=== PATIENT | female | born 1940 | race Caucasian/White ===

== ENCOUNTER 2024-06-13 15:09 | Outpatient (AMB) | payer MEDICARE, SELFPAY ==
--- NOTE | 2024-06-13 15:11 | HO.NEPHOV_ITS ---
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 She was initially on MMF and e[place] which was later discontinued. She was mild CKD and we have been following over the last 5 years. History of breast she refer benign lump in December 2018 She was diagnosed with breast CA for advised total mastectomy. History of leg edema left more than the right. History of atrial fibrillation on Coumadin [facility] Medical History (Updated 06/13/24 @ 15:15 by Vega Castellon MD) Raynaud's disease Proteinuria Malignant tumor of breast Lupus erythematosus Hypothyroidism Cardiac murmur Surgical History History of hysterectomy Family History Mother Dementia Father Diabetes Heart disease Social History Alcohol intake: never Patient Tobacco Use Status: Never used Tobacco Physical Exam Vital Signs: Last Vital Signs Pulse 84 06/13/24 15:12 BP 110/60 06/13/24 15:12 Pulse Ox 96 06/13/24 15:12 Oxygen Delivery Method Room Air 06/13/24 15:12 BMI result Body Mass Index 17.2 Const General: comfortable; No acute distress Orientation/consciousness: patient oriented x3 Eyes General: appearance normal, both eyes and all related structures Visual Thrasher: normal visual thrasher by confrontation Neck Neck: Yes supple and Yes no JVD Resp Effort & Inspection: normal respiratory effort and respiratory effort not decreased Auscultation: rhonchi Cardio Palpation: no palpable S3 and no palpable S4 Heart sounds: no rubs GI Inspection: Yes normal to inspection Palpation (GI): Soft to palpation Percussion: Yes normal to percussion Auscultation: normal bowel sounds General: Yes no CVA tenderness Back/Spine/Pelvis Back: no CVA tenderness Skin General skin exam: no petechiae and no purpura Neuro General: patient oriented x3 and no focal motor deficits Extrem General: No clubbing and No edema Results Reviewed Results Reviewed: All results reviewed Nephrology Results: No Data to Display Assessment & Plan Assessment & Plan (1) CKD (chronic kidney disease): Code(s): N18.9 - Chronic kidney disease, unspecified Category: Medical (2) Proteinuria: Code(s): R80.9 - Proteinuria, unspecified Category: Medical Plan Mild CKD. Renal function has been stable. Monitor proteinuria and serum creatinine. Continue overt nephrotoxic agents Maintain blood pressure less than 130/80. Encouraged her to stay on low-sodium diet. No changes were made today. Orders: Orders Basic Metabolic Panel 6 Months R80.9 - Proteinuria, unspecified, N18.9 - Chronic kidney disease, unspecified UA and rflx microscopic 6 Months R80.9 - Proteinuria, unspecified, N18.9 - Chronic kidney disease, unspecified Total Protein Urine Random 6 Months R80.9 - Proteinuria, unspecified, N18.9 - Chronic kidney disease, unspecified Creatinine Urine 6 Months R80.9 - Proteinuria, unspecified, N18.9 - Chronic kidney disease, unspecified Coding Level of Care Code Est Pt Level 3 (86140) Diagnoses CKD (chronic kidney disease) N18.9 Proteinuria R80.9
[2024-06-13 15:12] VITALS: BP 110/60; PULSE 84; O2SAT 96; BMI 17.2
== END 2024-06-13 15:24 | disposition home or self-care (01) ==
PROVIDERS: Visit Provider Internal Medicine Hypertension Specialist
DX: N18.2 Chronic kidney disease, stage 2 (mild) (principal); R80.9 Proteinuria, unspecified
CPT/HCPCS: 99213

== ENCOUNTER → 2024-06-13 15:09 | Outpatient (BNVA) | payer MEDICARE, SELFPAY | PROVIDERS: Visit Provider Internal Medicine Hypertension Specialist | DX: N18.9 Chronic kidney disease, unspecified (principal); R80.9 Proteinuria, unspecified | CPT/HCPCS: 99212 ==

== ENCOUNTER 2024-12-12 13:14 | Outpatient (AMB) | payer OTHER, SELFPAY ==
--- NOTE | 2024-12-12 13:01 | HO.NEPHOV_ITS ---
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: No Accompanied by: Caregiver Allergies colchicine Allergy (Unknown, Verified 12/12/24 13:05) Unknown Medication List - Last Reconciled 12/12/24 by Vega Castellon MD cholecalciferol (vitamin D3) 25 mcg PO DAILY colchicine mg PO DAILY furosemide 20 mg PO DAILY levothyroxine 25 mcg PO DAILY metoprolol tartrate 25 mg PO DAILY multivitamin 1 tab PO DAILY pantoprazole 40 mg PO DAILY rivaroxaban (Xarelto) 15 mg PO DAILY vitamin E mixed units PO DAILY FOR[facility], [facility] Medical History (Updated 06/13/24 @ 15:15 by Vega Castellon MD) Raynaud's disease Proteinuria Malignant tumor of breast Lupus erythematosus Hypothyroidism Cardiac murmur Surgical History History of hysterectomy Family History Mother Dementia Father Diabetes Heart disease Social History Alcohol intake: never Patient Tobacco Use Status: Never used Tobacco Physical Exam Vital Signs: Last Vital Signs Pulse 70 12/12/24 13:04 BP 122/72 12/12/24 13:04 Pulse Ox 96 12/12/24 13:04 Oxygen Delivery Method Room Air 12/12/24 13:04 BMI result Body Mass Index 17.7 Results Reviewed Nephrology Results: No Data to Display Assessment & Plan Assessment & Plan Orders: Orders Basic Metabolic Panel 6 Months N18.9 - Chronic kidney disease, unspecified Total Protein Urine Random 6 Months N18.9 - Chronic kidney disease, unspecified UA and rflx microscopic 6 Months N18.9 - Chronic kidney disease, unspecified Creatinine Urine 6 Months N18.9 - Chronic kidney disease, unspecified Coding
[2024-12-12 13:04] VITALS: BP 122/72; PULSE 70; O2SAT 96; BMI 17.7
--- NOTE | 2024-12-12 13:10 | HO.NEPHOV_ITS ---
Vital Signs 12/12/24 13:04 Height 5 ft 3 in Weight 100 lb BMI 17.7 BP 122/72 Blood Pressure Location Lt brachial Position Sitting Pulse 70 Pulse Source Pulse Oximeter Pulse Oximetry (%) 96 Oxygen Delivery Method Room Air Intake Visit Reasons: 6 mon follow up/ Conf Allergies colchicine Allergy (Unknown, Verified 12/12/24 13:05) Unknown Medication List - Last Reconciled 12/12/24 by Vega Castellon MD cholecalciferol (vitamin D3) 25 mcg PO DAILY colchicine mg PO DAILY furosemide 20 mg PO DAILY levothyroxine 25 mcg PO DAILY metoprolol tartrate 25 mg PO DAILY multivitamin 1 tab PO DAILY pantoprazole 40 mg PO DAILY rivaroxaban (Xarelto) 15 mg PO DAILY vitamin E mixed units PO DAILY HPI Comments Details: Pleasant 83-year-old man with a history of suspected SLE. She was initially on MMF and [place] which was later discontinued. She was mild CKD and we have been following over the last 6+ years. History of breast she refer benign lump in December 2018 She was diagnosed with breast CA for advised total mastectomy. History of leg edema left more than the right. History of atrial fibrillation on Coumadin [facility] Medical History (Updated 06/13/24 @ 15:15 by Vega Castellon MD) Raynaud's disease Proteinuria Malignant tumor of breast Lupus erythematosus Hypothyroidism Cardiac murmur Surgical History History of hysterectomy Family History Mother Dementia Father Diabetes Heart disease Social History Alcohol intake: never Patient Tobacco Use Status: Never used Tobacco Physical Exam Vital Signs: Last Vital Signs Pulse 70 12/12/24 13:04 BP 122/72 12/12/24 13:04 Pulse Ox 96 12/12/24 13:04 Oxygen Delivery Method Room Air 12/12/24 13:04 BMI result Body Mass Index 17.7 Const General: comfortable; No acute distress Orientation/consciousness: patient oriented x3 Eyes General: appearance normal, both eyes and all related structures Visual Thrasher: normal visual thrasher by confrontation Neck Neck: Yes supple and Yes no JVD Resp Effort & Inspection: normal respiratory effort and respiratory effort not decreased Cardio Palpation: no palpable S3 and no palpable S4 Heart sounds: no rubs GI Inspection: Yes normal to inspection Palpation (GI): Soft to palpation Percussion: Yes normal to percussion Auscultation: normal bowel sounds General: Yes no CVA tenderness Back/Spine/Pelvis Back: no CVA tenderness Skin General skin exam: no petechiae and no purpura Neuro General: patient oriented x3 and no focal motor deficits Extrem General: No clubbing and No edema Results Reviewed Results Reviewed: Labs pending Nephrology Results: No Data to Display Assessment & Plan Assessment & Plan (1) CKD (chronic kidney disease): Code(s): N18.9 - Chronic kidney disease, unspecified Category: Medical (2) Proteinuria: Code(s): R80.9 - Proteinuria, unspecified Category: Medical Plan Mild CKD. Renal function has been stable. Continue to monitor proteinuria and serum creatinine. Continue to avoid nephrotoxic agents including NSAIDS Maintain blood pressure less than 130/80. Encouraged her to stay on low-sodium diet. No changes were made today. Orders: Orders Basic Metabolic Panel 6 Months N18.9 - Chronic kidney disease, unspecified Total Protein Urine Random 6 Months N18.9 - Chronic kidney disease, unspecified UA and rflx microscopic 6 Months N18.9 - Chronic kidney disease, unspecified Creatinine Urine 6 Months N18.9 - Chronic kidney disease, unspecified Coding Level of Care Code Est Pt Level 4 (42836) Diagnoses CKD (chronic kidney disease) N18.9 Proteinuria R80.9
--- OUTSIDE RECORDS SUMMARY | 2024-12-12 15:56 | XMS_ITS | Clinical Summary ---
Author Organization [facility] Address [address] [place] [address] Phone Care Team Providers Care Fitness Club Manager Name Role Phone Unavailable Primary Care Provider Unavailabl e Allergies No known active allergies Medications Medication Sig Dispensed Refills Start Date End Date Status cholecalciferol (VITAMIN D-3) 25 MCG (1000 UT) tablet Take 50 mcg by mouth Active furosemide (LASIX) 20 MG tablet Take 20 mg by mouth Active levothyroxine (SYNTHROID) 25 MCG tablet Take 25 mcg by mouth Active metoprolol tartrate (LOPRESSOR) 25 MG tablet TAKE 0.5 TABLETS (12.5 MG TOTAL) BY MOUTH 2 TIMES A DAY. 07/23/2020 Active Multiple Vitamin (Multi-Vitamin) tablet Take 1 tablet by mouth 1 (one) time each day Active pantoprazole (PROTONIX) 40 MG EC tablet Take 40 mg by mouth Active rivaroxaban (XARELTO) 15 MG tablet Take 15 mg by mouth 08/01/2024 Active Vitamin E 200 units tablet Take 400 mg by mouth Active Active Problems Problem Noted Date Diagnosed Date Anemia of renal disease 01/26/2024 Secondary hyperparathyroidism 01/26/2024 Essential hypertension 10/20/2018 Social History Tobacco Use Types Packs/Day Years Used Date Smoking Tobacco: Never Assessed Sex and Gender Information Value Date Recorded Sex Assigned at Not on file Gender Identity Not on file Sexual Orientation Not on file Plan of Treatment Upcoming Encounters Date Type Department Care Team (Late st Contact Info) Description 01/02/2025 9:00 AM EDT Office Visit [facility] Nephrology [address] [place] [address] Adrian Gonzalez, DO [address] [place] [address] Health Maintenance Due Date Last Done Comments Pneumococcal PPSV23/PCV13 65 + Years / Low and Medium Risk (1 of 4 - PCV) 2005 Influenza Vaccine (#1) 2024
--- OUTSIDE RECORDS SUMMARY | 2024-12-12 15:56 | XMS_ITS | Clinical Summary ---
Author Organization [facility] Address [address] [place] [address] Care Team Providers Care Warehouse And Receiving Supervisor Name Role Phone Arnulfo Stephan Primary Care Provider [phone] Allergies No known active allergies Medications Medication Sig Dispensed Refills Start Date End Date Status levothyroxine (SYNTHROID, LEVOTHROID) 25 MCG tablet Take 25 mcg by mouth daily on an empty stomach. Active hydroxychloroquine (PLAQUENIL) 200 MG tablet Take 400 mg by mouth every evening after dinner. With food or milk. Active mycophenolate (CELLCEPT) 500 MG tablet Take 500 mg by mouth every evening. Active Calcium-Magnesium- Vitamin D (CALCIUM 1200+D3 PO) Take 1 tablet by mouth daily. Active acetaminophen (TYLENOL) 325 MG tablet Take 650 mg by mouth 4 times daily (every 6 hours) as needed for mild pain. Active PANTOprazole (PROTONIX) 40 MG EC tablet Take 40 mg by mouth daily. 01/04/2020 Active predniSONE (DELTASONE) 10 MG tablet 6 TABS DAILY X 3 DAYS 4 TABS DAILY X 3 DAYS 2 TABS DAILY X 3 DAYS 1 TAB DAILY X 3 DAYS 01/10/2020 Active warfarin (COUMADIN) 7.5 MG tablet Take 7.5 mg by mouth 6 (six) times a week. Mon, Tues, Wed, Thurs, Fri, Sat Take in morning 12/10/2019 Active metoPROLOL TARTRATE (LOPRESSOR) 25 MG tabletIndications: Supratherapeutic INR Take 0.5 tablets (12.5 mg total) by mouth 2 (two) times a day. 30 tablet 01/25/2020 Active warfarin (COUMADIN) 7.5 MG tablet Take 3.75 mg by mouth once a week. on Tuesday Active amoxicillin (AMOXIL) 875 MG tablet Take 875 mg by mouth 2 (two) times a day. 02/04/2020 Active metroNIDAZOLE (METROGEL) 1 % gel APPLY TO FACE EVERY DAY AT BEDTIME 07/07/2020 Active furosemide (LASIX) 20 MG tablet Take 20 mg by mouth daily. 05/19/2020 Active cephalexin (KEFLEX) 500 MG capsuleIndications :Fever, unspecified fever cause,Cellulitis of right hand Take 1 capsule (500 mg total) by mouth 3 (three) times a day. 21 capsule 08/13/2020 Active multivitamin (multivitamin) Tab tablet Take 1 tablet by mouth daily. 01/26/2020 Discontinued (Therapy completed) Active Problems Problem Noted Date Diagnosed Date Supratherapeutic INR 01/17/2020 Suspected COVID-19 virus infection 01/17/2020 Atrial fibrillation with RVR 01/17/2020 Anticoagulated on Coumadin 01/17/2020 Acute on chronic anemia 01/17/2020 Lung consolidation 01/17/2020 PUD (peptic ulcer disease) 01/17/2020 Encounters Date Type Department Care Team Description 10/15/2024 Scanned Document [facility] Department of Cardiology [address] [place] [address] Staci Barajas MD from Last 3 Months Family History Medical History Relation Name Comments No Known Problems Father No Known Problems Mother Relation Name Status Comments Father Mother Social History Tobacco Use Types Packs/Day Years Used Date Smoking Tobacco: Never Smokeless Tobacco: Never Alcohol Use Standard Drinks/Week Comments Not Currently 0 (1 standard drink = 0.6 oz pur e alcohol) Sex and Gender Information Value Date Recorded Sex Assigned at Not on file Gender Identity Not on file Sexual Orientation Not on file Last Filed Vital Signs Vital Sign Reading Time Taken Comments Blood Pressure 145/84 08/13/2020 4:52 PM EDT Pulse 82 08/13/2020 4:52 PM EDT Temperature 38.1 ??C (100.6 ??F) 08/13/2020 4:52 PM E DT Respiratory Rate 16 02/07/2020 10:07 AM EDT Oxygen Saturation 98% 08/13/2020 4:52 PM EDT Inhaled Oxygen Concentration - - Weight 47.6 kg (105 lb) 08/13/2020 4:52 PM EDT Height 162.6 cm (5' 4 ) 08/13/2020 4:52 PM EDT Body Mass Index 18.02 08/13/2020 4:52 PM EDT Plan of Treatment Health Maintenance Due Date Last Done Comments DTaP/Tdap/Td Vaccines (1 - Tdap) 1959 Pneumococcal Vaccines 50+ (1 of 2 - PCV) 1959 Zoster (Shingles) Vaccine (1 of 2) 1959 DXA Bone Density (Females,Ages 65 and older) 2005 RSV Vaccine 60 years and older and Patients (1 - 1-dose 75+ series) 2015 COVID-19 Vaccine (3 - Pfizer risk series) 01/13/2021 12/16/2020, 11/25/2020 Influenza Vaccine 05/17/2024 Hepatitis B Vaccines Aged Out No long er eligible based on patient's age to complete this topic Advance Directives * Full Code (Latest Code Status on File) Date Activated Date Inactivated Comments 01/17/2020 2:07 PM Question Answer Comments Decision Thoroughly Discussed with: Patient Care Teams Warehouse And Receiving Supervisor Relationship Specialty Start Date End Date Stephan Arredondo DO [address] [place] [id number] PCP - General Family Medicine 08/05/17
--- OUTSIDE RECORDS SUMMARY | 2024-12-12 15:56 | XMS_ITS | Data Portability ---
Author Organization [place] - [facility] Address [address] [place] [address] Care Team Providers Care Black Top Spreader Machine Operator Name Role Phone KIM BUCK Primary Care Provider Assessment No assessment recorded. Plan of Treatment Reminders Order Date Submit Date Provider Last Modified By Organization Details Last Modified Time Details Appointments None recorded. Lab fecal occult blood, stool 2017 rberke In-Office Order, Internal Use Only DO Not Attach Compendium DO Not Attach Compendium, Do Not Delete/merge, [id number] 8 20:50:52 pap, IG + reflex HPV 2017 018 [facility], [address] [place], [address] 8 11:59:27 Referral None recorded. Procedures None recorded. Surgeries None recorded. Imaging MAMMO, screening, digital, bilateral - bilateral screening u/s for dense breasts if needed. 2017 018 [facility], [address], [place], [address], 8 12:15:51 DEXA, axial skeleton 2017 018 [facility], [address], [place], [address], 8 12:15:52 Medication Orders None recorded. Patient TargetsNo targets recorded. Patient Instructions Encounter Date Encounter Id Patient Instructions Last Modified By Organization Details Last Modified Time 07/31/2018 [id number] self breast exam education rberke Not available 08/01/2018 20:50:52 tips to help you stay healthy rberke Not available 08/01/2018 20:50:52 Reason for Referral None Reported. Results Created Date Observation Date Name Description Value Unit Range Abnormal Flag Note LastModifiedBy Organization Detail LastModifiedTime 07/31/20 18 07/31/2018 fecal occul t blood , stool Occult Blood negati ve Not Available In-Office Order Internal Use Only DO Not Attach Compendium DO Not Attach Compendium, Do Not Delete/merge, [id number] 07/31/2018 12:55:58 07/31/20 18 08/01/2018 pap, IG + refle x HPV report GYNEC OLOGI RAFAELA CYTOL OGY REPOR T A. THINP REP PAP TEST WITH HPV REFLE X: SPECI MEN ADEQU ACY: SATIS FACTO RY FOR EVALU ATION . INTER PRETA TION: NEGAT ISABELL FOR INTRA EPITH ELIAL LESIO N OR MALMARISA VALLE . ATROP HY. Elect sylvester pedro Dina d Out By: NEERU KO( CP) CLINI RAFAELA INFOR MATIO N: LMP: NI Z12.7 2 Biops y Date: NI Numbe r of vials /slid es submi tted: 1 Speci men sourc e: CERVI X/END OCERV IX Abnor mal Pap Date: NI Autom ated presc reeni ng of all liqui d based speci mens is perfo rmed by the ThinP rep Imagi ng Syste m, unles s other cummins state d. The Pap test is a scree joanne test with an inher ent false negat isabell rate. Testi ng perfo rmed at [facility] , [address] [place] [address] CLIA [id number]. Not Available [facility] [address] [place], [address] 08/01/2018 11:59:27 08/17/20 18 08/16/2018 MAMMO , scree joanne, digit al, bilat eral No observ ation record ed. [email or web address] [facility] [address], [place], [address], 08/21/2018 11:29:36 08/17/20 18 08/16/2018 DEXA, axial skele ton No observ ation record ed. [address] [facility] [address], [place], [address], 08/21/2018 11:29:36 Result Notes None recorded. Problems Name Problem SNOMED Code Status Onset Date Resolution Date Notes Provider Name and Address Organization Details Recorded Time Lupus erythematosus 738705910 Active 2017 DO NOT USE DO NOT USE null, [place] [facility] 8 12:49:22 Problem Notes None recorded. Procedures Surgical History Date Name Laterality Status Provider Name and Address Organization Details Recorded Time 8 Medicare Exam completed DO NOT USE DO NOT USE [facility] 07/31/2018 12:58:12 8 Screening PAP Medicare completed DO NOT USE DO NOT USE [facility] 07/31/2018 12:58:14 8 Date of Last Pap Smear completed DO NOT USE DO NOT USE [facility] 07/31/2018 12:52:52 8 Date of Last Colonoscopy completed DO NOT USE DO NOT USE [facility] 07/31/2018 12:53:11 7 Date of Last Mammogram completed DO NOT USE DO NOT USE [facility] 07/31/2018 12:53:03 Imaging Results Imaging Date Name Status LastModified by Organiz ation Details LastModified Time 08/16/2018 MAMMO, screening, digital, bilateral completed [address] [facility] [address], [place], [address], 08/21/2018 11:29:36 08/16/2018 DEXA, axial skeleton completed [address] [facility] [address], [place], [address], 08/21/2018 11:29:36 Procedure Notes None recorded. Medical Equipment None Reported. Allergies No known drug allergies Medications Name Sig Start Date Stop Date Status Note LastModified by Organization Details LastModified Time mirtazapine 15 mg tabs active Not Available Not Available Not Available oxycodone hcl 5 mg tabs 07/31 completed Not Available Not Available Not Available ibandronate sodium 150 mg tabs active Not Available Not Available Not Available hydroxychloroqui ne sulfate 200 mg tabs active Not Available Not Available Not Available polyethylene glycol 3350 powd 07/31 completed Not Available Not Available Not Available doxycycline hyclate 100 mg tabs 07/31 completed Not Available Not Available Not Available prednisone 20 mg tabs active Not Available Not Available Not Available mycophenolate mofetil 500 mg tabs active Not Available Not Available Not Available nifedipine er 30 mg tb24 active Not Available Not Available Not Available premarin 0.625 mg/gm crea active Not Available Not Available N ot Available ibuprofen 400 mg tabs 07/31 completed Not Available Not Available Not Available levothyroxine sodium 25 mcg tabs active Not Available Not Available Not Available Vitals Date Recorded Body height Body mass index (BMI) Body weight Systolic blood pressure Diastolic blood pressure Provider Name and Address Organization Details Last Updated DateTime 07/31/2018 160.02 cm 17.2 kg/m2 02560.46 g 104 mm[Hg] 66 mm[Hg] DO NOT USE DO NOT USE [facility] 8 12:55:01 Social History Question Answer Notes LastModified by Organizat ion Details LastModified Time Tobacco Smoking Status Never Smoker DO NOT USE DO NOT USE null, [facility] 07/31/2018 12:52:23 What Is Your Level Of Alcohol Consumption? None Information not available 07/31/2018 Does Your Partner Physically Hurt You Or Threaten To Hurt You? No Information not available 07/31/2018 Has Your Partner Forced You To Have Sex Or Perform Sex Acts When You Did Not Want To? No Information not available 07/31/2018 Does Your Partner Insult, Scream At Or Talk Down To You? No Information not available 07/31/2018 Does Your Partner Control You Or Any Part Of Your Life? No Information not available 07/31/2018 Are You Afraid Of Your Partner? No Information not available 07/31/2018 Do You Feel Safe At Home? Yes Information not available 07/31/2018 What Was The Date Of Your Most Recent Tobacco Screening? 07/31/2018 Information not available 05/09/2019 How Much Tobacco Do You Smoke? No Information not available 07/31/2018 Sex: Unknown Functional Status Question Answer Note LastModified by Organizat ion Details LastModified Time What is your exercise level? Occasional treadmill Information not available 07/31/2018 Mental Status None recorded. Family History Relationship Description Onset Age of this Age Resolved Age Notes LastModified by Organization Details LastModified Time Father Diabetes mellitus [email or web address] Not available 2017 12:51:10 Father Procedure on heart [email or web address] Not available 2017 12:51:17 Medical History No medical history recorded. Gynecological History Statement/Question Response Current Control Method Hysterectom y Date of Last Pap Smear 07/31/2018 Date of Last Mammogram 07/17/2017 Date of Last Colonoscopy 04/16/2018 Obstetrics History GPAL:G 3 P 3 0 0 3 Type Value Full Term 3 Living 3 Total 3 Past Encounters Encounter ID Performer Location Encounter Start Date Encounter Closed Date Diagnosis/Indication Diagnosis SNOMED-CT Code Diagnosis ICD10 Code Diagnosis Note [id number] KEYANA MUELLER MD [facility] [address] [place] [address] 07/31/2018 12:23:05 07/31/2018 13:32:26 Gynecologic examination 22461283 Z01.419 patient is here today for a full mdcr annual Menopause present 544923 006 N95.1 Review when to perform bone density evaluation . Screening mammography 24 325083 Z12.31 Advised to obtain a yearly screening mammogram and to perform monthly self breast exam. Screening for malignant neoplasm of rectum 815614133 Z12.12 FIT test performed and was negative. Screening for malignant neoplasm of vagina 598201824 Z12.72 Health Concerns Section Related Observation LastModified by Organization Detai ls LastModified Time None Recorded Concern Status LastModified by Organization Details LastModified Time None Recorded Advance Directives Directive None Recorded Payers Encounter Date Sequence Insurance Name Policy Number Policy Hall Covered Member ID Hall Member ID Guarantor Name 07/31/2018 1 MEDICARE B-CT: NGS Jackelyn De Guzman [id number] Jackelyn De Guzman 07/31/2018 2 [facility] (O) [id number] Jackelyn De Guzman [id number] Jackelyn De Guzman Notes Date Note Type Note Provider Name and Address Organization Details Recorded Time 07/31/2018 text/html [facility] Annual GYNReported bypatient.History: no gynecologic complaints Menstrual cycle:postmenopaus al Urinary symptoms:No hematuria; No incontinence Vulva:No genital lesion Vagina:Normal vaginal discharge Breast:No breast pain; No breast lump; No nipple discharge Sexual activity:sexually active no; No sexual complaints; No pain during intercourse; Normal libido Menopausal symptoms:No menopausal symptoms; Normal vaginal lubrication Psychological symptoms:No depression; No anxiety; No PMDD Preventive measures:Encourage self breast examination; Encourage regular exercise; Encourage no tobacco use; Encourage regular mammograms starting age 40; Followed with Q3 year pap smear and high risk HPV typing KEYANA MUELLER MD [address] [place] [address], [address], [place], [address], [place] [facility] 07/31/2018 13:53:44 OBGyn Episode No OBEpisode recorded.
--- OUTSIDE RECORDS SUMMARY | 2024-12-12 15:56 | XMS_ITS | Continuity of Care Document ---
Author Organization [place] [facility] Address [address] [place] [address] Care Team Providers Care Medical Clinic Manager Name Role Phone STEPHAN BUCK Primary Care Provider MELYSSA BELLA Cover Maker KIRBY SIDDIQI Patrol Officer YASMANI CISSE Cheese Specialist [phone] [place] Medical Oncologist CAMRON BREWER [place] Assessment No assessment recorded. Plan of Treatment Reminders Order Date Submit Date Provider Last Modified By Organization Details Last Modified Time Details Appointments MEDICARE FOLLOW UP LONG 2024 10:30A M Stephan Buck, DO Not available Not available Not available MEDICARE ANNUAL WELLNESS 2024 08:30A M Stephan Buck, DO Not available Not available Not available Lab None recorded. Referral None recorded. Procedures None recorded. Surgeries None recorded. Imaging None recorded. Medication Orders colchicin e 0.6 mg tablet 2024 025 [facility]/Pharmacy #[id number], [address] [place], [address], 11/21/2024 13:42:31 cephalexi n 500 mg capsule 2024 025 [facility]/Pharmacy #[id number], [address] [place], [address], 11/21/2024 13:42:31 Patient TargetsNo targets recorded. Patient Instructions Encounter Date Encounter Id Patient Instructions Last Modified By Organization Details Last Modified Time 11/21/2024 [id number] Extensive review of both hospital visits, problem list, and medication list with both the patient and her caregiver, all questions were answered to the best of my ability With the patient's specialist and the reasons why she sees the specialist was printed and provided to the patient today Medication list was reviewed as to why she is taking each medication, the list was printed and provided to the patient today [email or web address] Not available 11/22/2024 10:38:34 Reason for Referral None Reported. Results Created Date Observation Date Name Description Value Unit Range Abnormal Flag Note LastModifiedBy Organization Detail LastModifiedTime 11/14/1911/14/2024 ED provi giovanni notes No observ ation record [email or web address] [address], [address], 11/15/2024 11:05:01 11/17/19 25 11/17/2024 ED provi giovanni notes No observ ation record [facility] [email or web address] [address], [address], 11/19/2024 12:38:14 11/21/1911/14/2024 consu lts No observ ation record ed. [facility] [email or web address] [address], [address], 11/22/2024 10:55:25 Result Notes None recorded. 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 Completed 10/18/2023 Problem Code: H69.90; Problem Code Type: ICD-10; Stephan Buck DO [address] [place], [address], [facility] 12:26:19 Active immuniza tion Completed 10/18/2023 Problem Code: Z23; Problem Code Type: ICD-10; DO Arlene Marcano , [place], [address], [facility] 01/02/202 4 12:26:19 Adult health examinat ion Active Problem Code: Z00.00; Problem Code Type: ICD-10; DO Arlene Marcano [facility], [place], [address], [facility] 4 12:26:37 Cough 04883103 Completed 08/22/2023 DO Arlene DEL VALLE [facility], [place], [address], [facility] 3 07:44:37 Body mass index less than 20 534228289 Active Problem Code: Z68.1; Problem Code Type: ICD-10; DO Arlene Marcano [facility], [place], [address], [facility] 4 12:26:37 Long-ter m current use of drug therapy 807620752 Active Problem Code: Z79.899; Problem Code Type: ICD-10; DO Arlene Marcano [facility], [place], [address], Utility [facility] 4 12:26:37 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 Active LEFT, ER-/PA-, Dr Coleman, s/p mastecto my Problem Code: D05.12; Problem Code Type: ICD-10; DO Arlene DEL VALLE [facility], [place], [address], [facility] 3 07:43:50 Atherosc lerosis of coronary artery without angina pectoris 57819913218 4103 Active stenosis of celiac artery per CT 10/11/18 Problem Code: I25.10; Problem Code Type: ICD-10; DO Arlene DEL VALLE [facility], [place], [address], [facility] 3 07:43:50 Diastoli c heart failure 737353118 Active Grade 3 per echo 06/02 Problem Code: I50.30; Problem Code Type: ICD-10; DO Arlene DEL VALLE [facility], [place], [address], [employer] [facility] 3 07:43:50 Aortic valve regurgit ation 34363807 Active Moderate per ECHO 11/2016 Problem Code: I35.1; Problem Code Type: ICD-10; DANIA LYNN DO [address] [facility], [place], [address], [employer] [facility] 3 07:43:50 Rheumati c mitral stenosis 56918221 Active Moderate per ECHO 11/2016 Problem Code: I05.0; Problem Code Type: ICD-10; DANIA LYNN DO [address] [facility], [place], [address], [employer] [facility] 3 07:43:51 Rheumati c tricuspi d valve regurgit ation 30513797 Active Problem Code: I07.1; Problem Code Type: ICD-10; DO Arlene DEL VALLE [facility], [place], [address], [employer] [facility] 3 07:43:50 Paroxysm al atrial fibrilla tion 571222608 Active on xarelto and metorpol ol per Dr Colunga Problem Code: I48.0; Problem Code Type: ICD-10; DO Arlene DEL VALLE [facility], [place], [address], [employer] [facility] 3 07:43:50 Systemic lupus erythema tosus 91838542 Active + FHx in sister; Dr Rincon Problem Code: M32.9; Problem Code Type: ICD-10; DO Arlene DEL VALLE [facility], [place], [address], [employer] [facility] 3 07:43:50 Raynaud' s disease 204406675 Active w/+ARTURO 1:160; sister has SLE; Dr Rincon Problem Code: I73.00; Problem Code Type: ICD-10; DO Arlene DEL VALLE [facility], [place], [address], [facility] 3 07:43:50 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, 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 Problem Code: M11.80; Problem Code Type: ICD-10; DANIA LYNN DO [address] [facility], [place], [address], [facility] 3 07:43:50 Hypothyr oidism 73805493 Active Problem Code: E03.9; Problem Code Type: ICD-10; DANIA LYNN DO [address] [facility], [place], [address], [facility] 3 07:43:50 Gastroes ophageal reflux disease without esophagi tis 289757956 Active on pantopra zole qD Problem Code: K21.9; Problem Code Type: ICD-10; DANIA LYNN DO [address] [place], [address], [facility] 3 07:43:50 History of peptic ulcer 876691452 Active 10 mm gastric ulcer per EGD 11/04; s/p blood transfus ion Problem Code: Z87.11; Problem Code Type: ICD-10; DO Arlene DEL VALLE [facility], [place], [address], [facility] 3 07:43:50 High enzyme level in serum 662504545 Completed 10/18/2023 Problem Code: R74.8; Problem Code Type: ICD-10; DO Arlene Marcano [facility], [place], [address], [employer] [facility] 4 12:27:27 Osteopor osis 29168041 Active 04/2013- Off HRT; Boniva started 08/25, d/c 04/28- Dr Kearns Problem Code: M81.8; Problem Code Type: ICD-10; DO Arlene DEL VALLE [facility], [place], [address], [employer] [facility] 3 07:43:50 Osteoart hritis 664151073 Active Problem Code: M19.90; Problem Code Type: ICD-10; DO Arlene DEL VALLE [facility], [place], [address], [employer] [facility] 3 07:43:50 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 24326636348 871819 Active undergoi ng treatmen t 10/2016 Problem Code: I83.93; Problem Code Type: ICD-10; DO Arlene DEL VALLE [facility], [place], [address], [employer] [facility] 3 07:43:50 Cataract 999738312 Active OU s/p repair 05/2017 Problem Code: H26.9; Problem Code Type: ICD-10; DO Arlene Marcano [facility], [place], [address], [employer] [facility] 4 12:26:37 Primary malignan t neoplasm 818796684 Active (L) Dr Mayra morrison Problem Code: C80.1; Problem Code Type: ICD-10; DO Arlene DEL VALLE [facility], [place], [address], [employer] [facility] 3 07:43:50 Posterio r rhinorrh ea 69177116 Active Problem Code: R09.82; Problem Code Type: ICD-10; DO Arlene Marcano [facility], [place], [address], [employer] [facility] 4 12:26:37 Bilatera l acquired eyelid ptosis 03616167283 928986 Active Problem Code: H02.403; Problem Code Type: ICD-10; DO Arlene DEL VALLE [facility], [place], [address], [place] [employer] [facility] 3 07:43:50 Chronic kidney disease 702998092 Active 3B Problem Code: N18.9; Problem Code Type: ICD-10; DO Arlene DEL VALLE [facility], [place], [address], [employer] [facility] 3 07:43:50 Gastroin testinal hemorrha ge 92828965 Completed 10/18/2023 Problem Code: K92.2; Problem Code Type: ICD-10; DO Arlene Marcano [facility], [place], [address], [employer] [facility] 4 12:27:27 Neck pain 17741484 Completed 10/18/2023 Problem Code: M54.2; Problem Code Type: ICD-10; DO Arlene Marcano [facility], [place], [address], [employer] [facility] 4 11:16:02 Bilatera l disorder of Eustachi an tubes 98898667754 18699 Completed 10/18/2023 Problem Code: H69.93; Problem Code Type: ICD-10; DO Arlene Marcano [facility], [place], [address], [employer] [facility] 4 12:26:19 Dysphagi a 77823311 Completed 08/22/2023 Problem Code: R13.10; Problem Code Type: ICD-10; DO Arlene DEL VALLE [facility], [place], [address], [employer] [facility] 3 07:44:37 Early satiety 327407683 Completed 10/18/2023 Problem Code: R68.81; Problem Code Type: ICD-10; Stephan Buck DO [address], [place], [address], [place] [facility] 4 12:26:19 Dyspnea 636399171 Completed 08/22/2023 Problem Code: R06.09; Problem Code Type: ICD-10; DO Arlene DEL VALLE [address], [place], [address], [place] [facility] 3 07:44:37 Recurren t falls 816962250 Completed 10/18/2023 Problem Code: R29.6; Problem Code Type: ICD-10; DO Arlene Marcano [facility], [place], [address], [place] - [employer] [facility] 4 12:26:19 Fatigue 68922182 Completed 08/22/2023 Problem Code: R53.83; Problem Code Type: ICD-10; DO Arlene DEL VALLE [facility], [place], [address], [place] [employer] [facility] 3 07:44:37 Fever 344260394 Completed 08/22/2023 Problem Code: R50.9; Problem Code Type: ICD-10; DO Arlene DEL VALLE [facility], [place], [address], [place] [employer] [facility] 3 07:44:37 Coag./bl eeding tests abnormal 419683864 Completed 10/18/2023 Problem Code: R79.1; Problem Code Type: ICD-10; DO Arlene Marcano [facility], [place], [address], [place] - [employer] [facility] 4 12:26:19 Dizzines s and giddines s 280449888 Completed 08/22/2023 Problem Code: R42; Problem Code Type: ICD-10; DO Arlene DEL VALLE [facility], [place], [address], [email or web address] [facility] 3 07:44:37 Breast lump 07451447 Completed 10/18/2023 R, lesion removed Dr Coleman 07/2016 Problem Code: N63; Problem Code Type: ICD-10; Stephan Buck DO [address] [facility], [place], [address], [email or web address] [facility] 4 12:27:27 Arthralg ia of the ankle and/or foot 644276353 Completed 10/18/2023 Problem Code: M25.572; Problem Code Type: ICD-10; Stephan Buck DO [address] [facility], [place], [address], [email or web address] 4 12:26:19 Sleep disorder 53800201 Completed 10/18/2023 Problem Code: G47.9; Problem Code Type: ICD-10; DO Arlene Marcano [facility], [place], [address], [email or web address] [employer] 4 12:26:19 Disorder of soft tissue 01727130 Completed 08/22/2023 Problem Code: M79.89; Problem Code Type: ICD-10; DO Arlene DEL VALLE [facility], [place], [address], [email or web address] 3 07:44:37 Acute upper respirat ory infectio n 36826478 Completed 08/22/2023 DO Arleen DEL VALLE [facility], [place], [address], [email or web address] 3 07:44:37 Abnormal weight loss 821203179 Completed 08/22/2023 Problem Code: R63.4; Problem Code Type: ICD-10; DO Arlene DEL VALLE [facility], [place], [address], [place] [employer] [facility] [employer] 3 07:44:37 Bacteria l pneumoni a 12407792 Completed 08/22/2023 DO Arlene DEL VALLE [facility], [place], [address], [place] - [employer] [facility] [employer] 3 07:44:37 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 562360092 Active Problem Code: E79.0; Problem Code Type: ICD-10; Stephan Buck DO [address] [facility], [place], [address], [place] [facility] [employer] [facility] [employer] 4 12:26:37 Dysuria 66072456 Active 2023 Stephan Buck, DO [address] [facility], [place], [address], [place] [facility] [employer] [facility] [employer] 4 12:26:45 Neck pain 51883498 Active 2023 Problem Code: M54.2; Problem Code Type: ICD-10; Stephan Buck DO [address] [facility], [place], [address], [place] - [employer] [facility] [employer] 4 11:16:02 Multiple joint pain 24828924 Active 2023 Stephan Buck DO [address] [facility], [place], [address], [place] - [employer] [facility] [employer] 4 11:19:21 Leukocyt osis 464239510 Active 2023 Stephan Buck DO [address] [facility], [place], [address], [place] - [employer] [facility] [employer] 4 11:24:30 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 Active 2023 Stephan Buck DO [address] [facility] [place], [address], [place] - [employer] [facility] [employer] 4 12:01:28 Impacted cerumen in right ear 22123953012 35396 Active 2023 Stephan Buck DO [address] [facility] [place], [address], [place] [facility] [employer] 12:00:56 Memory impairme nt 581885008 Active 2023 [place], [address], [employer] 4 12:12:22 Cellulit is of right lower limb 30929994414 770792 Active 2024 [place], [address], [employer] 13:22:59 Problem Notes None recorded. Procedures Surgical History Date Name Laterality Status Provider Name and Address Organization Details Recorded Time 024 EGFPCerumen Removal [place], [address], [employer] 04/24/2024 12:00:48 024 EGFPMammogramReport Z1231 [place], [address], [employer] 04/11/2024 07:56:55 024 EGFPDEXAReport [id number] [place], [address], [employer] 04/11/2024 07:57:20 024 EGFPAdvDirectDocumentZ 7189 [place], [address], [employer] 04/11/2024 07:55:49 023 EGFPTCMMedsFromD/CSumm elizabeth [place], [address], [employer] 08/23/2023 23:05:50 023 Most Recent Mammogram completed Raya richards [employer] 10/18/2023 11:28:29 01/01/2 008 Date of Last Pap Smear completed Raya Caraballo er [facility] 10/18/2023 11:28:12 Imaging Results None recorded. Procedure Notes None recorded. Medical Equipment None Reported. Allergies Allergen ID Allergen Name Allergen Category Reaction Reaction Severity Criticality Documentation Date Start Date Code Code System Note Provider Name and Address Organization Details Recorded Time 66705 nifedipin e medicatio n Not available Not available Not available 06/24/20232006 7417 RxNorm Not Available [facility] 3 01:51:52 23744 Eliquis medicatio n Not available Not available Not available 10/18/2023 07725 36 RxNorm night josue Stephan Buck DO [address] [place], [address], [facility] 4 11:42:04 32187 Cellcept medicatio n Not available Not available Not available 10/18/2023 17583 3 RxNorm Stephan Buck DO [address] [place], [address], [facility] 4 11:42:18 Medications Name Sig Start Date Stop Date Status Note LastModified by Organization Details LastModified Time Coumadin 7.5 mg tablet take 1 tablet (7.5 mg) by oral route once daily 02/04 completed Not Available Not Available Not Available Coumadin 2.5 mg tablet Dosing per Dr Sosa as 02/05/20 -- 3.75 mg on Tuesday and 7.5 mg Mon - Sat 09/08 completed Not Available Not Available Not Available anastrozole 1 mg tablet Take 1 Tablet ORAL daily. 02/04 completed Not Available Not Available Not Available ketoconazol e 2 % shampoo APPLY TO SCALP LATHER LET SIT THEN RINSE 3 X WEEKLY 09/25 completed Not Available Not Available Not Available Carafate 1 gram tablet Take 1 Tablet ORAL four times each day. 10/27 completed Not Available Not Available Not Available prednisone 5 mg tablet TAKE 1 TABLET BY MOUTH EVERY DAY active Not Available Not Available No t Available loteprednol etabonate 0.2 % eye drops,suspe nsion INSTILL 1 DROP INTO BOTH EYES TWICE A DAY 04/11 completed Not Available Not Available Not Available triamcinolo ne acetonide 0.1 % topical cream APPLY A THIN LAYERS EVERYDAY NEEDED 01/22 completed Not Available Not Available Not Available levothyroxi ne 25 mcg tablet 1 {tbl} by oral route. active Not Available Not Available No t Available mycophenola te mofetil 500 mg tablet take 1 tablets daily 03/09 completed Not Available Not Available Not Available oxycodone-a cetaminophe n 5 mg-325 mg tablet TAKE 1 TABLET BY MOUTH EVERY 8 (EIGHT) HOURS NEEDED FOR PAIN FOR UP TO 5 DOSES. 10/18 completed Not Available Not Available Not Available amoxicillin 875 mg tablet take 1 tablet (875 mg) by oral route every 12 hours x 7 days 02/18 completed Not Available Not Available Not Available Valium 5 mg tablet take 1 tablet (5 mg) by oral route 2 times per day BID PRN 04/06 completed Not Available Not Available Not Available metronidazo le 0.75 % lotion APPLY TO FACE TWICE A DAY 09/25 completed Not Available Not Available Not Available cephalexin 500 mg capsule TAKE 1 CAPSULE BY MOUTH THREE TIMES A DAY FOR 3 DAYS active Not Available Not Available No t Available pantoprazol e 40 mg tablet,zenaida yed release TAKE 1 TABLET BY MOUTH EVERY DAY active Not Available Not Available No t Available erythromyci n 5 mg/gram (0.5 %) eye ointment PLEASE SEE ATTACHED FOR DETAILED DIRECTION S 10/18 completed Not Available Not Available Not Available metronidazo le 0.75 % topical cream APPLY TO FACE TWICE A DAY 09/25 completed Not Available Not Available Not Available cephalexin 500 mg tablet take 1 tablet (500 mg) by oral route 2 times per day x 7 days 09/08 completed Not Available Not Available Not Available lisinopril 5 mg tablet Take 1 Tablet ORAL once a day for 30 days. 10/19 completed Not Available Not Available Not Available furosemide 20 mg tablet 20 mg by oral route. active Not Available Not Available No t Available mirtazapine 15 mg tablet Take 1 Tablet ORAL at bedtime. 11/21 completed Not Available Not Available Not Available loteprednol etabonate 0.5 % eye drops,suspe nsion INSTILL 1 DROP INTO BOTH EYES TWICE A DAY active Not Available Not Available No t Available azelastine 137 mcg (0.1 %) nasal spray USE 2 SPRAYS BY INTRANASA L ROUTE TWICE A DAY active Not Available Not Available No t Available methylpredn isolone 4 mg tablets in a dose pack TAKE 6 TABLETS ON DAY 1 DIRECTED ON PACKAGE AND DECREASE BY 1 TAB EACH DAY FOR A TOTAL OF 6 DAYS active Not Available Not Available No t Available ferrous sulfate 325 mg (65 mg iron) tablet,zenaida yed release TAKE 1 TABLET BY MOUTH EVERY DAY 10/18 completed Not Available Not Available Not Available ipratropium bromide 42 mcg (0.06 %) nasal spray 09/25 completed Not Available Not Available Not Available colchicine 0.6 mg tablet TAKE 1 TABLET BY MOUTH EVERY DAY active Not Available Not Available No t Available ipratropium bromide 21 mcg (0.03 %) nasal spray SPRAY 2 SPRAYS INTO EACH NOSTRIL TWICE A DAY active Not Available Not Available No t Available neomycin 3.5 mg/g-polymy jose B 10,000 unit/g-dexa meth 0.1 % eye oint APPLY 1 RIBBON ON THE EYELIDS OF BOTH EYES TWICE A DAY OR NEEDED 11/21 completed Not Available Not Available Not Available Premarin 0.625 mg/gram vaginal cream Take Cream Vaginal . 01/22 completed Not Available Not Available Not Available metoprolol tartrate 25 mg tablet TAKE 0.5 TABLETS (12.5 MG TOTAL) BY MOUTH 2 TIMES A DAY. 2024 active Not Available Not Available Not Avai lable nitrofurant oin monohydrate /macrocryst als 100 mg capsule TAKE 1 CAPSULE ORAL TWICE EACH DAY FOR 5 DAYS. 01/08 completed Not Available Not Available Not Available ibandronate 150 mg tablet 1 tab once weekly per Dr Ricnon 02/04 completed Not Available Not Available Not Available triamcinolo ne acetonide Take apply ORAL thinly qd as needed. 08/11 completed Not Available Not Available Not Available Zithromax TAKE TWO CAPSULES NOW THEN TAKE ONE CAPSULE DAILY FOR FOUR MORE DAYS. TAKE with A MEAL. 02/02 completed Not Available Not Available Not Available vitamin E 1 capsule by mouth once daily active Not Available Not Available No t Available oxycodone-a cetaminophe n Take 1/2-1 Tablet ORAL for severe pain q 6hr for 10 days as needed. 07/29 completed Not Available Not Available Not Available Aspirin EC Take 1 Tablet ORAL daily. 10/27 completed Not Available Not Available Not Available lorazepam Take 1 /2-1 Tablet ORAL TID. 08/14 completed Not Available Not Available Not Available Elocon Take apply External thinly qD as needed. 11/01 completed Not Available Not Available Not Available prednisone Take 2 Tablet ORAL daily for 5 days. 05/01 completed Not Available Not Available Not Available lisinopril Take 1 Tablet ORAL qd. 08/26 completed Not Available Not Available Not Available Plaquenil Take 1 Tablet ORAL QD. 06/02 completed Not Available Not Available Not Available flaxseed Take 1 ORAL daily. 01/29 completed Not Available Not Available Not Available nifedipine Take 1 Tablet ORAL QD. 12/08 completed Not Available Not Available Not Available Vitamin D3 2000 IU by mouth once daily active Not Available Not Available No t Available [facility] Levothyroxi ne Sodium Take 1 Tablet ORAL qd. 08/12 completed Not Available Not Available Not Available Lidoderm Take 1 Patch External daily for 30 days. 11/03 completed Not Available Not Available Not Available multivitami n 1 tablet by mouth once daily active Not Available Not Available No t Available Premarin Take 1 Tablet ORAL QD. 09/10 completed Not Available Not Available Not Available Boniva Take 1 Tablet ORAL once a month as directed. 09/10 completed Not Available Not Available Not Available azelastine 205.5 mcg (0.15 %) nasal spray spray 1 spray (205.5 mcg) in each nostril by intranasa l route 2 timesper day 11/13 completed Not Available Not Available Not Available Prolia 60 mg/mL subcutaneou s syringe inject 1 millilite r (60 mg) by subcutane ous route every 6 months in the upper arm, upper thigh or abdomen -- per Dr Snow active Not Available Not Available No t Available Calcium-Vit pettit D Take 1 ORAL daily. 08/26 completed Not Available Not Available Not Available Tobradex ST 0.3 %-0.05 % eye drops,suspe nsion APPLY 1 DROP INTO BOTH EYES 4 TIMES A DAY 10/18 completed Not Available Not Available Not Available Xarelto 15 mg tablet TAKE 1 TABLET (15 MG TOTAL) BY MOUTH EVERY EVENING. TAKE WITH DINNER. active Not Available Not Available No t Available Xarelto 20 mg tablet TAKE 1 TABLET BY MOUTH EVERY DAY IN THE EVENING 09/25 completed Not Available Not Available Not Available Dymista 137 mcg-50 mcg/spray nasal spray spray 1 spray in each nostril by intranasa l route 2 times per day 04/06 completed Not Available Not Available Not Available Eliquis 2.5 mg tablet take 1 tablet (2.5 mg) by oral route 2 times per day 11/09 completed Not Available Not Available Not Available Xiidra 5 % eye drops in a dropperette INSTILL 1 DROP INTO BOTH EYES TWICE A DAY 11/21 completed Not Available Not Available Not Available Vitals Date Recorded Body height Body mass index (BMI) Body weight Oxygen saturation Oxygen saturation in Arterial blood by Pulse oximetry Heart rate Body temperature Systolic blood pressure Diastolic blood pressure Provider Name and Address Organization Details Last Updated DateTime 5 160.02 cm 18.2 kg/m2 50437.0 1 g 100 % 100 % 80 /min 96.8 [degF] 122 mm[Hg] 80 mm[Hg] Denise Christy [facility] 5 13:12:09 Social History Question Answer Notes LastModified by Organization Details LastModified Time Tobacco Smoking Status Never Smoker Not Available [facility] 07/04/2023 12:27:28 Do You Have An Advance Directive? Yes Information not available 10/18/2023 What Is Your Advocate's Name? Luis Carrion Information not available 10/18/2023 What Is Your Relation To The Advocate? Information not available 10/18/2023 What Is Your Level Of Alcohol Consumption? None [email or web address] Information not available 07/04/2023 Do You Wear A Helmet When Biking? Yes Information not available 10/18/2023 Are You Blind Or Do You Have Difficulty Seeing? Yes Glasses Information not available 10/18/2023 Is Blood Transfusion Acceptable In An Emergency? Yes Information not available 10/18/2023 Are You Currently Employed? No Information not available 10/18/2023 Are You Deaf Or Do You Have Serious Difficulty Hearing? No Information not available 10/18/2023 What Type Of Diet Are You Following? REGULAR Information not available 04/11/2024 Have There Been Any Changes To Your Family Or Social Situation? No Information not available 04/11/2024 What Is The Fluoride Status Of Your Home? Non-fluoridated Information not available 04/11/2024 Are There Any Guns Present In Your Home? No Information not available 04/11/2024 Which Of Your Hands Is Dominant? Right Information not available 10/18/2023 Where Do You Live? 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 Yes Information not available 04/11/2024 What Was The Date Of Your Most Recent Tobacco Screening? 04/11/2024 Information not available 04/11/2024 How Many Children Do You Have? 4 Information not available 04/11/2024 Do You Have A Patient Advocate? Yes Information not available 10/18/2023 Do You Have Any Pets? No Information not available 04/11/2024 What Is Your Relationship Status? Information not available 04/11/2024 Do You Use Your Seat Belt Or Car Seat Routinely? Yes Information not available 10/18/2023 Do You Have Any Siblings? 1 Information not available 04/11/2024 Do You Have Smoke And Carbon Monoxide Detectors In Your Home? No Information not available 04/11/2024 Are There Any Smokers In Your House? No Information not available 04/11/2024 Do You Participate In Social Media? No Information not available 10/18/2023 What Types Of Sporting Activities Do You Participate In? None Information not available 04/11/2024 Do You Feel Stressed (tense, Restless, Nervous, Or Anxious, Or Unable To Sleep At Night)? [id number] Waking Up In Middle Of Night And Staying Awake For Hours Information not available 04/11/2024 Do You Use Any Illicit Or Recreational Drugs? No [email or web address] Information not available 07/04/2023 Do You Use Sunscreen Routinely? No Information not available 04/11/2024 What Type Of Noise Exposure Are You Exposed To? NoExposureToExcessiveNoi se Information not available 04/11/2024 Are You Currently In School? No Information not available 10/18/2023 Do You Or Have You Ever Used Any Other Forms Of Tobacco Or Nicotine? No Information not available 10/18/2023 Sex: Unknown Functional Status Question Answer Note LastModified by Organizat ion Details LastModified Time Do you have difficulty walking or climbing stairs? No Information not available 10/18/2023 Do you have transportation difficulties? No Information not available 10/18/2023 Are you able to walk? YESWOREST Information not available 10/18/2023 Do you have difficulty doing errands alone? No Information not available 10/18/2023 Are you able to care for yourself? Yes Information not available 10/18/2023 Do you have difficulty dressing or bathing? No Information not available 10/18/2023 What is your exercise level? None Information not available 04/11/2024 Mental Status Question Answer Note LastModified by Organization D etails LastModified Time Do you have difficulty concentrating, remembering or making decisions? Yes [email or web address] Information no t available 10/18/2023 Family History Relationship Description Onset Age of this Age Resolved Age Notes LastModified by Organization Details LastModified Time Father Coronary arterioscler osis alber Not available 07/04/2023 11:59:12 Mother Dementia alber Not available 07/04/2023 11:59:12 Notes:*Relative: Unspecified Relation *Problem: . : 10:19pm .T:Family History: Updated: 08/14/09 09:23 AM Updated: 08/20/10 08:58 AM Updated: 08/26/11 08:56 AM Updated: 08/31/12 09:15 AM Updated: 09/10/13 09:15 AM Updated: 09/23/14 09:32 AM Updated: 09/25/15 09:26 PM Updated: 11/08/17 10:21 AM Family History: Father : of coronary heart disease at 69, diabetes mellitus , cancer of ?lung Mother : of dementia in her 80's Brother (10 years older): alive w/ lung cancer (heavy smoker Brother (8 years older): age 50s of lung cancer (heavy smoker) Brother (6 years older): age 50s of complications from COPD (heavy smoker Sister (3 years older): alive, history of Parkinson and SLE Paternal Grandfather: coronary heart disease , cancer of ? Paternal Grandmother: no information given Maternal Grandfather: no information given Maternal Grandmother: cancer of ?? Hypertension: yes Hyperlipidemia: no Coronary heart disease: yes Stroke or other vascular disease: no Diabetes mellitus: yes Osteoporosis: no Breast cancer: no Ovarian cancer: no Colorectal cancer: no Lung cancer: yes Pancreatic cancer: no Skin cancer: no Alzheimer's: no Alcoholism: no Mental illness: no Medical History Condition Response Past Vision Exam Gynecological History Statement/Question Response Menses Monthly N Abnormal Pap N If Post Menopausal, Age at Menopause 50 Date of Last Pap Smear 10/17/2007 Most Recent Mammogram 03/21/2023 Obstetrics History GPAL:G 0 P 0 0 0 0 Immunizations Vaccine Type Date Status Note Provider Nam e and Address Organization Details Recorded Time SARS-COV-2 (COVID-19) vaccine, UNSPECIFIED 2 completed Stephan Buck DO [address] [facility] [address], [place], [address], [facility] [place] [facility] 10/18/2023 11:42:45 SARS-COV-2 (COVID-19) vaccine, UNSPECIFIED 1 completed DO Arlene Marcano [facility] [address], [place], [address], [employer] [facility] [place] [facility] 10/18/2023 11:42:45 Influenza, high-dose, quadrivalent, PF 1 completed Not Available [facility] 07/25/2023 06:45:12 Influenza, split virus, trivalent, preservative 9 completed DO Arlene Marcano [facility], [place], [address], [employer] [facility] 10/18/2023 11:42:45 SARS-COV-2 (COVID-19) vaccine, UNSPECIFIED 1 completed DO Arlene Marcano [facility], [place], [address], [employer] [facility] [place] [facility] 10/18/2023 11:42:45 Influenza, high-dose, quadrivalent, PF 2 completed Not Available [facility] 07/25/2023 06:45:12 zoster recombinant 4 completed DO Arlene Marcano [facility], [place], [address], [employer] [facility] 10/18/2023 11:42:45 pneumococcal polysaccharide PPV23 9 completed DO Arlene Marcano [facility], [place], [address], [employer] [facility] [place] [facility] 10/18/2023 11:42:45 Influenza, split virus, trivalent, preservative 0 completed DO Arlene Marcano [facility], [place], [address], [facility] 10/18/2023 11:42:45 SARS-COV-2 (COVID-19) vaccine, UNSPECIFIED 1 completed Stephan Buck DO [address], [place], [address], [employer] [facility] 10/18/2023 11:42:45 Tdap 5 completed Stephan Buck DO [address], [place], [address], [employer] [facility] [place] [facility] 10/18/2023 11:42:45 Td (adult), 5 Lf tetanus toxoid, preservative free, adsorbed 0 completed Stephan Buck DO [address], [place], [address], [employer] [facility] 10/18/2023 11:42:45 zoster recombinant 1 completed Not Available [facility] 07/25/2023 06:45:13 zoster recombinant 1 completed Stephan Buck DO [address] [place], [address], [employer] [facility] 10/18/2023 11:42:45 Influenza, high-dose, quadrivalent, PF 0 completed Raya Batres null, [facility] 10/18/2023 11:27:42 Influenza, high-dose, quadrivalent, PF 3 completed Raya Batres null, [facility] 10/18/2023 11:27:42 COVID-19, mRNA, LNP-S, PF, 30 mcg/0.3 mL dose 1 completed Raya Batres null, [facility] 10/18/2023 11:27:42 COVID-19, mRNA, LNP-S, PF, 30 mcg/0.3 mL dose 1 completed Raya Batres null, [facility] 10/18/2023 11:27:42 COVID-19, mRNA, LNP-S, PF, 30 mcg/0.3 mL dose 1 completed Raya Batres null, [facility] 10/18/2023 11:27:42 COVID-19, mRNA, LNP-S, bivalent, PF, 30 mcg/0.3 mL dose 2 completed Raya Batres null, [facility] 10/18/2023 11:27:42 COVID-19, mRNA, LNP-S, PF, brandee-sucrose, 30 mcg/0.3 mL 3 completed Raya Batres null, [facility] 10/18/2023 11:27:42 Pneumococcal conjugate PCV 13 0 completed Raya Batres null, [facility] 10/18/2023 11:27:42 COVID-19, mRNA, LNP-S, PF, brandee-sucrose, 30 mcg/0.3 mL 4 completed Stephan Buck DO [address] [place], [address], [facility] 09/25/2024 11:29:59 Influenza, high-dose, trivalent, PF 4 completed Azul Augustine null, [facility] 08/06/2024 06:14:37 zoster recombinant 0 completed Brooklynn Sheldon null, [facility] 09/25/2024 11:10:13 Past Encounters Encounter ID Performer Location Encounter Start Date Encounter Closed Date Diagnosis/Indication Diagnosis SNOMED-CT Code Diagnosis ICD10 Code Diagnosis Note [id number] Stephan Buck DO [facility]3] [address] [place] [address] 11/21/2024 12:47:31 11/21/2024 13:46:09 Cellulitis of right lower limb 3260627640 [id number] L03.115 Patient seems to be doing much better on the antibiotic s, we will extend for 3 more days for 10 total days of treatment 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 The rheumatolo gist has told her that she can discontinu e the colchicine however she never had any flares of gout or pseudogout when she was on the medication .Recent labs from the ER sed rate and CRP were elevated which could be due from the cellulitis or from her gout/pseud ogout issuesSeem s patient is not been taking the medication , encouraged her to restart Paroxysmal atrial fibrillation [id number] I48.0 Patient will continue with cardiology , she is rate controlled and anticoagul ated. She also has multiple valvular issues that seem to be stable at this timeNo evidence of DVT and she is compliant with her medication Memory impairment [id number] 006 R41.3 Over the past 6 months we have noticed worsening of her memory, we initiated referral to neurology in September. She has not followed up as her has been ill. She feels that things are fine. She does not want to go to neurology at this time despite my recommenda tion Polymyalgi a rheumatica [id number] M35.3 Patient with history of PMR, she was previously asymptomat ic, it seems that her current symptoms possibly with flare/coul d be contributi ng to her her leg pains, she states that she was having some pain in her shoulders and her neck when the leg pain started. She did have elevated CRP and sed rate at the ER, the second trip to the ER they put her on methylpred nisolone, those symptoms have improvedWi ll continue to monitor Health Concerns Section Related Observation LastModified by Organization Detai ls LastModified Time None Recorded Concern Status LastModified by Organization Details LastModified Time None Recorded Payers Encounter Date Sequence Insurance Name Policy Number Policy Hall Covered Member ID Hall Member ID Guarantor Name 11/21/2024 1 MEDICARE B-CT: NGS Jackelyn De Guzman [id number] Jackelyn De Guzman 11/21/2024 2 [facility] [id number] Jackelyn De Guzman [id number] Jackelyn De Guzman Notes Date Note Type Note Provider Name and Address Organization Details Recorded Time 11/21/2024 text/html 84-year-old fema le with past medical history of aortic valve regurgitation, coronary artery disease, chronic kidney disease, pseudogout, DCIS of left breast status postmastectomy, reflux, gastric ulcer on PPI, hypothyroidism, osteoarthritis, osteoporosis, Sjogren, and paroxysmal A-fib who presents with caregiver (Hope) for ER follow-up. Patient has been in the ER twice in the past week. She initially presented to the ER November 14 for inability to bear weight on the right leg. The right leg was found to be erythematous, edematous, believed to be due to a cellulitis. She did have some elevated inflammatory markers though. She was put on Keflex. It seems that the patient did not fully understand the directions and was not taking the Keflex, she went back to the ER 3 days later for the same issue. Patient is now on the Keflex. Seems that she has not been taking colchicine? Patient did not see the neurologist (see note from September 2024) as her has been in and out of the hospital with various other health issues The caregiver wants to go over the patient's medication list Patient feels that her right leg is significantly improved, she has no fevers or chills, and overall feels like she is back to her baseline Stephan Buck DO [address] [facility], [place], [address], [facility] 11/22/2024 10:38:38 OBGyn Episode No OBEpisode recorded.
--- OUTSIDE RECORDS SUMMARY | 2024-12-12 15:56 | XMS_ITS | Data Portability ---
Author Organization [facility], [facility] Address [address] [place] [address] Care Team Providers Care Merchandise Manager Name Role Phone NAHUM DÍAZ Vessel Specialist Unavailable Assessment No assessment recorded. Plan of Treatment Reminders Order Date Submit Date Provider Last Modified By Organization Details Last Modified Time Details Appointments None recorded. Lab None recorded. Referral None recorded. Procedures None recorded. Surgeries None recorded. Imaging None recorded. Medication Orders Prolia 60 mg/mL subcutaneou s syringe 2024 025 [id number], [address] [place], [address], 15:17:57 Patient TargetsNo targets recorded. Patient Instructions Encounter Date Encounter Id Patient Instructions Last Modified By Organization Details Last Modified Time 11/20/2024 [id number] As a reminder make sure that you take calcium and vitamin D on a regular basis. Calcium should be at least 600 mg to 1000 mg daily. You can do that with 3 servings of dairy-including yogurt ice cream and milk cheese. Or you can take a calcium tablet either calcium carbonate or calcium citrate. Those are found [id number] in any pharmacy. Not available 11/20/2024 15:05:19 I injected the denosumab at the right lower quadrant of the abdomen. Will continue to do the injections once every 6 months. 2. Remember to maintain your calcium and vitamin D intake on a regular basis. Not available 11/20/2024 15:04:40 Reason for Referral None Reported. Problems Name Problem SNOMED Code Status Onset Date Resolution Date Notes Provider Name and Address Organization Details Recorded Time Anticoagu lant effect 86892704 Active 2019 Anticoagu lated on Coumadin Not Available [facility] 4 19:24:22 Dementia 67284394 Active 2022 Dementia Not Available [facility] 4 19:24:22 Raynaud's disease 825876001 Active 2018 Raynaud disease Not Available [facility] 4 19:24:22 Chronic kidney disease stage 3A 158487045 Active 2020 Stage 3a chronic kidney disease Not Available [facility] 4 19:24:23 Essential hypertens ion 20213693 Active 2023 Essential hypertens ion Not Available [facility] 4 19:24:23 Localized edema 915921543 Active 2020 Localized edema Not Available [facility] 4 19:24:23 Malignant neoplasm of female breast 456426626 Active 2018 Malignant neoplasm of female breast Not Available [facility] 4 19:24:24 Gastroeso phageal reflux disease 670564717 Active 2018 GERD (gastroes ophageal reflux disease) Not Available [facility] 4 19:24:24 Patient encounter status 144120660 Active 2020 Pap smear for cervical cancer screening Not Available [facility] 4 19:24:24 Ductal carcinoma in situ of left breast 62987796335 97760 Active 2018 Ductal carcinoma in situ (DCIS) of left breast Not Available [facility] 4 19:24:25 Hypertens isabell disorder 04632263 Active 2018 Hypertens ion Not Available [facility] 4 19:24:25 Secondary hyperpara thyroidis m 62435430 Active 2023 Secondary hyperpara thyroidis m Not Available [facility] 4 19:24:25 Drug-kashif faizan systemic lupus erythemat osus 132048594 Active 2023 Drug-kashif faizan systemic lupus erythemat osus Not Available [facility] 4 19:24:25 Senile osteoporo sis 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 5 22:22:58 Mass of skin of right lower limb 59915289201 147662 Active 2020 Skin lesion of right lower extremity - Overview: Formattin g of this note might be different from the original. Asher, biopsied by outside dermatolo gist, waiting for report Not Available [facility] 4 19:24:26 Mammograp hy abnormal 643021506 Active 2017 Abnormal mammogram of left breast Not Available [facility] 4 19:24:26 Postartif icial menopausa l syndrome 81378079 Active 2020 Artificia l menopause Not Available [facility] 4 19:24:27 Lung consolida tion 37395933 Active 2019 Lung consolida tion Not Available [facility] 4 19:24:27 Disorder of thyroid gland 81416119 Active 2019 Thyroid disorder Not Available [facility] 4 19:24:27 History of left mastectom y 716942476 Active 2018 Status post mastectom y, left Not Available [facility] 4 19:24:28 Atrial fibrillat ion 06167896 Active 2022 A-fib Not Available [facility] 4 19:24:28 Celluliti s 733226973 Active 2019 Celluliti s Not Available [facility] 4 19:24:28 Suspected COVID-19 492953273 Active 2019 Suspected COVID-19 virus infection Not Available [facility] 4 19:24:29 Anemia of renal disease 349772549 Active 2023 Anemia of renal disease Not Available [facility] 4 19:24:29 Anemia 100530367 Active 2018 Symptomat ic anemia Not Available [facility] 4 19:24:29 Cachexia 434754414 Active 2018 Cachexia Not Available [facility] 4 19:24:30 Ductal carcinoma in situ of breast 253567801 Active 2018 Neoplasm of left breast, primary tumor staging category Tis: ductal carcinoma in situ (DCIS) Not Available [facility] 4 19:24:30 Paroxysma l atrial fibrillat ion 590905673 Active 2019 Paroxysma l atrial fibrillat ion Not Available [facility] 4 19:24:31 Mammograp hic calcifica tion of breast 706806228 Active 2014 Breast calcifica tions on mammogram Not Available [facility] 4 19:24:31 Peptic ulcer 88308740 Active 2019 PUD (peptic ulcer disease) Not Available [facility] 4 19:24:31 Lupus erythemat osus 932597977 Active 2017 Lupus erythemat osus Not Available [facility] 4 19:24:32 Internati onal normalize d ratio above reference range 299766166 Active 2019 Suprather apeutic INR Not Available [facility] 4 19:24:32 Malignant tumor of breast 400542351 Active 2018 Malignant neoplasm of female breast Not Available [facility] 4 19:24:37 Problem Notes None recorded. Medical Equipment None Reported. Medications Name Sig Start Date Stop Date Status Note LastModified by Organization Details LastModified Time acetaminoph en 325 mg tablet Take 1-2 tablets (325-650 mg total) by mouth every 6 (six) hours as needed for pain. 07/11 completed Not Available Not Available Not Available prednisone 5 mg tablet TAKE 1 TABLET BY MOUTH EVERY DAY active Not Available Not Available No t Available loteprednol etabonate 0.2 % eye drops,suspe nsion INSTILL 1 DROP INTO BOTH EYES TWICE A DAY active Not Available Not Available No t Available levothyroxi ne 25 mcg tablet Take 1 tablet (25 mcg total) by mouth daily. active Not Available Not Available No t Available oxycodone-a cetaminophe n 5 mg-325 mg tablet Take 1 tablet by mouth every 8 (eight) hours as needed for pain for up to 5 doses. 06/10 completed Not Available Not Available Not Available metronidazo le 0.75 % lotion APPLY TO FACE TWICE A DAY active Not Available Not Available No t Available cephalexin 500 mg capsule TAKE 1 CAPSULE BY MOUTH THREE TIMES A DAY FOR 7 DAYS active Not Available Not Available No t Available pantoprazol e 40 mg tablet,zenaida yed release Take 1 tablet (40 mg total) by mouth daily. 11/20 completed Not Available Not Available Not Available metronidazo le 0.75 % topical cream APPLY TO FACE TWICE A DAY active Not Available Not Available No t Available furosemide 20 mg tablet Take 1 tablet (20 mg total) by mouth 2 (two) times a day. active Not Available Not Available No t Available loteprednol etabonate 0.5 % eye drops,suspe [...] mg (65 mg iron) tablet,zenaida yed release Take 1 tablet (325 mg total) by mouth. 07/11 completed Not Available Not Available Not Available colchicine 0.6 mg tablet TAKE 1 TABLET BY MOUTH EVERY DAY active Not Available Not Available No t Available neomycin 3.5 mg/g-polymy jose B 10,000 unit/g-dexa meth 0.1 % eye oint APPLY 1 RIBBON ON THE EYELIDS OF BOTH EYES TWICE A DAY OR NEEDED active Not Available Not Available No t Available vitamin E 200 unit tablet Take 400 mg by mouth daily. active Not Available Not Available No t Available metoprolol tartrate 25 mg tablet TAKE 1/2 TABLET TWICE A DAY BY MOUTH active Not Available Not Available No t Available cholecalcif gaetano (vitamin D3) 25 mcg (1,000 unit) tablet Take 2 tablets (50 mcg total) by mouth daily. active Not Available Not Available No t Available Prolia 60 mg/mL subcutaneou s syringe Inject 1mL subcutano uesly every 6 months. 2024 active Not Available Not Available Not Avai lable Xarelto 15 mg tablet TAKE 1 TABLET (15 MG TOTAL) BY MOUTH EVERY EVENING. TAKE WITH DINNER. active Not Available Not Available No t Available Xarelto 20 mg tablet TAKE 1 TABLET BY MOUTH EVERY DAY IN THE EVENING 11/20 completed Not Available Not Available Not Available apixaban 2.5 mg tablet TAKE 1 TABLET (2.5 MG TOTAL) BY MOUTH EVERY 12 (TWELVE) HOURS. 08/23 completed Not Available Not Available Not Available Vitals Date Recorded Body height Body mass index (BMI) Body weight Systolic blood pressure Diastolic blood pressure Provider Name and Address Organization Details Last Updated DateTime 11/20/2024 157.5 cm 19 kg/m2 39570.61 g 120 mm[Hg] 76 mm[Hg] DIONY CHENG [facility] 14:55:42 Social History None recorded. Functional Status None recorded. Mental Status None recorded. Family History Nothing Reported. Medical History No medical history recorded. Gynecological HistoryNo gynecological history recorded. 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 She has been taking calcium and vitamin D. I reminded her the importance of taking more during the time shortly after the injections . I injected the Prolia on the right lower quadrant of the abdomen. She tolerated the procedure well.Lot #[id number] expiration February 13, 2027. Will set up for an appointmen t in 6 months. Health Concerns Section Related Observation LastModified by Organization Detai ls LastModified Time None Recorded Concern Status LastModified by Organization Details LastModified Time None Recorded Advance Directives Directive None Recorded Payers Encounter Date Sequence Insurance Name Policy Number Policy Hall Covered Member ID Hall Member ID Guarantor Name 11/20/2024 1 MEDICARE B-CT: NGS Jackelyn De Guzman [id number] Jackelyn De Guzman 11/20/2024 2 [facility] (MEDICARE SUPPLEMENT) [id number] Jackelyn De Guzman [id number] Jackelyn De Guzman Notes Date Note Type Note Provider Name and Address Organization Details Recorded Time 11/20/2024 text/html Patient is a 83 y.o. female who presents with porosis defined by a T score of -2.5 on the left total hip. She has never experienced a fracture. There is no history of osteoporosis or fractures in the family. Has a history of lupus, hysterectomy at age 45, breast cancer on antiestrogen therapy. She is also a low BMI typically less than 20? ? ?She does have a history of lupus and takes hydroxychloroquine. She also has a history of a bleeding ulcer and is on daily pantoprazole. She has hypothyroidism on low-dose levothyroxine 25 mcg. She does take warfarin secondary to atrial fibrillation.? ? ?She maintains an active health style. Goes to the gym and spent 25 minutes on a treadmill 3 times a week. She had 3 pregnancies that went to completion without complications. She really had a total hysterectomy at age 45 and was on hormone replacement therapy for 1 or 2 years.? ? ?She has been on zoledronic acid 5 mg for bone conservation therapy. She took her last dose in October 2021. She started Prolia in October 2023. Calvin Panda MD [address] [place], [address], [facility] 11/20/2024 15:18:35 OBGyn Episode No OBEpisode recorded.
--- OUTSIDE RECORDS SUMMARY | 2024-12-12 15:56 | XMS_ITS | Encounter Summary ---
Author Organization [facility] Address [address] [place] [address] Care Team Providers Care Receiving Specialist Name Role Phone Stephan Arredondo DO Primary Care Provider [phone] Encounter Details Date Type Department Care Team ([facility] st Contact Info) Description 10/15/2024 Scanned Document [facility] Department of Cardiology [address] [place] [id number] Staci Barajas MD [address] [place] [address] Social History Tobacco Use Types Packs/Day Years Used Date Smoking Tobacco: Never Smokeless Tobacco: Never Alcohol Use Standard Drinks/Week Comments Not Currently 0 (1 standard drink = 0.6 oz pur e alcohol) Sex and Gender Information Value Date Recorded Sex Assigned at Not on file Gender Identity Not on file Sexual Orientation Not on file documented as of this encounter Plan of Treatment Not on file documented as of this encounter Visit Diagnoses Not on filedocumented in this encounter Care Teams Receiving Specialist Relationship Specialty Start Date End Date Stephan Arredondo DO [address] [place] [address] PCP - General Family Medicine 08/05/17 documented as of this encounter
--- OUTSIDE RECORDS SUMMARY | 2024-12-12 15:57 | XMS_ITS | Clinical Summary ---
Author Organization [facility] Address [address] [place] [address] Care Team Providers Care [employer] Fitness Instructor Name Role Phone Teresa Seay Primary Care Provider Un available Medications Hydroxychloroqu ine Sulfate (PLAQUENIL) 200 MG tablet 0 05/18/2018 Active NIFEdipine (ADALAT CC) 30 MG 24 hr tablet 0 05/18/2018 Act isabell Mycophenolate Mofetil (CELLCEPT) 500 MG tablet 0 05/18/2018 Active Levothyroxine Sodium (SYNTHROID, LEVOTHROID) 25 MCG tablet 0 05/18/2018 Active Multiple Vitamin (Multi-Vitamin Daily) Tab 0 12/21/2021 Active Pantoprazole Sodium (PROTONIX) 40 MG EC tablet 90 0 08/25/2021 Active denosumab (Prolia) 60 MG/ML Solution Prefilled Syringe 1 0 09/08/2021 Active Furosemide (LASIX) 20 MG tablet 90 0 10/14/2021 Active Azelastine HCl 0.15 % Solution 30 0 11/03/2021 Active Metoprolol Tartrate (LOPRESSOR) 25 MG tablet 90 0 11/12/2021 Active Ipratropium [place] (ATROVENT) 0.03 % nasal spray 30 0 11/13/2021 Active Colchicine 0.6 MG tablet 30 0 12/04/2021 Active Apixaban (Eliquis) 2.5 MG Tab 60 0 12/07/2021 Active Ipratropium [place] (ATROVENT) 0.06 % nasal spray USE 2 SPRAYS IN EACH NOSTRIL 2 TO 3 TIMES DAILY. 1 3 12/21/2021 Active Rivaroxaban (Xarelto) 20 MG tablet 90 0 08/23/2022 Active METRONIDAZOLE, TOPICAL, (METROCREAM) 0.75 % cream 45 0 09/27/2022 Active Azelastine-Flut icasone 137-50 MCG/ACT Suspension 23 0 12/10/2022 Active Erythromycin (ROMYCIN) ophthalmic ointment 3 0 01/21/2023 Active Loteprednol Etabonate (Lotemax) 0.5 % ophthalmic suspension 5 0 03/09/2023 Active Loteprednol Etabonate (Lotemax) 0.5 % ophthalmic suspension 5 0 03/09/2023 Active Loteprednol Etabonate (Lotemax) 0.5 % ophthalmic suspension 5 0 03/09/2023 Active Loteprednol Etabonate (Lotemax) 0.5 % ophthalmic suspension 5 0 03/09/2023 Active Tobramycin-dexA METHasone (TobraDex ST) 0.3-0.05 % Suspension 5 0 03/30/2023 Active Tobramycin-dexA METHasone (TobraDex ST) 0.3-0.05 % Suspension 5 0 03/30/2023 Active oxyCODONE-Aceta minophen (PERCOCET) 5-325 MG per tablet 5 0 04/22/2023 Active oxyCODONE-Aceta minophen (PERCOCET) 5-325 MG per tablet 5 0 04/22/2023 Active oxyCODONE-Aceta minophen (PERCOCET) 5-325 MG per tablet 5 0 04/22/2023 Active oxyCODONE-Aceta minophen (PERCOCET) 5-325 MG per tablet 5 0 04/22/2023 Active Nitrofurantoin Monohyd Macro (MACROBID) 100 MG capsule 10 0 04/25/2023 Active Nitrofurantoin Monohyd Macro (MACROBID) 100 MG capsule 10 0 04/25/2023 Active Nitrofurantoin Monohyd Macro (MACROBID) 100 MG capsule 10 0 04/25/2023 Active Nitrofurantoin Monohyd Macro (MACROBID) 100 MG capsule 10 0 04/25/2023 Active methylPREDNISol one (MEDROL DOSPAK) 4 MG tablet 21 0 05/02/2023 Active methylPREDNISol one (MEDROL DOSPAK) 4 MG tablet 21 0 05/02/2023 Active methylPREDNISol one (MEDROL DOSPAK) 4 MG tablet 21 0 05/02/2023 Active methylPREDNISol one (MEDROL DOSPAK) 4 MG tablet 21 0 05/02/2023 Active Ferrous Sulfate 325 (65 Fe) MG EC tablet TAKE 1 TABLET BY MOUTH EVERY DAY 90 0 05/06/2023 Active Ferrous Sulfate 325 (65 Fe) MG EC tablet TAKE 1 TABLET BY MOUTH EVERY DAY 90 0 05/06/2023 Active Ferrous Sulfate 325 (65 Fe) MG EC tablet TAKE 1 TABLET BY MOUTH EVERY DAY 90 0 05/06/2023 Active Lifitegrast (Xiidra) 5 % Solution 180 0 06/22/2023 Active Lifitegrast (Xiidra) 5 % Solution 180 0 06/22/2023 Active Active Problems Problem Noted Date Diagnosed Date Pharyngoesophageal dysphagia 07/13/2023 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 Hoarseness 05/18/2018 Thyroid disorder 05/18/2018 Lupus (systemic lupus erythematosus) 05/18/2018 Overview (07/21/2024): Dysphagia 05/18/2018 Social History Tobacco Use Types Packs/Day Years Used Date Smoking Tobacco: Never Assessed Comments:Smoking Status:Bong sweet a smoker Comments Unknown Sex and Gender Information Value Date Recorded Sex Assigned at Not on file Legal Sex Female 5:50 PM EDT Gender Identity Not on file Sexual Orientation Not on file Last Filed Vital Signs Vital Sign Reading Time Taken Comments Blood Pressure 89/52 05/18/2018 10:21 AM EDT Pulse 76 05/18/2018 10:21 AM EDT Temperature - - Respiratory Rate - - Oxygen Saturation - - Inhaled Oxygen Concentration - - Weight - - Height - - Body Mass Index - - Plan of Treatment Health Maintenance Due Date Last Done Comments COVID-19 Vaccine (#1) 1945 DTaP/Tdap/Td (1 - Tdap) 1958 Pneumococcal 50+ years (1 of 2 - PCV) 1959 Zoster (Shingrix) (1 of 2) 1959 Bone Density 2005 RSV (1 - 1-dose 75+ series) 2015 Influenza (#1) 2024 HPV Vaccine Aged Out No longer eligi ble based on patient's age to complete this topic Hep A Aged Out No longer eligi ble based on patient's age to complete this topic Hep B Aged Out No longer eligi ble based on patient's age to complete this topic Hib Aged Out No longer eligi ble based on patient's age to complete this topic Mammogram/Breast Imaging Discontinued Meningococcal ACWY Aged Out No longer eligible based on patient's age to complete this topic Pap Smear Discontinued Zoster (Zostavax) Discontinued Care Teams [employer] Fitness Instructor Relationship Specialty Start Date End Date Teresa eSay PCP - General 05/23/23
--- OUTSIDE RECORDS SUMMARY | 2024-12-12 15:57 | XMS_ITS | Data Portability ---
Author Organization [place] - [facility], [facility] Address [address] [place] [address] Care Team Providers Care Warehouse Insulation Worker Name Role Phone STEPHAN BUCK Primary Care Provider [phone] MELYSSA BELLA Peripatologist KIRBY SIDDIQI Mechanical Engineering Manager YASMANI CISSE Locomotive Firer/Fireman [phone] OL[place] SNOW Medical Oncologist CAMRON BREWER Clinical Data Manager Assessment No assessment recorded. Plan of Treatment Reminders Order Date Submit Date Provider Last Modified By Organization Details Last Modified Time Details Appointments MEDICARE FOLLOW UP LONG 2024 10:30A M Stephan Buck, DO Not available Not available Not available MEDICARE ANNUAL WELLNESS 2024 08:30A M Stephan Buck, DO Not available Not available Not available Lab CBC w/ auto diff 2023 024 [facility] [facility], [address], [place], [address], 10/03/2024 08:18:13 CMP, serum or plasma 2023 024 [employer] [facility], [address], [place], [address], 10/03/2024 08:18:12 TSH, serum or plasma 2023 024 [employer] [facility], [address], [address], [place], [address], 10/03/2024 08:18:15 vitamin B12 + folate, serum or blood 2023 024 [facility], [address] [place] [address], [phone], 10/03/2024 08:18:14 lipid panel, serum 2023 024 [email or web address] [facility], [address], [facility] [address], [address], 11/29/2024 12:29:36 erythrocy te sedimenta tion rate by rosalie n method 2023 024 [email or web address] [facility], [address] [place] [address], [phone], 03/20/2024 10:47:56 C-reactiv e protein, quantitat rukhsana, serum or plasma 2023 024 [email or web address] [facility], [address] [place] [address], [phone], 03/20/2024 10:48:[address] referral 2023 024 [email or web address] [facility] - Neurology, [address], [facility] [address], [place], [address], 12/12/2024 11:52:01 Procedures None recorded. Surgeries None recorded. Imaging DEXA 2023 024 [email or web address] [facility] [address], [place], [address], 05/10/2024 08:25:18 Medication Orders colchicin e 0.6 mg tablet 2024 [address] [facility][id number], [address] [place], [address], 11/21/2024 13:42:31 cephalexi n 500 mg capsule [address] [facility] #[id number], [address] [place], [address], 11/21/2024 13:42:31 pantopraz ole 40 mg tablet,de layed release 2023 024 [id number] [address] [place], [address], 09/25/2024 12:04:02 Patient TargetsNo targets recorded. Patient Instructions Encounter Date Encounter Id Patient Instructions Last Modified By Organization Details Last Modified Time 11/21/2024 [id number] Extensive review of both hospital visits, problem [...] Not available 11/22/2024 10:38:34 Reason for Referral Neurologist Referral for Mem ory impairment Referring Physician: Stephan Buck, Family Medicine, Encounter Date: 09/25/2024 Results Created Date Observation Date Name Description Value Unit Range Abnormal Flag Note LastModifiedBy Organization Detail LastModifiedTime 03/20/2003/21/2024 SED RATE BY MODIF AMELIED GABRIELA HEMPHILL sed rate by modified ramiro 11 mm/h < or = 30 normal Not Available [facility] [address] [place], [address], 03/21/2024 17:58:16 03/20/20 24 03/21/2024 C-LUCIA CTIVE PROTE IN C-reactive protein 3.1 mg/L <8.0 normal Not Available [facility] [address], [address], 03/21/2024 17:58:17 09/20/20 24 09/20/2024 SED RATE BY MODIF IED WESTE RGREN sed rate by modified westergren 22 mm/h < or = 30 normal Not Available [facility] [place] [facility] [address] [place], [place], [address], 09/20/2024 20:38:54 09/20/20 24 09/20/2024 C-LUCIA CTIVE PROTE IN C-reactive protein 4.3 mg/L <8.0 normal Not Available [facility] [place] [facility] [address] [place], [place], [address], 09/20/2024 20:38:55 10/02/20 24 10/03/2024 COMPR EHENS RUKHSANA METAB OLIC PANEL glucose 71 mg/dL 65-139 normal Non-f astin g refer ence inter jackie Not Available [facility] [place] [facility] [address] [place], [place], [address], 10/03/2024 08:18:12 10/02/20 24 10/03/2024 COMPR EHENS RUKHSANA METAB OLIC PANEL urea nitrogen (BUN) 39 mg/dL 7-25 high Not Available [facility] [address] [place], [place], [address], 10/03/2024 08:18:12 10/02/20 24 10/03/2024 COMPR EHENS RUKHSANA METAB OLIC PANEL creatinine 1.79 mg/dL 0.60-0 .95 high Not Available [facility] [address] [place], [place], [address], 10/03/2024 08:18:12 10/02/20 24 10/03/2024 COMPR EHENS RUKHSANA METAB OLIC PANEL eGFR 28 mL/mi n/1.7 3m2 > or = 60 low Not Available [facility] [address] [place], [place], [address], 10/03/2024 08:18:12 10/02/20 24 10/03/2024 COMPR EHENS RUKHSANA METAB OLIC PANEL BUN/creatini ne ratio 22 (calc ) 6-22 normal Not Available [facility] [address], [place], [address], 10/03/2024 08:18:12 10/02/20 24 10/03/2024 COMPR EHENS RUKHSANA METAB OLIC PANEL sodium 141 mmol/ L 135-14 6 normal Not Available [facility] [address], [place], [address], 10/03/2024 08:18:12 10/02/20 24 10/03/2024 COMPR EHENS RUKHSANA METAB OLIC PANEL potassium 4.0 mmol/ L 3.5-5. 3 normal Not Available [facility] [address], [place], [address], 10/03/2024 08:18:12 10/02/20 24 10/03/2024 COMPR EHENS RUKHSANA METAB OLIC PANEL chloride 99 mmol/ L 98-110 normal Not Available [facility] [address], [place], [address], 10/03/2024 08:18:12 10/02/20 24 10/03/2024 COMPR EHENS RUKHSANA METAB OLIC PANEL carbon dioxide 31 mmol/ L 20-32 normal Not Available [facility] [address], [place], [address], 10/03/2024 08:18:12 10/02/20 24 10/03/2024 COMPR EHENS RUKHSANA METAB OLIC PANEL calcium 9.8 mg/dL 8.6-10 .4 normal Not Available [facility] [address], [place], [address], 10/03/2024 08:18:12 12/17/20 24 10/03/2024 COMPR EHENS RUKHSANA METAB OLIC PANEL protein, total 7.4 g/dL 6.1-8. 1 normal Not Available [facility] [address], [place], [address], 10/03/2024 08:18:12 10/02/20 24 10/03/2024 COMPR EHENS RUKHSANA METAB OLIC PANEL albumin 4.4 g/dL 3.6-5. 1 normal Not Available [facility] [address], [place], [address], 10/03/2024 08:18:12 10/02/20 24 10/03/2024 COMPR EHENS RUKHSANA METAB OLIC PANEL globulin 3.0 g/dL_ (calc ) 1.9-3. 7 normal Not Available [facility] [address], [place], [address], 10/03/2024 08:18:12 10/02/20 24 10/03/2024 COMPR EHENS RUKHSANA METAB OLIC PANEL albumin/glob ulin ratio 1.5 (calc ) 1.0-2. 5 normal Not Available [facility] [address], [place], [address], 10/03/2024 08:18:12 10/02/20 24 10/03/2024 COMPR EHENS RUKHSANA METAB OLIC PANEL bilirubin, total 0.4 mg/dL 0.2-1. 2 normal Not Available [facility] [address], [place], [address], 10/03/2024 08:18:12 10/02/20 24 10/03/2024 COMPR EHENS RUKHSANA METAB OLIC PANEL alkaline phosphatase 100 U/L 37-153 normal Not Available [facility] [address], [place], [address], 10/03/2024 08:18:12 10/02/20 24 10/03/2024 COMPR EHENS RUKHSANA METAB OLIC PANEL AST 27 U/L 10-35 normal Not Available [facility] [place] [facility] [address], [place], [address], 10/03/2024 08:18:12 10/02/20 24 10/03/2024 COMPR EHENS RUKHSANA METAB OLIC PANEL ALT 17 U/L 6-29 normal Not Available [facility] [place] [facility] [address], [place], [address], 10/03/2024 08:18:12 10/02/20 24 10/03/2024 CBC (INCL UDES DIFF/ PLT) white blood cell count 4.9 thous and/u L 3.8-10 .8 normal Not Available [facility] [place] [facility] [address], [place], [address], 10/03/2024 08:18:13 10/02/20 24 10/03/2024 CBC (INCL UDES DIFF/ PLT) red blood cell count 4.05 mateo on/uL 3.80-5 .10 normal Not Available [facility] [place] [facility] [address], [place], [address], 10/03/2024 08:18:13 10/02/20 24 10/03/2024 CBC (INCL UDES DIFF/ PLT) hemoglobin 12.8 g/dL 11.7-1 5.5 normal Not Available [facility] [place] [facility] [address], [place], [address], 10/03/2024 08:18:13 10/02/20 24 10/03/2024 CBC (INCL UDES DIFF/ PLT) hematocrit 39.5 % 35.0-4 5.0 normal Not Available [facility] [address], [place], [address], 10/03/2024 08:18:13 10/02/20 24 10/03/2024 CBC (INCL UDES DIFF/ PLT) MCV 97.5 fL 80.0-1 00.0 normal Not Available [facility] [address] [place], [place], [address], 10/03/2024 08:18:13 10/02/20 24 10/03/2024 CBC (INCL UDES DIFF/ PLT) MCH 31.6 pg 27.0-3 3.0 normal Not Available [facility] [address] [place] [place], [place], [address], 10/03/2024 08:18:13 10/02/20 24 10/03/2024 CBC (INCL UDES DIFF/ PLT) MCHC 32.4 g/dL 32.0-3 6.0 normal For adult s, a sligh t decre ase in the calcu lated MCHC value (in the range of 30 to 32 g/dL) is most likel y not clini christy signi ham t; babs er, it shoul d be inter prete d with cauti on in [facility] n with other red cell marialuisa eters and the patie nt's clini sarath condi tion. Not Available [facility] [address] [place], [place], [address], 10/03/2024 08:18:13 10/02/20 24 10/03/2024 CBC (INCL UDES DIFF/ PLT) RDW 13.1 % 11.0-1 5.0 normal Not Available [facility] [address] [place], [place], [address], 10/03/2024 08:18:13 10/02/20 24 10/03/2024 CBC (INCL UDES DIFF/ PLT) platelet count 212 thous and/u L 140-40 0 normal Not Available [facility] [address], [place], [address], 10/03/2024 08:18:13 10/02/20 24 10/03/2024 CBC (INCL UDES DIFF/ PLT) MPV 11.3 fL 7.5-12 .5 normal Not Available [facility] [place] [facility] [address], [place], [address], 10/03/2024 08:18:13 10/02/20 24 10/03/2024 CBC (INCL UDES DIFF/ PLT) absolute neutrophils 2636 cells /uL 1500-7 800 normal Not Available [facility] [place] [facility] [address], [place], [address], 10/03/2024 08:18:13 10/02/20 24 10/03/2024 CBC (INCL UDES DIFF/ PLT) absolute lymphocytes 1220 cells /uL 850-39 00 normal Not Available [facility] [place] [facility] [address], [place], [address], 10/03/2024 08:18:13 10/02/20 24 10/03/2024 CBC (INCL UDES DIFF/ PLT) absolute monocytes 676 cells /uL 200-95 0 normal Not Available [facility] [place] [facility] [address], [place], [address], 10/03/2024 08:18:13 10/02/20 24 10/03/2024 CBC (INCL UDES DIFF/ PLT) absolute eosinophils 328 cells /uL 15-500 normal Not Available [facility] [place] [facility] [address], [place], [address], 10/03/2024 08:18:13 10/02/20 24 10/03/2024 CBC (INCL UDES DIFF/ PLT) absolute basophils 39 cells /uL 0-200 normal Not Available [facility] [place] [facility] [address], [place], [address], 10/03/2024 08:18:13 10/02/20 24 10/03/2024 CBC (INCL UDES DIFF/ PLT) neutrophils 53.8 % normal Not Available [facility] [place] [facility] [address], [place], [address], 10/03/2024 08:18:13 10/02/20 24 10/03/2024 CBC (INCL UDES DIFF/ PLT) lymphocytes 24.9 % normal Not Available [facility] [place] [facility] [address], [place], [address], 10/03/2024 08:18:13 10/02/20 24 10/03/2024 CBC (INCL UDES DIFF/ PLT) monocytes 13.8 % normal Not Available [facility] [place] [facility] [address], [place], [address], 10/03/2024 08:18:13 10/02/20 24 10/03/2024 CBC (INCL UDES DIFF/ PLT) eosinophils 6.7 % normal Not Available [facility] [place] [facility] [address], [place], [address], 10/03/2024 08:18:13 10/02/20 24 10/03/2024 CBC (INCL UDES DIFF/ PLT) basophils 0.8 % normal Not Available [facility] [place] [facility] [address], [place], [address], 10/03/2024 08:18:13 10/02/20 24 10/03/2024 VITAM IN B12/F OLATE , SERUM PANEL vitamin B12 785 pg/mL 200-11 00 normal Not Available [facility] [place] [facility] [address], [place], [address], 10/03/2024 08:18:14 10/02/20 24 10/03/2024 VITAM IN B12/F OLATE , SERUM PANEL folate, serum >24.0 NG/mL normal Refer ence Range Low: <3.4 Borde rline : 3.4-5 .4 Berna l: >5.4 Not Available [facility] [place] [facility] [address], [address], 10/03/2024 08:18:14 10/02/20 24 10/03/2024 TSH W/REF CLARENCE TO FT4 TSH w/reflex to FT4 5.28 mIU/L 0.40-4 .50 high Not Available [facility] [place] [facility] [address], [place], [address], 10/03/2024 08:18:15 10/02/20 24 10/03/2024 T4, FREE T4, free 1.1 NG/dL 0.8-1. 8 normal Not Available [facility] [place] [facility] [address], [place], [address], 10/03/2024 08:18:16 11/14/19 25 11/14/2024 CULTU RE URINE culture, urine No growth Not Available [address], [address], 11/15/2024 09:03:52 11/14/1911/14/2024 CULTU RE URINE note [facility], [address] [place] [address] t, [facility], [place] [address] Not Available [address], [address], 11/15/2024 09:03:52 11/14/1911/14/2024 CULTU RE BLOOD culture, blood No growth at 5 days Not Available [address], [address], 11/19/2024 13:04:34 11/14/19 25 11/14/2024 CULTU RE BLOOD note [facility], [address], [place], [place] [address] Not Available [address], [address], 11/19/2024 13:04:34 11/14/19 25 11/14/2024 CULTU RE BLOOD culture, blood No growth at 5 days Not Available [address], [address], 11/19/2024 13:04:45 11/14/19 25 11/14/2024 CULTU RE BLOOD note [facility], [address] [facility] [address], [place], [place] [address] Not Available [address], [address], 11/19/2024 13:04:45 04/12/20 24 04/11/2024 MAMMO , scree joanne, digit al, bilat eral No observ ation record ed. [email or web address] [facility] [address], [address], 04/12/2024 10:23:33 05/07/20 24 05/07/2024 bone densi ty See Note [facility] rd Patinate t Name: BAO RAPHAEL TTO Date of : 1940 Reason for Exam: Screen ing for osteop orosis ,Post- menopa usal,A ge-rel ated osteop orosis withou ady singh t pathol ogical fractu re Exam Date: 2023 0959 EST Report Status : Mary Ann Farrell ng Provid er: STEPHAN BUCK PCP: Bone densit y study Indica tion and risk factor s: Postme nopaus al female . Histor y of osteop orosis , assess for interv al change . Compar isons: 2021. Study acquir ed on a Lunar Prodig y GE Advanc e densit ometer . Imagin g of the lumbar spine and hip was comple damon. FINDNEVAEH GS: LUMBAR SPINE Averag ed L1 throug h L4: Bone densit y: 1.12 g/cm2 Z score: 2.2 T score: -0.4 Lumbar spine bone densit y has increa sed, previo us T score measur ing -1.6. LEFT HIP Left total hip: Bone densit y: 0.68 g/cm2 Z score: 0.1 T score: -2.6 Left hip bone densit y has not change d signif icantl y. CONCLU JAVIER: 1. Lumbar spine: Increa sed bone densit y, now measur ing within normal limits . 2. Left hip: Stable osteop orosis . SESSIO N: Not applic able [employer]i zation Defini tions of Osteop orosis : T score at or below -1.0: Normal BMD T score betwee n -1.0 and -2.5: Osteop enia T score at or below -2.5: Osteop orosis DEXA guidel monica: Diagno sis : Treatm ent : Follow -up DEXA Normal BMD : Preven tion : 2-3 years Osteop enia : Preven tion/t herapy :1-2 years Osteop orosis : Therap y : Yearly Report review ed and signed by : Dr. Lupis Sanchez on 024 9:56 AM. Workst ation Name - BIJAL - [facility], [address] [place] [address], ARRAY( [id number]) ARRAY( [id number]) ARRAY( [id number]) [email or web address] [facility] [address], [place], [address], 05/07/2024 15:43:25 05/24/20 24 05/24/2024 XR, ribs, unila teral See Note [facility] Name: BAO RAPHAEL TTO Date of : 1940 Reason for Exam: deform ity of left lower ribs Exam Date: 2023 1129 EST Report Status : F Orderi ng Provid er: CHARLES SNOW PCP: Left RIBS 4 view HISTOR Y: Deform ity of the lower ribs. Compar enoc 2022 chest x-ray and chest CT of 2019 No fractu re. No osteol ytic or osteob lastic lesion . Status post a left mastec lachelle. There are surgic al clips along the left chest wall. Normal heart size. Clear lungs with the except ion of minima l lingul ar scarri ng. Mild S-shap ed thorac olumba r scolio sis. CONCLU JAVIER: 1. Intact rib cage. 2. Status post a left mastec lachelle. 3. Mild thorac olumba r scolio sis. Report review ed and signed by : Dr. Tayler Valentino MD on 05/24/20 11:27 AM. Workst ation Name - RALM READ01 [facility] zuleyka [place] [facility] 202 [facility], [address], [address], 05/25/2024 10:58:36 08/01/20 24 11/09/2022 elect aniyahar diogr am No observ ation record ed. Not Available 2023 23:52:24 08/01/20 24 07/05/2023 imagi ng/di agnos tic resul t No observ ation record ed. Not Available 2023 23:52:26 08/01/20 24 08/13/2020 XR, wrist No observ ation record ed. Not Available 2023 23:52:31 08/01/20 24 07/05/2023 imagi ng/di agnos tic resul t No observ ation record ed. Not Available 2023 23:52:31 08/01/20 24 09/29/2020 imagi ng/di agnos tic resul t No observ ation record ed. Not Available 2023 23:52:32 08/01/20 24 07/05/2023 imagi ng/di agnos tic resul t No observ ation record ed. Not Available 2023 23:52:33 08/01/20 24 07/05/2023 imagi ng/di agnos tic resul t No observ ation record ed. Not Available 2023 23:52:34 08/01/20 24 07/05/2023 imagi ng/di agnos tic resul t No observ ation record ed. Not Available 2023 23:52:34 08/01/20 24 07/05/2023 imagi ng/di agnos tic resul t No observ ation record ed. Not Available 2023 23:52:35 08/01/20 24 12/20/2018 elect annalise morrow am No observ ation record ed. Not Available 2023 23:52:37 11/14/19 25 11/14/2024 ED provi giovanni notes No observ ation record ed. [email or web address] [address], [address], 11/15/2024 11:05:01 11/17/19 25 11/17/2024 ED provi giovanni notes No observ ation record ed. [email or web address], [address], 11/19/2024 12:38:14 11/21/19 25 11/14/2024 consu lts No observ ation record ed. [email or web address], [address], 11/22/2024 10:55:25 Result Notes None recorded. 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 Completed 10/18/2023 Problem Code: H69.90; Problem Code Type: ICD-10; Stephan Buck, DO [address], [place], [address], [place] [facility] 4 12:26:19 Active immuniza tion Completed 10/18/2023 Problem Code: Z23; Problem Code Type: ICD-10; Stephan Buck DO [address], [place], [address], [place] [facility] 4 12:26:19 Adult health examinat ion Active Problem Code: Z00.00; Problem Code Type: ICD-10; Stephan Buck DO [address], [place], [address], [place] [facility] 4 12:26:37 Cough [id number] Completed 08/22/2023 DANIA LYNN DO [address], [place], [address], [place] [employer] [facility] 3 07:44:37 Body mass index less than 20 583061959 Active Problem Code: Z68.1; Problem Code Type: ICD-10; Stephan Buck DO [address], [place], [address], [employer] [facility] 4 12:26:37 Long-ter m current use of drug therapy 683868822 Active Problem Code: Z79.899; Problem Code Type: ICD-10; Stephan Buck DO [address], [place], [address], [employer] [facility] 4 12:26:37 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 [id number] [address] Active LEFT, ER-/CT-, Dr Coleman, s/p mastecto my Problem Code: D05.12; Problem Code Type: ICD-10; DO Arlene DEL VALLE [address], [place], [address], [place] [employer] [facility] 3 07:43:50 Atherosc lerosis of coronary artery without angina pectoris [id number] 4103 Active stenosis of celiac artery per CT 10/11/18 Problem Code: I25.10; Problem Code Type: ICD-10; DANIA LYNN DO [address], [place], [address], [employer] [facility] 3 07:43:50 Diastoli c heart failure 169799378 Active Grade 3 per echo 06/02 Problem Code: I50.30; Problem Code Type: ICD-10; DANIA LYNN DO [address], [place], [address], [facility] [employer] [facility] 3 07:43:50 Aortic valve regurgit ation 17966690 Active Moderate per ECHO 11/2016 Problem Code: I35.1; Problem Code Type: ICD-10; DANIA LYNN DO [address], [place], [address], [facility] [employer] [facility] 3 07:43:50 Rheumati c mitral stenosis 86068916 Active Moderate per ECHO 11/2016 Problem Code: I05.0; Problem Code Type: ICD-10; DANIA LYNN DO [address], [place], [address], [employer] [facility] 3 07:43:51 Rheumati c tricuspi d valve regurgit ation 10642752 Active Problem Code: I07.1; Problem Code Type: ICD-10; DANIA LYNN DO [address], [place], [address], [facility] [employer] [facility] 3 07:43:50 Paroxysm al atrial fibrilla tion 284381313 Active on xarelto and metorpol ol per Dr Colunga Problem Code: I48.0; Problem Code Type: ICD-10; DO Arlene DEL VALLE [facility], [place], [address], [facility] [employer] [facility] 3 07:43:50 Systemic lupus erythema tosus 77980453 Active + FHx in sister; Dr Rincon Problem Code: M32.9; Problem Code Type: ICD-10; DO Arlene DEL VALLE [facility], [place], [address], [employer] [facility] 3 07:43:50 Raynaud' s disease 650253617 Active w/+ARTURO 1:160; sister has SLE; Dr Rincon Problem Code: I73.00; Problem Code Type: ICD-10; DANIA LYNN DO [address], [place], [address], [facility] [employer] [facility] 3 07:43:50 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 03889559 Active Dr Rincon, Dr Bar Problem Code: M35.00; Problem Code Type: ICD-10; DO Arlene DEL VALLE [facility], [place], [address] , [facility] [employer] [facility] 3 07:43:50 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 53247363069 9106 Active 11/2013 EGFR=54; Dr Castellon Problem Code: M32.14; Problem Code Type: ICD-10; DO Arlene DEL VALLE [facility], [place], [address], [employer] [facility] 3 07:43:50 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, 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 Problem Code: M11.80; Problem Code Type: ICD-10; DO Arlene DEL VALLE [facility], [place], [address] , [facility] [employer] [facility] 3 07:43:50 Hypothyr oidism 31458635 Active Problem Code: E03.9; Problem Code Type: ICD-10; DO Arlene DEL VALLE [facility], [place], [address], [facility] [employer] [facility] 3 07:43:50 Gastroes ophageal reflux disease without esophagi tis 108124904 Active on pantopra zole qD Problem Code: K21.9; Problem Code Type: ICD-10; DO Arlene DEL VALLE [facility], [place], [address], [place] [employer] [facility] 3 07:43:50 History of peptic ulcer 354207766 Active 10 mm gastric ulcer per EGD 11/04; s/p blood transfus ion Problem Code: Z87.11; Problem Code Type: ICD-10; DO Arlene DEL VALLE [facility], [place], [address], [employer] [facility] [employer] [facility] 3 07:43:50 High enzyme level in serum 411355487 Completed 10/18/2023 Problem Code: R74.8; Problem Code Type: ICD-10; DO Arlene Marcano [facility], [place], [address], [employer] [facility] 4 12:27:27 Osteopor osis 43581689 Active 04/2013- Off HRT; Boniva started 08/25, d/c 04/28- Dr Kearns Problem Code: M81.8; Problem Code Type: ICD-10; DO Arlene DEL VALLE [facility], [place], [address], [employer] [facility] 3 07:43:50 Osteoart hritis 573060889 Active Problem Code: M19.90; Problem Code Type: ICD-10; DO Arlene DEL VALLE [facility], [place], [address], [employer] [facility] 3 07:43:50 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 [id number] 191142 Active undergoi ng treatmen t 10/2016 Problem Code: I83.93; Problem Code Type: ICD-10; DO Arlene DEL VALLE [facility], [place], [address], [employer] [facility] [employer] [facility] 3 07:43:50 Cataract 939856266 Active OU s/p repair 05/2017 Problem Code: H26.9; Problem Code Type: ICD-10; DO Arlene Marcano [facility], [place], [address], [employer] [facility] 4 12:26:37 Primary malignan t neoplasm 059645969 Active (L) Dr Mayra morrison Problem Code: C80.1; Problem Code Type: ICD-10; DO Arlene DEL VALLE [facility], [place], [address], [facility] 3 07:43:50 Posterio r rhinorrh ea 76665302 Active Problem Code: R09.82; Problem Code Type: ICD-10; DO Arlene Marcano [facility], [place], [address], [facility] 4 12:26:37 Bilatera l acquired eyelid ptosis 51777263138 100825 Active Problem Code: H02.403; Problem Code Type: ICD-10; DO Arlene DEL VALLE [facility], [place], [address], [facility] 3 07:43:50 Chronic kidney disease 468562104 Active 3B Problem Code: N18.9; Problem Code Type: ICD-10; DO Arlene DEL VALLE [facility], [place], [address], [facility] 3 07:43:50 Gastroin testinal hemorrha ge 18275930 Completed 10/18/2023 Problem Code: K92.2; Problem Code Type: ICD-10; DO Arlene Marcano [facility], [place], [address], [facility] 4 12:27:27 Neck pain 91475448 Completed 10/18/2023 Problem Code: M54.2; Problem Code Type: ICD-10; DO Arlene Marcano [facility], [place], [address], [facility] 4 11:16:02 Bilatera l disorder of Eustachi an tubes 17962213200 86984 Completed 10/18/2023 Problem Code: H69.93; Problem Code Type: ICD-10; DO Arlene Marcano [address], [place], [address], [place] [facility] 4 12:26:19 Dysphagi a 15499863 Completed 08/22/2023 Problem Code: R13.10; Problem Code Type: ICD-10; DANIA LEAH [address], [place], [address], [place] [facility] 3 07:44:37 Early satiety 612474983 Completed 10/18/2023 Problem Code: R68.81; Problem Code Type: ICD-10; Stephan Buck [address], [place], [address], [place] [facility] 4 12:26:19 Dyspnea 309661548 Completed 08/22/2023 Problem Code: R06.09; Problem Code Type: ICD-10; DO Arlene DEL VALLE [address], [place], [address], [place] [facility] 3 07:44:37 Recurren t falls 676568275 Completed 10/18/2023 Problem Code: R29.6; Problem Code Type: ICD-10; DO Arlene Marcano [address], [place], [address], [place] [facility] 4 12:26:19 Fatigue 28335874 Completed 08/22/2023 Problem Code: R53.83; Problem Code Type: ICD-10; DO Arlene DEL VALLE [address], [place], [address], [place] [facility] 3 07:44:37 Fever 798148805 Completed 08/22/2023 Problem Code: R50.9; Problem Code Type: ICD-10; DO Arlene DEL VALLE [address], [place], [address], [place] [facility] 3 07:44:37 Coag./bl eeding tests abnormal 179841842 Completed 10/18/2023 Problem Code: R79.1; Problem Code Type: ICD-10; Stephan Buck DO [address] [facility] [address], [place], [address], [employer] [facility] 4 12:26:19 Dizzines s and giddines s 786584154 Completed 08/22/2023 Problem Code: R42; Problem Code Type: ICD-10; DO Arlene DEL VALLE [facility], [place], [address], [employer] [facility] 3 07:44:37 Breast lump 98149423 Completed 10/18/2023 R, lesion removed Dr Coleman 07/2016 Problem Code: N63; Problem Code Type: ICD-10; DO Arlene Marcano [facility], [place], [address], [employer] [facility] 4 12:27:27 Arthralg ia of the ankle and/or foot 128159390 Completed 10/18/2023 Problem Code: M25.572; Problem Code Type: ICD-10; DO Arlene Marcano [facility], [place], [address], [employer] [facility] 4 12:26:19 Sleep disorder 52850639 Completed 10/18/2023 Problem Code: G47.9; Problem Code Type: ICD-10; DO Arlene Marcano [facility], [place], [address], [employer] [facility] 4 12:26:19 Disorder of soft tissue 40294456 Completed 08/22/2023 Problem Code: M79.89; Problem Code Type: ICD-10; DO Arlene DEL VALLE [facility], [place], [address], [employer] [facility] 3 07:44:37 Acute upper respirat ory infectio n 68778609 Completed 08/22/2023 DO Arlene DEL VALLE [facility], [place], [address], [employer] [facility] 3 07:44:37 Abnormal weight loss 359052329 Completed 08/22/2023 Problem Code: R63.4; Problem Code Type: ICD-10; DANIA LYNN DO [address], [place], [address], [place] [facility] 3 07:44:37 Bacteria l pneumoni a 24020802 Completed 08/22/2023 DANIA LYNN DO [address], [place], [address], [place] [facility] 3 07:44:37 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 163057642 Active Problem Code: E79.0; Problem Code Type: ICD-10; Stephan Buck DO [address] [facility] [address], [place], [address], [place] - [facility] 4 12:26:37 Dysuria 33274708 Active 2023 Stephan Buck, DO [address] [facility], [place], [address], [place] [facility] 4 12:26:45 Neck pain 95968232 Active 2023 Problem Code: M54.2; Problem Code Type: ICD-10; Stephan Buck DO [address] [facility] [address], [place], [address], [place] - [facility] 4 11:16:02 Multiple joint pain 00151961 Active 2023 Stephan Buck DO [address], [place], [address], [place] [facility] 4 11:19:21 Leukocyt osis 701496659 Active 2023 Stephan Buck DO [address] [facility], [place], [address], [place] [facility] 4 11:24:30 Polymyal val rheumati ca 74034690 Active 2023 Stephan Buck DO [address], [place], [address], [place] [facility] 4 12:01:28 Impacted cerumen in right ear 02346344020 18162 Active 2023 Stephan Buck DO [address], [place], [address], [place] [facility] 4 12:00:56 Memory impairme nt 950671108 Active 2023 Stephan Buck DO [address], [place], [address], [place] [facility] 4 12:12:22 Cellulit is of right lower limb 14064590791 194144 Active 2024 Stephan Buck DO [address] [facility], [place], [address], [place] [facility] 5 13:22:59 Problem Notes None recorded. Procedures Surgical History Date Name Laterality Status Provider Name and Address Organization Details Recorded Time 024 EGFPCerumen Removal completed Stephan Buck DO [address] [facility], [place], [address], [employer] [facility] 04/24/2024 12:00:48 024 EGFPMammogramReport Z1231 completed Stephan Buck DO [address], [place], [address], [facility] [facility] 04/11/2024 07:56:55 024 EGFPDEXAReport [id number] completed Stephan Buck DO [address], [place], [address], [place] [employer] [facility] 04/11/2024 07:57:20 024 EGFPAdvDirectDocumentZ 7189 completed DO Arlene Marcano [facility], [place], [address], [place] [employer] [facility] 04/11/2024 07:55:49 023 EGFPTCMMedsFromD/CSumm elizabeth completed DANIA LYNN DO [address], [place], [address], [place] [facility] 08/23/2023 23:05:50 023 Most Recent Mammogram completed Raya Francis-Coop [place] - [facility] 10/18/2023 11:28:29 008 Date of Last Pap Smear completed Raya Francis-[facility] 10/18/2023 11:28:12 Imaging Results Imaging Date Name Status LastModified by Organization Details LastModified Time 04/11/2024 MAMMO, screening, digital, bilateral completed [email or web address] [facility] [address], [place], [address], 04/12/2024 10:23:33 05/07/2024 bone density completed [email or web address] [facility] ([place]) [address], [place], [address], 05/07/2024 15:43:25 05/24/2024 XR, ribs, unilateral completed [email or web address] [facility] [address] [place], [address], 05/25/2024 10:58:36 11/09/2022 electrocardiogram completed Informa tion not available 08/01/2024 23:52:24 07/05/2023 imaging/diagnostic result completed Information not available 08/01/2024 23:52:26 08/13/2020 XR, wrist completed Information no t available 08/01/2024 23:52:31 07/05/2023 imaging/diagnostic result completed Information not available 08/01/2024 23:52:31 09/29/2020 imaging/diagnostic result completed Information not available 08/01/2024 23:52:32 07/05/2023 imaging/diagnostic result completed Information not available 08/01/2024 23:52:33 07/05/2023 imaging/diagnostic result completed Information not available 08/01/2024 23:52:34 07/05/2023 imaging/diagnostic result completed Information not available 08/01/2024 23:52:34 07/05/2023 imaging/diagnostic result completed Information not available 08/01/2024 23:52:35 12/20/2018 electrocardiogram completed Informa tion not available 08/01/2024 23:52:37 11/14/2024 ED provider notes completed [email or web address] [address], [address], 11/15/2024 11:05:01 11/17/2024 ED provider notes completed [email or web address] [address], [address], 11/19/2024 12:38:14 11/14/2024 consults completed [email or web address] [address], [address], 11/22/2024 10:55:25 Procedure Notes None recorded. Medical Equipment None Reported. Allergies Allergen ID Allergen Name Allergen Category Reaction Reaction Severity Criticality Documentation Date Start Date Code Code System Note Provider Name and Address Organization Details Recorded Time 99181 nifedipin e medicatio n Not available Not available Not available 06/24/20232006 7417 RxNorm Not Available [facility] 3 01:51:52 37928 Eliquis medicatio n Not available Not available Not available 10/18/2023 84235 36 RxNorm night josue Stephan Buck DO [address] [place], [address], [facility] 4 11:42:04 30685 [employer] medicatio n Not available Not available Not available 10/18/2023 83531 3 RxNorm Stephan Buck DO [address] [place], [address], [facility] 4 11:42:18 Medications Name Sig Start Date [...] tablet 1 tab once weekly per Dr Rincon 02/04 completed Not Available Not Available Not [...] Arterial blood by Pulse oximetry Heart rate Systolic blood pressure Diastolic blood pressure Provider Name and Address Organization Details Last Updated DateTime 4 160.02 cm 17.4 kg/m2 34460.0 5 g 99 % 99 % 64 /min 100 mm[Hg] 60 mm[Hg] Anali Baez [facility] 4 10:02:13 Date Recorded Body height Body mass index (BMI) Body weight Oxygen saturation Oxygen saturation in Arterial blood by Pulse oximetry Heart rate Systolic blood pressure Diastolic blood pressure Provider Name and Address Organization Details Last Updated DateTime 4 160.02 cm 17.4 kg/m2 25803.1 5 g 99 % 99 % 93 /min 116 mm[Hg] 72 mm[Hg] Daphne Levi [facility] 4 11:37:54 Date Recorded Body height Body mass index (BMI) Body weight Oxygen saturation Oxygen saturation in Arterial blood by Pulse oximetry Heart rate Systolic blood pressure Diastolic blood pressure Provider Name and Address Organization Details Last Updated DateTime 4 160.02 cm 17.8 kg/m2 93140.3 4 g 97 % 97 % 109 /min 130 mm[Hg] 80 mm[Hg] Brooklynn Sheldon [facility] 4 11:19:28 Date Recorded Body height Body mass index (BMI) Body weight Oxygen saturation Oxygen saturation in Arterial blood by Pulse oximetry Heart rate Body temperature Systolic blood pressure Diastolic blood pressure Provider Name and Address Organization Details Last Updated DateTime 5 160.02 cm 18.2 kg/m2 15735.0 1 g 100 % 100 % 80 /min 96.8 [degF] 122 mm[Hg] 80 mm[Hg] Denise Christy [facility] 13:12:09 Social History Question Answer Notes LastModified by Organization Details LastModified Time Tobacco Smoking Status Never Smoker Not Available [employer] 07/04/2023 12:27:28 Do You Have An Advance [...] Do You Have A Medical Power Of Certified Ophthalmic Technologist? Yes Information not available 04/11/2024 What Was [...] Anxious, Or Unable To Sleep At Night)? [id number] Waking Up In Middle Of Night And [...] difficulty concentrating, remembering or making decisions? Yes Information no t available 10/18/2023 Family History Relationship Description Onset Age of this Age Resolved Age Notes LastModified by Organization Details LastModified Time Father Coronary arterioscler osis [email or web address] Not available 07/04/2023 11:59:12 Mother Dementia [email or web address] Not available 07/04/2023 11:59:12 Notes:*Relative: Unspecified Relation [...] Time SARS-COV-2 (COVID-19) vaccine, UNSPECIFIED 2 [place], [address], [employer] 10/18/2023 11:42:45 SARS-COV-2 (COVID-19) vaccine, UNSPECIFIED 1 [place], [address], [employer] 10/18/2023 11:42:45 Influenza, high-dose, quadrivalent, PF 1 completed Not Available [facility] 07/25/2023 06:45:12 Influenza, split virus, trivalent, preservative 9 [place], [address], [employer] 10/18/2023 11:42:45 SARS-COV-2 (COVID-19) vaccine, UNSPECIFIED 1 [place], [address], [employer] 10/18/2023 11:42:45 Influenza, high-dose, quadrivalent, PF 2 completed Not Available [facility] 07/25/2023 06:45:12 zoster recombinant 4 [place], [address], [employer] [facility] 10/18/2023 11:42:45 pneumococcal polysaccharide PPV23 9 completed DO Arlene [place], [address], [employer] [facility] [employer] [facility] 10/18/2023 11:42:45 Influenza, split virus, trivalent, preservative 0 completed Stephan Buck DO [address], [place], [address], [employer] [facility] [employer] [facility] 10/18/2023 11:42:45 SARS-COV-2 (COVID-19) vaccine, UNSPECIFIED 1 completed Stephan Buck DO [address], [place], [address], [employer] [facility] [employer] [facility] 10/18/2023 11:42:45 Tdap 5 completed DO Arlene Marcano [facility] [address], [place], [address], [employer] [facility] [employer] [facility] 10/18/2023 11:42:45 Td (adult), 5 Lf tetanus toxoid, preservative free, adsorbed 0 completed Stephan Buck DO [address], [place], [address], [employer] [facility] 10/18/2023 11:42:45 zoster recombinant 1 completed Not Available [facility] 07/25/2023 06:45:13 zoster recombinant 1 completed Stephan Buck DO [address], [place], [address], [employer] [facility] [employer] [facility] 10/18/2023 11:42:45 Influenza, high-dose, quadrivalent, PF 0 completed Raya Batres null, [facility] [employer] [facility] 10/18/2023 11:27:42 Influenza, high-dose, quadrivalent, PF 3 completed Raya Batres null, [facility] 10/18/2023 11:27:42 COVID-19, mRNA, LNP-S, PF, 30 mcg/0.3 mL dose 1 completed Raya Batres null, [facility] 10/18/2023 11:27:42 COVID-19, mRNA, LNP-S, PF, 30 mcg/0.3 mL dose 1 completed Raya Batres null, [facility] 10/18/2023 11:27:42 COVID-19, mRNA, LNP-S, PF, 30 mcg/0.3 mL dose 1 completed Raya Batres null, [facility] 10/18/2023 11:27:42 COVID-19, mRNA, LNP-S, bivalent, PF, 30 mcg/0.3 mL dose 2 completed Raya Batres null, [facility] 10/18/2023 11:27:42 COVID-19, mRNA, LNP-S, PF, brandee-sucrose, 30 mcg/0.3 mL 3 completed Raya Batres null, [facility] 10/18/2023 11:27:42 Pneumococcal conjugate PCV 13 0 completed Raya Batres null, [facility] 10/18/2023 11:27:42 COVID-19, mRNA, LNP-S, PF, brandee-sucrose, 30 mcg/0.3 mL 4 completed Stephan Buck DO [address], [place], [address], [facility] 09/25/2024 11:29:59 Influenza, high-dose, trivalent, PF 4 completed Azul Augustine null, [facility] 08/06/2024 06:14:37 zoster recombinant 0 completed Brooklynn Sheldon null, [facility] 09/25/2024 11:10:13 Past Encounters Encounter ID Performer Location Encounter Start Date Encounter Closed Date Diagnosis/Indication Diagnosis SNOMED-CT Code Diagnosis ICD10 Code Diagnosis Note [id number] DANIA LYNN DO [facility] [address] [place] [address] 08/22/2023 10:23:47 08/22/2023 11:23:57 Nasal discharge 92998856 J00 Jackelyn De Guzman has hx of nasal discharge chronic, at this time I have recommende d azelastine as topical H2 gonsalo for possible relief. Memory impairment 522794 006 R41.3 At this visit, I have started an MMSE that she did not want to finish after first few questions. We went over safety at home with memory problems including no driving, limit cooking on stove or using products that could be dangerous if left unattended . Consider dementia panel (b12, folic acid, TSH) at [facility] in October. Post-disch arge follow-up [id number] Z09 Ms Jackelyn De Guzman comes in today for f/u from [facility] for CHF exacerbati on, also ED visit for hip pain. She is doing much better on both counts at this time. No change to medication s, home nursing coming in to do VS, etc. At this time she should conitnue current medication s, keep her appt with Dr Colunga, call with any change in sx. Inguinal pain 560845242 R10.2 This is resolved, she was seen in the ED as described in HPI. Should return as needed if this comes back. [id number] Stephan Buck, DO [address] [address] 10/18/2023 11:14:51 10/18/2023 13:39:41 Dysuria 64984341 R30.0 Patient reports intermitte nt dysuria and that her urine has been darker in color, there is 1+ blood, we will send for culture and prescribe antibiotic s. 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 The rheumatolo gist has told her that she can discontinu e the colchicine however she has not had any gout or pseudogout . She does not want to do any blood work today, advised for now to continue Posterior rhinorrhea 758 [address]50 R09.82 Patient will be seeing the ENT shortly, she did have CT of the sinuses in July. Patient has tried multiple different nasal sprays, none have been helpful. The ENT has told her that there is not much that they can do? Paroxysmal atrial fibrillation 907333437 I48.0 Patient will continue with cardiology , she is rate controlled and anticoagul ated. She also has multiple valvular issues that seem to be stable at this time [id number] Stephan Buck [address] [address] 01/09/2024 13:30:02 01/09/2024 14:06:19 Chronic kidney disease 133519267 N18.9 We have been monitoring the patient's kidney function, does wax and wane and we recently did a renal ultrasound in March 2023 which was normal. Last labs with creatine 1.33 in April 2023. She is overue for labs, so we will check CMP today. Unclear if this referral was sent by another one of her specialist ? Results to dictate further management . [id number] Stephan Buck [address] [address] 01/25/2024 10:42:00 01/25/2024 11:53:59 Neck pain 41092355 M54.2 Multiple joint pain 3567 8005 M25.50 Systemic l upus erythematosus 75259737 M32.9 Leukocytosis 443623905 D 72.829 WBC count in the ER was 11.6, wantto obtain another data point to trend [id number] Stephan Buck [address] [address] 03/20/2024 08:28:51 03/20/2024 09:27:42 Polymyalgia rheumatica 24388294 M35.3 [id number] Stephan Buck [address] [address] 04/11/2024 09:38:16 04/11/2024 10:47:16 Adult health examination 705868190 Z00.00 83-year-ol d female who presents for [facility] annual wellness visit today.Tanisha ent past medical history, family history, social history, allergy list, medication list, problems were all reviewed today.Lab work was drawn previously , none needed todayPatie nt is beyond screening age for colon cancerPati ent is beyond screening age for cervical cancerPati ent is up-to-date with mammogram last performed in March4Patien t is due for DEXA which will be ordered todayPatie nt sees multiple specialist s including cardiology , breast cancer surgeon, oncologist , nephrologi st, rheumatolo gist, dermatolog ist, and gastroente rologist. We will request more recent copies of the documentat ion from all of the specialist s.Patient is working very closely with her eye doctor right now due to complicati ons after recent surgery but has regular follow-up. She is also been seeing the dentist regularly She is been seeing the dermatolog ist given her history of squamous cell carcinoma of the morrison She has been following up with the ENT regarding her persistent postnasal dripShe has not been seeing the rheumatolo gist, and does not want to at this time. She did just have a flare of polymyalgi a rheumatica which was treated with a 30-day course of prednisone 5 mg p.o. daily with return to normal labs and no further recurrence Discussed with patient importance of healthy eating habits and regular exercise.D iscussed with patient importance of routine preventive care.She is up-to-date on all recommende d vaccinatio ns.Lastly, patient has advanced directive/ living will on file? see scanned document for further details. 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 [id number] Stephan Buck DO [facility] [address] [place] [address] 04/24/2024 11:28:16 04/24/2024 11:57:24 Impacted cerumen in right ear [id number] H61.21 Postproced ure expectatio ns, potential complicati ons and side effects reviewed with the patient she verbalized understand ing Recommende d use of Debrox once weekly to prevent reaccumula tion of cerumen [id number] Stephan Buck [facility] [address] [place] [address] 09/25/2024 10:56:36 09/25/2024 12:21:10 Gastroesophageal reflux disease without esophagitis [id number] K21.9 It seems patient has not been taking her heartburn medication , this could likely be the cause of her choking , she will restart the medication . Results and clinical course to dictate further management Hypothyroidism [id number] E03.9 Euthyroid by history, last TSH was at goal, we will continue current medication Polymyalgi a rheumatica [id number] M35.3 Patient is now asymptomat ic and her labs have normalized Will continue to monitor Memory impairment 090975 006 R41.3 [id number] [facility] [address] [place] [address] 11/21/2024 12:47:31 11/21/2024 13:46:09 Cellulitis of right lower limb [id number] L03.115 Patient seems to be doing much better on the antibiotic s, we will extend for 3 more days for 10 total days of treatment 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 She also has multiple valvular issues that seem to be stable at this timeNo evidence of DVT and she is compliant with her medication Memory impairment 827391 006 R41.3 Over the past 6 months we have noticed worsening of her memory, we initiated referral to neurology in September. She has not followed up as her has been ill. She feels that things are fine. She does not want to go to neurology at this time despite my recommenda tion Polymyalgi a rheumatica [id number] M35.3 Patient with history of PMR, she [...] LastModified Time None Recorded Advance Directives Directive Y: Payers Encounter Date Sequence Insurance Name Policy Number Policy Hall Covered Member ID Hall Member ID Guarantor Name 03/20/2024 1 MEDICARE B-CT: DAVID Brennan Gab [id number] Jackelyn Anu De Guzman 03/20/2024 2 [facility]MERLY [facility] [id number] Jackelyn Anu De Guzman [id number] 1 Jackelyn De Guzman 04/11/2024 1 MEDICARE B-CT: DAVID Brennan Alejandroo [id number] Jackelyn Alleno 04/11/2024 2 [facility]MERLY [facility] [id number] Jackelyn De Guzman [id number] 1 Jackelyn Anu Alejandroo 04/24/2024 1 MEDICARE B-CT: DAVID Brennan Alejandroo [id number] Jackelyn Teeotto 04/24/2024 2 [facility]LY [facility] [id number] Jackelyn De Guzman [id number] 1 Jackelyn De Guzman 09/25/2024 1 MEDICARE B-CT: DAVID Brennan Gab [id number] Jackelyn Alleno 09/25/2024 2 [facility]LY [facility] [id number] Jackelyn De Guzman [id number] 1 Jackelyn Brennan Colinjoanndakota 11/21/2024 1 MEDICARE B-CT: NGS Jackelyn De Guzman [id number] 6 Jackelyn De Guzman 11/21/2024 2 [facility]LY [facility] [id number] Jackelyn Allendakota [id number] 1 Jackelyn De Guzman Notes Date Note Type Note Provider Name and Address Organization Details Recorded Time 04/11/2024 text/html 83-year-old farnaz jordan who presents for wellness examPatient states that she is following with her senior mechanical project manager regularly, but in the process of getting a new senior mechanical project manager because her senior mechanical project manager is moving out of the area. She states that she has an appointment with them in April Patient saw her mooner in February, recent labs were donePatient states that she is following with the oncologist, Dr. 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 Mammogram was normal in Marchatient is following with the senior engineering tech for her Prolia shots due to osteoporosis.Patient has not been following up with the rheumatologistShe has been following up with a dentist, eye doctor, reticle printer? Most recently she has been having issues with her left upper eyelid, she did have eyelid surgery and she is been having complications and has another appoint with the eye doctor tomorrowPatient has not had recurrence of her polymyalgia rheumatica which was recently treated with a 1 month dose of prednisone 5 mg p.o. daily. Her repeat labs that were done 3 weeks ago overall back to normal.Patient states that she has considerable stress from caring for her who is having health issues Stephan Buck DO [address] [place], [address], [facility] 04/13/2024 12:39:07 04/24/2024 text/html 83-year-old farnaz jordan who presents for removal of impacted cerumen from the right ear Stephan Buck DO [address] [place], [address], [facility] 04/24/2024 12:01:27 09/25/2024 text/html 83-year-old farnaz jordan who presents for [facility] appointment Patient states that she is doing okay but she does have some concerns ? Patient states that she has been choking for the past 6 weeks when eating. She feels like she is chewing her food completely, she also states that she has been drinking plenty of water and drinks several glasses per day. She has not been coughing or coughing up any blood. No nausea or vomiting. She is not sure if she has been taking her reflux medication? ? Patient reports left knee pain and stiffness, no fall or injury, no redness/bruising/swell ing/locking/giving way/numbness or tingling ? Patient states that she had blood work done for the senior engineering tech? ? Patient had the repeat sed rate and CRP performed at [facility] which were due 5 months ago but she did not have her regular blood work done? Patient denies any headaches, dizziness, chest pain, palpitations, shortness of breath, dyspnea on exertion, changes in bowel or bladder habits, symptoms of hypo or hyperglycemia Stephan Buck, DO [address], [place], [address], [facility] 09/28/2024 12:16:08 11/21/2024 text/html 84-year-old farnaz jordan with past medical history of aortic valve [...] she is back to her baseline Stephan Buck, DO [address], [place], [address], [facility] 11/22/2024 10:38:38 OBGyn Episode No OBEpisode recorded.
--- OUTSIDE RECORDS SUMMARY | 2024-12-12 15:58 | XMS_ITS | Clinical Summary ---
Author Organization [facility] Address [address] [place] [address] Care Team Providers Care Transportation Solutions Manager Name Role Phone Stephan Arredondo DO Primary Care Provider [phone] Allergies No known active allergies Medications Medication Sig Dispensed Refills Start Date End Date Status levothyroxine (SYNTHROID, LEVOXYL) tablet 25 mcg Take 1 tablet (25 mcg total) by mouth daily. 0 Active pantoprazole (PROTONIX) 40 MG tablet Take 1 tablet (40 mg total) by mouth daily. 0 Active Multiple Vitamin (MULTI-VITAMIN) tablet Take 1 tablet by mouth daily. 0 Active metoprolol tartrate (LOPRESSOR) 25 MG tablet TAKE 0.5 TABLETS (12.5 MG TOTAL) BY MOUTH 2 TIMES A DAY. 0 07/23/2020 Active colchicine 0.6 MG tabletIndications:H/O calcium pyrophosphate deposition disease (CPPD) TAKE 1 TABLET BY MOUTH EVERY DAY 90 tablet 1 04/16/2023 Active furosemide (Lasix) 20 MG tablet Take 1 tablet (20 mg total) by mouth every other day. 0 Active vitamin D3 (cholecalciferol) 25 MCG (1000 UT) tablet Take 2 tablets (50 mcg total) by mouth daily. 0 Active Vitamin E 200 units TABS Take 400 mg by mouth daily. 0 Active rivaroxaban (XARELTO) 15 MG TABS tabletIndications:Paro xysmal A-fib (HCC) Take 1 tablet (15 mg total) by mouth every evening. Take with dinner. 90 tablet 3 08/13/2024 Active denosumab (PROLIA) injection 60 mg/mLIndications:Osteo porosis, post-menopausal Inject 1 mL (60 mg total) under the skin every 6 (six) months. 1 mL 0 09/17/2024 Active Active Problems Problem Noted Date Diagnosed Date Essential hypertension 01/26/2024 Anemia of renal disease 01/26/2024 Secondary hyperparathyroidism 01/26/2024 Drug-induced systemic lupus erythematosus 2023 Dementia 07/31/2023 A-fib 07/30/2023 Skin lesion of right lower extremity 07/29/2021 Overview: Asher, biopsied by outside clinical dermatologist, waiting for report Pap smear for cervical cancer screening 06/05/20 21 Artificial menopause 06/05/2021 Localized edema 12/29/2020 Paroxysmal atrial fibrillation 08/15/2020 Cellulitis 08/15/2020 Anticoagulated on Coumadin 01/17/2020 PUD (peptic ulcer disease) 01/17/2020 Lung consolidation 01/17/2020 Suspected COVID-19 virus infection 01/17/2020 Supratherapeutic INR 01/17/2020 Age-related osteoporosis wit hout current pathological fracture 10/23/2019 Thyroid disorder 10/23/2019 Status post mastectomy, 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 Neoplasm of left breast, [facility] tumor staging category Tis: ductal carcinoma in situ (DCIS) 12/27/2018 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/17/2018 Cancer Staging:Pathologic stage from 11/02/2018:Stage Unknown(pTis (DCIS), pNX, cM0, ER: Negative, MI: Negative, HER2: Not Assessed) - Signed by Asher Camara MD on 11/24/2018 Symptomatic anemia 10/20/2018 Raynaud disease 10/20/2018 GERD (gastroesophageal reflux disease) 9 Malignant neoplasm of female breast 10/20/2018 Hypertension 10/20/2018 Cachexia 10/20/2018 Abnormal mammogram of left breast 08/25/2018 Lupus erythematosus 07/31/2018 Breast calcifications on mammogram 08/12/2015 Resolved Problems Problem Noted Date Diagnosed Date Resolved Date RICO (acute kidney injury) 07/31/2023 Stage 3a chronic kidney disease 12/29/2020 07/11/2024 Atrial fibrillation with rap id ventricular response 10/18/2019 10/19/2019 Chest pain, rule out acute m yocardial infarction 10/18/2019 10/19/2019 Chest pain 10/18/2019 10/19/2019 GIB (gastrointestinal bleeding) 10/20/2018 10/18/2019 Family History Medical History Relation Name Comments Lung cancer Brother 1 Lung cancer Brother 2 Diabetes Father Heart disease Father Cancer Maternal Grandmother No Sig Med Hx Mother No Sig Med Hx Sister BRCA 1/2 Neg Hx Breast cancer Neg Hx Colon cancer Neg Hx Endometrial cancer Neg Hx Ovarian cancer Neg Hx Relation Name Status Comments Brother 1 Brother 2 Father Maternal Grandmother Mother Sister Social History Tobacco Use Types Packs/Day Years Used Date Smoking Tobacco: Never Smokeless Tobacco: Never Tobacco Cessation:Counseling Given: Not Answered Alcohol Use Standard Drinks/Week Comments No 0 (1 standard drink = 0.6 oz pur e alcohol) Social Connection and Isolation Panel [NHANES] A nswer Date Recorded In a typical week, how many times do you talk on the phone with family, friends, or neighbors? Twice a week 03/23/2024 How often do you get together with friends or re latives? Once a week 03/23/2024 How often do you attend rastafarian or alevism serv ices? Never 03/23/2024 Do you belong to any clubs o r organizations such as rastafarian groups, unions, fraternal or athletic groups, or school groups? No 03/23/2024 How often do you attend meet ings of the clubs or organizations you belong to? Never 03/23/2024 Are you , , di vorced, , never , or living with a partner? 03/23/2024 Overall Financial Resource Strain (CARDIA) Answe r Date Recorded How hard is it for you to pa y for the very basics like food, housing, medical care, and heating? Not hard at all 03/23/2024 Hunger Vital Sign Answer Date Recorded Within the past 12 months, y ou worried that your food would run out before you got the money to buy more. Never true 03/23/20 24 Within the past 12 months, t he food you bought just didn't last and you didn't have money to get more. Never true 03/23/2024 PRAPARE - Transportation Answer Date Re corded In the past 12 months, has l ack of transportation kept you from medical appointments or from getting medications? No 04/2024 In the past 12 months, has l ack of transportation kept you from meetings, work, or from getting things needed for daily living? No 03/23/2024 Housing Stability Vital Sign Answer Pato e Recorded In the last 12 months, was t here a time when you were not able to pay the mortgage or rent on time? No 03/23/2024 In the last 12 months, how many places have you lived? 1 03/23/2024 In the last 12 months, was t here a time when you did not have a steady place to sleep or slept in a usp (including now)? No 03/23/2024 Sex and Gender Information Value Date Recorded Sex Assigned at Female 10/20/2018 6:27 AM EST Gender Identity Female 11/01/2018 9:48 AM EST Sexual Orientation Not on file Job Start Date Occupation Industry Not on file Not on file Not on file Last Filed Vital Signs Vital Sign Reading Time Taken Comments Blood Pressure 108/70 08/01/2024 3:37 PM EDT Pulse 88 08/01/2024 3:37 PM EDT Temperature 36 ??C (96.8 ??F) 06/13/2024 10:03 AM EDT Respiratory Rate 18 05/22/2024 3:04 PM EDT Oxygen Saturation 99% 08/01/2024 3:37 PM EDT Inhaled Oxygen Concentration - - Weight 45.4 kg (100 lb) 08/01/2024 3:37 PM EDT Height 157.5 cm (5' 2 ) 08/01/2024 3:37 PM EDT Body Mass Index 18.29 08/01/2024 3:37 PM EDT Plan of Treatment Health Maintenance Due Date Last Done Comments Depression Screening 1952 Fall Risk Assessment 2005 RSV Adult > 60+ Yrs or (1 - 1-dose 75+ series) 2015 COVID-19 Vaccine ( season) 2024 07/12/2023, 08/04/2022, 09/24/2021, Additional history exists Influenza Vaccine (#1) 2024 , 07/27/2022, 08/08/2021, Additional history exists Preventative Health Evaluation 03/23/2025 03/23/2024 (Scheduled) DTap / Tdap / Td (2 - Td or Tdap) 09/26/2025 09/26/2015, 08/20/2010 Osteoporosis Screening (DEXA Scan) 05/07/2026 05/07/2024, 05/04/2022, 08/31/2019 Pneumococcal Vaccine Completed 06/17/2020, 01/23/20 19 Shingrix-Zoster Vaccine Completed 09/08/20 21, 04/07/2021, 06/17/2020, Additional history exists Hepatitis B Vaccines Aged Out No long er eligible based on patient's age to complete this topic RSV Ped < 20 months Aged Out No longe r eligible based on patient's age to complete this topic Procedures Procedure Name Priority Date/Time Associated Diagnosis Comments 25-HYDROXY VITAMIN D Routine 09/24/2024 12:59 PM EST Osteoporosis, post-menopausal from Last 3 Months Results * 25-Hydroxy Vitamin D (09/24/2024 12:59 PM EST) Vitamin D,25-OH, Total 94 30 - 100 ng/mL [facility] Comment: Vitamin D Status ? 25-OH Vitamin D: Deficiency: ?<20 ng/mL Insufficiency: ? 20 - 29 ng/mL Optimal: ? > or = 30 ng/mL For 25-OH Vitamin D testing on patients on D2-supplementation and patients for whom quantitation of D2 and D3 fractions is required, the [facility]ure[facility](TM) 25-OH VIT D, (D2,D3), LC/MS/MS is recommended: order code 34582 (patients >2yrs). See Note 1 Note 1 For additional information, please refer to http://education.Fundgrazing/faq/XBT227 (This link is being provided for informational/ educational purposes only.) 09/24/2024 12:5 9 PM EST 09/24/2024 12:59 PM EST Narrative [facility] - 09/25/2024 7:19 AM EST FASTING:NO FASTING: NO Resulting Agency Comment Performing Organization Information: ?Site ID: [id number] ?Name: [employer] ?Address: [address] [place] [id number] ?Director: Patrick Berman M.D. Calvin Panda MD LAB BLOOD ORDERABLES [facility] from Last 3 Months Jackelyn De Guzman Personal/Family Self [address] [place] [address] Jackelyn De Guzman Personal/Family Self [address] [place] [address] Jackelyn De Guzman Personal/Family Self [address] [place] [address] Jackelyn De Guzman Personal/Family Self [address] [place] [address] Jackelyn De Guzman Personal/Family Self [address] [place] [address] Advance Directives For more information, please contact: [phone] Documents on File Type Date Recorded Patient Side Laster Staple Expl anation Power of Public Relations Assistant 10/23/2019 1:03 PM Advance Directive and Living Will 10/23/2019 1:02 PM Latest Code Status on File Code Status Date Activated Date Inactivated Comments Full Code 07/30/2023 2:30 PM 07/31/2023 5:55 PM Thi s code status was ascertained in the following way: discussion with patient . Code Status History Code Status Date Activated Date Inactivated Comments Partial Code 08/15/2020 5:25 PM 08/16/2020 8:41 PM Thi s code status was ascertained in the following way: discussion with patient . Question Answer Comments Limitation: No ET Tube/Mechanica l Ventilation DNR 10/18/2019 12:48 PM 10/19/2019 8:33 PM This c ode status was ascertained in the following way: discussion with patient . Full Code 12/27/2018 3:52 PM 12/28/2018 4:51 PM This code status was ascertained in the following way: discussion with patient . Full Code 10/20/2018 9:06 AM 10/22/2018 6:07 PM This co de status was ascertained in the following way: discussion with patient . Care Teams Transportation Solutions Manager Relationship Specialty Start Date End Date Stephan Arredondo DO [address] [place] [address] PCP - General Family Medicine 08/11/17
--- OUTSIDE RECORDS SUMMARY | 2024-12-12 15:58 | XMS_ITS ---
Author Organization [facility] Address [address] [place] [address] Care Team Providers Care Clinical Biochemist Name Role Phone Stephan Arredondo DO Primary Care Provider [phone] Active Problems Problem Noted Date Diagnosed Date Essential hypertension 01/26/2024 Anemia of renal disease 01/26/2024 Secondary hyperparathyroidism 01/26/2024 Drug-induced systemic lupus erythematosus 2023 Dementia 07/31/2023 A-fib 07/30/2023 Skin lesion of right lower extremity 07/29/2021 Overview: Asher, biopsied by outside chaperone, waiting for report Pap smear for cervical cancer screening 06/05/20 21 Artificial menopause 06/05/2021 Localized edema 12/29/2020 Paroxysmal atrial fibrillation 08/15/2020 Cellulitis 08/15/2020 Anticoagulated on Coumadin 01/17/2020 PUD (peptic ulcer disease) 01/17/2020 Lung consolidation 01/17/2020 Suspected COVID-19 virus infection 01/17/2020 Supratherapeutic INR 01/17/2020 Age-related osteoporosis wit hout current pathological fracture 10/23/2019 Thyroid disorder 10/23/2019 Status post mastectomy, 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 Neoplasm of left breast, [facility] tumor staging category Tis: ductal carcinoma in situ (DCIS) 12/27/2018 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/17/2018 Cancer Staging:Pathologic stage from 11/02/2018:Stage Unknown(pTis (DCIS), pNX, cM0, ER: Negative, [place]: Negative, HER2: Not Assessed) - Signed by Asher Camara MD on 11/24/2018 Symptomatic anemia 10/20/2018 Raynaud disease 10/20/2018 GERD (gastroesophageal reflux disease) 9 Malignant neoplasm of female breast 10/20/2018 Hypertension 10/20/2018 Cachexia 10/20/2018 Abnormal mammogram of left breast 08/25/2018 Lupus erythematosus 07/31/2018 Breast calcifications on mammogram 08/12/2015 Current Oncology Plans No current plan information found. Past Plans Radiation Treatments * No radiation treatments are documented for this patient in [facility]. Treatments may have been administered in another system. Resolved Problems Problem Noted Date Diagnosed Date Resolved Date RICO (acute kidney injury) 07/31/2023 Stage 3a chronic kidney disease 12/29/2020 07/11/2024 Atrial fibrillation with rap id ventricular response 10/18/2019 10/19/2019 Chest pain, rule out acute m yocardial infarction 10/18/2019 10/19/2019 Chest pain 10/18/2019 10/19/2019 GIB (gastrointestinal bleeding) 10/20/2018 10/18/2019
--- OUTSIDE RECORDS SUMMARY | 2024-12-12 15:59 | XMS_ITS | Encounter Summary ---
Author Organization [facility] Address [address] [place] [address] Care Team Providers Care Ornamental Machine Operator Name Role Phone Stephan Arredondo DO Primary Care Provider [phone] Encounter Details Date Type Department Care Team (Late st Contact Info) Description 08/01/2024 3:24 PM EDT Hospital Encounter TH HISTORIC ENCOUNTERS [facility] ONLY Liam Blood MD [address] [place] [address] Social History Tobacco Use Types Packs/Day Years Used Date Smoking Tobacco: Never Smokeless Tobacco: Never Alcohol Use Standard Drinks/Week Comments No 0 (1 standard drink = 0.6 oz pur e alcohol) Comments Unknown Sex and Gender Information Value [...] 5:03 PM Encounter Date: 08/01/2024 Status: Signed Property Disposal Manager: Liam Blood MD (Physician) Cardiology Attending New Outpatient Note- Liam Blood M.D. [facility] Patient Name:Jackelyn De Guzman Patient :[id number] Referring [...] at least 2019 when she presented to [facility] with rapid atrial flutter. She [...] (gastrointestinal bleeding) 10/20/2018 ? H/O breast biopsy 2002 left, clip visible on mammo ? Heart murmur ? History of breast biopsy left breast ? History of postmenopausal HRT premrin 20 years total use ? History of transfusion ? Hyperlipidemia ? Hypertension ? Hypothyroidism ? Lupus 2010 ? Malignant neoplasm of female breast (HCC) [...] LOC; Surgeon: Alma Delia Coleman MD; Location: [facility] AMBULATORY SURGERY; Service: Breast; Laterality: Left; ? CATARACT EXTRACTION, BILATERAL ? COLONOSCOPY ? HYSTERECTOMY AGE 42 ? MASTECTOMY Left 12/27/2018 Procedure: LEFT MASTECTOMY SIMPLE; Surgeon: Alma Delia Coleman MD; Location: [facility] MAIN OPERATING ROOM; Service: Breast; Laterality: Left; ? TONSILLECTOMY ? TOTAL ABDOMINAL HYSTERECTOMY W/ BILATERAL SALPINGOOPHORECTOMY AGE 42 ? UPPER GASTROINTESTINAL ENDOSCOPY N/A 10/20/2018 Procedure: UPPER ENDOSCOPY-EGD; Surgeon: Fawn Juarez MD; Location: [facility] ENDOSCOPY; Service: Gastroenterology; Laterality: N/A; ? VARICOSE [...] and Family: Once a week ? Attends Faith Services: Never ? Active Member of Clubs [...] or fail to improve. Liam Blood MD, [facility], [facility], [facility] 08/01/2024 3:46 PM EDT documented in this encounter Plan of Treatment Upcoming Encounters Date Type Department Care Team (Late st Contact Info) Description 12/27/2024 2:00 PM EDT Office Visit [facility] [address] [place] [phone] Soraya Negrete PA [address] [place] [address] 02/13/2025 9:30 AM EDT Office Visit [facility] [address] [facility] [address] [place] [phone] Liam Blood MD [address] [facility] [address] [place] [address] 03/22/2025 10:00 AM EDT Procedure visit [facility] [address] [place] [phone] 03/27/2025 10:00 AM EDT Office Visit Breast Surgery - [address] [place] [phone] Ashleigh Eric MD [address] [place] [address] documented as of this encounter Procedures Procedure Name Priority Date/Time Associated Diagnosis Comments ECG 08/01/2024 documented in this encounter Results * ECG (08/01/2024) us Provider Onbase CV HISTORICAL CONV PROCEDURES Final Result documented in this encounter Visit Diagnoses Not on filedocumented in this encounter Care Teams Ornamental Machine Operator Relationship Specialty Start Date End Date Stephan Arredondo DO [address] [place] [phone] PCP - General Family Medicine 08/11/17 documented as of this encounter
--- OUTSIDE RECORDS SUMMARY | 2024-12-12 15:59 | XMS_ITS | Encounter Summary ---
Author Organization [facility] Address [address] [place] [address] Care Team Providers Care Precision Lens Generator Name Role Phone ArnulfoStephan marin Primary Care Provider [phone] Reason for Referral * Consultation (Routine) - Authorized Specialty Diagnoses / Procedures Referred By Lindy garsia Referred To Contact Podiatry Diagnoses Right leg pain Right foot pain Tanmay Zaidi MD [address] [place], [place] [id number] Phone: tel: fax: Podiatry Clinic [address] [address] Phone: tel: fax: Referral ID Status Reason Start Date Expiration Date Visits Requested Visits Authorized [id number] Authorized Specialty Services Required 11/17/2024 11/17/2025 1 1 Reason for Visit * Reason Comments Foot Pain Per EMS already seen and on abx, now c/o difficulty walking due to pain, VSS en route Encounter Details Date Type Department Care Team (Late st Contact Info) Description 11/17/2024 11:22 AM EST - 11/17/2024 3:00 PM EST Emergency [facility] [address] [place] [phone] Tanmay Zaidi MD [address] [place] [id number] Right leg pain (Primary Dx); Right foot pain Discharge Disposition: Home or Self Care Social History Tobacco Use Types Packs/Day Years [...] Sign Reading Time Taken Comments Blood Pressure 117/53 11/17/2024 11:40 AM EST Pulse 80 11/17/2024 11:40 AM EST Temperature 36.2 ??C (97.2 ??F) 11/17/2024 11:[address] Respiratory Rate 16 11/17/2024 11:40 AM EST Oxygen Saturation 98% 11/17/2024 11:40 AM EST Inhaled Oxygen Concentration - - Weight - - Height - - Body Mass Index - - documented in this encounter Discharge Instructions * Discharge Instructions* Tanmay Zaidi MD - 11/17/2024 2:13 PM EST You were seen in the emergency department today for swelling and pain in the right foot/ankle. An ultrasound was done to evaluate for blood clot which was negative. An x-ray was done which did not show any abnormality in the foot or ankle. There was evidence of some softening of the bones at the tips of the toes which is unlikely to be related to the pain that you are having today. As we discussed, I recommend that you take the Tylenol every 6 hours to help with inflammation and pain. I have also sent a prescription for Medrol which is a steroid. This will help with inflammation and pain over the coming days. Please take as instructed. Continue taking the antibiotic as prescribed. Please read the attached information. I have sent a referral for you to be seen at the podiatry clinic. I have included the information for the podiatry clinic so you can call them to arrange an appointment. Continue all of your other medications as prescribed-none of these have been changed. We are open 09/05 and would be happy to see you again if you have any concerns. If you develop worsening swelling, worsening pain, worsening redness, fevers, chest pain, shortness of breath, abdominalpain, nausea/vomiting, or any other concerning symptoms-please return to the emergency department for evaluation. * Attachments The following attachments cannot be sent through Care Everywhere. * Foot Pain ([place]) documented in this encounter Medications at Time of Discharge acetaminophen (TYLENOL) 325 mg tablet Take 1-2 tablets (325-650 mg total) by mouth every 6 (six) hours as needed for pain. cholecalciferol (VITAMIN D-3) 25 mcg (1,000 unit) tablet Take 2 tablets (50 mcg total) by mouth daily. colchicine (COLCRYS) 0.6 mg tablet TAKE 1 TABLET BY MOUTH EVERY DAY 04/16/2023 denosumab (PROLIA) 60 mg/mL syringe syringe Inject 1 mL (60 mg total) under the skin every 6 (six) months. 09/14/2023 erythromycin 5 mg/gram (0.5 %) ophthalmic ointment 02/01/2023 ferrous sulfate 325 mg (65 mg iron) EC tablet Take 1 tablet (325 mg total) by mouth. 05/18/2023 furosemide (LASIX) 20 mg tablet Take 1 tablet (20 mg total) by mouth 2 (two) times a day. levothyroxine (SYNTHROID, LEVOTHROID) 25 mcg tablet Take 1 tablet (25 mcg total) by mouth daily. Lotemax 0.5 % ophthalmic suspension 03/09/2023 metoprolol tartrate (LOPRESSOR) 25 mg tablet TAKE 0.5 TABLETS (12.5 MG TOTAL) BY MOUTH 2 TIMES A DAY. 07/23/2020 metroNIDAZOLE (METROCREAM) 0.75 % cream 07/19/2023 multivitamin (MULTIPLE VITAMINS ORAL) Take 1 tablet by mouth daily. nitrofurantoin, macrocrystal-mono hydrate, (MACROBID) 100 mg capsule 04/25/2023 oxyCODONE-acetami nophen (PERCOCET) 5-325 mg per tablet 04/22/2023 pantoprazole (PROTONIX) 40 mg EC tablet Take 1 tablet (40 mg total) by mouth daily. rivaroxaban (XARELTO) 20 mg tablet Take 1 tablet (20 mg total) by mouth every evening. 02/14/[address] drops,suspension OPHTHalmic SUSPension 03/31/2023 UNABLE TO FIND Mastectomy bras x 2 01/26/2022 UNABLE TO FIND Disp 1 Prosthetic mastectomy bra for Hx of left mastectomy Z90.12; Left breast DCIS D05.12 08/03/2022 vitamin E acid succinate (vitamin E succinate) 134 mg (200 unit) tablet Take 400 mg by mouth daily. Xiidra 5 % dropperette 06/22/2023 cephalexin (KEFLEX) 500 mg capsule Take 1 capsule (500 mg total) by mouth 3 (three) times a day for 7 days. 21 each 11/14/2024 5 methylPREDNISolon e (MEDROL DOSPAK) 4 mg tablet Follow schedule on package instructions 1 each 11/17/2024 5 documented as of this encounter Ordered Prescriptions Prescription Sig Dispense Quantity Refills Last Filled Start Date End Date methylPREDNISolon e (MEDROL DOSPAK) 4 mg tablet Follow schedule on package instructions 1 each 11/17/2024 5 documented in this encounter Discharge Disposition Disposition Code Departure Means Destination Comment s Home or Self Care documented in this encounter Progress Notes * Monique Oropeza RN - 11/17/2024 2:59 PM EST Written discharge instructions were reviewed with pt including follow up, medication, and when to come back to ED. Pt displayed understanding. no belongings left behind. Pt wheeled to daughter and grand daughters. Monique Oropeza RN 11/17/24 1500 * Monique Oropeza RN - 11/17/2024 1:07 PM EST Pt return from Ultrasound. Monique Oropeza RN 11/17/24 1308 * Monique Oropeza RN - 11/17/2024 12:07 PM EST Pt left for Ultrasound Monique Oropeza RN 11/17/24 1307 * Monique Oropeza RN - 11/17/2024 11:30 AM EST Pt was received via EMS d/t c/o bilateral foot pain. Per EMS; pt was picked up from home d/t bilateral foot pain x3 days. BP 127/70 HR 54, 98% RA. Pt report that she has been having bilateral foot pain and swelling. Denies any numbness/tingling, chest pain, SOB or dizziness. Pt able to move all extr emities. Pt is currently on abx. A/O. Monique Oropeza RN 11/17/24 [id number] * Tanmay Zaidi MD - 11/17/2024 11:21 AM EST HPI Chief Complaint Patient presents with Foot Pain Per EMS already seen and on abx, now c/o difficulty walking due to pain, VSS en route 84-year-old female with a history of Alzheimer's dementia, COPD, A-fib on Eliquis. She was here 2 days ago with right foot pain. She was noted to have increased inflammatory markers. She was started on Keflex for presumed cellulitis. She had negative blood cultures and negative x-rays at that time.She presents today with increased swelling and pain in the right foot and ankle. She has difficultywalking and getting out of bed. She denies chest pain, shortness of breath, abdominal pain. She is here with her [id number] and granddaughters. 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 DX:Ductal carcinoma in situ (DCIS) of left breast Gastric ulcer 10/20/2018 DX:Gastric ulcer;COMMENT:Endoscopy showed non bleeding gastric ulcer GIB (gastrointestinal bleeding) 10/20/2018 DX:GIB (gastrointestinal bleeding) H/O breast biopsy 2002 DX:H/O breast biopsy;COMMENT:left, clip visible on mammo Heart murmur DX:Heart murmur History of breast biopsy DX:History of breast biopsy;COMMENT:left breast History of postmenopausal HRT DX:History of postmenopausal HRT;COMMENT:premrin 20 years total use History of transfusion DX:History of transfusion Hyperlipidemia DX:Hyperlipidemia Hypertension DX:Hypertension Hypothyroidism DX:Hypothyroidism Lupus 2010 DX:Lupus Malignant neoplasm of female breast (CMS/HCC) 10/20/2018 DX:Malignant neoplasm of female breast (HCC);COMMENT:LEFT Osteoporosis DX:Osteoporosis PONV (postoperative nausea and vomiting) DX:PONV (postoperative nausea and vomiting);COMMENT:feels weak upon waking Raynaud's syndrome DX:Raynaud's syndrome Status post mastectomy, 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 DX:Status post mastectomy, left Varicose veins DX:Varicose veins Past Surgical History: Procedure Laterality Date APPENDECTOMY PROCEDURE:APPENDECTOMY BREAST BIOPSY Left 2005 PROCEDURE:BREAST BIOPSY;COMMENT:benign BREAST BIOPSY Right 08/19/2015 PROCEDURE:BREAST BIOPSY;COMMENT:BENIGN BREAST BIOPSY Right 10/30/2015 PROCEDURE:BREAST EXCISIONAL BIOPSY;COMMENT:BENIGN BREAST BIOPSY Left 09/27/2018 PROCEDURE:BREAST BIOPSY;COMMENT:DCIS BREAST BIOPSY Left 11/02/2018 PROCEDURE:BREAST BIOPSY;COMMENT:DCIS BREAST SURGERY Left 11/02/2018 PROCEDURE:BREAST SURGERY;COMMENT:Procedure: LEFT PREOP NEEDLE LOC; Surgeon: Alma Delia Coleman MD;Location: [facility]; Service: Breast; Laterality: Left; CATARACT EXTRACTION, BILATERAL PROCEDURE:CATARACT EXTRACTION, BILATERAL COLONOSCOPY PROCEDURE:COLONOSCOPY HYSTERECTOMY AGE 42 PROCEDURE:HYSTERECTOMY TONSILLECTOMY PROCEDURE:TONSILLECTOMY TOTAL ABDOMINAL HYSTERECTOMY W/ BILATERAL SALPINGOOPHORECTOMY AGE 42 PROCEDURE:TOTAL ABDOMINAL HYSTERECTOMY W/ BILATERAL SALPINGOOPHORECTOMY UPPER GASTROINTESTINAL ENDOSCOPY N/A 10/20/2018 PROCEDURE:UPPER GASTROINTESTINAL ENDOSCOPY;COMMENT:Procedure: UPPER ENDOSCOPY- EGD; Surgeon: Fawn Juarez MD; Location: [facility]; Service: Gastroenterology; Laterality: N/A; VARICOSE VEIN SURGERY PROCEDURE:VARICOSE VEIN SURGERY Family History Problem Relation Name Age of Onset Heart disease Father Diabetes Father Lung cancer Brother Cancer Maternal Grandmother 39 Lung cancer Brother No Known Problems Mother No Known Problems Sister BRCA 1/2 Neg Hx Breast cancer Neg Hx Colon cancer Neg Hx Endometrial cancer Neg Hx Ovarian cancer Neg Hx Social History Tobacco Use Smoking status: Never Smokeless tobacco: Never Substance Use Topics Alcohol use: No Drug use: No Review of Systems Review of Systems Pertinent positives and negatives included in the HPI. Physical Exam ED Triage Vitals [11/17/24 1140] Temp Heart Rate Resp BP 36.2 ??C (97.2 ??F) 80 16 117/53 SpO2 Temp Source Heart Rate Source Patient Position 98 % Temporal Monitor Lying BP Location FiO2 (%) Right arm -- Physical Exam Well-appearing elderly female laying semirecumbent in stretcher in assigned hallway spot [place] She is in no acute distress. She has no increased work of breathing. Abdomen soft and nontender. Full range of motion of right hip, knee, and ankle. Slight tenderness with the palpation of the right calf but patient is distractible. No redness of the skin of the right lower extremity noted. Mild swellingnoted on the right side compared to the left, and this is primarily at the distal ankle and over the dorsal aspect of the foot. There does not appear to be swelling of the calf or thigh. ED Course & MDM Patient's symptoms do not seem to correlate with septic arthritis that she has full range of motionwithout pain. She is afebrile. She has no systemic signs of infection. I do not appreciate any redness that suggest cellulitis. She was started on Keflex after she was found to have inflammatory markers elevated and a neutrophil predominance. She states that she has pain when she walks and she indicates to the bottom of the foot but she is also having pain in the dorsal aspect of the foot. She also states that she had some pain in the calf. Her history seems somewhat inconsistent. She also states the pain seems to come and go which suggests against a blood clot or infection. A duplex was done and was negative. An x-ray of the foot was done which raised question of possible distal osteomyelitis. The distal aspect of the toes are warm and well-perfused without skin breakdown or redness there is no tendernessor swelling to suggest an infection there. I explained to the patient and her family that I do not suspect that she has septic arthritis, DVT,osteomyelitis, occult fracture, or any other critical diagnosis at this time. Her symptoms could bedue to a sprain or strain though she does not recall any significant traumatic injury. Her symptomscould be due to osteoarthritis or possibly due to plantar fasciitis. She has been taking Tylenol but fairly inconsistently. I instructed her to take this scheduled every 6 hours to help with inflammation. I instructed her to keep the leg elevated and rest to allow the swelling to reduce. I also recommended ice to be applied. Family was interested in additional medication to help with discomfort that she is feeling. They added that she has been having some pain in her right shoulder and back. She demonstrated how she has been getting out of bed and I suspect that she has some discomfort in theshoulder and back to do change in her movement pattern but the fact that she has had pain in the right leg and has had difficulty getting out of bed because of this. We discussed the risk/benefits of multiple medications and ultimately employed the use of shared decision making to start a short course of steroids. A Medrol Dosepak was prescribed and sent to her pharmacy. I sent a referral for podiatry and gave them instructions to follow-up with podiatry if her symptoms are not improving over the next few days. I instructed her to follow-up with her primary doctor as well. Return precautions discussed and included in her discharge instructions. All of their questions were answered. Patient well-appearing at discharge. Results for orders placed or performed during the hospital encounter of 11/14/24 Blood Culture, Peripheral #2 Collection Time: 11/14/24 11:53 AM Specimen: Blood, Venous Result Value Ref Range Culture, Blood No growth at 2 days Comprehensive metabolic panel Collection Time: 11/14/24 11:53 AM Result Value Ref Range Sodium 137 135 - 145 mmol/L Potassium 3.9 3.5 - 5.1 mmol/L Chloride 99 98 - 107 mmol/L CO2 28 24 - 32 mmol/L Anion Gap 10 5 - 14 Glucose 116 70 - 199 mg/dL BUN 28 (H) 7 - 17 mg/dL Creatinine 1.20 (H) 0.50 - 1.00 mg/dL eGFR 45 (L) >=60 mL/min/1.73m2 BUN/Creatinine Ratio 23.3 (H) 12.0 - 20.0 Calcium 9.3 8.4 - 10.2 mg/dL AST (SGOT) 44 (H) 5 - 40 unit/L ALT (SGPT) 20 7 - 52 unit/L Alkaline Phosphatase 111 (H) 34 - 104 unit/L Total Protein 7.4 6.4 - 8.5 g/dL Albumin 4.0 3.5 - 5.0 g/dL Total Bilirubin 1.0 0.3 - 1.0 mg/dL Procalcitonin Collection Time: 11/14/24 11:53 AM Result Value Ref Range Procalcitonin 0.14 (H) <=0.05 ng/mL Lactate, with reflex Collection Time: 11/14/24 11:53 AM Result Value Ref Range LACTIC ACID 0.9 0.5 - 2.2 mmol/L Prothrombin time with INR Collection Time: 11/14/24 11:53 AM Result Value Ref Range Protime 13.9 (H) 10.5 - 13.3 sec INR 1.2 (H) 0.8 - 1.1 CBC auto differential Collection Time: 11/14/24 11:53 AM Result Value Ref Range WBC 10.2 4.0 - 10.5 K/mcL RBC 3.66 (L) 4.20 - 5.40 M/mcL Hemoglobin 12.0 (L) 12.5 - 16.0 g/dL Hematocrit 35.3 (L) 37.0 - 47.0 % MCV 96.4 78.0 - 100.0 FL MCH 32.7 25.0 - 33.0 pcg MCHC 33.9 32.0 - 36.0 g/dL RDW 14.8 12.1 - 16.2 % Platelets 203 150 - 450 K/mcL MPV 8.2 7.4 - 11.4 FL Neutrophils Relative 80.2 (H) 44.0 - 74.0 % Lymphocytes Relative 6.5 (L) 20.0 - 48.0 % Monocytes Relative 13.1 (H) 2.0 - 12.0 % Eosinophils Relative 0.0 0.0 - 6.0 % Basophils Relative 0.2 0.0 - 2.0 % Neutrophils Absolute 8.20 (H) 1.80 - 7.80 K/mcL Lymphocytes Absolute 0.70 (L) 1.00 - 3.20 K/mcL Monocytes Absolute 1.30 (H) 0.00 - 0.80 K/mcL Eosinophils Absolute 0.00 0.00 - 0.50 K/mcL Basophils Absolute 0.00 0.00 - 0.20 K/mcL Sedimentation rate, automated Collection Time: 11/14/24 11:53 AM Result Value Ref Range Sed Rate 73 (H) 0 - 20 mm/hr C-reactive protein Collection Time: 11/14/24 11:53 AM Result Value Ref Range C-Reactive Protein 15.0 (H) <=0.9 mg/dL Blood Culture, Peripheral #1 Collection Time: 11/14/24 11:56 AM Specimen: Blood, Venous Result Value Ref Range Culture, Blood No growth at 2 days Culture urine Collection Time: 11/14/24 12:08 PM Specimen: Urine, Clean Catch Result Value Ref Range Culture, Urine No growth Urinalysis with reflex microscopic and culture Collection Time: 11/14/24 12:08 PM Result Value Ref Range Color, Urine Yellow Yellow, Colorless Clarity, Urine Clear Clear Specific [place] Urine 1.006 1.005 - 1.030 pH, Urine 5.0 (A) 5.0 - 8.0 pH Leukocytes, Urine Negative Negative WBCs/mcL Nitrite, Urine Negative Negative Protein, Urine Negative Negative mg/dL Glucose, Urine Negative Negative mg/dL Ketones, Urine Negative Negative mg/dL Blood, Urine Small (A) Negative mg/dL RBC, Urine 6 (H) 0 - 3 /HPF WBC, Urine 1 0 - 5 /HPF Squamous Epithelial, Urine 0 0 - 5 /HPF Mucus, Urine Present (A) Not Present /HPF Hyaline Casts, Urine 2 (H) <=0 /LPF Bust[place] urine culture tube Collection Time: 11/14/24 12:08 PM Result Value Ref Range Extra Tube Hold for add-ons. Vascular US Duplex Lower Extremity Venous Right Result Date: 11/17/2024 EXAM: VAS US DUPLEX LOWER EXT VENOUS RIGHT INDICATIONS: Right lower extremity pain and swelling. TECHNIQUE: Duplex venous evaluation of the lower extremity was performed utilizing graded compression,color and spectral Doppler interrogation. COMPARISON: None. FINDINGS: There is normal compressibility, Doppler flow, and augmentation of the right common femoral, superficial femoral, and popliteal veins. Normal compressibility and color Doppler of the visualized posterior tibial and peroneal veins. No deep venous thrombosis in the right femoropopliteal system. Report reviewed and signed by : Dr. Graham Alegre on 11/17/2024 1:30 PM. Workstation Name - [id number] -------- FINAL REPORT -------- Dictated By: Graham Alegre Dictated Date: 11/17/2024 13:30 ET Assigned Physician: Graham Alegre Reviewed and Electronically Signed By: Graham Alegre Signed Date: 11/17/2024 13:30 ET Workstation ID: [id number] Transcribed By: Self Edit Transcribed Date: 11/17/2024 13:30 ET XR Foot 3+ Views Right Result Date: 11/17/2024 EXAM: XR FOOT 3+ VIEWS RIGHT CLINICAL INFORMATION: OTHER pain, swelling COMPARISON: None FINDINGS: 3 views of the right foot were obtained. Loss of bony substance and apparent periosteal reaction involving the 2nd through 4th distal distal phalanges. No fracture. Lesser toe claw deformities. Mild multifocal midfoot and forefoot osteoarthritis. Soft tissue swelling of the foot. Loss of bony substance and periosteal reaction involving the 2nd through 4th toe distal phalanges raises concern for osteomyelitis. Report reviewed and signed by : Dr. Graham Alegre on 11/17/2024 1:29 PM. Workstation Name - [id number] -------- FINAL REPORT -------- Dictated By: Graham Alegre Dictated Date: 11/17/2024 13:27 ET Assigned Physician: Graham Alegre Reviewed and Electronically Signed By: Graham Alegre Signed Date: 11/17/2024 13:29 ET Workstation ID: [id number] Transcribed By: Self Edit Transcribed Date: 11/17/2024 13:27 ET Medications - No data to display Clinical Impressions as of 11/17/24 1528 Right leg pain Right foot pain Medical Decision Making Procedures Tanmay Zaidi MD 11/17/24 1231 Tanmay Zaidi MD 11/17/24 1534 documented in this encounter Plan of Treatment Upcoming Encounters Date Type Department Care Team (Late st Contact Info) Description 12/27/2024 2:00 PM EDT Office Visit [facility] [place] [address] [place] [phone] Soraya Negrete PA [address] [place] [address] 02/13/2025 9:30 AM EDT Office Visit [facility] [place] [address] [facility] [address] [place] [phone] Liam Blood MD [address] [facility] [address] [place] [address] 03/22/2025 10:00 AM EDT Procedure visit [facility] [address] [place] [phone] 03/27/2025 10:00 AM EDT Office Visit Breast Surgery - [place] [address] [place] [phone] Ashleigh Eric MD [address] [place] [address] Scheduled Referrals Name Type Priority Associated Diagnoses Order Schedule Ambulatory referral to Podiatry Outpatient Referral Routine 1 Occurrence s starting 11/17/2024 until 11/17/2025 documented as of this encounter Procedures Procedure Name Priority Date/Time Associated Diagnosis Comments VAS US DUPLEX LOWER EXT VENOUS RIGHT STAT 11/17/2024 12:50 PM EST Right leg pain XR FOOT 3+ VIEWS RIGHT STAT 11/17/2024 12:22 PM EST documented in this encounter Results * Vascular US Duplex Lower Extremity Venous Right (11/17/2024 12:50 PM EST) Anatomical Region Laterality Modality Vascular, Abdomen Ultrasound 11/17/2024 1:30 PM EST Impressions 11/17/2024 1:30 PM EST No deep venous thrombosis in the right femoropopliteal system. Report reviewed and signed by : Dr. Graham Alegre on 11/17/2024 1:30 PM. Workstation Name - [id number] -------- FINAL REPORT -------- Dictated By: Graham Alegre Dictated Date: 11/17/2024 13:30 ET Assigned Physician: Graham Alegre Reviewed and Electronically Signed By: Graham Alegre Signed Date: 11/17/2024 13:30 ET Workstation ID: [id number] Transcribed By: Self Edit Transcribed Date: 11/17/2024 13:30 ET Narrative 11/17/2024 1:30 PM EST EXAM: VAS US DUPLEX LOWER EXT VENOUS RIGHT INDICATIONS: ??Right lower extremity pain and swelling. TECHNIQUE: ??Duplex venous evaluation of the lower extremity was performed utilizing graded compression, color and spectral Doppler interrogation. COMPARISON: ??None. FINDINGS: ?? There is normal compressibility, Doppler flow, and augmentation of the right common femoral, superficial femoral, and popliteal veins. ?? Normal compressibility and color Doppler of the visualized posterior tibial and peroneal veins. Procedure Note Graham Alegre MD - 11/17/2024 EXAM: VAS US DUPLEX LOWER EXT VENOUS RIGHT INDICATIONS: Right lower extremity pain and swelling. TECHNIQUE: Duplex venous evaluation of the lower extremity was performedutilizing graded compression, color and spectral Doppler interrogation. COMPARISON: None. FINDINGS: There is normal compressibility, Doppler flow, and augmentation of theright common femoral, superficial femoral, and popliteal veins. Normal compressibility and color Doppler of the visualized posteriortibial and peroneal veins. IMPRESSION: No deep venous thrombosis in the right femoropopliteal system. Report reviewed and signed by : Dr. Graham Alegre on 11/17/2024 1:30 PM.Workstation Name - [id number] -------- FINAL REPORT -------- Dictated By: Graham Alegre Dictated Date: 11/17/2024 13:30 ET Assigned Physician: Graham Alegre Reviewed and Electronically Signed By: Graham Alegre Signed Date: 11/17/2024 13:30 ET Workstation ID: [id number] Transcribed By: Self Edit Transcribed Date: 11/17/2024 13:30 ET us Tanmay Zaidi MD CV VASCULAR PROCEDURES Final R esult * XR Foot 3+ Views Right (11/17/2024 12:22 PM EST) Anatomical Region Laterality Modality Lower Extremities, Foot Right Radiogra phic Imaging 11/17/2024 1:27 PM EST Impressions 11/17/2024 1:29 PM EST Loss of bony substance and periosteal reaction involving the 2nd through 4th toe distal phalanges raises concern for osteomyelitis. ?? Report reviewed and signed by : Dr. Graham Alegre on 11/17/2024 1:29 PM. Workstation Name - [id number] -------- FINAL REPORT -------- Dictated By: Graham Alegre Dictated Date: 11/17/2024 13:27 ET Assigned Physician: Graham Alegre Reviewed and Electronically Signed By: Graham Alegre Signed Date: 11/17/2024 13:29 ET Workstation ID: [id number] Transcribed By: Self Edit Transcribed Date: 11/17/2024 13:27 ET Narrative 11/17/2024 1:29 PM EST EXAM: XR FOOT 3+ VIEWS RIGHT CLINICAL INFORMATION: OTHER pain, swelling COMPARISON: None FINDINGS: 3 views of the right foot were obtained. Loss of bony substance and apparent periosteal reaction involving the 2nd through 4th distal distal phalanges. ??No fracture. ??Lesser toe claw deformities. ??Mild multifocal midfoot and forefoot osteoarthritis. ??Soft tissue swelling of the foot. Procedure Note Graham Alegre MD - 11/17/2024 EXAM: XR FOOT 3+ VIEWS RIGHT CLINICAL INFORMATION: OTHER pain, swelling COMPARISON: None FINDINGS: 3 views of the right foot were obtained. Loss of bony substance and apparent periosteal reaction involving the 2ndthrough 4th distal distal phalanges. No fracture. Lesser toe clawdeformities. Mild multifocal midfoot and forefoot osteoarthritis. Softtissue swelling of the foot. IMPRESSION: Loss of bony substance and periosteal reaction involving the 2nd [id number] toe distal phalanges raises concern for osteomyelitis. Report reviewed and signed by : Dr. Graham Alegre on 11/17/2024 1:29 PM.Workstation Name - [id number] -------- FINAL REPORT -------- Dictated By: Graham Alegre Dictated Date: 11/17/2024 13:27 ET Assigned Physician: Graham Alegre Reviewed and Electronically Signed By: Graham Alegre Signed Date: 11/17/2024 13:29 ET Workstation ID: [id number] Transcribed By: Self Edit Transcribed Date: 11/17/2024 13:27 ET us Tanmay Zaidi MD IMG XR PROCEDURES Final Result documented in this encounter Visit Diagnoses Diagnosis Right leg pain- Primary Pain in soft tissues of limb Right foot pain Pain in soft tissues of limb documented in this encounter Discontinued Medications Medication Sig Discontinue Reason Start Date End Da te methylPREDNISolone (MEDROL DOSPAK) 4 mg tablet 05/02/2023 11/17/2024 documented as of this encounter Care Teams Precision Lens Generator Relationship Specialty Start Date End Date Stephan Arredondo DO [address] [place] [phone] PCP - General Family Medicine 08/11/17 documented as of this encounter
--- OUTSIDE RECORDS SUMMARY | 2024-12-12 15:59 | XMS_ITS | Encounter Summary ---
Author Organization [facility] Address [address] [place] [address] Care Team Providers Care Enterprise Account Executive Name Role Phone Teresa Seay Primary Care Provider Un available Encounter Details Date Type Department Care Team (Late st Contact Info) Description 08/09/2023 Orders Only [facility] [address] [place], [place] [id number] Raphael Dickey MD [address] [place], [place] [address] Social History Tobacco Use Types Packs/Day Years Used Date Smoking Tobacco: Never Assessed Comments:Smoking Status:Nevsantino r a smoker Comments Unknown Sex and Gender Information Value Date Recorded Sex Assigned at Not on file Legal Sex Female 5:50 PM EDT Gender Identity Not on file Sexual Orientation Not on file documented as of this encounter Procedure Notes * Raphael Dickey - 08/09/2023 4:57 PM EDT Verified Results CT Maxillofacial Area Without Contrast 03Aug2023 09:15AM Raphael Dickey TESTING PERFORMED AT: [address] [address], PHONE [phone], FAX [phone] Test Name Result Flag Reference CT Maxillofacial Area CT Scan Without Contrast (Report) EXAMINATION: CT MAXILLOFACIAL WITHOUT CONTRAST CLINICAL INFORMATION: Chronic nonallergic rhinitis. COMPARISON: None available. TECHNIQUE: Multidetector helical imaging was performed in the axial plane with generation of coronal and sagittal reformatted images. This CT examination was performed using dose optimization techniques as appropriate, variously including the following: *Automated exposure control *Adjustment of mA and/or kV according to patient size (this includes techniques or standardized protocols for targeted exams where dose is matched to indication/reason for exam; i.e. extremities or head) *Use of iterative reconstruction technique DLP: 369.7 mGy-cm FINDINGS: The frontal sinuses are clear. The bilateral frontoethmoidal recesses are patent bilaterally. The ethmoid air cells are clear. The anterior ethmoidal arteries are protected. There is no pneumatization of the sagrario dilshad. The olfactory fossae are symmetric in depth. The right sphenoid sinuses demonstrate mucosal thickening without osseous hypertrophy or dehiscence of the sinus baca. The intersphenoid septum is directed toward the right and encroaches on the carotid canal. The bilateral sphenoethmoidal recesses are patent bilaterally. The maxillary sinuses are clear. The ostiomeatal units are patent bilaterally. There is no Marco Antonio cell or abnormal elongation of the infundibulum bilaterally. The maxilla demonstrates no periapical lucencies extending into the floor of the maxillary sinuses. The nasal septum is deviated to the right anteriorly and to the left posteriorly with left bony spur. The choana are patent bilaterally. Left julia bullosa. The lamina papyracea are unremarkable. Sequelae of bilateral lens replacement. Degenerative changes of the bilateral temporal mandibular joints. Atherosclerotic calcifications of the bilateral carotid siphons. The visualized portions of the brain are unremarkable. IMPRESSION: -Mild mucosal thickening of the right sphenoid sinus. Otherwise, the major drainage pathways are patent. -Nasal septum deviation, to the right anteriorly and to the left posteriorly with left bony spur. Left julia bullosa. -Incidentally identified rightward intersphenoid septum encroaching on the right carotid canal. Thank you for referring your patient to us, Justine Ellison [id number] (Electronically Signed - 08/04/2023 09:04) Copy: KIM BUCK [address] [address] PATIENT , documented in this encounter Plan of Treatment Not on file documented as of this encounter Visit Diagnoses Not on filedocumented in this encounter Care Teams Enterprise Account Executive Relationship Specialty Start Date End Date Teresa Seay PCP - General 05/23/23 documented as of this encounter
--- OUTSIDE RECORDS SUMMARY | 2024-12-12 15:59 | XMS_ITS | Clinical Summary ---
Author Organization [facility] Address [address] [place] [address] Phone Care Team Providers Care Provider Network Manager Name Role Phone Stephan Arredondo Primary Care Provider Candi vailable Allergies Active Allergy Reactions Criticality Noted Date Comments Colchicine Medium 10/14/2020 Other reaction(s): Other (See Comments) Made the patient feel in another world completely, brought persons and living persons in her mind, nightmares during the night Medications levothyroxine (SYNTHROID, LEVOTHROID) 25 MCG tablet Take 1 tablet by mouth 1 (one) time each day Active Multiple Vitamin (Multi-Vitamin) tablet Take 1 tablet by mouth 1 (one) time each day Active furosemide (LASIX) 20 MG tablet Take 20 mg by mouth 1 (one) time each day Active colchicine 0.6 MG tablet Take 0.6 mg by mouth 1 (one) time each day Active Azelastine HCl 0.15 % solution SPRAY 1 SPRAY (205.5 MCG) IN EACH NOSTRIL BY INTRANASAL ROUTE 2 TIMESPER DAY 2 Active metoprolol tartrate 25 MG tablet Take 12.5 mg by mouth in the morning and 12.5 mg in the evening. 2 Active ipratropium (ATROVENT) 0.06 % nasal spray USE 2 SPRAYS IN EACH NOSTRIL 2 TO 3 TIMES DAILY. 2 Active Xarelto 20 MG tablet TAKE 1 TABLET (20 MG TOTAL) BY MOUTH EVERY EVENING. PATIENT TO FINISH OFF SUPPLY OF ELIQUIS. 2 Active ferrous sulfate 325 (65 Fe) MG EC tablet Take 1 tablet by mouth 1 (one) time each day 3 Active Lotemax 0.5 % ophthalmic suspension PUT 1 DROP TWICE A DAY INTO BOTH EYES OR NEEDED 3 Active metroNIDAZOLE (METROCREAM) 0.75 % cream APPLY TO FACE EVERY DAY 3 Active pantoprazole (PROTONIX) 40 MG EC tablet Take 40 mg by mouth 1 (one) time each day Active Active Problems Problem Noted Date Diagnosed Date Mass of skin of right lower limb 07/29/2021 Overview (01/05/2022): [facility], biopsied by outside whipped topping supervisor, waiting for report Chronic kidney disease stage 3 12/29/2020 Localized edema 12/29/2020 Resolved Problems Problem Noted Date Diagnosed Date Resolved Date Proteinuria 12/29/2020 12/30/2020 Family History Medical History Relation Comments Diabetes Father Heart disease Father Dementia Mother Cancer Sibling Relation Status Comments Father Mother Sibling Social History Tobacco Use Types Packs/Day Years Used Date Smoking Tobacco: Never Smokeless Tobacco: Never Tobacco Cessation:Counseling Given: Not Answered Alcohol Use Standard Drinks/Week Comments No 0 (1 standard drink = 0.6 oz pur e alcohol) Comments Unknown Sex and Gender Information Value Date Recorded Sex Assigned at Not on file Legal Sex Female 5:04 PM EST Gender Identity Not on file Sexual Orientation Not on file Last Filed Vital Signs Vital Sign Reading Time Taken Comments Blood Pressure 147/80 09/04/2024 3:37 PM EST Pulse 91 09/04/2024 3:37 PM EST Temperature - - Respiratory Rate - - Oxygen Saturation 98% 11/23/2022 1:13 PM EST Inhaled Oxygen Concentration - - Weight 44.6 kg (98 lb 6.4 oz) 09/04/2024 3:37 PM EST Height 165.1 cm (5' 5 ) 10/23/2019 12:00 PM EST Body Mass Index 16.37 10/23/2019 12:00 PM EST Plan of Treatment Upcoming Encounters Date Type Department Care Team (Late st Contact Info) Description 03/05/2025 2:00 PM EDT Office Visit [facility] [address] [place] [address] Jackson Kinney MD [address] [phone] Health Maintenance Due Date Last Done Comments Pneumococcal Vaccine: 65+ Years Completed 06/17/2020, 01/22/2019 Influenza Vaccine Completed 08/03/2024 Hepatitis B Vaccine Aged Out No longe r eligible based on patient's age to complete this topic Insurance MEDICARE MEDICARE Care Teams Provider Network Manager Relationship Specialty Start Date End Date Stephan Arredondo [address] [place] [address] PCP - General Family Medicine 07/07/21
--- OUTSIDE RECORDS SUMMARY | 2024-12-12 15:59 | XMS_ITS | Encounter Summary ---
Author Organization [facility] Address [address] [place] [address] Care Team Providers Care Mine Motor Operator Name Role Phone Stephan Arredondo DO Primary Care Provider [phone] Encounter Details Date Type Department Care Team (Late Contact Info) Description 11/19/2024 Telephone [facility] Emergency [address] [place] [address] Irene Estevez RN Social History Tobacco Use Types Packs/Day Years [...] PM EST documented as of this encounter Plan of Treatment Upcoming Encounters Date Type Department Care Team (Late Contact Info) Description 12/27/2024 2:00 PM EDT Office Visit [facility] [address] [place] [phone] Soraya Negrete PA [address] [place] [address] 02/13/2025 9:30 AM EDT Office Visit [facility] [place] [address] [facility] [address] [place] [address] Liam Blood MD [address] [facility] [address] [place] [address] 03/22/2025 10:00 AM EDT Procedure visit [facility] [address] [place] [address] 03/27/2025 10:00 AM EDT Office Visit [facility] [place] [address] [place] [address] Ashleigh Eric MD [address] [place] [address] documented as of this encounter Visit Diagnoses Not on filedocumented in this encounter Care Teams Mine Motor Operator Relationship Specialty Start Date End Date Stephan Arredondo DO [address] [place] [address] PCP - General Family Medicine 08/11/17 documented as of this encounter
--- OUTSIDE RECORDS SUMMARY | 2024-12-12 15:59 | XMS_ITS | Encounter Summary ---
Author Organization [facility] Address [address] [place] [address] Care Team Providers Care Certified Bench Jeweler Technician Name Role Phone Teresa Seay Primary Care Provider Un available Encounter Details Date Type Department Care Team (Late st Contact Info) Description 07/21/2023 Orders Only [facility] [address] [place], [place] [id number] Raphael Dickey MD [address] [place], [place] [id number] Social History Tobacco Use Types Packs/Day Years Used Date Smoking Tobacco: Never Assessed Comments:Smoking Status:Neve r a smoker Comments Unknown Sex and Gender Information Value Date Recorded Sex Assigned at Not on file Legal Sex Female 5:50 PM EDT Gender Identity Not on file Sexual Orientation Not on file documented as of this encounter Procedure Notes * Raphael Dickey - 07/21/2023 5:45 PM EDT Verified Results BETA 2 TRANSFERRIN, BODY FLUID 18Jul2023 10:06AM Raphael Dickey Testing performed at: [facility], [facility], [address], [place], [address], Medical Transcription: Bruce Al M.D.,PhD [facility] Collection Date/Time: [id number] [facility] Results Received Date/Time: [facility] Reported Date/Time: [id number] Test Name Result Flag Reference BETA 2 TRANSFERRIN Not Detected Not Detected Beta-2 Transferrin (spinal fluid) not detected. Detection of beta-2 transferrin by immunofixation is useful in differential diagnosis for CSF otorrhea or CSF rhinorrhea. Negative result does not rule out CSF leakage, the amount of CSF in the fluid specimen may be below the limit of detection. Patients with rare congenital defect atransferrinemia cannot be tested with this technique. documented in this encounter Plan of Treatment Not on file documented as of this encounter Visit Diagnoses Not on filedocumented in this encounter Care Teams Certified Bench Jeweler Technician Relationship Specialty Start Date End Date Teresa Seay PCP - General 05/23/23 documented as of this encounter
--- OUTSIDE RECORDS SUMMARY | 2024-12-12 15:59 | XMS_ITS | Encounter Summary ---
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 Patient offers no complaints. Family contacted EMS after delayed response from patient at home. Encounter Details Date Type Department Care Team (Late st Contact Info) Description 11/14/2024 10:56 AM EST - 11/14/2024 8:11 PM EST Emergency [facility] Emergency [address] [place] [phone] Gil Dos Santos MD [address] [place] [phone] Cellulitis of right ankle (Primary Dx) Discharge Disposition: Home or Self Care Social [...] Sign Reading Time Taken Comments Blood Pressure 144/70 11/14/2024 6:25 PM EST Pulse 140 11/14/2024 6:25 PM EST Temperature 37 ??C (98.6 ??F) 11/14/2024 6:25 PM EST Respiratory Rate 18 11/14/2024 6:25 PM EST Oxygen Saturation 97% 11/14/2024 6:25 PM EST Inhaled Oxygen Concentration - - Weight - - Height - - Body Mass Index - - documented in this encounter Discharge Instructions * Discharge Instructions* Gil Dos Santos MD - 11/14/2024 7:11 PM EST You have been evaluated in the Emergency Department today for a skin infection. Please take your prescribed antibiotics as directed for the full course of the medication. We recommend you take tylenol 650mg every 6 hours as needed for pain. Please schedule an appointment for follow up with your primary care physician as soon as possible. Return to the Emergency Department if you experience recurrent vomiting, fevers greater than 100.4F, increase in area of redness, warmth around the area, foul smelling discharge from the area, increased tenderness around the area, or any other concerning symptoms. * Attachments The following attachments cannot be sent through Care Everywhere. * Cellulitis (Romansh) documented in this encounter Medications at Time [...] methylPREDNISolon e (MEDROL DOSPAK) 4 mg tablet 05/02/2023 5 documented as of this encounter Ordered Prescriptions Prescription Sig Dispense Quantity Refills Last Filled Start Date End Date cephalexin (KEFLEX) 500 mg capsule Take 1 capsule (500 mg total) by mouth 3 (three) times a day for 7 days. 21 each 11/14/2024 5 documented in this encounter Discharge Disposition Disposition Code Departure Means Destination Comment s Home or Self Care documented in this encounter Progress Notes * Jolie Vasquez RN - 11/14/2024 11:06 AM EST Patient BIBA from home with AMS. Per EMS patient hx of dementia, but per family patient is confusion is getting worse. Patient was due for outpatient bloodwork, however family requested patient be brought to ED instead. Jolie Vasquez RN 11/14/24 1107 * Gil Dos Santos MD - 11/14/2024 10:46 AM EST HPI Chief Complaint Patient presents with Altered Mental Status Increased confusion. Patient offers no complaints. Family contacted EMS after delayed response frompatient at home. HPI Patient is an 89-year-old female with a history of Alzheimer's dementia, CAD, COPD, diabetes, hypothyroidism, A-fib on Eliquis, presents to the ED with daughter with chief complaint of confusion. Patient states that she is having pain in her right leg, especially her right ankle which is causing her difficulty to walk. According to daughter at bedside patient was able to walk around and visit herhusband who was in the hospital for 2 weeks. She heard from the patient's other daughter that the patient could not answer the doorbell to let somebody in, and when they saw her she was slouched overand was confused, thus she came to the ED to be evaluated. Was post have some blood work and maybe an abdominal x-ray done as an outpatient however came to the ED. No data recorded Patient History Past Medical History: Diagnosis Date A-fib ([facility]/HCC) DX:A-fib ([facility]) Abnormal mammogram of both breasts DX:Abnormal mammogram [...] NEEDLE LOC; Surgeon: Alma Delia Coleman MD;Location: [facility]; Service: Breast; Laterality: Left; CATARACT EXTRACTION, BILATERAL PROCEDURE:CATARACT EXTRACTION, BILATERAL COLONOSCOPY PROCEDURE:COLONOSCOPY HYSTERECTOMY AGE 42 PROCEDURE:HYSTERECTOMY TONSILLECTOMY PROCEDURE:TONSILLECTOMY TOTAL ABDOMINAL HYSTERECTOMY W/ BILATERAL SALPINGOOPHORECTOMY AGE 42 PROCEDURE:TOTAL ABDOMINAL HYSTERECTOMY W/ BILATERAL SALPINGOOPHORECTOMY UPPER GASTROINTESTINAL ENDOSCOPY N/A 10/20/2018 PROCEDURE:UPPER GASTROINTESTINAL ENDOSCOPY;COMMENT:Procedure: UPPER ENDOSCOPY- EGD; Surgeon: Fawn Juarez MD; Location: [facility]; Service: Gastroenterology; Laterality: N/A; VARICOSE VEIN [...] No Review of Systems Review of Systems As per HPI Physical Exam ED Triage Vitals [11/14/24 1125] Temp Heart Rate Resp BP 36.8 ??C (98.2 ??F) (!) 128 22 (!) 150/80 SpO2 Temp Source Heart Rate Source Patient Position 98 % Oral -- -- BP Location FiO2 (%) -- -- Physical Exam Constitutional: Appearance: Normal appearance. She is normal weight. HENT: Head: Normocephalic. Nose: Nose normal. Mouth/Throat: Mouth: Mucous membranes are moist. Eyes: Extraocular Movements: Extraocular movements intact. Pulmonary: Effort: Pulmonary effort is normal. Abdominal: General: Abdomen is flat. Musculoskeletal: General: Swelling and tenderness present. Normal range of motion. Comments: Swelling and erythema to her right anterior and lateral ankle area, tenderness to palpation, 2-second cap refill, normal plantar and dorsi flexion Skin: General: Skin is warm. Capillary Refill: Capillary refill takes less than 2 seconds. Neurological: General: No focal deficit present. Mental Status: She is oriented to person, place, and time. . ED Course & MDM Clinical Impressions as of 11/14/242148 Cellulitis of right ankle Medical Decision Making Patient is an 89-year-old female with a history of Alzheimer's dementia, CAD, COPD, diabetes, hypothyroidism, A-fib on Eliquis, presents to the ED with daughter with chief complaint of confusion. Patient states that she is having pain in her right leg, especially her right ankle which is causing her difficulty to walk. Differential diagnosis includes cellulitis of her right ankle. She has normal plantar and dorsi flexion of her ankle actively with full range of motion, have considered but have a low suspicion of a septic arthritis, may possibly have an acute other inflammatory joint such as gout or pseudogout however she has no history of gout, do have a high suspicion of a cellulitis however will order inflammatory markers, ESR and CRP, will check a white blood cell count, will obtain an x-ray of her ankle to rule out any osseous disease, will give her p.o. Tylenol, will check a urinalysis as the patient states that her urine is an unusual yellow color and was noted to be confused, will check a chest x-ray. Have considered but doubt CVA/TIA, ACS, meningitis, bacteremia, is well-appearing. Workup here is overall reassuring, no medical etiology to explain her transient confusion/unresponsiveness however she is alert and oriented x 4, looks well. No evidence of a UTI, no evidence of pneumonia. X-ray of her right ankle with no fractures or dislocations. Does have mild elevation in inflammatory markers ESR and CRP. Although I did have a very low suspicion of a inflammatory joint, I did consult orthopedic surgery to see her. Please see separate consult note for details. They are in agreement that she has a cellulitis to her ankle, I will prescribe her Keflex to her pharmacy, did advise that she follow-up with her primary care physician for reevaluation of the cellulitis of her ankle, was given return precautions. 2 family members at bedside states that she will have 2 people with the state with her as her is currently hospitalized. Was given return precautions and she was dis charged in fair condition. Procedures Gil Dos Santos MD 11/14/24 1209 Gil Dos Santos MD 11/14/24 1214 Gil Dos Santos MD 11/14/24 2151 documented in this encounter Consult Notes * Saadia Alcazar MD - 11/14/2024 4:37 PM EST Orthopedic Surgery Consult Note Patient: Jackelyn De Guzman Age: 84 y.o. Sex: female Date of Consult: 11/14/2024 Patient Evaluated at: 4:38 PM EST Provider Requesting Consult: Dr. Gil Dos Santos MD Orthopedic Surgery Attending: Dr. Galvan Assessment & Plan Patient is a 84 y.o. female who presents with 2 months of R ankle pain that acutely worsened today,causing her to present to the ED with the inability to ambulate. Imaging ruled out fracture or other traumatic injury. WBC 10.2, ESR 73, CRP 15. Patient denies fever or chills. Given painless exam and presence of cellulitis, low concern for septic joint at this time. Would recommend NSAIDs, oral antibiotics and strict return precautions if pain worsens or does not improve with oral antibiotics. Plan: -- XR R ankle to assess for any bony injury -- Weightbearing status: WBAT RLE -- Elevate and ice extremity if possible to help with pain and swelling -- Pain control per ED/Primary -- Oral antibiotic treatment for cellulitis The patient was discussed with the attending Dr. Galvan, who agrees with the assessment and plan. Subjective Chief Complaint: R ankle pain History of Present Illness: Jackelyn De Guzman is a 84 y.o. female with PMH of Cardiac murmur ,Hypothyroidism ,Lupus, Varicose veins with chief complaint of right ankle pain and swelling for about two months. Denies any trauma or injury. She reports this has been going on for about two months but acutely worsened this AM when she couldn't bear weight. Denies any history of R ankle injury or prior swelling/joint pain. Does report chronic back pain managed by her primary care. Patient denies any other musculoskeletal pain, numbness/tingling, or weakness. Patient denies fevers, chills, chest pain, or shortness of breath. Blood thinners: none Living situation: home with Ambulatory status: independent Occupation: N/a Past Medical History: Past Medical History: Diagnosis Date A-fib ([facility]) DX:A-fib ([facility]) Abnormal mammogram of both breasts DX:Abnormal mammogram [...] 2010 DX:Lupus Malignant neoplasm of female breast ([facility]) 10/20/2018 DX:Malignant neoplasm of female breast (HCC);COMMENT:LEFT Osteoporosis DX:Osteoporosis PONV (postoperative nausea and vomiting) DX:PONV (postoperative nausea and vomiting);COMMENT:feels weak upon waking Raynaud's syndrome DX:Raynaud's syndrome Status post mastectomy, 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 DX:Status post mastectomy, left Varicose veins DX:Varicose veins Past Surgical History: Past Surgical History: Procedure Laterality Date APPENDECTOMY PROCEDURE:APPENDECTOMY BREAST BIOPSY Left 2005 PROCEDURE:BREAST BIOPSY;COMMENT:benign BREAST BIOPSY Right 08/19/2015 PROCEDURE:BREAST BIOPSY;COMMENT:BENIGN BREAST BIOPSY Right 10/30/2015 PROCEDURE:BREAST EXCISIONAL BIOPSY;COMMENT:BENIGN BREAST BIOPSY Left 09/27/2018 PROCEDURE:BREAST BIOPSY;COMMENT:DCIS BREAST BIOPSY Left 11/02/2018 PROCEDURE:BREAST BIOPSY;COMMENT:DCIS BREAST SURGERY Left 11/02/2018 PROCEDURE:BREAST SURGERY;COMMENT:Procedure: LEFT PREOP NEEDLE LOC; Surgeon: Alma Delia Coleman MD;Location: [facility]; Service: Breast; Laterality: Left; CATARACT EXTRACTION, BILATERAL PROCEDURE:CATARACT EXTRACTION, BILATERAL COLONOSCOPY PROCEDURE:COLONOSCOPY HYSTERECTOMY AGE 42 PROCEDURE:HYSTERECTOMY TONSILLECTOMY PROCEDURE:TONSILLECTOMY TOTAL ABDOMINAL HYSTERECTOMY W/ BILATERAL SALPINGOOPHORECTOMY AGE 42 PROCEDURE:TOTAL ABDOMINAL HYSTERECTOMY W/ BILATERAL SALPINGOOPHORECTOMY UPPER GASTROINTESTINAL ENDOSCOPY N/A 10/20/2018 PROCEDURE:UPPER GASTROINTESTINAL ENDOSCOPY;COMMENT:Procedure: UPPER ENDOSCOPY- EGD; Surgeon: Fawn Juarez MD; Location: [facility]; Service: Gastroenterology; Laterality: N/A; VARICOSE VEIN SURGERY PROCEDURE:VARICOSE VEIN SURGERY Allergies: No Known Allergies Medications: No current facility-administered medications on file prior to encounter. Current Outpatient Medications on File Prior to Encounter Medication Sig Dispense Refill acetaminophen (TYLENOL) 325 mg tablet Take 1-2 tablets (325-650 mg total) by mouth every 6 (six) hours as needed for pain. cholecalciferol (VITAMIN D-3) 25 mcg (1,000 unit) tablet Take 2 tablets (50 mcg total) by mouth daily. colchicine (COLCRYS) 0.6 mg tablet TAKE 1 TABLET BY MOUTH EVERY DAY denosumab (PROLIA) 60 mg/mL syringe syringe Inject 1 mL (60 mg total) under the skin every 6 (six) months. erythromycin 5 mg/gram (0.5 %) ophthalmic ointment ferrous sulfate 325 mg (65 mg iron) EC tablet Take 1 tablet (325 mg total) by mouth. furosemide (LASIX) 20 mg tablet Take 1 tablet (20 mg total) by mouth 2 (two) times a day. levothyroxine (SYNTHROID, LEVOTHROID) 25 mcg tablet Take 1 tablet (25 mcg total) by mouth daily. Lotemax 0.5 % ophthalmic suspension methylPREDNISolone (MEDROL DOSPAK) 4 mg tablet metoprolol tartrate (LOPRESSOR) 25 mg tablet TAKE 0.5 TABLETS (12.5 MG TOTAL) BY MOUTH 2 TIMES A DAY. metroNIDAZOLE (METROCREAM) 0.75 % cream multivitamin (MULTIPLE VITAMINS ORAL) Take 1 tablet by mouth daily. nitrofurantoin, macrocrystal-monohydrate, (MACROBID) 100 mg capsule oxyCODONE-acetaminophen (PERCOCET) 5-325 mg per tablet pantoprazole (PROTONIX) 40 mg EC tablet Take 1 tablet (40 mg total) by mouth daily. rivaroxaban (XARELTO) 20 mg tablet Take 1 tablet (20 mg total) by mouth every evening. 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 Xiidra 5 % dropperette Family History: Family History Problem Relation Name Age of Onset Heart disease Father Diabetes Father Lung cancer Brother Cancer Maternal Grandmother 39 Lung cancer Brother No Known Problems Mother No Known Problems Sister BRCA 1/2 Neg Hx Breast cancer Neg Hx Colon cancer Neg Hx Endometrial cancer Neg Hx Ovarian cancer Neg Hx Social History: Social History Tobacco Use Smoking status: Never Smokeless tobacco: Never Substance Use Topics Alcohol use: No Review of Systems: 10-point ROS completed with pertinent positives and negatives listed in the HPI. Objective Vitals: Vitals: 11/14/24 1125 11/14/24 1434 BP: (!) 150/80 114/62 Pulse: (!) 128 94 Resp: 22 20 Temp: 36.8 ??C (98.2 ??F) 36.7 ??C (98.1 ??F) TempSrc: Oral Oral SpO2: 98% 97% I/O: Intake/Output Summary (Last 24 hours) at 11/14/2024 1638 Last data filed at 11/14/2024 1252 Gross per 24 hour Intake 1000 ml Output -- Net 1000 ml Diet: No diet orders on file Physical Exam: General: NAD, resting comfortably in bed, awake Lungs: unlabored breathing Extremities: RLE: Tender, erythematous, edematous joint. No obvious bony deformity. ROM painless 20 degrees dorsiflexion, 40 degrees plantar flexion, 5/5 TA/GS. No pain with hip log roll. The rest of the LE (hip, knee, ankle, foot) non-painful and full ROM. Fires EHL, FHL, TA, GS. Sensation intact to the deep peroneal, superficial peroneal and tibial nerve distributions. Palpable DP pulse and brisk capillary refill to toes. Medications: @MEDICATIONS@ Labs: Lab Results Component Value Date WBC 10.2 11/14/2024 HGB 12.0 (L) 11/14/2024 HCT 35.3 (L) 11/14/2024 MCV 96.4 11/14/2024 PLT 203 11/14/2024 Lab Results Component Value Date CALCIUM 9.3 11/14/2024 NA 137 11/14/2024 K 3.9 11/14/2024 CO2 28 11/14/2024 CL 99 11/14/2024 BUN 28 (H) 11/14/2024 Lab Results Component Value Date INR 1.2 (H) 11/14/2024 Lab Results Component Value Date SEDRATE 73 (H) 11/14/2024 CRP 15.0 (H) 11/14/2024 Imaging: XR R ankle pending Signed: Saadia Alcazar MD 11/14/24 4:38 PM EST Cosigned by Anjali Galvan MD at 11/21/2024 10:34 AM EST documented in this encounter Plan of Treatment Upcoming Encounters Date Type Department Care Team (Late st Contact Info) Description 12/27/2024 2:00 PM EDT Office Visit [facility] [place] [address] [place] [phone] Soraya Negrete PA [address] [place] [address] 02/13/2025 9:30 AM EDT Office Visit [facility] [place] [address] [facility] [address] [place] [phone] Liam Blood MD [address] [facility] [address] [place] [address] 03/22/2025 10:00 AM EDT Procedure visit [facility] [address] [place] [phone] 03/27/2025 10:00 AM EDT Office Visit Breast Surgery - [place] [address] [place] [phone] Ashleigh Eric MD [address] [place] [address] documented as of this encounter Procedures Procedure Name Priority Date/Time Associated Diagnosis Comments XR ANKLE 3+ VIEWS RIGHT STAT 11/14/2024 5:48 PM EST XR CHEST 1 VIEW STAT 11/14/2024 1:16 PM EST URINALYSIS WITH REFLEX MICROSCOPIC AND CULTURE STAT 11/14/2024 12:08 PM EST BUSTOS URINE CULTURE TUBE STAT 11/14/2024 12:08 PM EST URINALYSIS WITH REFLEX MICROSCOPIC AND CULTURE STAT 11/14/2024 12:08 PM EST CULTURE URINE STAT 11/14/2024 12:08 PM EST CULTURE BLOOD STAT 11/14/2024 11:56 AM EST LACTATE, WITH REFLEX STAT 11/14/2024 11:53 AM EST PROCALCITONIN STAT 11/14/2024 11:53 AM EST CBC WITH AUTO DIFFERENTIAL STAT 11/14/2024 11:53 AM EST CULTURE BLOOD STAT 11/14/2024 11:53 AM EST SEDIMENTATION RATE STAT Add-on 11/14/2024 11 :53 AM EST PROTHROMBIN TIME WITH INR STAT 11/14/2024 11:53 AM EST CBC AND DIFFERENTIAL STAT 11/14/2024 11:53 AM EST C-REACTIVE PROTEIN STAT Add-on 11/14/2024 11 :53 AM EST COMPREHENSIVE METABOLIC PANEL STAT 11/14/2024 11:53 AM EST documented in this encounter Results * XR Ankle 3+ Views Right (11/14/2024 5:48 PM EST) Anatomical Region Laterality Modality Lower Extremities, Ankle Right Radiogr aphic Imaging 11/14/2024 6:34 PM EST Impressions 11/14/2024 6:36 PM EST 1. Negative for acute fracture or dislocation. Report reviewed and signed by : Dr. Ever Rios on 11/14/2024 6:36 PM. Workstation Name - [id number] -------- FINAL REPORT -------- Dictated By: Ever Rios Dictated Date: 11/14/2024 18:34 ET Assigned Physician: Ever Rios Reviewed and Electronically Signed By: Ever Rios Signed Date: 11/14/2024 18:36 ET Workstation ID: [id number] Transcribed By: Self Edit Transcribed Date: 11/14/2024 18:34 ET Narrative 11/14/2024 6:36 PM EST RADIOGRAPH OF THE RIGHT ANKLE CLINICAL HISTORY: Ankle pain, no prior imaging TECHNIQUE: 3 views obtained. COMPARISON: None. FINDINGS: No acute fracture or dislocation. Procedure Note Ever Rios MD - 11/14/2024 RADIOGRAPH OF THE RIGHT ANKLE CLINICAL HISTORY: Ankle pain, no prior imaging TECHNIQUE: 3 views obtained. COMPARISON: None. FINDINGS: No acute fracture or dislocation. IMPRESSION: 1. Negative for acute fracture or dislocation. Report reviewed and signed by : Dr. Ever Rios on 11/14/2024 6:36 PM.Workstation Name - [id number] -------- FINAL REPORT -------- Dictated By: Ever Rios Dictated Date: 11/14/2024 18:34 ET Assigned Physician: Ever Rios Reviewed and Electronically Signed By: Ever Rios Signed Date: 11/14/2024 18:36 ET Workstation ID: [id number] Transcribed By: Self Edit Transcribed Date: 11/14/2024 18:34 ET us Gil Dos Santos MD IMG XR PROCEDURES Final Re sult * XR Chest 1 View (11/14/2024 1:16 PM EST) Anatomical Region Laterality Modality Body Radiographic Reina ging 11/14/2024 2:38 PM EST Impressions 11/14/2024 2:39 PM EST Cardiomegaly with mild pulmonary vascular congestion. No focal consolidation, pleural effusion, or pneumothorax. Report reviewed and signed by : Dr. Chaparro Sheriff on 11/14/2024 2:39 PM. Workstation Name - [id number] -------- FINAL REPORT -------- Dictated By: Chaparro Sheriff Dictated Date: 11/14/2024 14:38 ET Assigned Physician: Chaparro Sheriff Reviewed and Electronically Signed By: Chaparro Sheriff Signed Date: 11/14/2024 14:39 ET Workstation ID: [id number] Transcribed By: Self Edit Transcribed Date: 11/14/2024 14:38 ET Narrative 11/14/2024 2:39 PM EST CLINICAL HISTORY: Sepsis. ?? TECHNIQUE: ??Portable chest x-ray. COMPARISON: Chest x-ray 05/24/2024. ?? FINDINGS: LINES AND TUBES: Multiple surgical clips along the left breast soft tissues. CARDIAC SILHOUETTE: Enlarged cardiac silhouette. Calcified atherosclerosis over the aortic arch. LUNGS/PLEURA: No pulmonary consolidations. Mild pulmonary vascular congestion with interstitial edema. No pleural effusions. No evidence of a pneumothorax. BONES: No aggressive or acute bony pathology. Multilevel degenerative changes of the thoracic spine with extra scoliosis. Procedure Note Chaparro Sheriff MD - 11/14/2024 CLINICAL HISTORY: Sepsis. TECHNIQUE: Portable chest x-ray. COMPARISON: Chest x-ray 05/24/2024. FINDINGS: LINES AND TUBES: Multiple surgical clips along the left breast softtissues. CARDIAC SILHOUETTE: Enlarged cardiac silhouette. Calcified atherosclerosisover the aortic arch. LUNGS/PLEURA: No pulmonary consolidations. Mild pulmonary vascular congestion with interstitial edema. No pleural effusions. No evidence of a pneumothorax. BONES: No aggressive or acute bony pathology. Multilevel degenerativechanges of the thoracic spine with extra scoliosis. IMPRESSION: Cardiomegaly with mild pulmonary vascular congestion. No focal consolidation, pleural effusion, or pneumothorax. Report reviewed and signed by : Dr. Chaparro Sheriff on 11/14/2024 2:39 PM.Workstation Name - [id number] -------- FINAL REPORT -------- Dictated By: Chaparro Sheriff Dictated Date: 11/14/2024 14:38 ET Assigned Physician: Chaparro Sheriff Reviewed and Electronically Signed By: Chaparro Sheriff Signed Date: 11/14/2024 14:39 ET Workstation ID: [id number] Transcribed By: Self Edit Transcribed Date: 11/14/2024 14:38 ET us Gil Dos Santos MD IMG XR PROCEDURES Final Re sult * Culture urine (11/14/2024 12:08 PM EST) Culture, Urine No growth 11/15/2024 9:01 AM EST [facility] Urine Urine specimen obtained by clean catch procedure / Unknown Non-blood Collection / Unknown 11/14/2024 12:08 PM EST 11/14/2024 1:02 PM EST us Gil Dos Santos MD LAB MICROBIOLOGY - GENERAL ORDERABLES Final Result Performing Organization Address City/[facility]/ZIP Co de Phone Number [facility] [address] [place] [address], [place] [phone] * Bustos urine culture tube (11/14/2024 12:08 PM EST) Pathologist [facility] Extra Tube Hold for add-ons. 11/14/2024 2:01 PM EST [facility] Comment:Auto resulted. Urine Urine specimen obtained by clean catch procedure / Unknown Non-blood Collection / Unknown 11/14/2024 12:08 PM EST 11/14/2024 12:20 PM EST us Gil Dos Santos MD LAB URINE ORDERABLES Final Result Performing Organization Address City/[facility]/ZIP Co de Phone Number [facility] [address] [place] [address], [place] [phone] * (ABNORMAL) Urinalysis with reflex microscopic and culture (11/14/2024 12:08 PM EST) Color, Urine Yellow Yellow, Colorless LAB URINALYSIS - AUTOMATED METHOD 11/14/2024 1:02 PM [facility] Clarity, Urine Clear Clear LAB URINALYSIS - AUTOMATED METHOD 11/14/2024 1:02 PM [facility] Specific [facility] Urine 1.006 1.005 - 1.030 LAB URINALYSIS - AUTOMATED METHOD 11/14/2024 1:02 PM [facility] pH, Urine 5.0(A) 5.0 - 8.0 pH LAB URINALYSIS - AUTOMATED METHOD 11/14/2024 1:02 PM [facility] Leukocytes, Urine Negative Negative WBCs/mcL LAB URINALYSIS - AUTOMATED METHOD 11/14/2024 1:02 PM [facility] Nitrite, Urine Negative Negative LAB URINALYSIS - AUTOMATED METHOD 11/14/2024 1:02 PM [facility] Protein, Urine Negative Negative mg/dL LAB URINALYSIS - AUTOMATED METHOD 11/14/2024 1:02 PM [facility] Glucose, Urine Negative Negative mg/dL LAB URINALYSIS - AUTOMATED METHOD 11/14/2024 1:02 PM [facility] Ketones, Urine Negative Negative mg/dL LAB URINALYSIS - AUTOMATED METHOD 11/14/2024 1:02 PM [facility] Blood, Urine Small(A) Negative mg/dL LAB URINALYSIS - AUTOMATED METHOD 11/14/2024 1:02 PM [facility] RBC, Urine 6(H) 0 - 3 /HPF LAB URINALYSIS - AUTOMATED METHOD 11/14/2024 1:02 PM [facility] WBC, Urine 1 0 - 5 /HPF LAB URINALYSIS - AUTOMATED METHOD 11/14/2024 1:02 PM [facility] Squamous Epithelial, Urine 0 0 - 5 /HPF LAB URINALYSIS - AUTOMATED METHOD 11/14/2024 1:02 PM [facility] Mucus, Urine Present(A) Not Present /HPF LAB URINALYSIS - AUTOMATED METHOD 11/14/2024 1:02 PM [facility] Hyaline Casts, Urine 2(H) <=0 /LPF LAB URINALYSIS - AUTOMATED METHOD 11/14/2024 1:02 PM [facility] Urine Urine specimen obtained by clean catch procedure / Unknown Non-blood Collection / Unknown 11/14/2024 12:08 PM EST 11/14/2024 12:20 PM EST us Gil Dos Santos MD LAB URINE ORDERABLES Final Result [facility] [address] [place] [address], [place] [phone] * Blood Culture, Peripheral #1 (11/14/2024 11:56 AM EST) Pathologist [facility] Culture, Blood No growth at 5 days 11/19/2024 1:01 PM EST [facility] Blood Venous blood specimen / Unknown Venipuncture / Unknown 11/14/2024 11:56 AM EST 11/14/2024 12:12 PM EST us Gil Dos Santos MD LAB MICROBIOLOGY - GENERAL ORDERABLES Final Result Performing Organization Address [facility] [place]/[facility] Co de Phone Number [facility] [address] [place] [address], * (ABNORMAL) C-reactive protein (11/14/2024 11:53 AM EST) [facility] C-Reactive Protein 15.0(H) <=0.9 mg/dL LAB CHEMISTRY METHOD 11/14/2024 2:44 PM EST [facility] Blood Venous blood specimen / Unknown Venipuncture / Unknown 11/14/2024 11:53 AM EST 11/14/2024 12:07 PM EST us Gil Dos Santos MD LAB BLOOD ORDERABLES Final Result Performing Organization Address City/[facility]/ZIP Co de Phone Number [facility] [address] [place] [address], [place] [phone] * (ABNORMAL) Sedimentation rate, automated (11/14/2024 11:53 AM EST) [facility] Sed Rate 73(H) 0 - 20 mm/hr LAB HEMETOLOGY METHOD 11/14/2024 3:11 PM EST [facility] Blood Venous blood specimen / Unknown Venipuncture / Unknown 11/14/2024 11:53 AM EST 11/14/2024 12:07 PM EST us Gil Dos Santos MD LAB BLOOD ORDERABLES Final Result [facility] [address] [place] [address], [place] [phone] * (ABNORMAL) CBC auto differential (11/14/2024 11:53 AM EST) WBC 10.2 4.0 - 10.5 K/mcL LAB HEMETOLOGY METHOD 11/14/2024 12:22 PM [facility] RBC 3.66(L) 4.20 - 5.40 M/mcL LAB HEMETOLOGY METHOD 11/14/2024 12:22 PM [facility] Hemoglobin 12.0(L) 12.5 - 16.0 g/dL LAB HEMETOLOGY METHOD 11/14/2024 12:22 PM [facility] Hematocrit 35.3(L) 37.0 - 47.0 % LAB HEMETOLOGY METHOD 11/14/2024 12:22 PM [facility] MCV 96.4 78.0 - 100.0 FL LAB HEMETOLOGY METHOD 11/14/2024 12:22 PM [facility] MCH 32.7 25.0 - 33.0 pcg LAB HEMETOLOGY METHOD 11/14/2024 12:22 PM [facility] MCHC 33.9 32.0 - 36.0 g/dL LAB HEMETOLOGY METHOD 11/14/2024 12:22 PM [facility] RDW 14.8 12.1 - 16.2 % LAB HEMETOLOGY METHOD 11/14/2024 12:22 PM [facility] Platelets 203 150 - 450 K/mcL LAB HEMETOLOGY METHOD 11/14/2024 12:22 PM [facility] MPV 8.2 7.4 - 11.4 FL LAB HEMETOLOGY METHOD 11/14/2024 12:22 PM [facility] Neutrophils Relative 80.2(H) 44.0 - 74.0 % LAB HEMETOLOGY METHOD 11/14/2024 12:22 PM [facility] Lymphocytes Relative 6.5(L) 20.0 - 48.0 % LAB HEMETOLOGY METHOD 11/14/2024 12:22 PM [facility] Monocytes Relative 13.1(H) 2.0 - 12.0 % LAB HEMETOLOGY METHOD 11/14/2024 12:22 PM [facility] Eosinophils Relative 0.0 0.0 - 6.0 % LAB HEMETOLOGY METHOD 11/14/2024 12:22 PM [facility] Basophils Relative 0.2 0.0 - 2.0 % LAB HEMETOLOGY METHOD 11/14/2024 12:22 PM [facility] Neutrophils Absolute 8.20(H) 1.80 - 7.80 K/mcL LAB HEMETOLOGY METHOD 11/14/2024 12:22 PM [facility] Lymphocytes Absolute 0.70(L) 1.00 - 3.20 K/mcL LAB HEMETOLOGY METHOD 11/14/2024 12:22 PM [facility] Monocytes Absolute 1.30(H) 0.00 - 0.80 K/mcL LAB HEMETOLOGY METHOD 11/14/2024 12:22 PM [facility] Eosinophils Absolute 0.00 0.00 - 0.50 K/mcL LAB HEMETOLOGY METHOD 11/14/2024 12:22 PM [facility] Basophils Absolute 0.00 0.00 - 0.20 K/mcL LAB HEMETOLOGY METHOD 11/14/2024 12:22 PM [facility] Blood Venous blood specimen / Unknown Venipuncture / Unknown 11/14/2024 11:53 AM EST 11/14/2024 12:07 PM EST us Gil Dos Santos MD LAB BLOOD ORDERABLES Final Result [facility] [address] [place] [address], [place] [phone] * Blood Culture, Peripheral #2 (11/14/2024 11:53 AM EST) Culture, Blood No growth at 5 days 11/19/2024 1:01 PM EST [facility] Blood Venous blood specimen / Unknown Venipuncture / Unknown 11/14/2024 11:53 AM EST 11/14/2024 12:12 PM EST us Gil Dos Santos MD LAB MICROBIOLOGY - GENERAL ORDERABLES Final Result Performing Organization Address City/[facility]/ZIP Co de Phone Number [facility] [address] [place] [address], [place] [phone] * (ABNORMAL) Prothrombin time with INR (11/14/2024 11:53 AM EST) Protime 13.9(H) 10.5 - 13.3 sec LAB COAGULATION METHOD 11/14/2024 12:58 PM EST [facility] INR 1.2(H) 0.8 - 1.1 LAB COAGULATION METHOD 11/14/2024 12:58 PM EST [facility] Blood Venous blood specimen / Unknown Venipuncture / Unknown 11/14/2024 11:53 AM EST 11/14/2024 12:07 PM EST Narrative [facility] - 11/14/2024 12:58 PM EST Std. Therapy ?2.0-3.0 INR High Dose Therapy 3.0-4.5 INR Ranges may vary depending on clinical indications and protocol. us Gil Dos Santos MD LAB BLOOD ORDERABLES Final Result Performing Organization Address City/[facility]/ZIP Co de Phone Number [facility] [address] [place] [address], * Lactate, with reflex (11/14/2024 11:53 AM EST) LACTIC ACID 0.9 0.5 - 2.2 mmol/L LAB BLOOD GAS METHOD 11/14/2024 12:22 PM EST [facility] Blood Venous blood specimen / Unknown Venipuncture / Unknown 11/14/2024 11:53 AM EST 11/14/2024 12:08 PM EST us Gil Dos Santos MD LAB BLOOD ORDERABLES Final Result Performing Organization Address [facility] [place]/[facility] Co de Phone Number [facility] [address] [place] [address], * (ABNORMAL) Procalcitonin (11/14/2024 11:53 AM EST) Procalcitonin 0.14(H) <=0.05 ng/mL LAB CHEMISTRY METHOD 11/14/2024 1:08 PM EST [facility] Blood Venous blood specimen / Unknown Venipuncture / Unknown 11/14/2024 11:53 AM EST 11/14/2024 12:07 PM EST Narrative [facility] - 11/14/2024 1:08 PM EST Procalcitonin levels above 2.0 ng/mL represent a high risk of progression to severe sepsis and/or septic shock. Note that levels below 0.50 ng/mL do not exclude an infection, and increased levels can occur without infection. Procalcitonin levels should be interpreted in the context of other clinical and laboratory findings. us Gil Dos Santos MD LAB BLOOD ORDERABLES Final Result Performing Organization Address City/[facility]/ZIP Co de Phone Number [facility] [address] [place] [address], * (ABNORMAL) Comprehensive metabolic panel (11/14/2024 11:53 AM EST) [facility] Sodium 137 135 - 145 mmol/L LAB CHEMISTRY METHOD 11/14/2024 12:45 PM [facility] Potassium 3.9 3.5 - 5.1 mmol/L LAB CHEMISTRY METHOD 11/14/2024 12:45 PM [facility] Comment:Slightly Hemolyzed Chloride 99 98 - 107 mmol/L LAB CHEMISTRY METHOD 11/14/2024 12:45 PM [facility] CO2 28 24 - 32 mmol/L LAB CHEMISTRY METHOD 11/14/2024 12:45 PM [facility] Anion Gap 10 5 - 14 LAB CHEMISTRY METHOD 11/14/2024 12:45 PM [facility] Glucose 116 70 - 199 mg/dL LAB CHEMISTRY METHOD 11/14/2024 12:45 PM [facility] BUN 28(H) 7 - 17 mg/dL LAB CHEMISTRY METHOD 11/14/2024 12:45 PM [facility] Creatinine 1.20(H) 0.50 - 1.00 mg/dL LAB CHEMISTRY METHOD 11/14/2024 12:45 PM [facility] eGFR 45(L) >=60 mL/min/1. 73m2 LAB CHEMISTRY METHOD 11/14/2024 12:45 PM [facility] Comment:Calculation based on the??Chronic Kidney Disease Epidemiology Collaboration (CKD-EPI) equation refit??without adjustment for race. BUN/Creatinine Ratio 23.3(H) 12.0 - 20.0 LAB CHEMISTRY METHOD 11/14/2024 12:45 PM [facility] Calcium 9.3 8.4 - 10.2 mg/dL LAB CHEMISTRY METHOD 11/14/2024 12:45 PM [facility] AST (SGOT) 44(H) 5 - 40 unit/L LAB CHEMISTRY METHOD 11/14/2024 12:45 PM EST [facility] Comment:Slightly Hemolyzed ALT (SGPT) 20 7 - 52 unit/L LAB CHEMISTRY METHOD 11/14/2024 12:45 PM [facility] Alkaline Phosphatase 111(H) 34 - 104 unit/L LAB CHEMISTRY METHOD 11/14/2024 12:45 PM EST [facility] Total Protein 7.4 6.4 - 8.5 g/dL LAB CHEMISTRY METHOD 11/14/2024 12:45 PM EST [facility] Albumin 4.0 3.5 - 5.0 g/dL LAB CHEMISTRY METHOD 11/14/2024 12:45 PM [facility] Total Bilirubin 1.0 0.3 - 1.0 mg/dL LAB CHEMISTRY METHOD 11/14/2024 12:45 PM [facility] Blood Venous blood specimen / Unknown Venipuncture / Unknown 11/14/2024 11:53 AM EST 11/14/2024 12:07 PM EST us Gil Dos Santos MD LAB BLOOD ORDERABLES Final Result [facility] [address] [place] [address], documented in this encounter Visit Diagnoses Diagnosis Cellulitis of right ankle- Primary documented in this encounter Administered Medications Inactive Administered Medications - up to 3 most recent administrations Medication Order MAR Action Action Date Dose Rate Site sodium chloride 0.9 % bolus 1,000 mL 1,000 mL, intravenous, at 2,000 mL/hr, Administer over 30 Minutes, Once, On Tue11/14/24 at 1147, For 1 dose New Bag 11/14/2024 11:57 AM EST 1,000 mL 2000 mL/hr sodium chloride 0.9 % flush 10 mL 10 mL, intravenous, As needed, line care, Starting on Tue11/14/24 at 1145 documented in this encounter Active and Recently Administered Medications Times are shown in EST. Scheduled Medication Order 11/12/2024 11/13/2024 11/14/2024 sodium chloride 0.9 % bolus 1,000 mL (COMPLETED) 1,000 mL, intravenous, at 2,000 mL/hr, Administer over 30 Minutes, Once, On Tue11/14/24 at 1147, For 1 dose 1157 (New Bag - Prov ider: Jolie Vasquez RN)[id number] (Stopped - Provider: Jolie Vasquez RN) PRN Medication Order 11/12/2024 11/13/2024 11/14/2024 sodium chloride 0.9 % flush 10 mL(Linked Group 1) 10 mL, intravenous, As needed, line care, Starting on Tue11/14/24 at 1145 Linked Groups Order Group 1: Insert large bore peripheral IV (COMPLETED) STAT, Once, On Tue11/14/24 at 1146, For 1 occurrence And Saline lock IV (CANCELED) Routine, Once, On Tue11/14/24 at 1146, For 1 occurrence And sodium chloride 0.9 % flush 10 mLJump to med 10 mL, intravenous, As needed, line care, Starting on Tue11/14/24 at 1145 documented in this encounter Orders Medications Ordered That Ramsey ht Not Have Been Administered Count Last Ordered Date First Ordered Date sodium chloride 0.9 % flush 10 mL 025 Nursing Count Last Ordered Date First Orde red Date NURSING GENERAL ASSESSMENTS AND INTERVENTIONS 1 11/14/2024 IV Count Last Ordered Date First Orde red Date INSERT PERIPHERAL IV 1 11/14/2024 documented in this encounter Care Teams Cable Tower Operator Relationship Specialty Start Date End Date Stephan Arredondo DO [address] [place] [phone] PCP - General Family Medicine 08/11/17 documented as of this encounter
--- OUTSIDE RECORDS SUMMARY | 2024-12-12 15:59 | XMS_ITS ---
Author Name [facility] Organization Unknown Results Test Name/Text Value Interpretation Date Range Source ESR Bld Qn Westrgrn 73mm/hr Above high normal 0 - 20 [facility] CRP SerPl-mCnc 15mg/dL Above high normal [id number] - [facility] Procalcitonin SerPl-mCnc 0.14ng/mL Above high normal - [facility] Clarity Ur Clear Normal [id number] - [facility] Prot Ur Strip-mCnc Negative Normal [id number] - [facility] Glucose Ur Ql Negative Normal [id number] - [facility] Color Ur Yellow Normal [id number] - [facility] Hgb Ur Ql Small Abnormal [id number] - [facility] Mucous Threads #/area UrnS HPF Present Abnormal [id number] - [facility] pH Ur 5pH Abnormal [id number] 5 - 8 [facility] Leukocyte esterase Ur Ql Strip Negative Normal [id number] - [facility] Nitrite Ur Ql Negative Normal [id number] - [facility] Ketones Ur-mCnc Negative Normal [id number] - [facility] WBC #/area UrnS HPF 1/HPF Normal [id number] 0 - 5 [facility] RBC #/area UrnS HPF 6/HPF Above high normal [id number] 0 - 3 [facility] Squamous Epithelial, Urine 0/HPF Normal [id number] 0 - 5 [facility] Hyaline Casts #/area UrnS LPF 2/LPF Above high normal [id number] - [facility] Sp Gr Ur 1.006 Normal [id number] 1.005 - 1.03 [facility] INR PPP 1.2 Above high normal [id number] 0.8 - 1.1 [facility] PT Bld 13.9sec Above high normal [id number] 10.5 - 13.3 [facility] Glucose SerPl-mCnc 116mg/dL Normal [id number] 70 - 199 [facility] Calcium SerPl-mCnc 9.3mg/dL Normal [id number] 8.4 - 10 .2 [facility] Sodium SerPl-sCnc 137mmol/L Normal [id number] 135 - 145 [facility] BUN SerPl-mCnc 28mg/dL Above high normal [id number] 7 - 17 [facility] ALP SerPl-cCnc 111unit/L Above high normal [id number] 34 - 104 [facility] Anion Gap SerPl-sCnc 10 Normal [id number] 5 - 14 [facility] Albumin SerPl-mCnc 4g/dL Normal [id number] 3.5 - 5 [facility] ALT SerPl-cCnc 20unit/L Normal [id number] 7 - 52 [facility] eGFRcr SerPlBld CKD-EPI 2020 45mL/min/1.73m 2 Below low normal [id number] - [facility] Creat SerPl-mCnc 1.2mg/dL Above high normal [id number] 0. 5 - 1 [facility] AST SerPl-cCnc 44unit/L Above high normal [id number] 5 - 40 [facility] CO2 SerPl-sCnc 28mmol/L Normal [id number] 24 - 32 [facility] BUN/Creat SerPl 23.3 Above high normal [id number] 12 - 20 [facility] Bilirub SerPl-mCnc 1mg/dL Normal [id number] 0.3 - 1 [facility] Chloride SerPl-sCnc 99mmol/L Normal [id number] 98 - 10 7 [facility] Potassium SerPl-sCnc 3.9mmol/L Normal [id number] 3.5 - 5.1 [facility] Prot SerPl-mCnc 7.4g/dL Normal [id number] 6.4 - 8.5 [facility] Monocytes # Bld Auto 1.3K/mcL Above high normal [id number] 0 - 0.8 [facility] Neutrophils # Bld Auto 8.2K/mcL Above high normal [id number] 1.8 - 7.8 [facility] Eosinophil # Bld Auto 0K/mcL Normal [id number] 0 - 0.5 [facility] MCHC RBC Auto-mCnc 33.9g/dL Normal [id number] 32 - 36 [facility] Monocytes/leuk NFr Bld Auto 13.1% Above high normal [id number] 2 - 12 [facility] Basophils # Bld Auto 0K/mcL Normal [id number] 0 - 0.2 [facility] WBC # Bld Auto 10.2K/mcL Normal [id number] 4 - 10.5 [facility] Hct VFr Bld Auto 35.3% Below low normal [id number] 37 - 47 [facility] RDW RBC Auto-Rto 14.8% Normal [id number] 12.1 - 16.2 [facility] PMV Bld Auto 8.2FL Normal [id number] 7.4 - 11.4 [facility] Eosinophil/leuk NFr Bld Auto 0% Normal [id number] 0 - 6 [facility] MCH RBC Qn Auto 32.7pcg Normal [id number] 25 - 33 [facility] Basophils/leuk NFr Bld Auto 0.2% Normal [id number] 0 - 2 [facility] Lymphocytes # Bld Auto 0.7K/mcL Below low normal [id number] 1 - 3.2 [facility] RBC # Bld Auto 3.66M/mcL Below low normal [id number] 4.2 - 5.4 [facility] Neutrophils/leuk NFr Bld Auto 80.2% Above high normal [id number] 44 - 74 [facility] Platelet # Bld Auto 203K/mcL Normal [id number] 150 - 4 50 [facility] MCV RBC Auto 96.4FL Normal [id number] 78 - 100 [facility] Lymphocytes/leuk NFr Bld Auto 6.5% Below low normal [id number] 20 - 48 [facility] Hgb Bld-mCnc 12g/dL Below low normal [id number] 12.5 - 16 [facility] LACTIC ACID 0.9mmol/L Normal [id number] 0.5 - 2.2 [facility] Folate SerPl-mCnc >24.0 Normal [id number] [facility] Vit B12 SerPl-mCnc 785pg/mL Normal [id number] 200 - 11 00 [facility] TSH SerPl-aCnc 5.28mIU/L Above high normal [id number] 0.4 - 4.5 [facility] Sodium SerPl-sCnc 141mmol/L Normal [id number] 135 - 146 [facility] BUN SerPl-mCnc 39mg/dL Above high normal [id number] 7 - 25 [facility] Albumin SerPl-mCnc 4.4g/dL Normal [id number] 3.6 - 5. 1 [facility] BUN/Creat SerPl 22(calc) Normal [id number] 6 - 22 Q [facility] Chloride SerPl-sCnc 99mmol/L Normal [id number] 98 - 11 0 [facility] Potassium SerPl-sCnc 4mmol/L Normal [id number] 3.5 - 5.3 [facility] Glucose SerPl-mCnc 71mg/dL Normal [id number] 65 - 139 [facility] Calcium SerPl-mCnc 9.8mg/dL Normal [id number] 8.6 - 10 .4 [facility] ALP SerPl-cCnc 100U/L Normal [id number] 37 - 153 [facility] EST ALT SerPl-cCnc 17U/L Normal [id number] 6 - 29 QU EST eGFRcr SerPlBld CKD-EPI 2020 28mL/min/1.73m 2 Below low normal [id number] - [facility] Creat SerPl-mCnc 1.79mg/dL Above high normal [id number] 0. 6 - 0.95 [facility] Globulin Ser Calc-mCnc 3g/dL(calc) Normal 1.9 - 3.7 [facility] AST SerPl-cCnc 27U/L Normal [id number] 10 - 35 [facility] CO2 SerPl-sCnc 31mmol/L Normal [id number] 20 - 32 QU EST Bilirub SerPl-mCnc 0.4mg/dL Normal [id number] 0.2 - 1. 2 [facility] Albumin/Glob SerPl 1.5(calc) Normal [id number] 1 - 2.5 [facility] Prot SerPl-mCnc 7.4g/dL Normal [id number] 6.1 - 8.1 Q [facility] RDW RBC Auto-Rto 13.1% Normal [id number] 11 - 15 [facility] Monocytes/leuk NFr Bld Auto 13.8% Normal [id number] [facility] WBC # Bld Auto 4.9Thousand/uL Normal [id number] 3.8 - 1 0.8 [facility] Lymphocytes # Bld Auto 1220cells/uL Normal [id number] 850 - 3900 [facility] Lymphocytes/leuk NFr Bld Auto 24.9% Normal [id number] [facility] Hgb Bld-mCnc 12.8g/dL Normal [id number] 11.7 - 15.5 [facility] Monocytes # Bld Auto 676cells/uL Normal [id number] 200 - 950 [facility] Neutrophils/leuk NFr Bld Auto 53.8% Normal [id number] [facility] Hct VFr Bld Auto 39.5% Normal [id number] 35 - 45 [facility] PMV Bld Jah-Anup 11.3fL Normal [id number] 7.5 - 12 .5 [facility] Eosinophil # Bld Auto 328cells/uL Normal [id number] 15 - 500 [facility] Eosinophil/leuk NFr Bld Auto 6.7% Normal [id number] [facility] MCHC RBC Auto-mCnc 32.4g/dL Normal [id number] 32 - 36 [facility] Basophils/leuk NFr Bld Auto 0.8% Normal [id number] [facility] MCV RBC Auto 97.5fL Normal [id number] 80 - 100 [facility] MCH RBC Qn Auto 31.6pg Normal [id number] 27 - 33 Q [facility] Neutrophils # Bld Auto 2636cells/uL Normal [id number] 1500 - 7800 [facility] Platelet # Bld Auto 212Thousand/uL Normal [id number] 14 0 - 400 [facility] RBC # Bld Auto 4.05Million/uL Normal 3.8 - 5 .1 [facility] Basophils # Bld Auto 39cells/uL Normal [id number] 0 - 200 [facility] T4 Free SerPl-mCnc 1.1ng/dL Normal 0.8 - 1. 8 [facility] CRP SerPl-mCnc 4.3mg/L Normal [id number] - 8 [facility] EST ESR Bld Qn Westrgrn 22mm/h Normal [id number] - [facility] CREAT SERPL MCNC 1.3mg/dL Above high normal 0. 5 - 1 [facility] SODIUM SERPL SCNC 137mmol/L Normal [id number] 135 - 145 [facility] GLUCOSE SERPL MCNC 91mg/dL Normal 70 - 199 [facility] Glomerular filtration rate/1.73 sq M. predicted 41 Below low normal 60 - [facility] CHLORIDE SERPL SCNC 102mmol/L Normal [id number] 98 - 10 7 [facility] HCO3 SER SCNC 25mmol/L Normal 24 - 32 [facility] POTASSIUM SERPL SCNC 3.7mmol/L Normal [id number] 3.5 - 5.1 [facility] ANION GAP SERPL SCNC 10mmol/L Normal [id number] 5 - 14 [facility] BUN SERPL MCNC 22mg/dL Above high normal 7 - 17 [facility] CALCIUM SERPL MCNC 8.6mg/dL Normal [id number] 8.4 - 10 .2 [facility] DIFFERENTIAL TYPE AUTOMATED Normal [id number] [facility] NEUTROPHILS NFR BLD AUTO 79.8% Above high normal [id number] 44 - 74 [facility] BASOPHILS NFR BLD AUTO 0.2% Normal 0 - 2 [facility] MONOCYTES NFR BLD AUTO 9.3% Normal [id number] 2 - 12 [facility] HCT VFR BLD AUTO 39.1% Normal 37 - 47 [facility] MONOCYTES NO. BLD AUTO 1K/uL Above high normal [id number] 0 - 0.8 [facility] RDW RBC AUTO RTO 14.2% Normal 12.1 - 16.2 [facility] PLATELET NO. BLD AUTO 213K/uL Normal [id number] 150 - 450 [facility] EOSINOPHIL NO. BLD AUTO 0K/uL Normal 0 - 0.5 [facility] RBC NO. BLD AUTO 4.08M/uL Below low normal [id number] 4.2 - 5.4 [facility] MCH RBC QN AUTO 32.2pg Normal 25 - 33 [facility] MCHC RBC AUTO MCNC 33.7g/dL Normal 32 - 36 [facility] HGB BLD MCNC 13.2g/dL Normal 12.5 - 16 [facility] BASOPHILS IN BLOOD BY AUTOMATED COUNT 0K/uL Normal 0 - 0.2 [facility] WBC NO. BLD AUTO 11.3K/uL Above high normal [id number] 4 - 10.5 [facility] EOSINOPHIL NFR BLD AUTO 0.1% Normal 0 - 6 [facility] LYMPHOCYTES NFR BLD AUTO 10.6% Below low normal 20 - 48 [facility] MCV RBC AUTO 95.8fL Normal 78 - 100 [facility] NEUTROPHILS NO. BLD AUTO 9K/uL Above high normal 1.8 - 7.8 [facility] LYMPHOCYTES NO. BLD AUTO 1.2K/uL Normal 1 - 3.2 [facility] PMV BLD AUTO 8.1fL Normal 7.4 - 11.4 [facility] AMYLASE SERPL CCNC 74U/L Normal 29 - 103 [facility] LIPASE SERPL CCNC 68U/L Normal 11 - 82 [facility] ALP SERPL-CCNC 88U/L Normal 34 - 104 [facility] AST SERPL CCNC 32U/L Normal 5 - 40 [facility] LDH SERPL L TO P CCNC 227U/L Above high normal 125 - 220 [facility] ALT SERPL CCNC 17U/L Normal 7 - 52 [facility] BILIRUB SERPL MCNC 0.4mg/dL Normal 0.3 - 1 [facility] BILIRUB DIRECT SERPL MCNC 0mg/dL Normal 0 - 0.2 [facility] CREAT SERPL MCNC 1.3mg/dL Above high normal 0. 5 - 1 [facility] SODIUM SERPL SCNC 144mmol/L Normal 135 - 145 [facility] GLUCOSE SERPL MCNC 100mg/dL Normal 70 - 199 [facility] Glomerular filtration rate/1.73 sq M. predicted 41 Below low normal 60 - [facility] CHLORIDE SERPL SCNC 103mmol/L Normal 98 - 10 7 [facility] HCO3 SER SCNC 29mmol/L Normal 24 - 32 [facility] POTASSIUM SERPL SCNC 3.7mmol/L Normal 3.5 - 5.1 [facility] ANION GAP SERPL SCNC 12mmol/L Normal 5 - 14 [facility] BUN SERPL MCNC 25mg/dL Above high normal 7 - 17 [facility] CALCIUM SERPL MCNC 9.5mg/dL Normal 8.4 - 10 .2 [facility] DIFFERENTIAL TYPE AUTOMATED Normal [facility] NEUTROPHILS NFR BLD AUTO 72.8% Normal [id number] 44 - 74 [facility] BASOPHILS NFR BLD AUTO 0.8% Normal [id number] 0 - 2 [facility] MONOCYTES NFR BLD AUTO 7.2% Normal 2 - 12 [facility] HCT VFR BLD AUTO 38.9% Normal [id number] 37 - 47 [facility] MONOCYTES NO. BLD AUTO 0.4K/uL Normal [id number] 0 - 0.8 [facility] RDW RBC AUTO RTO 15.2% Normal [id number] 12.1 - 16.2 [facility] PLATELET NO. BLD AUTO 190K/uL Normal [id number] 150 - 450 [facility] EOSINOPHIL NO. BLD AUTO 0.2K/uL Normal [id number] 0 - 0.5 [facility] RBC NO. BLD AUTO 4.11M/uL Below low normal [id number] 4.2 - 5.4 [facility] MCH RBC QN AUTO 31.1pg Normal [id number] 25 - 33 [facility] MCHC RBC AUTO MCNC 33g/dL Normal [id number] 32 - 36 [facility] HGB BLD MCNC 12.8g/dL Normal [id number] 12.5 - 16 [facility] BASOPHILS IN BLOOD BY AUTOMATED COUNT 0K/uL Normal [id number] 0 - 0.2 [facility] WBC NO. BLD AUTO 5.7K/uL Normal [id number] 4 - 10.5 [facility] EOSINOPHIL NFR BLD AUTO 3.2% Normal [id number] 0 - 6 [facility] LYMPHOCYTES NFR BLD AUTO 16% Below low normal [id number] 20 - 48 [facility] MCV RBC AUTO 94.5fL Normal [id number] 78 - 100 [facility] NEUTROPHILS NO. BLD AUTO 4.2K/uL Normal [id number] 1.8 - 7.8 [facility] LYMPHOCYTES NO. BLD AUTO 0.9K/uL Below low normal [id number] 1 - 3.2 [facility] PMV BLD AUTO 8.6fL Normal [id number] 7.4 - 11.4 [facility] B2 Transferrin Fld Ql Not Detected Normal [id number] - [facility] Urate SerPl-mCnc 7.4mg/dL Above high normal [id number] 2. 5 - 7 [facility] Glucose SerPl-mCnc 86mg/dL Normal [id number] 65 - 99 [facility] Calcium SerPl-mCnc 9mg/dL Normal [id number] 8.6 - 10 .4 [facility] Sodium SerPl-sCnc 138mmol/L Normal [id number] 135 - 146 [facility] BUN SerPl-mCnc 30mg/dL Above high normal [id number] 7 - 25 [facility] Albumin SerPl-mCnc 3.8g/dL Normal [id number] 3.6 - 5. 1 [facility] eGFRcr SerPlBld CKD-EPI 2020 32mL/min/1.73m 2 Below low normal [id number] - [facility] Creat SerPl-mCnc 1.62mg/dL Above high normal [id number] 0. 6 - 0.95 [facility] CO2 SerPl-sCnc 26mmol/L Normal [id number] 20 - 32 [facility] BUN/Creat SerPl 19(calc) Normal [id number] 6 - 22 Q [facility] Chloride SerPl-sCnc 101mmol/L Normal [id number] 98 - 11 0 [facility] Potassium SerPl-sCnc 4.6mmol/L Normal [id number] 3.5 - 5.3 [facility] Phosphate SerPl-mCnc 3.4mg/dL Normal [id number] 2.1 - 4.3 [facility] History of Medication Use Medication Directions Dispensed Refills Start Date End Date Status colchicine 0.6 mg tablet active cephalexin 500 mg capsule active vitamin E 1 capsule by mouth once daily active cephalexin 500 mg capsule Take 1 capsule 3 times a day by oral route for 3 days. 5 active apixaban 2.5 mg tablet TAKE 1 TABLET (2. 5 MG TOTAL) BY MOUTH EVERY 12 (TWELVE) HOURS. 2 08/23/20 22 completed Prolia 60 mg/mL subcutaneous syringe Inject 1mL subcutanouesly every 6 months. 5 active acetaminophen 325 mg tablet Take 1-2 tablets (325-650 mg total) by mouth every 6 (six) hours as needed for pain. 07/11/20 24 completed prednisone 5 mg tablet TAKE 1 TABLET BY MOUTH EVERY DAY active vitamin E 200 unit tablet Take 400 mg by mouth daily. active neomycin 3.5 mg/g-polymyxin B 10,000 unit/g-dexameth 0.1 % eye oint APPLY 1 RIBBON ON THE EYELIDS OF BOTH EYES TWICE A DAY OR NEEDED active metoprolol tartrate 25 mg tablet TAKE 1/2 TABLET TWICE A DAY BY MOUTH active pantoprazole 40 mg tablet,delayed release Take 1 tablet (40 mg total) by mouth daily. 11/20/19 25 completed levothyroxine 25 mcg tablet Take 1 tablet (25 mcg total) by mouth daily. active loteprednol etabonate 0.5 % eye drops,suspension INSTILL 1 DROP INTO BOTH EYES TWICE A DAY active Prolia 60 mg/mL subcutaneous syringe active methylprednisolone 4 mg tablets in a dose pack TAKE 6 TABLETS ON DAY 1 DIRECTED ON PACKAGE AND DECREASE BY 1 TAB EACH DAY FOR A TOTAL OF 6 DAYS active metronidazole 0.75 % topical cream APPLY TO FACE TWICE A DAY active azelastine 137 mcg (0.1 %) nasal spray USE 2 SPRAYS BY INTRANASAL ROUTE TWICE A DAY active furosemide 20 mg tablet Take 1 tablet (20 mg total) by mouth 2 (two) times a day. active metronidazole 0.75 % lotion APPLY TO FACE TWICE A DAY active colchicine 0.6 mg tablet TAKE 1 TABLET BY MOUTH EVERY DAY active cephalexin 500 mg capsule TAKE 1 CAPSULE BY MOUTH THREE TIMES A DAY FOR 7 DAYS active Xarelto 20 mg tablet TAKE 1 TABLET BY MOUTH EVERY DAY IN THE EVENING 11/20/19 25 completed cholecalciferol (vitamin D3) 25 mcg (1,000 unit) tablet Take 2 tablets (50 mcg total) by mouth daily. active oxycodone-acetaminophe n 5 mg-325 mg tablet Take 1 tablet by mouth every 8 (eight) hours as needed for pain for up to 5 doses. 3 06/10/20 23 completed ferrous sulfate 325 mg (65 mg iron) tablet,delayed release Take 1 tablet (325 mg total) by mouth. 3 07/11/20 24 completed loteprednol etabonate 0.2 % eye drops,suspension INSTILL 1 DROP INTO BOTH EYES TWICE A DAY active Xarelto 15 mg tablet TAKE 1 TABLET (15 MG TOTAL) BY MOUTH EVERY EVENING. TAKE WITH DINNER. active methylPREDNISolone (MEDROL DOSPAK) 4 mg tablet 3 active sodium chloride 0.9 % flush 10 mL [Order 1 Start] Name: Insert large bore peripheral IV Signed Summary: STAT, Once, On Tue11/14/24 at 1146, For 1 occurrence [Order 1 End] [Order 2 Start] Name: Saline lock IV Signed Summary: Routine, Once, On Tue11/14/24 at 1146, For 1 occurrence [Order 2 End] [Order 3 Start] Name: sodium chloride 0. 5 active rivaroxaban (XARELTO) 20 mg tablet Take 1 tablet (20 mg total) by mouth every evening. 3 active oxyCODONE-acetaminophe n (PERCOCET) 5-325 mg per tablet 3 active nitrofurantoin, macrocrystal-monohydra te, (MACROBID) 100 mg capsule 3 active Lotemax 0.5 % ophthalmic suspension 3 active levothyroxine (SYNTHROID, LEVOTHROID) 25 mcg tablet Take 1 tablet (25 mcg total) by mouth daily. active acetaminophen (TYLENOL) 325 mg tablet Take 1-2 tablets (325-650 mg total) by mouth every 6 (six) hours as needed for pain. active Xiidra 5 % dropperette 3 active metoprolol tartrate (LOPRESSOR) 25 mg tablet TAKE 0.5 TABLETS (12.5 MG TOTAL) BY MOUTH 2 TIMES A DAY. 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 active denosumab (PROLIA) 60 mg/mL syringe syringe Inject 1 mL (60 mg total) under the skin every 6 (six) months. 3 active metroNIDAZOLE (METROCREAM) 0.75 % cream 3 active colchicine (COLCRYS) 0.6 mg tablet TAKE 1 TABLET BY MOUTH EVERY DAY 3 active cephalexin (KEFLEX) 500 mg capsule Take 1 capsule (500 mg total) by mouth 3 (three) times a day for 7 days. 5 active cholecalciferol (VITAMIN D-3) 25 mcg (1,000 unit) tablet Take 2 tablets (50 mcg total) by mouth daily. active ferrous sulfate 325 mg (65 mg iron) EC tablet Take 1 tablet (325 mg total) by mouth. [address] drops,suspension OPHTHalmic SUSPension 3 active erythromycin 5 mg/gram (0.5 %) ophthalmic ointment 3 active vitamin E acid succinate (vitamin E succinate) 134 mg (200 unit) tablet Take 400 mg by mouth daily. active pantoprazole (PROTONIX) 40 mg EC tablet Take 1 tablet (40 mg total) by mouth daily. active azelastine 205.5 mcg (0.15 %) nasal spray spray 1 spray (205.5 mcg) in each nostril by intranasal route 2 timesper day 2 11/13/19 22 completed Pantoprazole Sodium 40 MG Oral Tablet Delayed Release Pantoprazole Sodium 40 MG Oral Tablet Delayed Release Quantity: 90 Refills: 0 Start : [id number] 1 completed metoprolol tartrate 25 mg tablet TAKE 1/2 TABLET TWICE A DAY BY MOUTH 4 active furosemide (LASIX) 20 MG tablet Take 20 mg by mouth daily. 0 active ferrous sulfate 325 (65 FE) MG EC tablet Take 1 tablet (325 mg total) by mouth. 3 active ketoconazole 2 % shampoo APPLY TO SCALP LATHER LET SIT THEN RINSE 3 X WEEKLY 09/25/20 24 active acetaminophen (TYLENOL) tablet 650 mg 650 mg, Oral, Once, On Tue01/20/24 at 0800, For 1 dose 4 01/20/20 24 completed loteprednol etabonate 0.5 % eye drops,suspension INSTILL 1 DROP INTO BOTH EYES TWICE A DAY 04/11/20 24 active Medrol Dosepak 4mg Tablet 3 05/02/20 23 active furosemide (LASIX) tablet 20 mg 20 mg, Oral, 2 times daily, First dose on Tue01/20/24 at 1800 4 active ipratropium bromide 21 mcg (0.03 %) nasal spray SPRAY 2 SPRAYS INTO EACH NOSTRIL TWICE A DAY active cephalexin (KEFLEX) 500 MG capsule Take 1 capsule (500 mg total) by mouth 3 (three) times a day. 0 active Premarin Take 1 Tablet ORAL QD. 1 09/10/20 13 completed Valium 5 mg tablet take 1 tablet (5 mg) by oral route 2 times per day BID PRN 2 04/06/20 23 completed mirtazapine 15 mg tablet Take 1 Tablet ORAL at bedtime. 8 11/21/19 19 completed Prolia 60mg/mL Solution for Injection 2 active pantoprazole (PROTONIX) 40 MG EC tablet 40 mg 40 mg, Oral, Daily, First dose on 01/21/24 at 0900Please select an indication: GERDIs this a home medication or a new start? Home Medication 4 active denosumab (PROLIA) injection 60 mg/mL Inject 1 mL (60 mg total) under the skin every 6 (six) months. 4 active Premarin 0.625 mg/gram vaginal cream Take Cream Vaginal . 7 01/23/20 19 completed Vitamin E 200 units TABS Take 400 mg by mouth daily. active mycophenolate mofetil 500 mg tablet take 1 tablets daily 0 03/09/20 21 completed ferrous sulfate 325 (65 FE) MG EC tablet Take 1 tablet (325 mg total) by mouth. 3 active warfarin (COUMADIN) 7.5 MG tablet Take 3.75 mg by mouth once a week. on Tuesday active colchicine 0.6 mg tablet TAKE 1 TABLET BY MOUTH EVERY DAY 4 active Ipratropium [place]akes[place] 0.03 % Nasal Solution Ipratropium [place]akeslee 0.03 % Nasal Solution Quantity: 30 Refills: 0 Start : [id number] 2 completed erythromycin 5 mg/gram (0.5 %) eye ointment PLEASE SEE ATTACHED FOR DETAILED DIRECTIONS 10/18/19 24 completed ferrous sulfate 325 (65 FE) MG EC tablet Take 1 tablet (325 mg total) by mouth. 3 active metoprolol tartrate (LOPRESSOR) 25 MG tablet TAKE 0.5 TABLETS (12.5 MG TOTAL) BY MOUTH 2 TIMES A DAY. 0 active levothyroxine (SYNTHROID, LEVOXYL) tablet 25 mcg Take 1 tablet (25 mcg total) by mouth daily. active metronidazole 0.75 % lotion APPLY TO FACE TWICE A DAY 09/25/20 24 completed colchicine 0.6 MG tablet TAKE 1 TABLET BY MOUTH EVERY DAY 3 active ketorolac (TORADOL) injection 15 mg 15 mg, Intramuscular, Once, On Tue01/20/24 at 0800, For 1 dose 4 01/20/20 24 completed Boniva Take 1 Tablet ORAL once a month as directed. 9 09/10/20 13 completed Levothyroxine Sodium 25 MCG Oral Tablet Levothyroxine Sodium 25 MCG Oral Tablet Refills: 0Active completed lisinopril 5 mg tablet Take 1 Tablet ORA L once a day for 30 days. 9 10/19/19 20 completed triamcinolone acetonide 0.1 % topical cream APPLY A THIN LAYERS EVERYDAY NEEDED 5 01/23/[address] 0.3 %-0.05 % eye drops,suspension APPLY 1 DROP INTO BOTH EYES 4 TIMES A DAY 10/18/19 24 completed Multiple Vitamin (MULTI-VITAMIN) tablet Take 1 tablet by mouth daily. active metroNIDAZOLE (METROGEL) 1 % gel APPLY TO FACE EVERY DAY AT BEDTIME 0 active Lidoderm Take 1 Patch External daily for 30 days. 6 10/18/19 24 completed furosemide (Lasix) 20 MG tablet Take 1 tablet (20 mg total) by mouth 2 (two) times a day. active vitamin D3 (cholecalciferol) 25 MCG (1000 UT) tablet Take 2 tablets (50 mcg total) by mouth daily. active acetaminophen (TYLENOL) 325 MG tablet Take 650 mg by mouth 4 times daily (every 6 hours) as needed for mild pain. active ibandronate 150 mg tablet 1 tab once weekly per Dr Rincon 9 02/05/20 20 completed rivaroxaban (Xarelto) 20 MG TABS tablet Take 1 tablet (20 mg total) by mouth every evening. 3 active neomycin 3.5 mg/g-polymyxin B 10,000 unit/g-dexameth 0.1 % eye oint APPLY RIBBON INSIDE LOWER LIDS OF BOTH EYES TWICE A DAY 09/25/20 24 active Xarelto 15 mg tablet take 1 tablet (15 mg) by oral route once daily with the evening meal 3 04/06/20 23 completed Misc. 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 Allergies Allergen Reaction Severity Comment Documented Date Source Statu s CELLCEPT ENS_GRANBYCT ELIQUIS ENS_GRANBYCT NIFEDIPINE ENS_GRANBYCT Problems Problem Status Onset Date Problem Type Date of Resolution Source Postartificial menopausal syndrome active ProblemAct ENS_PHCCT Dementia active ProblemAct ENS_PHCCT Age-related osteoporosis without current pathological fracture active ProblemAct CT_THSFRAN Localized edema active ProblemAct CT_THSFRAN Impacted cerumen in right ear active ProblemAct ENS_GRANBYCT Posterior rhinorrhea active ProblemAct ENS_GRANBYCT Neck pain active ProblemAct ENS_GRANBYCT Gastroesophageal reflux disease without esophagitis active ProblemAct ENS_GRANBYCT 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 ProblemAct ENS_GRANBYCT Leukocytosis active ProblemAct ENS_GRANBYCT Cataract active ProblemAct ENS_GRANB YCT Rheumatic mitral stenosis active ProblemAct ENS_GRANBYCT Bilateral acquired eyelid ptosis active ProblemAct ENS_GRANBYCT History of peptic ulcer active ProblemAct ENS_GRANBYCT Aortic valve regurgitation active ProblemAct ENS_GRANBYCT Rheumatic tricuspid valve regurgitation active ProblemAct ENS_GRAN BYCT Primary malignant neoplasm active ProblemAct ENS_GRANBYCT Dysuria active ProblemAct ENS_GRANBYCT Paroxysmal atrial fibrillation active ProblemAct ENS_GRANBYCT Multiple joint pain active ProblemAct ENS_GRANBYCT 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 ENS_PHCCT Atrial fibrillation active ProblemAct ENS_PHCCT Cellulitis active ProblemAct ENS_PHCCT Anemia of renal disease active ProblemAct ENS_PHCCT Anemia active ProblemAct ENS_PHCCT Hypertensive disorder active ProblemAct ENS_PHCCT Mass of skin of right lower limb active ProblemAct ENS_PHCCT Mammographic calcification of breast active ProblemAct ENS_PHCCT Malignant tumor of breast active ProblemAct ENS_PHCCT Drug-induced systemic lupus erythematosus active ProblemAct ENS_PHCCT Paroxysmal atrial fibrillation active ProblemAct ENS_PHCCT Mammography abnormal active ProblemAct ENS_PHCCT 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 ProblemAct ENS_PHCCT Lupus erythematosus active ProblemAct ENS_PHCCT Malignant neoplasm of female breast active ProblemAct ENS_PHCCT History of left mastectomy active ProblemAct ENS_PHCCT International normalized ratio above reference range active ProblemAct ENS_PHCCT Chronic kidney disease stage 3A active ProblemAct ENS_PHCCT Lung consolidation active ProblemAct ENS_PHCCT Peptic ulcer active ProblemAct ENS_PHCCT Gastroesophageal reflux disease active ProblemAct ENS_PHCCT Raynaud's disease active ProblemAct ENS_PHCCT Cachexia active ProblemAct ENS_PHCCT Anticoagulant effect active ProblemAct ENS_PHCCT Anticoagulated on Coumadin active ProblemAct CTTHNEMG Pap smear for cervical cancer screening active ProblemAct CTTHNEMG Abnormal EKG active EncounterDiagnosisAct CTTHNEMG Rib deformity active EncounterDiagnosisAct CTTJMH Porokeratoma active EncounterDiagnosisAct ENS_PODCRCT Pain in right toe(s) active ProblemAct ENS_PODCRCT Acute on chronic anemia active ProblemAct HHCCT Cachexia active ProblemAct CT_THSFRAN Malignant neoplasm of female breast active ProblemAct CT_THSFRAN Dementia active ProblemAct CT_THSFRAN Lupus erythematosus active ProblemAct CT_THSFRAN Status post mastectomy, left active ProblemAct CT_THSFRAN Symptomatic anemia active ProblemAct CT_THSFRAN Paroxysmal atrial fibrillation active ProblemAct CT_THSFRAN Body mass index less than 20 active ProblemAct ENS_GRANBYCT Osteoarthritis active ProblemAct ENS_ GRANBYCT Cellulitis of right lower limb active ProblemAct ENS_GRANBYCT Memory impairment active ProblemAct ENS_GRANBYCT Hypothyroidism active ProblemAct ENS_ GRANBYCT Diastolic heart failure active ProblemAct ENS_GRANBYCT Systemic lupus erythematosus active ProblemAct ENS_GRANBYCT Lung consolidation active ProblemAct CT_THSFRAN Drug-induced systemic lupus erythematosus active ProblemAct CTTHNEMG PUD (peptic ulcer disease) active ProblemAct CT_THSFRAN Hypertension active ProblemAct CT_THSFRAN Neoplasm of left breast, primary tumor staging category Tis: ductal carcinoma in situ (DCIS) active ProblemAct CT_THSFRAN A-fib active ProblemAct CT_THSFRAN Skin lesion of right lower extremity active ProblemAct CT_THSFRAN Artificial menopause active ProblemAct CT_THSFRAN Abnormal mammogram of left breast active ProblemAct CT_THSFRAN Hyperuricemia without signs of inflammatory arthritis and tophaceous disease active ProblemAct ENS_GRANB YCT Polymyalgia rheumatica active ProblemAct ENS_GRANBYCT Atherosclerosis of coronary artery without angina pectoris active ProblemAct ENS_GRANBYCT Secondary hyperparathyroidism active ProblemAct CTTHNEMG Anemia of renal disease active ProblemAct CTTHNEMG Essential hypertension active ProblemAct CTTHNEMG Aortic valve insufficiency, etiology of cardiac valve disease unspecified active EncounterDiagnosisAct CTTHNEMG BUNION active ProblemAct ENS_PODCRCT CAPSULITIS UNS SITE active ProblemAct ENS_PODCRCT POROKERATOMA active ProblemAct ENS_PODCRCT Pain in left foot active EncounterDiagnosisAct ENS_PODCRCT Contusion of left great toe with damage to nail, initial encounter active ProblemAct ENS_PODCRCT Ambulatory dysfunction active EncounterDiagnosi sAct CTTHSFRAN Cellulitis active ProblemAct CT_THSFRAN Thyroid disorder active ProblemAct CT_THSFRAN Crystal arthropathy active ProblemAct ENS_GRANBYCT Stage 3a chronic kidney disease active ProblemAct CTTHJMH Atrial fibrillation with RVR active ProblemAct HHCCT Stage 3 chronic kidney disease active ProblemAct CT_THSFRAN GERD (gastroesophageal reflux disease) active ProblemAct CT_THSFRAN Varicose veins of bilateral lower limbs active ProblemAct ENS_GR ANBYCT Chronic kidney disease active ProblemAct ENS_GRANBYCT Mitral valve stenosis, unspecified etiology active EncounterDiagnosisAct CTTHNEMG Breast calcifications on mammogram active ProblemAct CT_THSFRAN Raynaud disease active ProblemAct CT_THSFRAN Suspected COVID-19 virus infection active ProblemAct CT_THSFRAN Osteoporosis active ProblemAct ENS_GR ANBYCT 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 ENS_GRAN BYCT Long-term current use of drug therapy active ProblemAct ENS_GRANBYCT Raynaud's disease active ProblemAct E NS_GRANBYCT Essential hypertension active ProblemAct ENS_PHCCT Idiopathic gout, right ankle and foot active ProblemAct ENS_PODCRCT Pain in right foot active EncounterDiagnosisAct ENS_PODCRCT Localized edema active ProblemAct ENS_PODCRCT Supratherapeutic INR active ProblemAct CT_THSFRAN Immunizations Vaccine Date Source Lot Number Status [facility] SARS-CoV-2 COVID-19, mRNA, LNP-S, preservative free 12/16/2020 CTANN-MARIE [id number] completed COVID-19 (Pfizer/Comirnaty) 12yo and older 07/12/2023 CT_SAMUEL [id number] completed Pfizer (ages 12 & older) Biv alent, COVID-19 08/04/2022 CT_SAMUEL [id number] completed Influenza Quadravalent, 0.5m l (Fluzone High-dose) 65yo and older 07/12/2023 CT_SAMUEL [id number] comple damon Influenza Quadravalent, 0.5m l (Fluzone High-dose) 65yo and older 08/08/2021 CT_SAMUEL [id number] comple damon [facility] SARS-CoV-2 COVID-19, mRNA, LNP-S, preservative free 09/24/2021 CT_SAMUEL [id number] completed Influenza Quadravalent, 0.5m l (Fluzone High-dose) 65yo and older 07/27/2022 CT_PAMELA [id number] comple damon pneumococcal polysaccharide vaccine, 23 valent 01/22/2019 ENS_GRANBYCT completed zoster vaccine subunit 06/17/2020 ENS_GRANBYCT [id number] completed influenza, high-dose seasona l, quadrivalent, preservative free 06/17/2020 ENS_GRANBYCT [id number] completed zoster vaccine subunit 09/08/2021 ENS_GRANBYCT [id number] completed pneumococcal conjugate vacci ne, 13 valent 06/17/2020 ENS_GRANBYCT [id number] completed tetanus toxoid, reduced diph theria toxoid, and acellular pertussis vaccine, adsorbed 09/26/2015 ENS_GRANBYCT completed influenza, seasonal, injectable 07/16/2019 ENS_GRANBYCT completed SARS-COV-2 (COVID-19) vaccin e, UNSPECIFIED 11/25/2020 ENS_GRANBYCT completed SARS-COV-2 (COVID-19) vaccin e, mRNA, spike protein, LNP, preservative free, brandee-sucrose, 30 mcg/0.3 mL dose 08/03/2024 ENS_GRANBYCT [id number] completed influenza, high dose seasona l, preservative-free 08/03/2024 ENS_GRANBYCT [id number] completed SARS-COV-2 (COVID-19) vaccin e, UNSPECIFIED 08/25/2021 ENS_GRANBYCT completed SARS-COV-2 (COVID-19) vaccin e, UNSPECIFIED 12/16/2020 ENS_GRANBYCT completed zoster vaccine subunit 09/23/2014 ENS_GRANBYCT completed zoster vaccine subunit 04/07/2021 ENS_GRANBYCT completed SARS-COV-2 (COVID-19) vaccin e, UNSPECIFIED 08/04/2022 ENS_GRANBYCT completed influenza, seasonal, injectable 07/10/2020 ENS_GRANBYCT completed Pfizer SARS-CoV-2 COVID-19, mRNA, LNP-S, preservative free 11/25/2020 [facility] [id number] completed tetanus and diphtheria toxoi ds, adsorbed, preservative free, for adult use 08/20/2010 ENS_GRANBYCT completed
--- OUTSIDE RECORDS SUMMARY | 2024-12-12 15:59 | XMS_ITS | Encounter Summary ---
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 [address] [place] [id number] Soraya Negrete PA [address] [place] [address] 02/13/2025 9:30 AM EDT Office Visit [facility] [place] [address] [facility] [address] [place] [id number] Liam Blood MD [address] [facility] [address] [place] [address] 03/22/2025 10:00 AM EDT Procedure visit [facility] [address] [place] [address] 03/27/2025 10:00 AM EDT Office Visit [facility] [place] [address] [place] [phone] Ashleigh Eric MD [address] [place] [address] documented as of this encounter Visit Diagnoses Not on filedocumented in this encounter 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
--- OUTSIDE RECORDS SUMMARY | 2024-12-12 15:59 | XMS_ITS | Clinical Summary ---
Author Organization [facility] [place] [address] Phone Care Team Providers Care Wellness Director Name Role Phone Stephan Arredondo DO Primary Care Provider [phone] Allergies No known active allergies Medications acetaminophen (TYLENOL) 325 mg tablet Take 1-2 tablets (325-650 mg total) by mouth every 6 (six) hours as needed for pain. Active colchicine (COLCRYS) 0.6 mg tablet TAKE 1 TABLET BY MOUTH EVERY DAY 04/16/20 23 Active denosumab (PROLIA) 60 mg/mL syringe syringe Inject 1 mL (60 mg total) under the skin every 6 (six) months. 09/14/20 23 Active ferrous sulfate 325 mg (65 mg iron) EC tablet Take 1 tablet (325 mg total) by mouth. 05/18/20 23 Active furosemide (LASIX) 20 mg tablet Take 1 tablet (20 mg total) by mouth 2 (two) times a day. Active levothyroxine (SYNTHROID, LEVOTHROID) 25 mcg tablet Take 1 tablet (25 mcg total) by mouth daily. Active metoprolol tartrate (LOPRESSOR) 25 mg tablet TAKE 0.5 TABLETS (12.5 MG TOTAL) BY MOUTH 2 TIMES A DAY. 07/23/20 20 Active pantoprazole (PROTONIX) 40 mg EC tablet Take 1 tablet (40 mg total) by mouth daily. Active rivaroxaban (XARELTO) 20 mg tablet Take 1 tablet (20 mg total) by mouth every evening. 02/15/20 23 Active vitamin E acid succinate (vitamin E succinate) 134 mg (200 unit) tablet Take 400 mg by mouth daily. Active cholecalcifero l (VITAMIN D-3) 25 mcg (1,000 unit) tablet Take 2 tablets (50 mcg total) by mouth daily. Active multivitamin (MULTIPLE VITAMINS ORAL) Take 1 tablet by mouth daily. 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 08/03/20 22 Active erythromycin 5 mg/gram (0.5 %) ophthalmic ointment 02/02/20 23 Active Xiidra 5 % dropperette 06/22/20 23 Active Lotemax 0.5 % ophthalmic suspension 03/09/20 23 Active metroNIDAZOLE (METROCREAM) 0.75 % cream 07/19/20 23 Active nitrofurantoin , macrocrystal-m onohydrate, (MACROBID) 100 mg capsule 04/25/20 23 Active oxyCODONE-acet aminophen (PERCOCET) 5-325 mg per tablet 04/22/[address] drops,suspensi on OPHTHalmic SUSPension 03/31/20 23 Active methylPREDNISo lone (MEDROL DOSPAK) 4 mg tablet 05/02/20 23 025 Discontinued cephalexin (KEFLEX) 500 mg capsule Take 1 capsule (500 mg total) by mouth 3 (three) times a day for 7 days. 21 each 11/14/19 25 025 methylPREDNISo lone (MEDROL DOSPAK) 4 mg tablet Follow schedule on package instructions 1 each 11/17/19 25 025 Active Problems Problem Noted Date Diagnosed Date Dementia 07/31/2023 A-fib 07/30/2023 Skin lesion of right lower extremity 07/29/2021 Overview (12/12/2023): [facility], biopsied by outside coin machine mechanic, waiting for report Artificial menopause 06/05/2021 Localized edema 12/29/2020 Stage 3 chronic kidney disease 12/29/2020 Cellulitis 08/15/2020 Paroxysmal atrial fibrillation 08/15/2020 Lung consolidation 01/17/2020 PUD (peptic ulcer disease) 01/17/2020 Supratherapeutic INR 01/17/2020 Suspected COVID-19 virus infection 01/17/2020 Age-related osteoporosis wit hout current pathological fracture 10/23/2019 Thyroid disorder 10/23/2019 Status post mastectomy, 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 [facility] category Tis: ductal carcinoma in situ (DCIS) 12/27/2018 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/17/2018 Cachexia 10/20/2018 GERD (gastroesophageal reflux disease) 9 Hypertension 10/20/2018 Malignant neoplasm of female breast 10/20/2018 Raynaud disease 10/20/2018 Symptomatic anemia 10/20/2018 Abnormal mammogram of left breast 08/25/2018 Lupus erythematosus 07/31/2018 Breast calcifications on mammogram 08/12/2015 Encounters Date Type Department Care Team Description 11/25/2024 Telephone [facility] [address] [place] [phone] Irene Estevez RN 11/19/2024 Telephone [facility] [address] [place] [address], [place] [phone] Irene Estevez RN 11/17/2024 11:22 AM EST - 11/17/2024 3:00 PM [facility] Emergency [facility] [address] [place] [address], [place] [phone] Tanmay Zaidi MD Right leg pain (Primary Dx); Right foot pain Discharge Disposition: Home or Self Care 11/14/2024 10:56 AM EST - 11/14/2024 8:11 PM [facility] Emergency [facility] [address] [place] [address], [place] [phone] Gil Dos Santos MD Cellulitis of right ankle (Primary Dx) Discharge Disposition: Home or Self Care from Last 3 Months Immunizations Name Administration Dates Next Due COVID-19 (Pfizer/Comirnaty) 12yo and older 07/12 Influenza Quadravalent, 0.5m l (Fluzone High-dose) 65yo and older 07/12/2023,07/27/2022,08/08/2021 Pfizer (ages 12 & older) Bivalent, COVID-19 07/17 Pfizer SARS-CoV-2 COVID-19, mRNA, LNP-S, preservative free 09/24/2021,12/16/2020,11/25/2020 Surgical History Surgery Date Site/Laterality Comments VARICOSE VEIN SURGERY PROCEDURE:VARICOSE VEIN SURGERY COLONOSCOPY PROCEDURE:COLONOSCOPY TONSILLECTOMY PROCEDURE:TONSILLECTOMY APPENDECTOMY PROCEDURE:APPENDECTOMY HYSTERECTOMY AGE 42 PROCEDURE:HYSTERECTOMY TOTAL ABDOMINAL HYSTERECTOMY W/ BILATERAL SALPINGOOPHORECTOMY AGE 42 PROCEDURE:TOTAL ABDOMINAL HYSTERECTOMY W/ BILATERAL SALPINGOOPHORECTOMY BREAST SURGERY 11/02/2018 Left PROCEDURE:BREAST SURGERY;COMMENT:Procedure: LEFT PREOP NEEDLE LOC; Surgeon: Alma Delia Coleman MD; Location: [facility]; Service: Breast; Laterality: Left; UPPER GASTROINTESTINAL ENDOSCOPY 10/20/2018 N/A PROCEDURE:UPPER GASTROINTESTINAL ENDOSCOPY;COMMENT:Procedure: UPPER ENDOSCOPY-EGD; Surgeon: Fawn Juarez MD; Location: [facility]COPY; Service: Gastroenterology; Laterality: N/A; CATARACT EXTRACTION, BILATERAL PROCEDURE:CATARACT EXTRACTION, BILATERAL BREAST BIOPSY 2005 Left PROCEDURE:BREAST BIOPSY;COMMENT:benign BREAST BIOPSY 08/19/2015 Right PROCEDURE:BREAST BIOPSY;COMMENT:BENIGN BREAST BIOPSY 10/30/2015 Right PROCEDURE:BREAST EXCISIONAL BIOPSY;COMMENT:BENIGN BREAST BIOPSY 09/27/2018 Left PROCEDURE:BREAST BIOPSY;COMMENT:DCIS BREAST BIOPSY 11/02/2018 Left PROCEDURE:BREAST BIOPSY;COMMENT:DCIS Medical History Medical History Date Comments H/O breast biopsy 2002 DX:H/O breast biopsy;COMMENT:left, clip visible on mammo Lupus 2010 DX:Lupus Varicose veins DX:Varicose vein s Abnormal mammogram of both breasts DX:Abnormal mammogram of both breasts Abnormal thyroid blood test DX:A bnormal thyroid blood test History of breast biopsy DX:Hist ory of breast biopsy;COMMENT:left breast History of postmenopausal HRT DX :History of postmenopausal HRT;COMMENT:premrin 20 years total use Osteoporosis DX:Osteoporosis Disease of thyroid gland DX:Dise ase of thyroid gland PONV (postoperative nausea a nd vomiting) DX:PONV (postoperative nause a and vomiting);COMMENT:feels weak upon waking Heart murmur DX:Heart murmur Raynaud's syndrome DX:Raynaud's syndrome Hypothyroidism DX:Hypothyroidis m Abnormal mammogram of left breast 08/25/2018 DX:Abnormal mammogram of left breast History of transfusion DX:Histor y of transfusion Gastric ulcer 10/20/2018 DX:Gastric ulcer ;COMMENT:Endoscopy showed non bleeding gastric ulcer 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 11/17/2018 DX:Ductal carcinoma in situ (DCIS) of left breast Hypertension DX:Hypertension Hyperlipidemia DX:Hyperlipidemi a Anemia DX:Anemia A-fib (CMS/HCC) DX:A-fib (HCC) Arrhythmia DX:Arrhythmia;CO MMENT: Status post mastectomy, 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 DX: Status post mastectomy, left GIB (gastrointestinal bleeding) 10/20/2018 DX:GIB (gastrointestinal bleeding) Malignant neoplasm of female breast (CMS/HCC) 10/20/2018 DX:Malignant neoplasm of fem julieta breast (HCC);COMMENT:LEFT Family History Medical History Relation Name Comments Lung cancer Brother 1 Lung cancer Brother 2 Diabetes Father Heart disease Father Cancer Maternal Grandmother No Known Problems Mother No Known Problems [...] not to disclose 2024 12:34 PM EST Obstetrics History Last Filed Vital Signs Vital Sign Reading Time Taken Comments Blood Pressure 117/53 11/17/2024 11:40 AM EST Pulse 80 11/17/2024 11:40 AM EST Temperature 36.2 ??C (97.2 ??F) 11/17/2024 11:[address] Respiratory Rate 16 11/17/2024 11:40 AM EST Oxygen Saturation 98% 11/17/2024 11:40 AM EST Inhaled Oxygen Concentration - - Weight 45.4 kg (100 lb) 08/01/2024 3:37 PM EDT Height 157.5 cm (5' 2 ) 08/01/2024 3:37 PM EDT Body Mass Index 18.29 08/01/2024 3:37 PM EDT Plan of Treatment Upcoming Encounters Date Type Department Care Team (Late st Contact Info) Description 12/27/2024 2:00 PM EDT Office Visit [facility] [place] [address] [place] [phone] Soraya Negrete PA [address] [place] [address] 02/13/2025 9:30 AM EDT Office Visit [facility] [place] [address] [facility] [address] [place] [phone] Liam Blood MD [address] [facility] [address] [place] [address] 03/22/2025 10:00 AM EDT Procedure visit [facility] [address] [place] [phone] 03/27/2025 10:00 AM EDT Office Visit Breast Surgery - [place] [address] [place] [phone] Ashleigh Eric MD [address] [place] [address] Health Maintenance Due Date Last Done Comments RSV Immunization Patients 60+ Years Old (1 - 1-dose 75+ series) 2015 Cholesterol Screening (Lipid Panel) 09/23/2022 Depression Screening 09/23/2022 Falls Risk Assessment 09/23/2022 Social Influencers of Health Screening 09/23/2022 Medicare Annual Wellness Visit 04/06/2024 04/06/2023 DTaP,Tdap,and Td Vaccines (3 - Td or Tdap) 09/26/2025 09/26/2015, 08/20/2010 Hypertension/CHF/CAD Annual BMP Blood Test 11/14/2025 11/14/2024, 06/29/2024, 01/20/2024, Additional history exists Osteoporosis Screening (Bone Density Screening) 05/07/2034 05/07/2024, 05/04/2022, 08/31/2019 Pneumococcal Vaccine: 50+ Years Completed 06/17/2020, 01/22/2019 Zoster Vaccines Completed 09/08/2021, 03/18, 06/17/2020, Additional history exists COVID-19 Vaccine Completed 08/03/2024, , 08/04/2022, Additional history exists Influenza Vaccine Completed 08/03/2024, , 07/27/2022, Additional history exists HIB Vaccines Aged Out No longer eligi ble based on patient's age to complete this topic HPV Vaccines Aged Out No longer eligi ble based on patient's age to complete this topic Hepatitis A Vaccines Aged Out No long er eligible based on patient's age to complete this topic Hepatitis B Vaccines Aged Out No long er eligible based on patient's age to complete this topic IPV Vaccines Aged Out No longer eligi ble based on patient's age to complete this topic MMR Vaccines Aged Out No longer eligi ble based on patient's age to complete this topic Meningococcal ACWY Vaccine Aged Out N o longer eligible based on patient's age to complete this topic Meningococcal B Vacine Aged Out No lo nger eligible based on patient's age to complete this topic RSV Immunization Patients Under 20 months Aged Out No longer eligible based on patient's age to complete this topic Varicella Vaccines Aged Out No longer eligible based on patient's age to complete this topic Procedures Procedure Name Priority Date/Time Associated Diagnosis Comments VAS US DUPLEX LOWER EXT VENOUS RIGHT STAT 11/17/2024 12:50 PM EST Right leg pain XR FOOT 3+ VIEWS RIGHT STAT 11/17/2024 12:22 PM EST XR ANKLE 3+ VIEWS RIGHT STAT 11/14/2024 5:48 PM EST XR CHEST 1 VIEW STAT 11/14/2024 1:16 PM EST BUSTOS URINE CULTURE TUBE STAT 11/14/2024 12:08 PM EST URINALYSIS WITH REFLEX MICROSCOPIC AND CULTURE STAT 11/14/2024 12:08 PM EST URINALYSIS WITH REFLEX MICROSCOPIC AND CULTURE STAT 11/14/2024 12:08 PM EST CULTURE URINE STAT 11/14/2024 12:08 PM EST CULTURE BLOOD STAT 11/14/2024 11:56 AM EST C-REACTIVE PROTEIN STAT Add-on 11/14/2024 11 :53 AM EST SEDIMENTATION RATE STAT Add-on 11/14/2024 11 :53 AM EST CBC WITH AUTO DIFFERENTIAL STAT 11/14/2024 11:53 AM EST PROTHROMBIN TIME WITH INR STAT 11/14/2024 11:53 AM EST LACTATE, WITH REFLEX STAT 11/14/2024 11:53 AM EST PROCALCITONIN STAT 11/14/2024 11:53 AM EST COMPREHENSIVE METABOLIC PANEL STAT 11/14/2024 11:53 AM EST CBC AND DIFFERENTIAL STAT 11/14/2024 11:53 AM EST CULTURE BLOOD STAT 11/14/2024 11:53 AM EST BONE DENSITY STUDY Routine 05/07/2024 8: 59 AM EDT Encounter for screening for osteoporosis Asymptomatic menopausal state Age-related osteoporosis without current pathological fracture from Last 3 Months or Most Recently Relevant to Health Maintenance Results * Vascular US Duplex Lower Extremity Venous Right (11/17/2024 12:50 PM EST) Anatomical Region Laterality Modality Vascular, Abdomen Ultrasound 11/17/2024 1:30 PM EST Impressions 11/17/2024 1:30 PM EST No deep venous thrombosis in the right femoropopliteal system. Report reviewed and signed by : Dr. Graham Alegre on 11/17/2024 1:30 PM. Workstation Name - [id number] -------- FINAL REPORT -------- Dictated By: Graham Alegre Dictated Date: 11/17/2024 13:30 ET Assigned Physician: Graham Alegre Reviewed and Electronically Signed By: Graham Alegre Signed Date: 11/17/2024 13:30 ET Workstation ID: [id number] Transcribed By: Self Edit Transcribed Date: 11/17/2024 [...] Alegre on 11/17/2024 1:30 PM.Workstation Name - [id number] -------- FINAL REPORT -------- Dictated By: Graham Alegre Dictated Date: 11/17/2024 13:30 ET Assigned Physician: Graham Alegre Reviewed and Electronically Signed By: Graham Alegre Signed Date: 11/17/2024 13:30 ET Workstation ID: [id number] Transcribed By: Self Edit Transcribed Date: 11/17/2024 [...] on 11/17/2024 1:29 PM. Workstation Name - [id number] -------- FINAL REPORT -------- Dictated By: Grahma Alegre Dictated Date: 11/17/2024 13:27 ET Assigned Physician: Graham Alegre Reviewed and Electronically Signed By: Graham Alegre Signed Date: 11/17/2024 13:29 ET Workstation ID: [id number] Transcribed By: Self Edit Transcribed Date: 11/17/2024 [...] substance and periosteal reaction involving the 2nd ouroips5pg toe distal phalanges raises concern for osteomyelitis. Report reviewed and signed by : Dr. Graham Alegre on 11/17/2024 1:29 PM.Workstation Name - [id number] -------- FINAL REPORT -------- Dictated By: Graham Alegre Dictated Date: 11/17/2024 13:27 ET Assigned Physician: Graham Alegre Reviewed and Electronically Signed By: Graham Alegre Signed Date: 11/17/2024 13:29 ET Workstation ID: [id number] Transcribed By: Self Edit Transcribed Date: 11/17/2024 13:27 ET Tanmay Zaidi MD IMG XR PROCEDURES Final Result * XR Ankle 3+ Views Right (11/14/2024 5:48 PM EST) Anatomical Region Laterality Modality Lower Extremities, Ankle Right Radiogr aphic Imaging 11/14/2024 6:34 PM EST Impressions 11/14/2024 6:36 PM EST 1. Negative for acute fracture or dislocation. Report reviewed and signed by : Dr. Ever Rios on 11/14/2024 6:36 PM. Workstation Name - [id number] -------- FINAL REPORT -------- Dictated By: Ever Rios Dictated Date: 11/14/2024 18:34 ET Assigned Physician: Ever Rios Reviewed and Electronically Signed By: Ever Rios Signed Date: 11/14/2024 18:36 ET Workstation ID: [id number] Transcribed By: Self Edit Transcribed Date: 11/14/2024 [...] Rios on 11/14/2024 6:36 PM.Workstation Name - [id number] -------- FINAL REPORT -------- Dictated By: Ever Rios Dictated Date: 11/14/2024 18:34 ET Assigned Physician: Ever Rios Reviewed and Electronically Signed By: Ever Rios Signed Date: 11/14/2024 18:36 ET Workstation ID: [id number] Transcribed By: Self Edit Transcribed Date: 11/14/2024 [...] on 11/14/2024 2:39 PM. Workstation Name - [id number] -------- FINAL REPORT -------- Dictated By: Chaparro Sheriff Dictated Date: 11/14/2024 14:38 ET Assigned Physician: Chaparro Sheriff Reviewed and Electronically Signed By: Chaparro Sheriff Signed Date: 11/14/2024 14:39 ET Workstation ID: [id number] Transcribed By: Self Edit Transcribed Date: 11/14/2024 [...] Sheriff on 11/14/2024 2:39 PM.Workstation Name - [id number] -------- FINAL REPORT -------- Dictated By: Chaparro Sheriff Dictated Date: 11/14/2024 14:38 ET Assigned Physician: Chaparro Sheriff Reviewed and Electronically Signed By: Chaparro Sheriff Signed Date: 11/14/2024 14:39 ET Workstation ID: [id number] Transcribed By: Self Edit Transcribed Date: 11/14/2024 14:38 ET Gil Dos Santos MD IMG XR PROCEDURES Final Re sult * (ABNORMAL) Urinalysis with reflex microscopic and culture (11/14/2024 12:08 PM EST) Color, Urine Yellow Yellow, Colorless LAB URINALYSIS - AUTOMATED METHOD 11/14/2024 1:02 PM EST [facility] Clarity, Urine Clear Clear LAB URINALYSIS - AUTOMATED METHOD 11/14/2024 1:02 PM EST [facility] Specific [place] Urine 1.006 1.005 - 1.030 LAB URINALYSIS - AUTOMATED METHOD 11/14/2024 1:02 PM EST [facility] pH, Urine 5.0(A) 5.0 - 8.0 pH LAB URINALYSIS - AUTOMATED METHOD 11/14/2024 1:02 PM [facility] Leukocytes, Urine Negative Negative WBCs/mcL LAB URINALYSIS - AUTOMATED METHOD 11/14/2024 1:02 PM [facility] Nitrite, Urine Negative Negative LAB URINALYSIS - AUTOMATED METHOD 11/14/2024 1:02 PM [facility] Protein, Urine Negative Negative mg/dL LAB URINALYSIS - AUTOMATED METHOD 11/14/2024 1:02 PM [facility] Glucose, Urine Negative Negative mg/dL LAB URINALYSIS - AUTOMATED METHOD 11/14/2024 1:02 PM [facility] Ketones, Urine Negative Negative mg/dL LAB URINALYSIS - AUTOMATED METHOD 11/14/2024 1:02 PM [facility] Blood, Urine Small(A) Negative mg/dL LAB URINALYSIS - AUTOMATED METHOD 11/14/2024 1:02 PM [facility] RBC, Urine 6(H) 0 - 3 /HPF LAB URINALYSIS - AUTOMATED METHOD 11/14/2024 1:02 PM [facility] WBC, Urine 1 0 - 5 /HPF LAB URINALYSIS - AUTOMATED METHOD 11/14/2024 1:02 PM [facility] Squamous Epithelial, Urine 0 0 - 5 /HPF LAB URINALYSIS - AUTOMATED METHOD 11/14/2024 1:02 PM [facility] Mucus, Urine Present(A) Not Present /HPF LAB URINALYSIS - AUTOMATED METHOD 11/14/2024 1:02 PM [facility] Hyaline Casts, Urine 2(H) <=0 /LPF LAB URINALYSIS - AUTOMATED METHOD 11/14/2024 1:02 PM [facility] Urine Urine specimen obtained by clean catch procedure / Unknown Non-blood Collection / Unknown 11/14/2024 12:08 PM EST 11/14/2024 12:20 PM EST us Gil Dos Santos MD LAB URINE ORDERABLES Final Result Performing Organization Address City/[facility]/ZIP Co de Phone Number [facility] [address] [place] [address], [place] [phone] * Bustos urine culture tube (11/14/2024 12:08 PM EST) Extra Tube Hold for add-ons. 11/14/2024 2:01 PM EST [facility] Comment:Auto resulted. Urine Urine specimen obtained by clean catch procedure / Unknown Non-blood Collection / Unknown 11/14/2024 12:08 PM EST 11/14/2024 12:20 PM EST us Gil Dos Santos MD LAB URINE ORDERABLES Final Result Performing Organization Address [facility]/ZIP Co de Phone Number [facility] [address] [place] [address], [place] [phone] * Culture urine (11/14/2024 12:08 PM EST) Culture, Urine No growth 11/15/2024 9:01 AM EST [facility] Urine Urine specimen obtained by clean catch procedure / Unknown Non-blood Collection / Unknown 11/14/2024 12:08 PM EST 11/14/2024 1:02 PM EST us Gil Dos Santos MD LAB MICROBIOLOGY - GENERAL ORDERABLES Final Result Performing Organization Address City/[facility]/ZIP Co de Phone Number [facility] [address] [place] [address], [place] [phone] * Blood Culture, Peripheral #1 (11/14/2024 11:56 AM EST) Only the most recent of2 resultswithin the time period is included. Culture, Blood No growth at 5 days 11/19/2024 1:01 PM EST [facility] Blood Venous blood specimen / Unknown Venipuncture / Unknown 11/14/2024 11:56 AM EST 11/14/2024 12:12 PM EST us Gil Dos Santos MD LAB MICROBIOLOGY - GENERAL ORDERABLES Final Result [facility] [address] [place] [address], [place] [phone] * Lactate, with reflex (11/14/2024 11:53 AM EST) [facility] LACTIC ACID 0.9 0.5 - 2.2 mmol/L LAB BLOOD GAS METHOD 11/14/2024 12:22 PM EST [facility] Blood Venous blood specimen / Unknown Venipuncture / Unknown 11/14/2024 11:53 AM EST 11/14/2024 12:08 PM EST us Gil Dos Santos MD LAB BLOOD ORDERABLES Final Result [facility] [address] [place] [address], [place] [phone] * (ABNORMAL) Procalcitonin (11/14/2024 11:53 AM EST) [facility] Procalcitonin 0.14(H) <=0.05 ng/mL LAB CHEMISTRY METHOD 11/14/2024 1:08 PM EST [facility] Blood Venous blood specimen / Unknown Venipuncture / Unknown 11/14/2024 11:53 AM EST 11/14/2024 12:07 PM EST Narrative [facility] - 11/14/2024 1:08 PM EST Procalcitonin levels above 2.0 ng/mL represent a high risk of progression to severe sepsis and/or septic shock. Note that levels below 0.50 ng/mL do not exclude an infection, and increased levels can occur without infection. Procalcitonin levels should be interpreted in the context of other clinical and laboratory findings. Gil Dos Santos MD LAB BLOOD ORDERABLES Final Result [facility] [address] [place] [address], * (ABNORMAL) CBC auto differential (11/14/2024 11:53 AM EST) [facility] WBC 10.2 4.0 - 10.5 K/mcL LAB HEMETOLOGY METHOD 11/14/2024 12:22 PM EST [facility] RBC 3.66(L) 4.20 - 5.40 M/mcL LAB HEMETOLOGY METHOD 11/14/2024 12:22 PM [facility] Hemoglobin 12.0(L) 12.5 - 16.0 g/dL LAB HEMETOLOGY METHOD 11/14/2024 12:22 PM EST [facility] Hematocrit 35.3(L) 37.0 - 47.0 % LAB HEMETOLOGY METHOD 11/14/2024 12:22 PM [facility] MCV 96.4 78.0 - 100.0 FL LAB HEMETOLOGY METHOD 11/14/2024 12:22 PM EST [facility] MCH 32.7 25.0 - 33.0 pcg LAB HEMETOLOGY METHOD 11/14/2024 12:22 PM [facility] MCHC 33.9 32.0 - 36.0 g/dL LAB HEMETOLOGY METHOD 11/14/2024 12:22 PM [facility] RDW 14.8 12.1 - 16.2 % LAB HEMETOLOGY METHOD 11/14/2024 12:22 PM [facility] Platelets 203 150 - 450 K/mcL LAB HEMETOLOGY METHOD 11/14/2024 12:22 PM [facility] MPV 8.2 7.4 - 11.4 FL LAB HEMETOLOGY METHOD 11/14/2024 12:22 PM [facility] Neutrophils Relative 80.2(H) 44.0 - 74.0 % LAB HEMETOLOGY METHOD 11/14/2024 12:22 PM [facility] Lymphocytes Relative 6.5(L) 20.0 - 48.0 % LAB HEMETOLOGY METHOD 11/14/2024 12:22 PM [facility] Monocytes Relative 13.1(H) 2.0 - 12.0 % LAB HEMETOLOGY METHOD 11/14/2024 12:22 PM [facility] Eosinophils Relative 0.0 0.0 - 6.0 % LAB HEMETOLOGY METHOD 11/14/2024 12:22 PM [facility] Basophils Relative 0.2 0.0 - 2.0 % LAB HEMETOLOGY METHOD 11/14/2024 12:22 PM [facility] Neutrophils Absolute 8.20(H) 1.80 - 7.80 K/mcL LAB HEMETOLOGY METHOD 11/14/2024 12:22 PM [facility] Lymphocytes Absolute 0.70(L) 1.00 - 3.20 K/mcL LAB HEMETOLOGY METHOD 11/14/2024 12:22 PM [facility] Monocytes Absolute 1.30(H) 0.00 - 0.80 K/mcL LAB HEMETOLOGY METHOD 11/14/2024 12:22 PM [facility] Eosinophils Absolute 0.00 0.00 - 0.50 K/mcL LAB HEMETOLOGY METHOD 11/14/2024 12:22 PM [facility] Basophils Absolute 0.00 0.00 - 0.20 K/mcL LAB HEMETOLOGY METHOD 11/14/2024 12:22 PM [facility] Blood Venous blood specimen / Unknown Venipuncture / Unknown 11/14/2024 11:53 AM EST 11/14/2024 12:07 PM EST us Gil Dos Santos MD LAB BLOOD ORDERABLES Final Result Performing Organization Address [facility]/ZIP Co de Phone Number [facility] [address] [place] [address], * (ABNORMAL) Sedimentation rate, automated (11/14/2024 11:53 AM EST) Sed Rate 73(H) 0 - 20 mm/hr LAB HEMETOLOGY METHOD 11/14/2024 3:11 PM EST [facility] Blood Venous blood specimen / Unknown Venipuncture / Unknown 11/14/2024 11:53 AM EST 11/14/2024 12:07 PM EST us Gil Dos Santos MD LAB BLOOD ORDERABLES Final Result Performing Organization Address City/[facility]/ZIP Co de Phone Number [facility] [address] [place] [address], * (ABNORMAL) Prothrombin time with INR (11/14/2024 11:53 AM EST) Protime 13.9(H) 10.5 - 13.3 sec LAB COAGULATION METHOD 11/14/2024 12:58 PM EST [facility] INR 1.2(H) 0.8 - 1.1 LAB COAGULATION METHOD 11/14/2024 12:58 PM EST [facility] Blood Venous blood specimen / Unknown Venipuncture / Unknown 11/14/2024 11:53 AM EST 11/14/2024 12:07 PM EST Narrative [facility] - 11/14/2024 12:58 PM EST Std. Therapy ?2.0-3.0 INR High Dose Therapy 3.0-4.5 INR Ranges may vary depending on clinical indications and protocol. us Gil Dos Santos MD LAB BLOOD ORDERABLES Final Result Performing Organization Address City/[facility]/ZIP Co de Phone Number [facility] [address] [place] [address], [place] [phone] * (ABNORMAL) C-reactive protein (11/14/2024 11:53 AM EST) [facility] C-Reactive Protein 15.0(H) <=0.9 mg/dL LAB CHEMISTRY METHOD 11/14/2024 2:44 PM EST [facility] Blood Venous blood specimen / Unknown Venipuncture / Unknown 11/14/2024 11:53 AM EST 11/14/2024 12:07 PM EST us Gil Dos Santos MD LAB BLOOD ORDERABLES Final Result Performing Organization Address [facility]/ZIP Co de Phone Number [facility] [address] [place] [address], [place] [phone] * (ABNORMAL) Comprehensive metabolic panel (11/14/2024 11:53 AM EST) [facility] Sodium 137 135 - 145 mmol/L LAB CHEMISTRY METHOD 11/14/2024 12:45 PM [facility] Potassium 3.9 3.5 - 5.1 mmol/L LAB CHEMISTRY METHOD 11/14/2024 12:45 PM [facility] Comment:Slightly Hemolyzed Chloride 99 98 - 107 mmol/L LAB CHEMISTRY METHOD 11/14/2024 12:45 PM [facility] CO2 28 24 - 32 mmol/L LAB CHEMISTRY METHOD 11/14/2024 12:45 PM [facility] Anion Gap 10 5 - 14 LAB CHEMISTRY METHOD 11/14/2024 12:45 PM [facility] Glucose 116 70 - 199 mg/dL LAB CHEMISTRY METHOD 11/14/2024 12:45 PM [facility] BUN 28(H) 7 - 17 mg/dL LAB CHEMISTRY METHOD 11/14/2024 12:45 PM [facility] Creatinine 1.20(H) 0.50 - 1.00 mg/dL LAB CHEMISTRY METHOD 11/14/2024 12:45 PM [facility] eGFR 45(L) >=60 mL/min/1. 73m2 LAB CHEMISTRY METHOD 11/14/2024 12:45 PM [facility] Comment:Calculation based on the??Chronic Kidney Disease Epidemiology Collaboration (CKD-EPI) equation refit??without adjustment for race. BUN/Creatinine Ratio 23.3(H) 12.0 - 20.0 LAB CHEMISTRY METHOD 11/14/2024 12:45 PM [facility] Calcium 9.3 8.4 - 10.2 mg/dL LAB CHEMISTRY METHOD 11/14/2024 12:45 PM [facility] AST (SGOT) 44(H) 5 - 40 unit/L LAB CHEMISTRY METHOD 11/14/2024 12:45 PM [facility] Comment:Slightly Hemolyzed ALT (SGPT) 20 7 - 52 unit/L LAB CHEMISTRY METHOD 11/14/2024 12:45 PM [facility] Alkaline Phosphatase 111(H) 34 - 104 unit/L LAB CHEMISTRY METHOD 11/14/2024 12:45 PM [facility] Total Protein 7.4 6.4 - 8.5 g/dL LAB CHEMISTRY METHOD 11/14/2024 12:45 PM [facility] Albumin 4.0 3.5 - 5.0 g/dL LAB CHEMISTRY METHOD 11/14/2024 12:45 PM [facility] Total Bilirubin 1.0 0.3 - 1.0 mg/dL LAB CHEMISTRY METHOD 11/14/2024 12:45 PM [facility] Blood Venous blood specimen / Unknown Venipuncture / Unknown 11/14/2024 11:53 AM EST 11/14/2024 12:07 PM EST us Gil Dos Santos MD LAB BLOOD ORDERABLES Final Result [facility] ([facility]) [facility] [address] [place] [address], [place] [phone] * BONE DENSITY STUDY (05/07/2024 8:59 AM EDT) Anatomical Region Laterality Modality Bone Densitometr y 04/11/2024 4:01 PM EDT Narrative 05/07/2024 9:56 AM EDT Bone density study Indication and risk factors: Postmenopausal female. ??History of osteoporosis, assess for interval change. ?? Comparisons: 05/04/2022. Study acquired on a Heyzap densitometer. Imaging of the lumbar spine and hip was completed. FINDINGS: LUMBAR SPINE Averaged L1 through L4: Bone density: 1.12 g/cm2 Z score: 2.2 T score: -0.4 Lumbar spine bone density has increased, previous T score measuring -1.6. LEFT HIP Left total hip: Bone density: 0.68 g/cm2 Z score: 0.1 T score: -2.6 Left hip bone density has not changed significantly. CONCLUSION: 1. ??Lumbar spine: ??Increased bone density, now measuring within normal limits. 2. ??Left hip: ??Stable osteoporosis. SESSION: Not applicable World Health Organization Definitions of Osteoporosis: T score at or below -1.0: Normal BMD T score between -1.0 and -2.5: Osteopenia T score at or below -2.5: Osteoporosis DEXA guidelines: Diagnosis : Treatment : Follow-up DEXA Normal BMD : Prevention : 2-3 years Osteopenia : Prevention/therapy :1-2 years Osteoporosis : Therapy : Yearly Report reviewed and signed by : Dr. Lupis Sanchez on 05/07/2024 9:56 AM. Workstation Name - LYFE Kitchen Procedure Note Lupis Sanchez MD - 07/31/2024 Bone density study Indication and risk factors: Postmenopausal female. History ofosteoporosis, assess for interval change. Comparisons: 05/04/2022. Study acquired on a Heyzap densitometer. Imaging of thelumbar spine and hip was completed. FINDINGS: LUMBAR SPINE Averaged L1 through L4: Bone density: 1.12 g/cm2 Z score: 2.2 T score: -0.4 Lumbar spine bone density has increased, previous T score measuring-1.6. LEFT HIP Left total hip: Bone density: 0.68 g/cm2 Z score: 0.1 T score: -2.6 Left hip bone density has not changed significantly. CONCLUSION: 1. Lumbar spine: Increased bone density, now measuring within normallimits. 2. Left hip: Stable osteoporosis. SESSION: Not applicable World Health Organization Definitions of Osteoporosis: T score at or below -1.0: Normal BMD T score between -1.0 and -2.5: Osteopenia T score at or below -2.5: Osteoporosis DEXA guidelines: Diagnosis : Treatment : Follow-up DEXA Normal BMD : Prevention : 2-3 years Osteopenia : Prevention/therapy :1-2 years Osteoporosis : Therapy : Yearly Report reviewed and signed by : Dr. Lupis Sanchez on 05/07/2024 9:56 AM.Workstation Name - BIJAL-SHANEL Stephan Arredondo DO IMG DXA PROCEDURES Final Result from Last 3 Months or Most Recently Relevant to Health Maintenance Insurance MEDICARE [facility] Care Teams Wellness Director Relationship Specialty Start Date End Date Stephan Arredondo DO [address] [place] [phone] PCP - General Family Medicine 08/11/17
--- OUTSIDE RECORDS SUMMARY | 2024-12-12 16:13 | XMS_ITS | Continuity of Care Document ---
Author Organization [place] - [facility] Address [address] [facility], [address] [place] [address] Care Team Providers Care Remelt Pan Tank Operator Name Role Phone NAHUM DÍAZ Obstetrics Technician Unavailable Assessment No assessment recorded. Plan of Treatment Reminders Order Date Submit Date Provider Last Modified By Organization Details Last Modified Time Details Appointments None recorded. Lab None recorded. Referral None recorded. Procedures None recorded. Surgeries None recorded. Imaging None recorded. Medication Orders Prolia 60 mg/mL subcutaneou s syringe 2024 025 [id number], [address] [place], [address], 15:17:57 Patient TargetsNo targets recorded. Patient Instructions Encounter Date Encounter Id Patient Instructions Last Modified By Organization Details Last Modified Time 11/20/2024 [id number] As a reminder make sure that you take calcium and vitamin D on a regular basis. Calcium should be at least 600 mg to 1000 mg daily. You can do that with 3 servings of dairy-including yogurt ice cream and milk cheese. Or you can take a calcium tablet either calcium carbonate or calcium citrate. Those are found [id number] in any pharmacy. Not available 11/20/2024 15:05:19 [...] Organization Details Recorded Time Anticoagu lant effect 77637275 Active 2019 Anticoagu lated on Coumadin Not Available [facility] 4 19:24:22 Dementia 88797949 Active 2022 Dementia Not Available [facility] 4 19:24:22 Raynaud's disease 440570579 Active 2018 Raynaud disease Not Available [facility] 4 19:24:22 Chronic kidney disease stage 3A 404111623 Active 2020 Stage 3a chronic kidney disease Not Available [facility] 4 19:24:23 Essential hypertens ion 45032510 Active 2023 Essential hypertens ion Not Available [facility] 4 19:24:23 Localized edema 570723362 Active 2020 Localized edema Not Available [facility] 4 19:24:23 Malignant neoplasm of female breast 001015991 Active 2018 Malignant neoplasm of female breast Not Available [facility] 4 19:24:24 Gastroeso phageal reflux disease 286136745 Active 2018 GERD (gastroes ophageal reflux disease) Not Available [facility] 4 19:24:24 Patient encounter status 501786420 Active 2020 Pap smear for cervical cancer screening Not Available [facility] 4 19:24:24 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 Not Available [facility] 4 19:24:25 Hypertens isabell disorder 77918238 Active 2018 Hypertens ion Not Available [facility] 4 19:24:25 Secondary hyperpara thyroidis m 87739471 Active 2023 Secondary hyperpara thyroidis m Not Available [facility] 4 19:24:25 Drug-kashif faizan systemic lupus erythemat osus 246420117 Active 2023 Drug-kashif faizan systemic lupus erythemat osus Not Available [facility] 4 19:24:25 Senile osteoporo sis 85189787 Active 2019 Age-relat ed osteoporo sis without current pathologi sarath fracture Calvin Panda MD [address] [place], [address] , [place] - [facility] 5 22:22:58 Mass of skin of right lower limb 64095839191 101866 Active 2020 Skin lesion of right lower extremity - Overview: Formattin g of this note might be different from the original. Asher, biopsied by outside dermatolo gist, waiting for report Not Available [facility] 4 19:24:26 Mammograp hy abnormal 738368405 Active 2017 Abnormal mammogram of left breast Not Available [facility] 4 19:24:26 Postartif icial menopausa l syndrome 18026157 Active 2020 Artificia l menopause Not Available [facility] 4 19:24:27 Lung consolida tion 52428399 Active 2019 Lung consolida tion Not Available [facility] 4 19:24:27 Disorder of thyroid gland 11829757 Active 2019 Thyroid disorder Not Available [facility] 4 19:24:27 History of left mastectom y 631062387 Active 2018 Status post mastectom y, left Not Available [facility] 4 19:24:28 Atrial fibrillat ion 77898200 Active 2022 A-fib Not Available [facility] 4 19:24:28 Celluliti s 073488913 Active 2019 Celluliti s Not Available [facility] 4 19:24:28 Suspected COVID-19 335118505 Active 2019 Suspected COVID-19 virus infection Not Available [facility] 4 19:24:29 Anemia of renal disease 022721961 Active 2023 Anemia of renal disease Not [facility] 4 19:24:29 Anemia 935969584 Active 2018 Symptomat ic anemia Not Available [facility] 4 19:24:29 Cachexia 068653954 Active 2018 Cachexia Not Available [facility] 4 19:24:30 Ductal carcinoma in situ of breast 298112118 Active 2018 Neoplasm of left breast, primary tumor staging category Tis: ductal carcinoma in situ (DCIS) Not Available [facility] 4 19:24:30 Paroxysma l atrial fibrillat ion 641930819 Active 2019 Paroxysma l atrial fibrillat ion Not Available [facility] 4 19:24:31 Mammograp hic calcifica tion of breast 868467697 Active 2014 Breast calcifica tions on mammogram Not Available [facility] 4 19:24:31 Peptic ulcer 98336443 Active 2019 PUD (peptic ulcer disease) Not Available [facility] 4 19:24:31 Lupus erythemat osus 359242700 Active 2017 Lupus erythemat osus Not Available [facility] 4 19:24:32 Internati onal normalize d ratio above reference range 515792960 Active 2019 Suprather apeutic INR Not Available [facility] 4 19:24:32 Malignant tumor of breast 785440311 Active 2018 Malignant neoplasm of female breast Not Available [facility] 4 19:24:37 Problem Notes None recorded. Medical [...] Updated DateTime 11/20/2024 157.5 cm 19 kg/m2 10434.61 g 120 mm[Hg] 76 mm[Hg] DIONY CHENG [facility] 14:55:42 Social History None recorded. Functional Status None recorded. Mental Status None recorded. Family History Nothing Reported. Medical History No medical history recorded. Gynecological HistoryNo gynecological history recorded. 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 She has been taking calcium and vitamin D. I reminded her the importance of taking more during the time shortly after the injections . I injected the Prolia on the right lower quadrant of the abdomen. She tolerated the procedure well.Lot #[id number] expiration February 13, 2027. Will set up for an appointmen t in 6 months. Health Concerns Section Related Observation LastModified by Organization Detjenna ls LastModified Time None Recorded Concern Status LastModified by Organization Details LastModified Time None Recorded Payers Encounter Date Sequence Insurance Name Policy Number Policy Hall Covered Member ID Hall Member ID Guarantor Name 11/20/2024 1 MEDICARE B-[place]: NGS Jackelyn De Guzman [id number] Jackelyn De Guzman 11/20/2024 2 [facility] (MEDICARE SUPPLEMENT) [id number] Jackelyn De Guzman [id number] Jackelyn De Guzman Notes Date Note [...] in October 2023. Calvin Panda MD [address] [place], [address], [facility] 11/20/2024 15:18:35 OBGyn Episode No OBEpisode recorded.
== END 2024-12-12 13:20 | disposition home or self-care (01) ==
PROVIDERS: Visit Provider Internal Medicine Hypertension Specialist
DX: N18.9 Chronic kidney disease, unspecified (principal); R80.9 Proteinuria, unspecified
CPT/HCPCS: 99214

== ENCOUNTER 2025-06-26 14:44 | Outpatient (AMB) | payer OTHER, SELFPAY ==
--- OUTSIDE RECORDS SUMMARY | 2024-08-01 15:24 | XMS_ITS | Encounter Summary ---
Author Organization [facility] Address [address] [place] [address] Care Team Providers Care Sander And Polisher Name Role Phone Stephan Arredondo DO Primary Care Provider [phone] Encounter Details Date Type Department Care Team (Late st Contact Info) Description 08/01/2024 3:24 PM EDT Hospital Encounter TH HISTORIC ENCOUNTERS EASTERN CONVERSION ONLY Liam Blood MD [facility] [address] [place] [address] Social History Tobacco Use Types Packs/Day Years Used Date Smoking Tobacco: Never Passive Smoke Exposure: Never Smokeless Tobacco: Never Alcohol Use Standard Drinks/Week Comments No 0 (1 standard drink = 0.6 oz pur e alcohol) Comments No Sex and Gender Information Value Date Recorded Sex Assigned at Female 11/14/2024 12:34 PM EST Legal Sex Female 11:52 PM EST Gender Identity Female 11/14/2024 12:34 PM EST Sexual Orientation Choose not to disclose 2024 12:34 PM EST documented as of this encounter Last Filed Vital Signs Vital Sign Reading Time Taken Comments Blood Pressure 108/70 08/01/2024 3:37 PM EDT Pulse 88 08/01/2024 3:37 PM EDT Temperature - - Respiratory Rate - - Oxygen Saturation - - Inhaled Oxygen Concentration - - Weight 45.4 kg (100 lb) 08/01/2024 3:37 PM EDT Height 157.5 cm (5' 2 ) 08/01/2024 3:37 PM EDT Body Mass Index 18.29 08/01/2024 3:37 PM EDT documented in this encounter Progress Notes * Liam Blood MD - 08/01/2024 3:30 PM EDT Images from the original note were not included. Progress Notes by Liam Blood MD at 08/01/2024 3:30 PM Author: Liam Blood MD Service: -- Author Type: Physician Filed: 08/01/2024 5:03 PM Encounter Date: 08/01/2024 Status: Signed Industrial Staff Nurse: Liam Blood MD (Physician) Cardiology Attending New Outpatient Note- Liam Blood M.D. [facility] Patient Name:Jackelyn De Guzman Patient :1940 Referring MD:Stephan Arredondo DO Chief Complaint: PAF HPI: The patient is a 83 y.o. female with a history of paroxysmal atrial fibrillation/flutter, aortic insufficiency and lower extremity edema who presents for new patient evaluation. She was previously followed by Dr. Colunga. She is here today to establish care with me. She has a history of atrial fibrill ation dating back to at least 2019 when she presented to [facility] with rapid atrial flutter. 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 She is here to establish care. She denies any recent chest pain or shortness of breath. She self reduced her diuretics to 20 mg every other day because of frequent urination. She has some mild intermittent lower extremity edema. No dizziness or syncope. No palpitations. No PND or orthopnea. Patient Active Problem List Diagnosis SNOMED CT(R) ? Breast calcifications on mammogram MAMMOGRAPHIC CALCIFICATION OF BREAST ? Abnormal mammogram of left breast MAMMOGRAPHY ABNORMAL ? Symptomatic anemia ANEMIA ? Lupus erythematosus LUPUS ERYTHEMATOSUS ? Raynaud disease RAYNAUD'S DISEASE ? GERD (gastroesophageal reflux disease) GASTROESOPHAGEAL REFLUX DISEASE ? Malignant neoplasm of female breast (HCC) MALIGNANT TUMOR OF BREAST ? Hypertension HYPERTENSIVE DISORDER ? Cachexia (HCC) CACHEXIA ? 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 Neoplasm of left breast, primary tumor staging category Tis: ductal carcinoma in situ (DCIS) DUCTAL CARCINOMA IN SITU OF LEFT BREAST ? Status post mastectomy, left HISTORY OF LEFT MASTECTOMY ? Age-related osteoporosis without current pathological fracture SENILE OSTEOPOROSIS ? Thyroid disorder DISORDER OF THYROID GLAND ? Paroxysmal atrial fibrillation (HCC) PAROXYSMAL ATRIAL FIBRILLATION ? Cellulitis CELLULITIS ? Anticoagulated on Coumadin ANTICOAGULANT EFFECT ? PUD (peptic ulcer disease) PEPTIC ULCER ? Lung consolidation (HCC) LUNG CONSOLIDATION ? Localized edema LOCALIZED EDEMA ? Pap smear for cervical cancer screening PATIENT ENCOUNTER STATUS ? Artificial menopause POSTARTIFICIAL MENOPAUSAL SYNDROME ? Suspected COVID-19 virus infection SUSPECTED COVID-19 ? Supratherapeutic INR INTERNATIONAL NORMALIZED RATIO ABOVE REFERENCE RANGE ? Skin lesion of right lower extremity MASS OF SKIN OF RIGHT LOWER LIMB ? A-fib (HCC) ATRIAL FIBRILLATION ? Dementia (HCC) DEMENTIA ? Essential hypertension ESSENTIAL HYPERTENSION ? Anemia of renal disease ANEMIA OF RENAL DISEASE ? Secondary hyperparathyroidism (HCC) SECONDARY HYPERPARATHYROIDISM ? Drug-induced systemic lupus erythematosus (HCC) DRUG-INDUCED SYSTEMIC LUPUS ERYTHEMATOSUS Past Medical History: Diagnosis Date ? A-fib (HCC) ? Abnormal mammogram of both breasts ? Abnormal mammogram of left breast 08/25/2018 ? Abnormal thyroid blood test ? Anemia ? Arrhythmia ? Disease of thyroid gland ? Ductal carcinoma in situ (DCIS) of left breast 11/17/2018 ? Gastric ulcer 10/20/2018 Endoscopy showed non bleeding gastric ulcer ? GIB (gastrointestinal bleeding) 10/20/2018 ? H/O breast biopsy 2003 left, clip visible on mammo ? Heart murmur ? History of breast biopsy left breast ? History of postmenopausal HRT premrin 20 years total use ? History of transfusion ? Hyperlipidemia ? Hypertension ? Hypothyroidism ? Lupus 2011 ? Malignant neoplasm of female breast (HCC) 10/20/2018 LEFT ? Osteoporosis ? PONV (postoperative nausea and vomiting) feels weak upon waking ? Raynaud's syndrome ? Status post mastectomy, 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 ? Varicose veins Past Surgical History: Procedure Laterality Date ? APPENDECTOMY ? BREAST BIOPSY Left 2005 benign ? BREAST BIOPSY Right 08/19/2015 BENIGN ? BREAST BIOPSY Left 09/27/2018 DCIS ? BREAST BIOPSY Left 11/02/2018 DCIS ? BREAST EXCISIONAL BIOPSY Right 10/30/2015 BENIGN ? BREAST SURGERY ? BREAST SURGERY Left 11/02/2018 Procedure: LEFT PREOP NEEDLE LOC; Surgeon: Alma Delia Coleman MD; Location: [facility] AMBULATORY SURGERY; Service: Breast; Laterality: Left; ? CATARACT EXTRACTION, BILATERAL ? COLONOSCOPY ? HYSTERECTOMY AGE 42 ? MASTECTOMY Left 12/27/2018 Procedure: LEFT MASTECTOMY SIMPLE; Surgeon: Alma Delia Coleman MD; Location: [facility] MAIN OPERATING ROOM; Service: Breast; Laterality: Left; ? TONSILLECTOMY ? TOTAL ABDOMINAL HYSTERECTOMY W/ BILATERAL SALPINGOOPHORECTOMY AGE 42 ? UPPER GASTROINTESTINAL ENDOSCOPY N/A 10/20/2018 Procedure: UPPER ENDOSCOPY-EGD; Surgeon: Fawn Juarez MD; Location: [facility] ENDOSCOPY; Service: Gastroenterology; Laterality: N/A; ? VARICOSE VEIN SURGERY Social History Socioeconomic History ? Marital status: Spouse name: Not on file ? Number of children: Not on file ? Years of education: Not on file ? Highest education level: Not on file Occupational History ? Not on file Tobacco Use ? Smoking status: Never ? Smokeless tobacco: Never Substance and Sexual Activity ? Alcohol use: No ? Drug use: No ? Sexual activity: Never control/protection: None Other Topics Concern ? Not on file Social History Narrative ? Not on file Social Determinants of Health Financial Resource Strain: Low Risk (03/23/2024) Overall Financial Resource Strain (CARDIA) ? Difficulty of Paying Living Expenses: Not hard at all Food Insecurity: No Food Insecurity (03/23/2024) Hunger Vital Sign ? Worried About Running Out of Food in the Last Year: Never true ? Ran Out of Food in the Last Year: Never true Transportation Needs: No Transportation Needs (03/23/2024) PRAPARE - Transportation ? Lack of Transportation (Medical): No ? Lack of Transportation (Non-Medical): No Social Connections: Moderately Isolated (03/23/2024) Social Connection and Isolation Panel [NHANES] ? Frequency of Communication with Friends and Family: Twice a week ? Frequency of Social Gatherings with Friends and Family: Once a week ? Attends Yarsani Services: Never ? Active Member of Clubs or Organizations: No ? Attends Club or Organization Meetings: Never ? Marital Status: Housing Stability: Low Risk (03/23/2024) Housing Stability Vital Sign ? Unable to Pay for Housing in the Last Year: No ? Number of Places Lived in the Last Year: 1 ? Unstable Housing in the Last Year: No Family History Problem Relation Age of Onset ? Heart disease Father ? Diabetes Father ? Lung cancer Brother ? Cancer Maternal Grandmother 39 ? Lung cancer Brother ? No Sig Med Hx Mother ? No Sig Med Hx Sister ? BRCA 1/2 Neg Hx ? Breast cancer Neg Hx ? Colon cancer Neg Hx ? Endometrial cancer Neg Hx ? Ovarian cancer Neg Hx Current Outpatient Medications Medication Sig Dispense Refill ? colchicine 0.6 MG tablet TAKE 1 TABLET BY MOUTH EVERY DAY 90 tablet 1 ? denosumab (PROLIA) injection 60 mg/mL Inject 1 mL (60 mg total) under the skin every 6 (six) months. 1 mL 0 ? furosemide (Lasix) 20 MG tablet Take 1 tablet (20 mg total) by mouth every other day. ? levothyroxine (SYNTHROID, LEVOXYL) tablet 25 mcg Take 1 tablet (25 mcg total) by mouth daily. ? metoprolol tartrate (LOPRESSOR) 25 MG tablet TAKE 0.5 TABLETS (12.5 MG TOTAL) BY MOUTH 2 TIMES A DAY. ? Multiple Vitamin (MULTI-VITAMIN) tablet Take 1 tablet by mouth daily. ? pantoprazole (PROTONIX) 40 MG tablet Take 1 tablet (40 mg total) by mouth daily. ? rivaroxaban (XARELTO) 15 MG TABS tablet Take 1 tablet (15 mg total) by mouth every evening. Take with dinner. 90 tablet 1 ? vitamin D3 (cholecalciferol) 25 MCG (1000 UT) tablet Take 2 tablets (50 mcg total) by mouth daily. ? Vitamin E 200 units TABS Take 400 mg by mouth daily. No current facility-administered medications for this visit. No Known Allergies Review of Systems: (complete 12 point ROS completed and was all negative-except for noted positives in HPI and below) Constitutional: No fever, chills. No significant weight changes. Eyes : No visual field defects. CVS: As per HPI Resp: No cough, wheeze or sputum. GI: No nausea or vomitting. No diarrhea. No jaundice. : No urinary hesitancy or dribbling. No nocturia or urinary frequency. Skin: No skin changes. Vascular: No claudication or limb ischemia. Hem: No abnormal clotting. No bruising or bleeding. Rheum/MSK: No new joint swelling or pain. Neurologic: No focal neurological signs. Psych: Stable mood. Please see complete ROS scanned into the chart. Physical Exam: Vital signs: Vitals: 08/01/24 1537 BP: 108/70 Pulse: 88 SpO2: 99% Weight: 45.4 kg (100 lb) Height: 5' 2 (1.575 m) Body mass index is 18.29 kg/m??. General: Awake, alert, appears comfortable Head: Normocephalic and atraumatic. Neck: Supple. No carotid bruits. No JVD Cardiac: Regular rhythm. Normal heart sounds. +diastolic murmur Respiratory: Normal effort. Clear lungs. No crackles or wheezes. Abdomen: Soft. Non-tender. Non-distended. +BS Skin/Vascular: Warm dry skin. Normal peripheral pulses. Extremities: Trace-1+ LE edema. Neurologic: No focal abnormalities. Psychiatric: Alert and oriented x3. Normal mood. Labs: Lab Results Component Value Date WBC 6.0 06/29/2024 RBC 3.99 06/29/2024 HEMATOCRIT 39.0 06/29/2024 HEMOGLOBIN 12.7 06/29/2024 MCV 97.7 06/29/2024 MCH 31.8 06/29/2024 MCHC 32.6 06/29/2024 RDW 13.1 06/29/2024 PLTCOUNT 198 06/29/2024 MPV 10.4 06/29/2024 NEUTROPHILS 57 06/29/2024 LYMPHOCYTES 22.9 06/29/2024 MONOCYTES 11.0 06/29/2024 EOSINOPHILS 8.3 06/29/2024 BASOPHILS 0.8 06/29/2024 NEUTROPHABSO 3,420 06/29/2024 LYMPHOCYABSO 1,374 06/29/2024 MONOCYTABSOL 660 06/29/2024 EOSINOPHIABS 498 06/29/2024 BASOPHILSABS 48 06/29/2024 Lab Results Component Value Date BUN 38 (H) 06/29/2024 CREATININE 1.46 (H) 06/29/2024 NA 141 06/29/2024 K 4.4 06/29/2024 CL 102 06/29/2024 CO2 29 06/29/2024 GLUCFASTING 122 (H) 08/16/2020 CALCIUM 9.6 06/29/2024 ALBUMIN 4.4 06/17/2023 ALKPHOS 88 08/19/2023 AST 32 08/19/2023 ALT 17 08/19/2023 LABBILI 0.4 08/19/2023 No results found for: HGBA1C No results found for: CHOL , HDL , LDLCHOL , TRIGLYCERIDE , CHOLHDLCRAT Data/Imaging: No results found. *I have personally reviewed the patients cardiac imaging and diagnostics and my independent conclusions are contained below. TTE 07/31/2023: LVEF 60%. Moderate AI. Mild MS/MR. ECG: Sinus rhythm with first-degree AV block. Septal infarct. Nonspecific ST-T wave changes. Assessment and Plan: 1) PAF: She has history of paroxysmal atrial fibrillation/flutter. No recent symptoms. Continue rate controlled metoprolol. Continue dose reduce Xarelto for coagulation. 2) valvular heart disease: She has a history of moderate aortic insufficiency and mild mitral valvedisease. She also has some intermittent lower extremity edema. Agree with Lasix 20 mg every other day with additional doses as needed. Keep legs elevated and avoid salt. Continue valve surveillance. The patient was counseled on therapeutic lifestyle changes, including cardiovascular exercise and dietary modification, to promote achieving goal weight, optimal lipid parameters, and increased cardiovascular fitness . Diagnoses and all orders for this visit: Paroxysmal A-fib (HCC) - ECG 12 lead - rivaroxaban (XARELTO) 15 MG TABS tablet; Take 1 tablet (15 mg total) by mouth every evening. Takewith dinner. Aortic valve insufficiency, etiology of cardiac valve disease unspecified Abnormal EKG Mitral valve stenosis, unspecified etiology Bilateral leg edema Return in about 6 months (around 01/30/2025), or if symptoms worsen or fail to improve. Liam Blood MD, [facility], [facility], [facility] 08/01/2024 3:46 PM EDT documented in this encounter Plan of Treatment Upcoming Encounters Date Type Department Care Team (Late st Contact Info) Description 07/30/2025 9:00 AM EDT Office Visit Neurology - [place] [address] [place] [phone] Av Atkinson MD [address] [facility] [address] [place], [place] [id number] 08/06/2025 3:40 PM EDT Office Visit [facility] [place] [address] [place] [phone] Alem Snow MD [address] [place], [place] [id number] 02/13/2026 9:15 AM EDT Office Visit [facility] [place] [address] [facility] [address] [place] [phone] Liam Blood MD 19 [facility] [address] [place], [place] [id number] documented as of this encounter Procedures Procedure Name Priority Date/Time Associated Diagnosis Comments ECG 08/01/2024 documented in this encounter Results * ECG (08/01/2024) us Provider Onbase CV HISTORICAL CONV PROCEDURES Final Result documented in this encounter Visit Diagnoses Not on filedocumented in this encounter Care Teams Sander And Polisher Relationship Specialty Start Date End Date Stephan Arredondo DO [address] [place] [address] PCP - General Family Medicine 08/11/17 documented as of this encounter
[2025-06-26 14:46] VITALS: BP 136/72; PULSE 56; O2SAT 100; BMI 17.7
--- NOTE | 2025-06-26 14:46 | HO.NEPHOV_ITS ---
Vital Signs 06/26/25 14:46 Height 5 ft 3 in Weight 100 lb BMI 17.7 BP 136/72 Blood Pressure Location Lt brachial Position Sitting Pulse 56 Pulse Source Pulse Oximeter Pulse Oximetry (%) 100 Oxygen Delivery Method Room Air Intake Visit Reasons: 6 mon follow up-No Voicemail Counter Intelligence Technician Required: No Accompanied by: Nephew or Niece Allergies colchicine Allergy (Unknown, Verified 06/26/25 14:49) Unknown Medication List - Last Reconciled 06/26/25 by Vega Castellon MD cholecalciferol (vitamin D3) 25 mcg PO DAILY colchicine mg PO DAILY furosemide 20 mg PO DAILY levothyroxine 25 mcg PO DAILY loteprednol etabonate 0.5% 1 drp ophthalmic (eye) BID metoprolol tartrate 25 mg PO DAILY multivitamin 1 tab PO DAILY pantoprazole 40 mg PO DAILY rivaroxaban (Xarelto) 15 mg PO DAILY vitamin E mixed units PO DAILY HPI Comments Details: Pleasant 83-year-old man with a history of suspected SLE. She was initially on MMF and [place] which was later discontinued. She was mild CKD and we have been following over the last 6+ years. History of breast she refer benign lump in December 2018 She was diagnosed with breast CA for advised total mastectomy. History of leg edema left more than the right. History of atrial fibrillation on Coumadin 06/26/25 Overall doing well. NO new issues s/p Prolia [facility] Medical History (Updated 06/13/24 @ 15:15 by Vega Castellon MD) Raynaud's disease Proteinuria Malignant tumor of breast Lupus erythematosus Hypothyroidism Cardiac murmur Surgical History History of hysterectomy Family History Mother Dementia Father Diabetes Heart disease Social History Alcohol intake: never Patient Tobacco Use Status: Never used Tobacco Physical Exam Vital Signs: Last Vital Signs Pulse 56 06/26/25 14:46 BP 136/72 06/26/25 14:46 Pulse Ox 100 06/26/25 14:46 Oxygen Delivery Method Room Air 06/26/25 14:46 BMI result Body Mass Index 17.7 Const General: comfortable; No acute distress Orientation/consciousness: patient oriented x3 Eyes General: appearance normal, both eyes and all related structures Visual Thrasher: normal visual thrasher by confrontation Neck Neck: Yes supple and Yes no JVD Resp Effort & Inspection: normal respiratory effort and respiratory effort not decreased Cardio Palpation: no palpable S3 and no palpable S4 Heart sounds: no rubs GI Inspection: Yes normal to inspection Palpation (GI): Soft to palpation Percussion: Yes normal to percussion Auscultation: normal bowel sounds General: Yes no CVA tenderness Back/Spine/Pelvis Back: no CVA tenderness Skin General skin exam: no petechiae and no purpura Neuro General: patient oriented x3 and no focal motor deficits Extrem General: No clubbing and No edema Results Reviewed Results Reviewed: Cr 1.21 in January 2025 No proteinuria Assessment & Plan Assessment & Plan (1) CKD (chronic kidney disease): Code(s): N18.9 - Chronic kidney disease, unspecified Category: Medical (2) Proteinuria: Code(s): R80.9 - Proteinuria, unspecified Category: Medical Plan Mild CKD. Renal function has been stable. Continue to monitor proteinuria and serum creatinine. Continue to avoid nephrotoxic agents including NSAIDS Maintain blood pressure less than 130/80. Encouraged her to stay on low-sodium diet. No changes were made today. Orders: Orders Complete Blood Count no Diff 1 Year N18.9 - Chronic kidney disease, unspecified, R80.9 - Proteinuria, unspecified Total Protein Urine Random 1 Year N18.9 - Chronic kidney disease, unspecified, R80.9 - Proteinuria, unspecified UA and rflx microscopic 1 Year N18.9 - Chronic kidney disease, unspecified, R80.9 - Proteinuria, unspecified Basic Metabolic Panel 1 Year N18.9 - Chronic kidney disease, unspecified, R80.9 - Proteinuria, unspecified Creatinine Urine 1 Year N18.9 - Chronic kidney disease, unspecified, R80.9 - Proteinuria, unspecified Coding Level of Care Code Est Pt Level 4 (09364) Diagnoses CKD (chronic kidney disease) N18.9 Proteinuria R80.9
--- OUTSIDE RECORDS SUMMARY | 2025-06-26 17:58 | XMS_ITS | Encounter Summary ---
Author Organization [facility] Address [address] [place] [address] Care Team Providers Care Spinning And Winding Supervisor Name Role Phone Stephan Arredondo DO Primary Care Provider Encounter Details Date Type Department Care Team ([facility] st Contact Info) Description 10/15/2024 Scanned Document [facility] Department of Cardiology [address] [place] [phone] Staci Barajas MD [address] [place] [address] Social History Tobacco Use Types Packs/Day Years Used Date Smoking Tobacco: Never Smokeless Tobacco: Never Alcohol Use Standard Drinks/Week Comments Not Currently 0 (1 standard drink = 0.6 oz pur e alcohol) Comments Unknown Sex and Gender Information Value Date Recorded Sex Assigned at Not on file Legal Sex Female 10:18 AM EDT Gender Identity Not on file Sexual Orientation Not on file documented as of this encounter Plan of Treatment Not on file documented as of this encounter Visit Diagnoses Not on filedocumented in this encounter Care Teams Spinning And Winding Supervisor Relationship Specialty Start Date End Date Stephan Arredondo DO [address] [place] [address] PCP - General Family Medicine 08/05/17 documented as of this encounter
--- OUTSIDE RECORDS SUMMARY | 2025-06-26 17:58 | XMS_ITS | Clinical Summary ---
Author Organization [facility] Address [address] [place] [address] Care Team Providers Care Reading Specialist Name Role Phone Teresa Seay Primary Care [...] MG tablet 90 0 11/12/2021 Active Ipratropium [place] (ATROVENT) 0.03 % nasal spray 30 0 11/13/2021 Active Colchicine 0.6 MG tablet 30 0 12/04/2021 Active Apixaban (Eliquis) 2.5 MG Tab 60 0 12/07/2021 Active Ipratropium [place] (ATROVENT) 0.06 % nasal spray USE 2 [...] - 1-dose 75+ series) 2015 Influenza (#1) 2025 HPV Vaccine (No Doses Required) Completed Hep A Aged Out No longer eligi [...] Smear Discontinued Zoster (Zostavax) Discontinued Care Teams Reading Specialist Relationship Specialty Start Date End Date Teresa Seay PCP - General 05/23/23
--- OUTSIDE RECORDS SUMMARY | 2025-06-26 17:58 | XMS_ITS | Clinical Summary ---
Author Organization [facility] Address [address] [place] [address] Care Team Providers Care Label Rewinder Name Role Phone Stephan Arredondo DO Primary Care Provider [phone] Allergies No known active allergies Medications Medication [...] extremity 07/29/2021 Overview: Asher, biopsied by outside planner, waiting for report Pap smear for cervical cancer screening 06/05/20 21 Artificial menopause 06/05/2021 Localized edema 12/29/2020 Paroxysmal atrial fibrillation 08/15/2020 Cellulitis 08/15/2020 Anticoagulated on Coumadin 01/17/2020 PUD (peptic ulcer disease) 01/17/2020 Lung consolidation 01/17/2020 Suspected COVID-19 virus infection 01/17/2020 Supratherapeutic INR 01/17/2020 Age-related osteoporosis wit hout current pathological fracture 10/23/2019 Thyroid disorder 10/23/2019 Status post mastectomy, 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 Neoplasm of left breast, [facility] tumor staging category Tis: ductal carcinoma in situ (DCIS) 12/27/2018 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/17/2018 Cancer Staging:Pathologic stage from 11/02/2018:Stage Unknown(pTis (DCIS), pNX, cM0, ER: Negative, [place]: Negative, HER2: Not Assessed) - Signed by [...] week 03/23/2024 How often do you attend alevism or hindu serv ices? Never 03/23/2024 Do you belong to any clubs o r organizations such as alevism groups, unions, fraternal or athletic groups, or [...] place to sleep or slept in a chcf (including now)? No 03/23/2024 Sex and Gender [...] 88 08/01/2024 3:37 PM EDT Temperature 36 C (96.8 F) 06/13/2024 10:03 AM EDT Respiratory Rate 18 [...] or (1 - 1-dose 75+ series) 2015 Preventative Health Evaluation 03/23/2025 03/23/2024 (Scheduled) COVID-19 Vaccine ( season) 2025 07/12/2023, 08/04/2022, 09/24/2021, Additional history exists Influenza Vaccine (#1) 2025 , 07/27/2022, 08/08/2021, Additional history exists DTap / Tdap / Td (2 - [...] on patient's age to complete this topic Jackelyn De Guzman Personal/Family Self 1940 [address] [place] [address] Jackelyn De Guzman Personal/Family Self [address] [place] [address] RandalottoJcakelyn Personal/Family Self [address] [place] [address] Jackelyn De Guzman Personal/Family Self [address] [place] [address] Jackelyn De Guzman Personal/Family Self 1940 [address] [place] [address] Advance Directives For more information, please contact: [phone] Documents on File Type Date Recorded Patient Assembly Instructions Writer Expl anation Power of Environmental Issues Instructor 10/23/2019 1:03 PM Advance Directive and Living [...] way: discussion with patient . Care Teams Label Rewinder Relationship Specialty Start Date End Date Stephan Arredondo DO [address] [place] [address] PCP - General Family Medicine 08/11/17
--- OUTSIDE RECORDS SUMMARY | 2025-06-26 17:58 | XMS_ITS | Clinical Summary ---
Author Organization [facility] Address [address] [place] [id number] Phone Care Team Providers Care Senior Energy Trader Name Role Phone Stephan Arredondo DO Primary Care Provider [phone] Allergies Active Allergy Reactions Criticality Noted Date Comments Apixaban Unknown 01/02/2025 Eliquis Colchicine Medium 10/14/2020 Other reaction(s): Other (See Comments) Made the patient feel in another world completely, brought persons and living persons in her mind, nightmares during the night Mycophenolate Unknown 01/02/2025 Nifedipine Unknown 02/10/2007 Medications cholecalciferol (VITAMIN D-3) 25 MCG (1000 UT) [...] Active Problems Problem Noted Date Diagnosed Date Stage 3b chronic kidney disease 01/02/2025 Hypertensive chronic kidney disease, malignant, 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, or unspecified 01/02/2025 Proteinuria 01/02/2025 Anemia of renal disease 01/26/2024 Secondary hyperparathyroidism 01/26/2024 Essential hypertension 10/20/2018 Social History Tobacco Use Types Packs/Day Years Used Date Smoking Tobacco: Never Smokeless Tobacco: Never Tobacco Cessation:Counseling Given: Not Answered Comments Unknown Sex and Gender Information Value Date Recorded Sex Assigned at Not on file Legal Sex Female 9:13 AM MDT Gender Identity Not on file Sexual Orientation Not on file Last Filed Vital Signs Vital Sign Reading Time Taken Comments Blood Pressure 118/68 01/02/2025 9:14 AM EDT Pulse 60 01/02/2025 9:14 AM EDT Temperature - - Respiratory Rate - - Oxygen Saturation - - Inhaled Oxygen Concentration - - Weight - - Height - - Body Mass Index - - Plan of Treatment Upcoming Encounters Date Type Department Care Team ([facility] st Contact Info) Description 07/17/2025 9:00 AM EDT [facility] [place] [address] [place] [address] Adrian Gonzalez, DO [address] [place] [address] Health Maintenance Due Date Last Done Comments Pneumococcal PPSV23/PCV13 65 + Years / Low and Medium Risk (2 of 3 - PCV20 or PCV21) 06/17/2021 06/17/2020 COVID-19 Vaccine ( - season) 2025 09/24/2021, 12/16/2020, 11/25/2020 Influenza Vaccine (#1) 2025 07/10/2020, 2018 Insurance MEDICARE [employer] Care Teams Senior Energy Trader Relationship Specialty Start Date End Date Stephan Arredondo DO [address] [place] [id number] PCP - General 12/25/24
--- OUTSIDE RECORDS SUMMARY | 2025-06-26 17:58 | XMS_ITS ---
Author Organization [facility] Address [address] [place] [address] Care Team Providers Care Arboriculture Instructor Name Role Phone Stephan Arredondo DO Primary Care Provider [phone] Active Problems Problem Noted Date Diagnosed Date Essential hypertension 01/26/2024 Anemia of renal disease 01/26/2024 Secondary hyperparathyroidism 01/26/2024 Drug-induced systemic lupus erythematosus 2023 Dementia 07/31/2023 A-fib 07/30/2023 Skin lesion of right lower extremity 07/29/2021 Overview: [facility], biopsied by outside rn hemodialysis charge, waiting for report Pap smear for cervical cancer screening 06/05/20 21 Artificial menopause 06/05/2021 Localized edema 12/29/2020 Paroxysmal atrial fibrillation 08/15/2020 Cellulitis 08/15/2020 Anticoagulated on Coumadin 01/17/2020 PUD (peptic ulcer disease) 01/17/2020 Lung consolidation 01/17/2020 Suspected COVID-19 virus infection 01/17/2020 Supratherapeutic INR 01/17/2020 Age-related osteoporosis wit hout current pathological fracture 10/23/2019 Thyroid disorder 10/23/2019 Status post mastectomy, 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 Neoplasm of left breast, 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 Treatments may have been administered in another [...]
--- OUTSIDE RECORDS SUMMARY | 2025-06-26 17:58 | XMS_ITS | Clinical Summary ---
Author Organization [facility] Address [address] [place] [address] Care Team Providers Care Operations Specialists Name Role Phone Arnulfo Stephan Graham DO Primary Care Provider Allergies No known active allergies Medications levothyroxine (SYNTHROID, LEVOTHROID) 25 MCG tablet Take 25 mcg by mouth daily on an empty stomach. Active hydroxychloroqui ne (PLAQUENIL) 200 MG tablet Take 400 mg by mouth every evening after dinner. With food or milk. Active mycophenolate (CELLCEPT) 500 MG tablet Take 500 mg by mouth every evening. Active Calcium-Magnesiu m-Vitamin D (CALCIUM 1200+D3 PO) Take 1 tablet by mouth daily. Active acetaminophen (TYLENOL) 325 MG tablet Take 650 mg by mouth 4 times daily (every 6 hours) as needed for mild pain. Active PANTOprazole (PROTONIX) 40 MG EC tablet Take 40 mg by mouth daily. 0 Active predniSONE (DELTASONE) 10 MG tablet 6 TABS DAILY X 3 DAYS 4 TABS DAILY X 3 DAYS 2 TABS DAILY X 3 DAYS 1 TAB DAILY X 3 DAYS 0 Active warfarin (COUMADIN) 7.5 MG tablet Take 7.5 mg by mouth 6 (six) times a week. Mon, Tues, Wed, Th, Fri, Sat Take in morning 0 Active metoPROLOL TARTRATE (LOPRESSOR) 25 MG tabletIndication s:Supratherapeut ic INR Take 0.5 tablets (12.5 mg total) by mouth 2 (two) times a day. 30 tablet 0 Active warfarin (COUMADIN) 7.5 MG tablet Take 3.75 mg by mouth once a week. on Tuesday Active amoxicillin (AMOXIL) 875 MG tablet Take 875 mg by mouth 2 (two) times a day. 0 Active metroNIDAZOLE (METROGEL) 1 % gel APPLY TO FACE EVERY DAY AT BEDTIME 0 Active furosemide (LASIX) 20 MG tablet Take 20 mg by mouth daily. 0 Active cephalexin (KEFLEX) 500 MG capsuleIndicatio ns:Fever, unspecified fever cause,Cellulitis of right hand Take 1 capsule (500 mg total) by mouth 3 (three) times a day. 21 capsule 0 Active multivitamin (multivitamin) Tab tablet Take 1 tablet by mouth daily. 01/26/20 20 Discontinu ed(Therapy completed) Active Problems Problem Noted Date Diagnosed Date Supratherapeutic INR 01/17/2020 Suspected COVID-19 virus infection 01/17/2020 Atrial fibrillation with RVR 01/17/2020 Anticoagulated on Coumadin 01/17/2020 Acute on chronic anemia 01/17/2020 Lung consolidation 01/17/2020 PUD (peptic ulcer disease) 01/17/2020 Family History Medical History Relation Name Comments [...] 82 08/13/2020 4:52 PM EDT Temperature 38.1 C (100.6 F) 08/13/2020 4:52 PM EDT Respiratory Rate 16 02/07/2020 10:07 AM EDT Oxygen Saturation 98% 08/13/2020 4:52 PM EDT Inhaled Oxygen Concentration - - Weight 47.6 kg (105 lb) 08/13/2020 4:52 PM EDT Height 162.6 cm (5' 4 ) 08/13/2020 4:52 PM EDT Body Mass Index 18.02 08/13/2020 4:52 PM EDT Plan of Treatment Health Maintenance Due Date Last Done Comments Advance Care Planning 1940 DTaP/Tdap/Td Vaccines (1 - Tdap) 1959 Pneumococcal Vaccines 50+ (1 of 2 - PCV) 1959 Zoster (Shingles) Vaccine (1 of 2) 1959 DXA Bone Density (Females,Ages 65 and older) 2005 RSV Vaccine 60 years and older and Patients (1 - 1-dose 75+ series) 2015 COVID-19 Vaccine (3 - Pfizer risk series) 01/13/2021 12/16/2020, 11/25/2020 Influenza Vaccine 05/17/2025 Hepatitis B Vaccines Aged Out No long er eligible based on patient's age to complete this topic Insurance MEDICARE PART A & B [facility] Advance Directives * Full Code (Latest Code Status on File) Date Activated Date Inactivated Comments 01/17/2020 2:07 PM Question Answer Comments Decision Thoroughly Discussed with: Patient Care Teams Operations Specialists Relationship Specialty Start Date End Date Stephan Arredondo DO [address] [place] [id number] PCP - General Family Medicine 08/05/17
--- OUTSIDE RECORDS SUMMARY | 2025-06-26 17:58 | XMS_ITS ---
Author Name [facility] Organization Unknown Results Test Name/Text Value Interpretation Date Range Source Trigl SerPl-mCnc 94.0 mg/dL Normal 06/02/2025 - 150 Q [facility] LDLc SerPl Calc-mCnc 118.0 mg/dL (calc) Above high normal 06/02/2025 [facility] Cholest SerPl-mCnc 197.0 mg/dL Normal 06/02/2025 - 200 [facility] Cholest/HDLc SerPl 3.3 (calc) Normal 06/02/2025 - 5 [facility] HDLc SerPl-mCnc 59.0 mg/dL Normal 06/02/2025 - QU EST NonHDLc SerPl-mCnc 138.0 mg/dL (calc) Above high normal 06/02/2025 - 130 [facility] BUN SerPl-mCnc 29.0 mg/dL Above high normal 06/02/2025 7 - 2 5 [facility] Potassium SerPl-sCnc 3.7 mmol/L Normal 06/02/2025 3.5 - 5 .3 [facility] Calcium SerPl-mCnc 9.4 mg/dL Normal 06/02/2025 8.6 - 10.4 [facility] Albumin/Glob SerPl 1.7 (calc) Normal 06/02/2025 1 - 2.5 [facility] Globulin Ser Calc-mCnc 2.6 g/dL (calc) Normal 06/02/2025 1.9 - 3.7 [facility] Sodium SerPl-sCnc 143.0 mmol/L Normal 06/02/2025 135 - 14 6 [facility] eGFRcr SerPlBld CKD-EPI 2020 33.0 mL/min/1.73m2 Below low normal 06/02/2025 - [facility] CO2 SerPl-sCnc 31.0 mmol/L Normal 06/02/2025 20 - 32 QU EST AST SerPl-cCnc 29.0 U/L Normal 06/02/2025 10 - 35 [facility] T Creat SerPl-mCnc 1.54 mg/dL Above high normal 06/02/2025 0.6 - 0.95 [facility] Albumin SerPl-mCnc 4.4 g/dL Normal 06/02/2025 3.6 - 5.1 [facility] Glucose SerPl-mCnc 80.0 mg/dL Normal 06/02/2025 65 - 139 [facility] ALP SerPl-cCnc 81.0 U/L Normal 06/02/2025 37 - 153 [facility] BUN/Creat SerPl 19.0 (calc) Normal 06/02/2025 6 - 22 Q [facility] Bilirub SerPl-mCnc 0.5 mg/dL Normal 06/02/2025 0.2 - 1.2 [facility] Chloride SerPl-sCnc 104.0 mmol/L Normal 06/02/2025 98 - 1 10 [facility] ALT SerPl-cCnc 16.0 U/L Normal 06/02/2025 6 - 29 [facility] T Prot SerPl-mCnc 7.0 g/dL Normal 06/02/2025 6.1 - 8.[address] TSH SerPl-aCnc 3.86 mIU/L Normal 06/02/2025 0.4 - 4.[address] ALP SerPl-cCnc 89.0 U/L Normal 01/18/2025 37 - 153 [facility] T ALT SerPl-cCnc 16.0 U/L Normal 01/18/2025 6 - 29 [facility] T AST SerPl-cCnc 30.0 U/L Normal 01/18/2025 10 - 35 [facility] Sodium SerPl-sCnc 140.0 mmol/L Normal 01/18/2025 135 - 14 6 [facility] Bilirub SerPl-mCnc 0.5 mg/dL Normal 01/18/2025 0.2 - 1.2 [facility] BUN SerPl-mCnc 27.0 mg/dL Above high normal 01/18/2025 7 - 2 5 [facility] Prot SerPl-mCnc 7.1 g/dL Normal 01/18/2025 6.1 - 8.[address] Calcium SerPl-mCnc 9.2 mg/dL Normal 01/18/2025 8.6 - 10.4 [facility] Albumin SerPl-mCnc 4.3 g/dL Normal 01/18/2025 3.6 - 5.1 [facility] Globulin Ser Calc-mCnc 2.8 g/dL (calc) Normal 01/18/2025 1.9 - 3.7 [facility] Creat SerPl-mCnc 1.21 mg/dL Above high normal 01/18/2025 0.6 - 0.95 [facility] Chloride SerPl-sCnc 103.0 mmol/L Normal 01/18/2025 98 - 1 10 [facility] eGFRcr SerPlBld CKD-EPI 2020 44.0 mL/min/1.73m2 Below low normal 01/18/2025 - [facility] Albumin/Glob SerPl 1.5 (calc) Normal 01/18/2025 1 - 2.5 [facility] Potassium SerPl-sCnc 4.8 mmol/L Normal 01/18/2025 3.5 - 5 .3 [facility] Glucose SerPl-mCnc 82.0 mg/dL Normal 01/18/2025 65 - 99 [facility] CO2 SerPl-sCnc 27.0 mmol/L Normal 01/18/2025 20 - 32 [facility] BUN/Creat SerPl 22.0 (calc) Normal 01/18/2025 6 - 22 Q [facility] HDLc SerPl-mCnc 73.0 mg/dL Normal 01/18/2025 - QU EST Trigl SerPl-mCnc 93.0 mg/dL Normal 01/18/2025 - 150 Q [facility] Cholest SerPl-mCnc 214.0 mg/dL Above high normal 01/18/2025 - 200 [facility] Cholest/HDLc SerPl 2.9 (calc) Normal 01/18/2025 - 5 [facility] LDLc SerPl Calc-mCnc 122.0 mg/dL (calc) Above high normal 01/18/2025 [facility] NonHDLc SerPl-mCnc 141.0 mg/dL (calc) Above high normal 01/18/2025 - 130 [facility] TSH SerPl-aCnc 4.35 mIU/L Normal 01/18/2025 0.4 - 4.[address] [facility] Urate SerPl-mCnc 6.9 mg/dL Normal 01/18/2025 2.5 - 7 QU EST CRP SerPl-mCnc <3.0 Normal 01/18/2025 - 8 [facility] T Creat Ur-mCnc 121.0 mg/dL Normal 01/18/2025 20 - [address] Albumin/Creat Ur 77.0 mg/g creat Above high normal 5 - 30 [facility] Microalbumin Ur-mCnc 9.3 mg/dL Normal 01/18/2025 - [facility] ESR RBC Qn Westrgrn 17.0 mm/h Normal 01/18/2025 - [facility] Prot SerPl-mCnc 7.2 g/dL Normal 01/01/2025 6.1 - 8.[address] [facility] Albumin/Glob SerPl 1.6 (calc) Normal 01/01/2025 1 - 2.5 [facility] Potassium SerPl-sCnc 4.6 mmol/L Normal 01/01/2025 3.5 - 5 .3 [facility] ALP SerPl-cCnc 87.0 U/L Normal 01/01/2025 37 - 153 [facility] Albumin SerPl-mCnc 4.4 g/dL Normal 01/01/2025 3.6 - 5.1 [facility] BUN SerPl-mCnc 36.0 mg/dL Above high normal 01/01/2025 7 - 2 5 [facility] Sodium SerPl-sCnc 141.0 mmol/L Normal 01/01/2025 135 - 14 6 [facility] Calcium SerPl-mCnc 9.3 mg/dL Normal 01/01/2025 8.6 - 10.4 [facility] eGFRcr SerPlBld CKD-EPI 2020 37.0 mL/min/1.73m2 Below low normal 01/01/2025 - [facility] CO2 SerPl-sCnc 31.0 mmol/L Normal 01/01/2025 20 - 32 [facility] Creat SerPl-mCnc 1.39 mg/dL Above high normal 01/01/2025 0.6 - 0.95 [facility] Chloride SerPl-sCnc 102.0 mmol/L Normal 01/01/2025 98 - 1 10 [facility] BUN/Creat SerPl 26.0 (calc) Above high normal 01/01/2025 6 - 22 [facility] Globulin Ser Calc-mCnc 2.8 g/dL (calc) Normal 01/01/2025 1.9 - 3.7 [facility] Glucose SerPl-mCnc 86.0 mg/dL Normal 01/01/2025 65 - 99 [facility] Bilirub SerPl-mCnc 0.4 mg/dL Normal 01/01/2025 0.2 - 1.2 [facility] AST SerPl-cCnc 24.0 U/L Normal 01/01/2025 10 - 35 [facility] T ALT SerPl-cCnc 17.0 U/L Normal 01/01/2025 6 - 29 [facility] TSH SerPl-aCnc 4.7 mIU/L Above high normal 01/01/2025 0.4 - 4.5 [facility] T4 Free SerPl-mCnc 1.3 ng/dL Normal 01/01/2025 0.8 - 1.8 [facility] Glucose Ur Ql Negative Normal 11/14/2024 - [facility] Leukocyte esterase Ur Ql Strip Negative Normal 11/14/2024 - [facility] Squamous Epithelial, Urine 0.0 /HPF Normal 11/14/2024 0 - 5 [facility] Clarity Ur Clear Normal 11/14/2024 - [facility] pH Ur 5.0 pH Abnormal 11/14/2024 5 - 8 [facility] Mucous Threads #/area UrnS HPF Present Abnormal 11/14/2024 - [facility] Hyaline Casts #/area UrnS LPF 2.0 /LPF Above high normal 11/14/2024 - [facility] Hgb Ur Ql Small Abnormal 11/14/2024 - [facility] Color Ur Yellow Normal 11/14/2024 - [facility] WBC #/area UrnS HPF 1.0 /HPF Normal 11/14/2024 0 - 5 [facility] RBC #/area UrnS HPF 6.0 /HPF Above high normal 11/14/2024 0 - 3 [facility] Prot Ur Strip-mCnc Negative Normal 11/14/2024 - [facility] Ketones Ur-mCnc Negative Normal 11/14/2024 - [facility] Sp Gr Ur 1.006 Normal 11/14/2024 1.005 - 1.03 [facility] Nitrite Ur Ql Negative Normal 11/14/2024 - [facility] ESR Bld Qn Westrgrn 73.0 mm/hr Above high normal 11/14/2024 0 - 20 [facility] CRP SerPl-mCnc 15.0 mg/dL Above high normal 11/14/2024 - [facility] Procalcitonin SerPl-mCnc 0.14 ng/mL Above high normal 11/14/2024 - [facility] PT Bld 13.9 sec Above high normal 11/14/2024 10.5 - 13.3 [facility] INR PPP 1.2 Above high normal 11/14/2024 0.8 - 1.1 C [facility] Chloride SerPl-sCnc 99.0 mmol/L Normal 11/14/2024 98 - 10 7 [facility] Creat SerPl-mCnc 1.2 mg/dL Above high normal 11/14/2024 0.5 - 1 [facility] Potassium SerPl-sCnc 3.9 mmol/L Normal 11/14/2024 3.5 - 5 .1 [facility] ALP SerPl-cCnc 111.0 unit/L Above high normal 11/14/2024 34 - 104 [facility] Anion Gap SerPl-sCnc 10.0 Normal 11/14/2024 5 - 14 [facility] Sodium SerPl-sCnc 137.0 mmol/L Normal 11/14/2024 135 - 14 5 [facility] Glucose SerPl-mCnc 116.0 mg/dL Normal 11/14/2024 70 - 199 [facility] AST SerPl-cCnc 44.0 unit/L Above high normal 11/14/2024 5 - 40 [facility] Calcium SerPl-mCnc 9.3 mg/dL Normal 11/14/2024 8.4 - 10.2 [facility] Bilirub SerPl-mCnc 1.0 mg/dL Normal 11/14/2024 0.3 - 1 [facility] ALT SerPl-cCnc 20.0 unit/L Normal 11/14/2024 7 - 52 [facility] Albumin SerPl-mCnc 4.0 g/dL Normal 11/14/2024 3.5 - 5 [facility] eGFRcr SerPlBld CKD-EPI 2020 45.0 mL/min/1.73m2 Below low normal 11/14/2024 - [facility] BUN/Creat SerPl 23.3 Above high normal 11/14/2024 12 - 20 [facility] CO2 SerPl-sCnc 28.0 mmol/L Normal 11/14/2024 24 - 32 CT [facility] BUN SerPl-mCnc 28.0 mg/dL Above high normal 11/14/2024 7 - 1 7 [facility] Prot SerPl-mCnc 7.4 g/dL Normal 11/14/2024 6.4 - 8.5 [facility] Monocytes/leuk NFr Bld Auto 13.1 % Above high normal 11/14/2024 2 - 12 [facility] Eosinophil # Bld Auto 0.0 K/mcL Normal 11/14/2024 0 - 0.5 [facility] MCH RBC Qn Auto 32.7 pcg Normal 11/14/2024 25 - 33 [facility] Lymphocytes/leuk NFr Bld Auto 6.5 % Below low normal 11/14/2024 20 - 48 [facility] Neutrophils # Bld Auto 8.2 K/mcL Above high normal 11/14/2024 1.8 - 7.8 [facility] Basophils # Bld Auto 0.0 K/mcL Normal 11/14/2024 0 - 0.2 [facility] Hgb Bld-mCnc 12.0 g/dL Below low normal 11/14/2024 12.5 - 16 [facility] MCV RBC Auto 96.4 FL Normal 11/14/2024 78 - 100 [facility] Neutrophils/leuk NFr Bld Auto 80.2 % Above high normal 11/14/2024 44 - 74 [facility] Basophils/leuk NFr Bld Auto 0.2 % Normal 11/14/2024 0 - 2 [facility] PMV Bld Auto 8.2 FL Normal 11/14/2024 7.4 - 11.4 [facility] Platelet # Bld Auto 203.0 K/mcL Normal 11/14/2024 150 - 4 50 [facility] Hct VFr Bld Auto 35.3 % Below low normal 11/14/2024 37 - 47 [facility] Monocytes # Bld Auto 1.3 K/mcL Above high normal 11/14/2024 0 - 0.8 [facility] MCHC RBC Auto-mCnc 33.9 g/dL Normal 11/14/2024 32 - 36 [facility] Eosinophil/leuk NFr Bld Auto 0.0 % Normal 11/14/2024 0 - 6 [facility] RDW RBC Auto-Rto 14.8 % Normal 11/14/2024 12.1 - 16.2 [facility] Lymphocytes # Bld Auto 0.7 K/mcL Below low normal 11/14/2024 1 - 3.2 [facility] RBC # Bld Auto 3.66 M/mcL Below low normal 11/14/2024 4.2 - 5.4 [facility] WBC # Bld Auto 10.2 K/mcL Normal 11/14/2024 4 - 10.5 [facility] LACTIC ACID 0.9 mmol/L Normal 11/14/2024 0.5 - 2.2 [facility] Vit B12 SerPl-mCnc 785.0 pg/mL Normal 10/03/2024 200 - 11 00 [facility] Folate SerPl-mCnc >24.0 Normal 10/03/2024 Q [facility] Eosinophil # Bld Auto 328.0 cells/uL Normal 10/03/2024 15 - 500 [facility] Neutrophils # Bld Auto 2636.0 cells/uL Normal 10/03/2024 1500 - 7800 [facility] Eosinophil/leuk NFr Bld Auto 6.7 % Normal 10/03/2024 [facility] Basophils # Bld Auto 39.0 cells/uL Normal 10/03/2024 0 - 200 [facility] Monocytes # Bld Auto 676.0 cells/uL Normal 10/03/2024 200 - 950 [facility] PMV Bld Jah-Anup 11.3 fL Normal 10/03/2024 7.5 - 12.5 [facility] Lymphocytes/leuk NFr Bld Auto 24.9 % Normal 10/03/2024 [facility] Hgb Bld-mCnc 12.8 g/dL Normal 10/03/2024 11.7 - 15.5 [facility] Monocytes/leuk NFr Bld Auto 13.8 % Normal 10/03/2024 [facility] MCV RBC Auto 97.5 fL Normal 10/03/2024 80 - 100 [facility] Lymphocytes # Bld Auto 1220.0 cells/uL Normal 10/03/2024 850 - 3900 [facility] Basophils/leuk NFr Bld Auto 0.8 % Normal 10/03/2024 [facility] WBC # Bld Auto 4.9 Thousand/uL Normal 10/03/2024 3.8 - 10 .8 [facility] Platelet # Bld Auto 212.0 Thousand/uL Normal 10/03/2024 140 - 400 [facility] MCHC RBC Auto-mCnc 32.4 g/dL Normal 10/03/2024 32 - 36 [facility] RBC # Bld Auto 4.05 Million/uL Normal 10/03/2024 3.8 - 5. 1 [facility] RDW RBC Auto-Rto 13.1 % Normal 10/03/2024 11 - 15 [facility] MCH RBC Qn Auto 31.6 pg Normal 10/03/2024 27 - [address] [facility] Neutrophils/leuk NFr Bld Auto 53.8 % Normal 10/03/2024 [facility] Hct VFr Bld Auto 39.5 % Normal 10/03/2024 35 - 45 [facility] Prot SerPl-mCnc 7.4 g/dL Normal 10/03/2024 6.1 - 8.[address] Sodium SerPl-sCnc 141.0 mmol/L Normal 10/03/2024 135 - 14 6 [facility] BUN SerPl-mCnc 39.0 mg/dL Above high normal 10/03/2024 7 - 2 5 [facility] ALP SerPl-cCnc 100.0 U/L Normal 10/03/2024 37 - 153 [facility] Bilirub SerPl-mCnc 0.4 mg/dL Normal 10/03/2024 0.2 - 1.2 [facility] Albumin SerPl-mCnc 4.4 g/dL Normal 10/03/2024 3.6 - 5.1 [facility] Albumin/Glob SerPl 1.5 (calc) Normal 10/03/2024 1 - 2.5 [facility] Creat SerPl-mCnc 1.79 mg/dL Above high normal 10/03/2024 0.6 - 0.95 [facility] Potassium SerPl-sCnc 4.0 mmol/L Normal 10/03/2024 3.5 - 5 .3 [facility] BUN/Creat SerPl 22.0 (calc) Normal 10/03/2024 6 - 22 Q [facility] Chloride SerPl-sCnc 99.0 mmol/L Normal 10/03/2024 98 - 11 0 [facility] Glucose SerPl-mCnc 71.0 mg/dL Normal 10/03/2024 65 - 139 [facility] AST SerPl-cCnc 27.0 U/L Normal 10/03/2024 10 - 35 [facility] CO2 SerPl-sCnc 31.0 mmol/L Normal 10/03/2024 20 - 32 [facility] Calcium SerPl-mCnc 9.8 mg/dL Normal 10/03/2024 8.6 - 10.4 [facility] eGFRcr SerPlBld CKD-EPI 2020 28.0 mL/min/1.73m2 Below low normal 10/03/2024 - [facility] ALT SerPl-cCnc 17.0 U/L Normal 10/03/2024 6 - 29 [facility] Globulin Ser Calc-mCnc 3.0 g/dL (calc) Normal 10/03/2024 1.9 - 3.7 [facility] T4 Free SerPl-mCnc 1.1 ng/dL Normal 10/03/2024 0.8 - 1.8 [facility] TSH SerPl-aCnc 5.28 mIU/L Above high normal 10/03/2024 0.4 - 4.5 [facility] ESR Bld Qn Westrgrn 22.0 mm/h Normal 09/21/2024 - [facility] CRP SerPl-mCnc 4.3 mg/L Normal 09/21/2024 - 8 [facility] EOSINOPHIL NO. BLD AUTO 0.0 K/uL Normal 01/20/2024 0 - 0.5 [facility] LYMPHOCYTES NO. BLD AUTO 1.2 K/uL Normal 01/20/2024 1 - 3.2 [facility] DIFFERENTIAL TYPE AUTOMATED Normal 01/20/2024 C [facility] RBC NO. BLD AUTO 4.08 M/uL Below low normal 01/20/2024 4.2 - 5.4 [facility] NEUTROPHILS NO. BLD AUTO 9.0 K/uL Above high normal 01/20/2024 1.8 - 7.8 [facility] MCV RBC AUTO 95.8 fL Normal 01/20/2024 78 - 100 [facility] MONOCYTES NO. BLD AUTO 1.0 K/uL Above high normal 01/20/2024 0 - 0.8 [facility] PLATELET NO. BLD AUTO 213.0 K/uL Normal 01/20/2024 150 - 450 [facility] LYMPHOCYTES NFR BLD AUTO 10.6 % Below low normal 01/20/2024 20 - 48 [facility] MCH RBC QN AUTO 32.2 pg Normal 01/20/2024 25 - 33 [facility] WBC NO. BLD AUTO 11.3 K/uL Above high normal 01/20/2024 4 - 10.5 [facility] BASOPHILS NFR BLD AUTO 0.2 % Normal 01/20/2024 0 - 2 [facility] MCHC RBC AUTO MCNC 33.7 g/dL Normal 01/20/2024 32 - 36 [facility] EOSINOPHIL NFR BLD AUTO 0.1 % Normal 01/20/2024 0 - 6 [facility] HGB BLD MCNC 13.2 g/dL Normal 01/20/2024 12.5 - 16 [facility] NEUTROPHILS NFR BLD AUTO 79.8 % Above high normal 01/20/2024 44 - 74 [facility] MONOCYTES NFR BLD AUTO 9.3 % Normal 01/20/2024 2 - 12 [facility] BASOPHILS IN BLOOD BY AUTOMATED COUNT 0.0 K/uL Normal 01/20/2024 0 - 0.2 [facility] RDW RBC AUTO RTO 14.2 % Normal 01/20/2024 12.1 - 16.2 [facility] HCT VFR BLD AUTO 39.1 % Normal 01/20/2024 37 - 47 [facility] PMV BLD AUTO 8.1 fL Normal 01/20/2024 7.4 - 11.4 [facility] CHLORIDE SERPL SCNC 102.0 mmol/L Normal 01/20/2024 98 - 1 07 [facility] SODIUM SERPL SCNC 137.0 mmol/L Normal 01/20/2024 135 - 14 5 [facility] CALCIUM SERPL MCNC 8.6 mg/dL Normal 01/20/2024 8.4 - 10.2 [facility] BUN SERPL MCNC 22.0 mg/dL Above high normal 01/20/2024 7 - 1 7 [facility] ANION GAP SERPL SCNC 10.0 mmol/L Normal 01/20/2024 5 - 14 [facility] HCO3 SER SCNC 25.0 mmol/L Normal 01/20/2024 24 - 32 [facility] CREAT SERPL MCNC 1.3 mg/dL Above high normal 01/20/2024 0.5 - 1 [facility] GLUCOSE SERPL MCNC 91.0 mg/dL Normal 01/20/2024 70 - 199 [facility] Glomerular filtration rate/1.73 sq M. predicted 41.0 Below low normal 01/20/2024 60 - [facility] POTASSIUM SERPL SCNC 3.7 mmol/L Normal 01/20/2024 3.5 - 5 .1 [facility] AMYLASE SERPL CCNC 74.0 U/L Normal 08/20/2023 29 - 103 [facility] LIPASE SERPL CCNC 68.0 U/L Normal 08/20/2023 11 - 82 [facility] ALT SERPL CCNC 17.0 U/L Normal 08/20/2023 7 - 52 [facility] LDH SERPL L TO P CCNC 227.0 U/L Above high normal 08/20/2023 125 - 220 [facility] AST SERPL CCNC 32.0 U/L Normal 08/20/2023 5 - 40 [facility] ALP SERPL-CCNC 88.0 U/L Normal 08/20/2023 34 - 104 [facility] BILIRUB SERPL MCNC 0.4 mg/dL Normal 08/20/2023 0.3 - 1 [facility] BILIRUB DIRECT SERPL MCNC 0.0 mg/dL Normal 08/20/2023 0 - 0.2 [facility] CHLORIDE SERPL SCNC 103.0 mmol/L Normal 08/20/2023 98 - 1 07 [facility] CREAT SERPL MCNC 1.3 mg/dL Above high normal 08/20/2023 0.5 - 1 [facility] SODIUM SERPL SCNC 144.0 mmol/L Normal 08/20/2023 135 - 14 5 [facility] HCO3 SER SCNC 29.0 mmol/L Normal 08/20/2023 24 - 32 [facility] POTASSIUM SERPL SCNC 3.7 mmol/L Normal 08/20/2023 3.5 - 5 .1 [facility] CALCIUM SERPL MCNC 9.5 mg/dL Normal 08/20/2023 8.4 - 10.2 [facility] BUN SERPL MCNC 25.0 mg/dL Above high normal 08/20/2023 7 - 1 7 [facility] ANION GAP SERPL SCNC 12.0 mmol/L Normal 08/20/2023 5 - 14 [facility] GLUCOSE SERPL MCNC 100.0 mg/dL Normal 08/20/2023 70 - 199 [facility] Glomerular filtration rate/1.73 sq M. predicted 41.0 Below low normal 08/20/2023 60 - [facility] WBC NO. BLD AUTO 5.7 K/uL Normal 08/20/2023 4 - 10.5 [facility] BASOPHILS NFR BLD AUTO 0.8 % Normal 08/20/2023 0 - 2 [facility] MONOCYTES NFR BLD AUTO 7.2 % Normal 08/20/2023 2 - 12 [facility] PMV BLD AUTO 8.6 fL Normal 08/20/2023 7.4 - 11.4 [facility] MCH RBC QN AUTO 31.1 pg Normal 08/20/2023 25 - 33 [facility] EOSINOPHIL NFR BLD AUTO 3.2 % Normal 08/20/2023 0 - 6 [facility] LYMPHOCYTES NO. BLD AUTO 0.9 K/uL Below low normal 08/20/2023 1 - 3.2 [facility] HGB BLD MCNC 12.8 g/dL Normal 08/20/2023 12.5 - 16 [facility] MCV RBC AUTO 94.5 fL Normal 08/20/2023 78 - 100 [facility] RDW RBC AUTO RTO 15.2 % Normal 08/20/2023 12.1 - 16.2 [facility] LYMPHOCYTES NFR BLD AUTO 16.0 % Below low normal 08/20/2023 20 - 48 [facility] DIFFERENTIAL TYPE AUTOMATED Normal 08/20/2023 C [facility] NEUTROPHILS NFR BLD AUTO 72.8 % Normal 08/20/2023 44 - 74 [facility] RBC NO. BLD AUTO 4.11 M/uL Below low normal 08/20/2023 4.2 - 5.4 [facility] EOSINOPHIL NO. BLD AUTO 0.2 K/uL Normal 08/20/2023 0 - 0.5 [facility] MONOCYTES NO. BLD AUTO 0.4 K/uL Normal 08/20/2023 0 - 0.8 [facility] MCHC RBC AUTO MCNC 33.0 g/dL Normal 08/20/2023 32 - 36 [facility] PLATELET NO. BLD AUTO 190.0 K/uL Normal 08/20/2023 150 - 450 [facility] HCT VFR BLD AUTO 38.9 % Normal 08/20/2023 37 - 47 [facility] NEUTROPHILS NO. BLD AUTO 4.2 K/uL Normal 08/20/2023 1.8 - 7.8 [facility] BASOPHILS IN BLOOD BY AUTOMATED COUNT 0.0 K/uL Normal 08/20/2023 0 - 0.2 [facility] B2 Transferrin Fld Ql Not Detected Normal 07/21/2023 - [facility] History of Medication Use Medication Directions Dispensed Refills Start Date End Date Status rivaroxaban (XARELTO) 15 mg tablet Take 1 tablet (15 mg total) by mouth 1 (one) time each day with dinner. Take with food. active rivaroxaban (XARELTO) 15 mg tablet Take 1 tablet (15 mg total) by mouth 1 (one) time each day with dinner. Take with food. 5 active cephalexin 500 mg capsule Take 1 capsule 3 times a day by oral route for 3 days. 5 active Prolia 60 mg/mL subcutaneous syringe Inject 1mL subcutanouesly every 6 months. 5 active sodium chloride 0.9 % bolus 1,000 mL 1,000 mL, intravenous, at 2,000 mL/hr, Administer over 30 Minutes, Once, On Tue11/14/24 at 1147, For 1 dose 5 11/14/19 completed cephalexin (KEFLEX) 500 mg capsule Take 1 capsule (500 mg total) by mouth 3 (three) times a day for 7 days. 5 active sodium chloride 0.9 % flush 10 mL [Order 1 Start] Name: Insert large bore peripheral IV Signed Summary: STAT, Once, On Tue11/14/24 at 1146, For 1 occurrence [Order 1 End] [Order 2 Start] Name: Saline lock IV Signed Summary: Routine, Once, On Tue11/14/24 at 1146, For 1 occurrence [Order 2 End] [Order 3 Start] Name: sodium chloride 0. 5 active colchicine 0.6 mg tablet TAKE 1 TABLET BY MOUTH EVERY DAY 4 active metoprolol tartrate 25 mg tablet TAKE 1/2 TABLET TWICE A DAY BY MOUTH 4 active denosumab (PROLIA) injection 60 mg/mL Inject 1 mL (60 mg total) under the skin every 6 (six) months. 4 active pantoprazole (PROTONIX) 40 MG EC tablet 40 mg 40 mg, Oral, Daily, First dose on Tue01/21/24 at 0900Please select an indication: GERDIs this a home medication or a new start? Home Medication 4 active acetaminophen (TYLENOL) tablet 650 mg 650 mg, Oral, Once, On Tue01/20/24 at 0800, For 1 dose 4 01/20/20 completed ketorolac (TORADOL) injection 15 mg 15 mg, Intramuscular, Once, On Tue01/20/24 at 0800, For 1 dose 4 01/20/20 completed furosemide (LASIX) tablet 20 mg 20 mg, Oral, 2 times daily, First dose on Tue01/20/24 at 1800 4 active denosumab (PROLIA) 60 mg/mL syringe syringe Inject 1 mL (60 mg total) under the skin every 6 (six) months. 3 active denosumab (PROLIA) 60 mg/mL syringe syringe Inject 1 mL (60 mg total) under the skin every 6 (six) months. 3 active metroNIDAZOLE (METROCREAM) 0.75 % cream 3 active metroNIDAZOLE (METROCREAM) 0.75 % cream 3 active Xiidra 5 % dropperette 3 active ferrous sulfate 325 mg (65 mg iron) tablet,delayed release Take 1 tablet (325 mg total) by mouth. 3 07/11/20 24 completed ferrous sulfate 325 (65 FE) MG EC tablet Take 1 tablet (325 mg total) by mouth. 3 active ferrous sulfate 325 (65 FE) MG EC tablet Take 1 tablet (325 mg total) by mouth. 3 active ferrous sulfate 325 (65 FE) MG EC tablet Take 1 tablet (325 mg total) by mouth. 3 active ferrous sulfate 325 mg (65 mg iron) EC tablet Take 1 tablet (325 mg total) by mouth. 3 active Medrol Dosepak 4mg Tablet 3 05/02/20 23 active methylPREDNISolone (MEDROL DOSPAK) 4 mg tablet 3 active nitrofurantoin, macrocrystal-monohydra te, (MACROBID) 100 mg capsule 3 active oxycodone-acetaminophe n 5 mg-325 mg tablet Take 1 tablet by mouth every 8 (eight) hours as needed for pain for up to 5 doses. 3 06/10/20 23 completed oxyCODONE-acetaminophe n (PERCOCET) 5-325 mg per tablet 3 active colchicine (COLCRYS) 0.6 mg tablet TAKE 1 TABLET BY MOUTH EVERY DAY 3 active colchicine (COLCRYS) 0.6 mg tablet TAKE 1 TABLET BY MOUTH EVERY DAY 3 active colchicine 0.6 MG tablet TAKE 1 TABLET BY MOUTH EVERY DAY [address] drops,suspension OPHTHalmic SUSPension 3 active Lotemax 0.5 % ophthalmic suspension 3 active rivaroxaban (XARELTO) 20 mg tablet Take 1 tablet (20 mg total) by mouth every evening. 3 active rivaroxaban (Xarelto) 20 MG TABS tablet Take 1 tablet (20 mg total) by mouth every evening. 3 active erythromycin 5 mg/gram (0.5 %) ophthalmic ointment 3 active Xarelto 15 mg tablet take 1 tablet (15 mg) by oral route once daily with the evening meal 3 04/06/20 23 completed Valium 5 mg tablet take 1 tablet (5 mg) by oral route 2 times per day BID PRN 2 04/06/20 23 completed apixaban 2.5 mg tablet TAKE 1 TABLET (2. 5 MG TOTAL) BY MOUTH EVERY 12 (TWELVE) HOURS. 2 08/23/20 22 completed Prolia 60mg/mL Solution for Injection 2 active Misc. 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 2 active UNABLE TO FIND Mastectomy bras x 2 2 active Ipratropium [place] 0.03 % Nasal Solution Ipratropium [place] 0.03 % Nasal Solution Quantity: 30 Refills: 0 Start : [id number] 2 completed azelastine 205.5 mcg (0.15 %) nasal spray spray 1 spray (205.5 mcg) in each nostril by intranasal route 2 timesper day 2 11/13/19 22 completed Furosemide 20 MG Oral Tablet Furosemide 20 MG Oral Tablet Quantity: 90 Refills: 0 [employer] Start : [id number] 1 completed Pantoprazole Sodium 40 MG Oral Tablet Delayed Release Pantoprazole Sodium 40 MG Oral Tablet Delayed Release Quantity: 90 Refills: 0 Start : [id number] 1 completed cephalexin 500 mg tablet take 1 tablet (500 mg) by oral route 2 times per day x 7 days 1 09/08/20 21 completed cephalexin (KEFLEX) 500 MG capsule Take 1 capsule (500 mg total) by mouth 3 (three) times a day. 0 active metoprolol tartrate (LOPRESSOR) 25 mg tablet TAKE 0.5 TABLETS (12.5 MG TOTAL) BY MOUTH 2 TIMES A DAY. 0 active metoprolol tartrate (LOPRESSOR) 25 mg tablet TAKE 0.5 TABLETS (12.5 MG TOTAL) BY MOUTH 2 TIMES A DAY. 0 active metoprolol tartrate (LOPRESSOR) 25 MG tablet TAKE 0.5 TABLETS (12.5 MG TOTAL) BY MOUTH 2 TIMES A DAY. 0 active metroNIDAZOLE (METROGEL) 1 % gel APPLY TO FACE EVERY DAY AT BEDTIME 0 active mycophenolate mofetil 500 mg tablet take 1 tablets daily 0 03/09/20 21 completed furosemide (LASIX) 20 MG tablet Take 20 mg by mouth daily. 0 active lisinopril 5 mg tablet Take 1 Tablet ORA L once a day for 30 days. 9 10/19/19 20 completed ibandronate 150 mg tablet 1 tab once weekly per Dr Rincon 9 02/05/20 20 completed mirtazapine 15 mg tablet Take 1 Tablet ORAL at bedtime. 8 11/21/19 19 completed Premarin 0.625 mg/gram vaginal cream Take Cream Vaginal . 7 01/23/20 19 completed triamcinolone acetonide 0.1 % topical cream APPLY A THIN LAYERS EVERYDAY NEEDED 5 01/23/20 19 completed Premarin Take 1 Tablet ORAL QD. 1 09/10/20 13 completed Boniva Take 1 Tablet ORAL once a month as directed. 9 09/10/20 13 completed Lidoderm Take 1 Patch External daily for 30 days. 6 10/18/19 24 completed pantoprazole 40 mg tablet,delayed release Take 1 tablet (40 mg total) by mouth daily. 11/20/19 25 completed Xarelto 20 mg tablet TAKE 1 TABLET BY MOUTH EVERY DAY IN THE EVENING 11/20/19 25 completed ketoconazole 2 % shampoo APPLY TO SCALP LATHER LET SIT THEN RINSE 3 X WEEKLY 09/25/20 24 active metronidazole 0.75 % lotion APPLY TO FACE TWICE A DAY 09/25/20 24 completed neomycin 3.5 mg/g-polymyxin B 10,000 unit/g-dexameth 0.1 % eye oint APPLY RIBBON INSIDE LOWER LIDS OF BOTH EYES TWICE A DAY 09/25/20 24 active acetaminophen 325 mg tablet Take 1-2 tablets (325-650 mg total) by mouth every 6 (six) hours as needed for pain. 07/11/20 24 completed loteprednol etabonate 0.5 % eye drops,suspension INSTILL 1 DROP INTO BOTH EYES TWICE A DAY 04/11/20 24 active erythromycin 5 mg/gram (0.5 %) eye ointment PLEASE SEE ATTACHED FOR DETAILED DIRECTIONS 10/18/[address] 0.3 %-0.05 % eye drops,suspension APPLY 1 DROP INTO BOTH EYES 4 TIMES A DAY 10/18/19 24 completed Prolia 60 mg/mL subcutaneous syringe active cephalexin 500 mg capsule active colchicine 0.6 mg tablet active azelastine 137 mcg (0.1 %) nasal spray USE 2 SPRAYS BY INTRANASAL ROUTE TWICE A DAY active cephalexin 500 mg capsule TAKE 1 CAPSULE BY MOUTH THREE TIMES A DAY FOR 7 DAYS active cholecalciferol (vitamin D3) 25 mcg (1,000 unit) tablet Take 2 tablets (50 mcg total) by mouth daily. active colchicine 0.6 mg tablet TAKE 1 TABLET BY MOUTH EVERY DAY active furosemide 20 mg tablet Take 1 tablet (20 mg total) by mouth 2 (two) times a day. active ipratropium bromide 21 mcg (0.03 %) nasal spray SPRAY 2 SPRAYS INTO EACH NOSTRIL TWICE A DAY active levothyroxine 25 mcg tablet Take 1 tablet (25 mcg total) by mouth daily. active loteprednol etabonate 0.2 % eye drops,suspension INSTILL 1 DROP INTO BOTH EYES TWICE A DAY active loteprednol etabonate 0.5 % eye drops,suspension INSTILL 1 DROP INTO BOTH EYES TWICE A DAY active methylprednisolone 4 mg tablets in a dose pack TAKE 6 TABLETS ON DAY 1 DIRECTED ON PACKAGE AND DECREASE BY 1 TAB EACH DAY FOR A TOTAL OF 6 DAYS active metoprolol tartrate 25 mg tablet TAKE 1/2 TABLET TWICE A DAY BY MOUTH active metronidazole 0.75 % lotion APPLY TO FACE TWICE A DAY active metronidazole 0.75 % topical cream APPLY TO FACE TWICE A DAY active neomycin 3.5 mg/g-polymyxin B 10,000 unit/g-dexameth 0.1 % eye oint APPLY 1 RIBBON ON THE EYELIDS OF BOTH EYES TWICE A DAY OR NEEDED active prednisone 5 mg tablet TAKE 1 TABLET BY MOUTH EVERY DAY active TobraDex 0.3 %-0.1 % eye ointment APPLY A SMALL AMOUNT INTO THE CONJUNCTIVAL SAC IN THE RIGHT EYE BY OPHTHALMIC ROUTE 3 TIMES PER DAY active TobraDex 0.3 %-0.1 % eye ointment APPLY A SMALL AMOUNT INTO THE CONJUNCTIVAL SAC IN THE RIGHT EYE BY OPHTHALMIC ROUTE 3 TIMES PER DAY active vitamin E 1 capsule by mouth once daily active vitamin E 200 unit tablet Take 400 mg by mouth daily. active Xarelto 15 mg tablet TAKE 1 TABLET (15 MG TOTAL) BY MOUTH EVERY EVENING. TAKE WITH DINNER. active acetaminophen (TYLENOL) 325 mg tablet Take 1-2 tablets (325-650 mg total) by mouth every 6 (six) hours as needed for pain. active acetaminophen (TYLENOL) 325 mg tablet Take 1-2 tablets (325-650 mg total) by mouth every 6 (six) hours as needed for pain. active acetaminophen (TYLENOL) 325 MG tablet Take 650 mg by mouth 4 times daily (every 6 hours) as needed for mild pain. active cholecalciferol (VITAMIN D-3) 25 mcg (1,000 unit) tablet Take 2 tablets (50 mcg total) by mouth daily. active cholecalciferol (VITAMIN D-3) 25 mcg (1,000 unit) tablet Take 2 tablets (50 mcg total) by mouth daily. active furosemide (Lasix) 20 MG tablet Take 1 tablet (20 mg total) by mouth 2 (two) times a day. active furosemide (LASIX) 20 mg tablet Take 1 tablet (20 mg total) by mouth 2 (two) times a day. active furosemide (LASIX) 20 mg tablet Take 1 tablet (20 mg total) by mouth 2 (two) times a day. active levothyroxine (SYNTHROID, LEVOTHROID) 25 mcg tablet Take 1 tablet (25 mcg total) by mouth daily. active levothyroxine (SYNTHROID, LEVOTHROID) 25 mcg tablet Take 1 tablet (25 mcg total) by mouth daily. active levothyroxine (SYNTHROID, LEVOXYL) tablet 25 mcg Take 1 tablet (25 mcg total) by mouth daily. active Levothyroxine Sodium 25 MCG Oral Tablet Levothyroxine Sodium 25 MCG Oral Tablet Refills: 0Active completed Multi-Vitamin Daily TABS Multi-Vitamin Daily TABS Refills: 0 CARBOY FILLER Active completed Multiple Vitamin (MULTI-VITAMIN) tablet Take 1 tablet by mouth daily. active pantoprazole (PROTONIX) 40 mg EC tablet Take 1 tablet (40 mg total) by mouth daily. active pantoprazole (PROTONIX) 40 mg EC tablet Take 1 tablet (40 mg total) by mouth daily. active vitamin D3 (cholecalciferol) 25 MCG (1000 UT) tablet Take 2 tablets (50 mcg total) by mouth daily. active Vitamin E 200 units TABS Take 400 mg by mouth daily. active vitamin E acid succinate (vitamin E succinate) 134 mg (200 unit) tablet Take 400 mg by mouth daily. active warfarin (COUMADIN) 7.5 MG tablet Take 3.75 mg by mouth once a week. on Tuesday active Allergies Allergen Reaction Severity Comment Documented Date Source Statu s MYCOPHENOLATE MOFETIL Other Reaction(s): Not available 01/02/2025 [facility]_THSFRAN active COLCHICINE Other reaction(s): Other (See Comments) Made the patient feel in another world completely, brought persons and living persons in her mind, nightmares during the night,Other reaction(s): Other (See Comments) Made the patient feel in another world completely, brought persons and living persons in her mind, nightmares during the night 10/14/2020 [facility]_THSFRAN active NIFEDIPINE Other Reaction(s): Not available 02/10/2007 [facility]_THSFRAN active APIXABAN Other Reaction(s): Not available,Eliqu is CT_THSFRAN ASPIRIN ENS_PODCRCT CELLCEPT ENS_GRANBY C T ELIQUIS ENS_GRANBY C T Problems Problem Status Onset Date Problem Type Date of Resolution Source Drug-induced systemic lupus erythematosus active ProblemAct ENS_PHCCT Postartificial menopausal syndrome active ProblemAct ENS_PHCCT 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 ProblemAct ENS_PHCCT Lupus erythematosus active ProblemAct ENS_PHCCT Gastroesophageal reflux disease active ProblemAct ENS_PHCCT Cellulitis active ProblemAct ENS_PHCCT Anemia of renal disease active ProblemAct ENS_PHCCT 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 ENS_PHCCT Mammographic calcification of breast active ProblemAct ENS_PHCCT Dementia active ProblemAct ENS_PHCCT Malignant tumor of breast active ProblemAct ENS_PHCCT Essential hypertension active ProblemAct ENS_PHCCT Raynaud's disease active ProblemAct ENS_PHCCT History of left mastectomy active ProblemAct ENS_PHCCT Mass of skin of right lower limb active ProblemAct ENS_PHCCT Anemia active ProblemAct ENS_PHCCT Hypertensive disorder active ProblemAct ENS_PHCCT Paroxysmal atrial fibrillation active ProblemAct ENS_PHCCT Anticoagulant effect active ProblemAct ENS_PHCCT International normalized ratio above reference range active ProblemAct ENS_PHCCT Senile osteoporosis active ProblemAct ENS_PHCCT Lung consolidation active ProblemAct ENS_PHCCT Chronic kidney disease stage 3A active ProblemAct ENS_PHCCT Atrial fibrillation active ProblemAct ENS_PHCCT Cachexia active ProblemAct ENS_PHCCT Peptic ulcer active ProblemAct ENS_PHCCT Localized edema active ProblemAct ENS_PHCCT Secondary hyperparathyroidism active ProblemAct ENS_PHCCT Disorder of thyroid gland active ProblemAct ENS_PHCCT Mammography abnormal active ProblemAct ENS_PHCCT Vitamin D deficiency active ProblemAct ENS_PHCCT Malignant neoplasm of female breast active ProblemAct ENS_PHCCT Suspected COVID-19 active ProblemAct ENS_PHCCT Anemia of renal disease active ProblemAct CTTHNEMG Secondary hyperparathyroidism active ProblemAct CTTHNEMG Anticoagulated on Coumadin active ProblemAct CTTHNEMG Essential hypertension active ProblemAct CTTHNEMG Pap smear for cervical cancer screening active ProblemAct CTTHNEMG Aortic valve insufficiency, etiology of cardiac valve disease unspecified active EncounterDiagnosisAct CTTHNEMG Abnormal EKG active EncounterDiagnosisAct CTTHNEMG Drug-induced systemic lupus erythematosus active ProblemAct CTTHNEMG Supratherapeutic INR active ProblemAct CTTHNEMG Mitral valve stenosis, unspecified etiology active EncounterDiagnosisAct CTTHNEMG Ambulatory dysfunction active EncounterDiagnosi sAct CTTHSFRAN Malignant neoplasm of female breast (CMS/HCC V24, CMS/HCC V28) active ProblemAct CT_THJMH Bilateral leg edema active ProblemAct CT_THJMH GERD (gastroesophageal reflux disease) active ProblemAct CT_THJMH Lung consolidation (CMS/HCC V24) active ProblemAct CT_THJMH Screening mammogram, encounter for active EncounterDiagnosisAct CT_TH JM Nonrheumatic aortic valve insufficiency active ProblemAct CT_THJMH Paroxysmal atrial fibrillation ([facility] V24, [facility] V28) active ProblemAct CT_THJMH Breast calcifications on mammogram active ProblemAct CT_THJMH Thyroid disorder active ProblemAct CT_THJMH Artificial menopause active ProblemAct CT_THJMH Dementia ([facility] V24, [facility] V28) active ProblemAct CT_THJMH Symptomatic anemia active ProblemAct CT_THJMH A-fib ([facility] V24, [facility] V28) active ProblemAct CT_THJMH Lupus erythematosus active ProblemAct CT_THJ Cellulitis active ProblemAct CT_THJ Status post mastectomy, left active ProblemAct CT_THJMH Stage 3a chronic kidney disease active ProblemAct CTTHJMH Abnormal mammogram of left breast active ProblemAct CT_THJ Skin lesion of right lower extremity active ProblemAct CT_THJ PUD (peptic ulcer disease) active ProblemAct CT_THJ Rib deformity active EncounterDiagnosisAct CTTHJMH Raynaud disease active ProblemAct CT_THJ Hypertension active ProblemAct CT_THJMH Suspected COVID-19 virus infection active ProblemAct CT_THJMH Stage 3 chronic kidney disease ([facility] V24, [facility] V28) active ProblemAct CT_THJMH Neoplasm of left breast, primary tumor staging category Tis: ductal carcinoma in situ (DCIS) active ProblemAct CT_THJMH Cachexia ([facility] V24) active ProblemAct CT_THJMH Chronic kidney disease stage 3A active ProblemAct ENS_GRANBYCT Raynaud's disease active ProblemAct E NS_GRANBYCT Osteoarthritis of left knee joint active ProblemAct ENS_GRANBYCT Chronic kidney disease active ProblemAct ENS_GRANBYCT Crystal arthropathy active ProblemAct ENS_GRANBYCT Grief finding active ProblemAct ENS_GRANBYCT Gastroesophageal reflux disease without esophagitis active ProblemAct ENS_GRANBYCT Chronic kidney disease due to hypertension active ProblemAct ENS_GRAN BYCT Cataract active ProblemAct ENS_GRANB YCT Diastolic heart failure active ProblemAct ENS_GRANBYCT Paroxysmal atrial fibrillation active ProblemAct ENS_GRANBYCT Pain of knee region active ProblemAct ENS_GRANBYCT Senile osteoporosis active ProblemAct ENS_GRANBYCT Polymyalgia rheumatica active ProblemAct ENS_GRANBYCT Varicose veins of bilateral lower limbs active ProblemAct ENS_GR ANBYCT 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 ProblemAct ENS_GRANBYCT Rheumatic tricuspid valve regurgitation active ProblemAct ENS_GRAN BYCT History of peptic ulcer active ProblemAct ENS_GRANBYCT Hypothyroidism active ProblemAct ENS_ GRANBYCT Posterior rhinorrhea active ProblemAct ENS_GRANBYCT 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 ENS_GRAN BYCT Memory impairment active ProblemAct ENS_GRANBYCT Long-term current use of drug therapy active ProblemAct ENS_GRANBYCT Bilateral acquired eyelid ptosis active ProblemAct ENS_GRANBYCT Osteoarthritis active ProblemAct ENS_ GRANBYCT Rheumatic mitral stenosis active ProblemAct ENS_GRANBYCT Body mass index less than 20 active ProblemAct ENS_GRANBYCT Systemic lupus erythematosus active ProblemAct ENS_GRANBYCT Aortic valve regurgitation active ProblemAct ENS_GRANBYCT Primary malignant neoplasm active ProblemAct ENS_GRANBYCT Atherosclerosis of coronary artery without angina pectoris active ProblemAct ENS_GRANBYCT Hyperuricemia without signs of inflammatory arthritis and tophaceous disease active ProblemAct ENS_GRANB YCT Osteoporosis active ProblemAct ENS_GR ANBYCT Pain in right toe(s) active ProblemAct ENS_PODCRCT BUNION active ProblemAct ENS_PODCRCT Localized edema active ProblemAct ENS_PODCRCT Idiopathic gout, right ankle and foot active ProblemAct ENS_PODCRCT CAPSULITIS UNS SITE active ProblemAct ENS_PODCRCT Pain in right foot active EncounterDiagnosisAct ENS_PODCRCT Porokeratoma active EncounterDiagnosisAct ENS_PODCRCT POROKERATOMA active ProblemAct ENS_PODCRCT Contusion of left great toe with damage to nail, initial encounter active ProblemAct ENS_PODCRCT Pain in left foot active ProblemAct ENS_PODCRCT Acute on chronic anemia active ProblemAct HHCCT Atrial fibrillation with RVR active ProblemAct HHCCT Immunizations Vaccine Date Source Lot Number Status Abrysvo (PF) 120 mcg/0.5 mL intramuscular solution 04/17/2025 ENS_GRANBYCT [id number] completed Adacel (Tdap Adolesn/Adult)( PF)2 Lf-(2.5-5-3-5)-5 Lf/0.5 mL IM syringe 04/17/2025 ENS_GRANBYCT [id number] completed influenza, high dose seasona l, preservative-free 08/03/2024 ENS_GRANBYCT [id number] completed SARS-COV-2 (COVID-19) vaccin e, mRNA, spike protein, LNP, preservative free, brandee-sucrose, 30 mcg/0.3 mL dose 08/03/2024 ENS_GRANBYCT [id number] completed influenza, high-dose seasona l, quadrivalent, preservative free 07/12/2023 ENS_GRANBYCT [id number] completed SARS-COV-2 (COVID-19) vaccin e, mRNA, spike protein, LNP, preservative free, brandee-sucrose, 30 mcg/0.3 mL dose 07/12/2023 ENS_GRANBYCT [id number] completed SARS-COV-2 (COVID-19) vaccin e, mRNA, spike protein, LNP, bivalent booster, preservative free, 30 mcg/0.3 mL dose, brandee-sucrose formulation 08/04/2022 ENS_GRANBYCT [id number] complet ed SARS-COV-2 (COVID-19) vaccin e, UNSPECIFIED 08/04/2022 ENS_GRANBYCT completed influenza, high-dose seasona l, quadrivalent, preservative free 07/27/2022 ENS_GRANBYCT [id number] completed SARS-COV-2 (COVID-19) vaccin e, mRNA, spike protein, LNP, preservative free, 30 mcg/0.3mL dose 09/24/2021 ENS_GRANBYCT [id number] completed zoster vaccine subunit 09/08/2021 ENS_GRANBYCT [id number] completed SARS-COV-2 (COVID-19) vaccin e, UNSPECIFIED 08/25/2021 ENS_GRANBYCT completed influenza, high-dose seasona l, quadrivalent, preservative free 08/08/2021 ENS_GRANBYCT [id number] completed zoster vaccine subunit 04/07/2021 ENS_GRANBYCT completed SARS-COV-2 (COVID-19) vaccin e, mRNA, spike protein, LNP, preservative free, 30 mcg/0.3mL dose 12/16/2020 ENS_GRANBYCT [id number] completed SARS-COV-2 (COVID-19) vaccin e, UNSPECIFIED 12/16/2020 ENS_GRANBYCT completed SARS-COV-2 (COVID-19) vaccin e, mRNA, spike protein, LNP, preservative free, 30 mcg/0.3mL dose 11/25/2020 ENS_GRANBYCT [id number] completed SARS-COV-2 (COVID-19) vaccin e, UNSPECIFIED 11/25/2020 ENS_GRANBYCT completed influenza, seasonal, injectable 07/10/2020 ENS_GRANBYCT completed influenza, high-dose seasona l, quadrivalent, preservative free 06/17/2020 ENS_GRANBYCT [id number] completed pneumococcal conjugate vacci ne, 13 valent 06/17/2020 ENS_GRANBYCT [id number] completed zoster vaccine subunit 06/17/2020 ENS_GRANBYCT [id number] completed influenza, seasonal, injectable 07/16/2019 ENS_GRANBYCT completed pneumococcal polysaccharide vaccine, 23 valent 01/22/2019 ENS_GRANBYCT completed tetanus toxoid, reduced diph theria toxoid, and acellular pertussis vaccine, adsorbed 09/26/2015 ENS_GRANBYCT completed zoster vaccine subunit 09/23/2014 ENS_GRANBYCT completed tetanus and diphtheria toxoi ds, adsorbed, preservative free, for adult use 08/20/2010 ENS_GRANBYCT completed Encounters Encounter Type Encounter Reason Primary Diagnosis Location Date Ambulatory [facility]25 Ambulatory [facility] [place] 04/18/2025 Ambulatory Malignant neoplasm of unspecified site of unspecified female breast ([facility] V24, [facility] V28) Malignant neoplasm of unspecified site of unspecified female breast ([facility] V24, [facility] V28) [facility] 03/29/2025 Ambulatory Encounter for screening mammogram for malignant neoplasm of breast Encounter for screening mammogram for malignant neoplasm of breast [facility] 03/25/2025 Ambulatory Chest Pain Paroxysmal atria l fibrillation ([facility] V24, [facility] V28) [facility] 02/13/2025 Ambulatory 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 [facility] 12/27/2024 Ambulatory [facility], [facility] 12/05/2024 Ambulatory [facility] 11/20/2024 Ambulatory [facility] 11/20/2024 Emergency Shooting Pain in back and feet upon standing Pain in right leg [facility] 11/17/2024 Ambulatory [facility] 11/15/2024 Emergency Confusion Cellulitis of ri ght lower limb [facility] 11/14/2024 Ambulatory [facility] 11/03/2024 Ambulatory [facility], [facility] 09/25/2024 Ambulatory Acquired deformity of chest and rib Acquired deformity of chest and rib [facility] 05/24/2024 Ambulatory 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 [facility] 05/22/2024 Ambulatory [facility], [facility] 02/16/2024 Ambulatory [facility], [facility] 02/08/2024 Emergency Difficulty in walking, not elsewhere classified Difficulty in walking, not elsewhere classified [facility] 01/20/2024 Ambulatory [facility], [facility] 01/11/2024 Ambulatory [employer] [facility], [facility] 12/28/2023 Ambulatory 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 [facility] 09/12/2023 Ambulatory [facility] 08/22/2023 Emergency Strain of adductor muscle, fascia and tendon of unspecified thigh, initial encounter Strain of adductor muscle, fascia and tendon of unspecified thigh, initial encounter [facility] 08/19/2023 Inpatient Unspecified atrial fibrillation Unspecified atrial fibrillation [facility] 07/30/2023 Ambulatory [facility] 06/09/2023 Emergency Anemia, unspecified [facility] 05/05/2023 Emergency Pain in right hip [facility] 04/21/2023 Care Team Organization Name Specialty Phone Email Start Date End Da te [facility] 03/26/2025 [facility] 03/26/2025 [facility] 12/26/2024 [facility] 11/25/2024 [facility] 11/14/2024 [facility], 11/13/2024 [facility] 05/22/2024 [facility] Stephan Arredondo [facility] 08/0 03/2024 [facility] 05/03/2024 [facility] 09/12/2023 04/30/2025 [facility], [facility] 09/01/2023 [facility] 08/19/2023 024 [facility] 04/26/2023 [facility] 04/30/2025 [facility] Stephan Arnulfo [facility] 04/21/2023 04/21/2023 [facility] 08/24/2022 [facility] Stephan Arredondo [facility] 12/09/2021 04/23/2022 [facility] Stephan Arredondo Primary [facility]
--- OUTSIDE RECORDS SUMMARY | 2025-06-26 17:59 | XMS_ITS | Clinical Summary ---
Author Organization [facility] Address [address] [place] [address] Phone Care Team Providers Care Pickle Cutter Name Role Phone ArnulfoStephan marin Primary Care Provider [phone] Allergies Active Allergy Reactions Criticality Noted Date [...] 07/29/2021 Overview (01/05/2022): [facility], biopsied by outside infrastructure solutions architect, waiting for report Chronic kidney disease stage [...] 10/23/2019 12:00 PM EST Plan of Treatment Health Maintenance Due Date Last Done Comments Influenza Vaccine (#1) 2025 08/03/2024 Pneumococcal Vaccine: 50+ Years Completed 06/17/2020, 01/22/2019 Pneumococcal Vaccine: Peds (0 to 5 Years) and At-Risk Patients (6 to 49 Years) Discontinued 06/17/2020, 01/22/2019 Hepatitis B Vaccine Aged Out No longe r eligible based on patient's age to complete this topic Insurance Medicare Cig Medicare Care Teams Pickle Cutter Relationship Specialty Start Date End Date Stephan Arredondo [address] [place] [address] PCP - General Family Medicine 07/07/21
--- OUTSIDE RECORDS SUMMARY | 2025-06-26 17:59 | XMS_ITS | Encounter Summary ---
Author Organization [facility] Address [address] [place] [address] Care Team Providers Care Ball Mill Operator Name Role Phone Teresa Seay Primary Care Provider Un available Encounter Details Date Type Department Care Team (Late st Contact Info) Description 07/21/2023 Orders Only [facility] [address] [place], [place] [id number] Raphael Dickey MD [address] [facility] [address] [place], [place] [id number] Social History Tobacco Use Types Packs/Day Years Used Date Smoking Tobacco: Never Assessed Comments:Smoking Status:Neve r a smoker Comments Unknown Sex and Gender Information Value Date Recorded Sex Assigned at Not on file Legal Sex Female 5:50 PM EDT Gender Identity Not on file Sexual Orientation Not on file documented as of this encounter Procedure Notes * Raphael Dikcey - 07/21/2023 5:45 PM EDT Verified Results BETA 2 TRANSFERRIN, BODY FLUID 18Jul2023 10:06AM Raphael Dickey Testing performed at: [facility], [address], [place], [address], Supplies Packer: Bruce Al M.D.,PhD [facility] Collection Date/Time: [id number] [facility] Results Received Date/Time: [id number] [facility] Reported Date/Time: [id number] Test Name Result Flag Reference BETA 2 [...] on filedocumented in this encounter Care Teams Ball Mill Operator Relationship Specialty Start Date End Date Teresa Seay PCP - General 05/23/23 documented as of this encounter
--- OUTSIDE RECORDS SUMMARY | 2025-06-26 17:59 | XMS_ITS | Clinical Summary ---
Author [facility] [place] [address] Phone Care Team Providers Care Ophthalmic Surgical Assistant Name Role Phone ArnulfoStephan Primary Care Provider [phone] Allergies Active Allergy Reactions Criticality Noted Date Comments Apixaban Unknown 01/02/2025 Other Reaction(s): Not available Eliquis Colchicine Medium 10/14/2020 Other reaction(s): Other (See Comments) Made the patient feel in another world completely, brought persons and living persons in her mind, nightmares during the night Other reaction(s): Other (See Comments) Made the patient feel in another world completely, brought persons and living persons in her mind, nightmares during the night Mycophenolate Mofetil Unknown 01/02/2025 Other Reaction(s): Not available Nifedipine Unknown 02/10/2007 Other Reaction(s): Not available Medications acetaminophen (TYLENOL) 325 mg tablet Take 1-2 tablets (325-650 mg total) by mouth every 6 (six) hours as needed for pain. Active colchicine (COLCRYS) 0.6 mg tablet TAKE 1 TABLET BY MOUTH EVERY DAY 3 Active denosumab (PROLIA) 60 mg/mL syringe syringe Inject 1 mL (60 mg total) under the skin every 6 (six) months. 3 Active furosemide (LASIX) 20 mg tablet Take 1 tablet (20 mg total) by mouth 2 (two) times a day. Active levothyroxine (SYNTHROID, LEVOTHROID) 25 mcg tablet Take 1 tablet (25 mcg total) by mouth daily. Active metoprolol tartrate (LOPRESSOR) 25 mg tablet TAKE 0.5 TABLETS (12.5 MG TOTAL) BY MOUTH 2 TIMES A DAY. 0 Active pantoprazole (PROTONIX) 40 mg EC tablet Take 1 tablet (40 mg total) by mouth daily. Active cholecalciferol (VITAMIN D-3) 25 mcg (1,000 unit) tablet Take 2 tablets (50 mcg total) by mouth daily. Active multivitamin (MULTIPLE VITAMINS ORAL) Take 1 tablet by mouth daily. Active UNABLE TO FIND Mastectomy bras x 2 2 Active metroNIDAZOLE (METROCREAM) 0.75 % cream 3 Active VITAMIN E ACETATE ORAL 1 capsule by mouth once daily Active rivaroxaban (XARELTO) 15 mg tabletIndications :Paroxysmal atrial fibrillation ([facility] V24, [facility] V28) Take 1 tablet (15 mg total) by mouth 1 (one) time each day with dinner. Take with food. 90 each 3 5 02/14/20 26 Active Active Problems Problem Noted Date Diagnosed Date Nonrheumatic aortic valve insufficiency 02/14/20 25 Dementia ([facility] V24, [facility] V28) 07/31/2023 A-fib ([facility] V24, [facility] V28) 07/30/2023 Skin lesion of right lower extremity 07/29/2021 Overview (12/12/2023): [facility], biopsied by outside library historian, waiting for report Artificial menopause 06/05/2021 Bilateral leg edema 12/29/2020 Stage 3 chronic kidney disease ([facility] V24, [facility] V28) 12/29/2020 Cellulitis 08/15/2020 Paroxysmal atrial fibrillation ([facility] V24, [facility] V28) 08/15/2020 Lung consolidation ([facility] V24) 01/17/2020 PUD (peptic ulcer disease) 01/17/2020 Suspected COVID-19 virus infection 01/17/2020 Age-related osteoporosis wit priscilla current pathological fracture 10/23/2019 Thyroid disorder 10/23/2019 Status post mastectomy, 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 Neoplasm of left breast, ron dony tumor staging category Tis: ductal carcinoma in situ (DCIS) 12/27/2018 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/17/2018 Cachexia ([facility] V24) 10/20/2018 GERD (gastroesophageal reflux disease) 9 Hypertension 10/20/2018 Malignant neoplasm of female breast ([facility] V24, [facility] V28) 10/20/2018 Raynaud disease 10/20/2018 Symptomatic anemia 10/20/2018 Abnormal mammogram of left breast 08/25/2018 Lupus erythematosus 07/31/2018 Breast calcifications on mammogram 08/12/2015 Resolved Problems Problem Noted Date Diagnosed Date Resolved Date Supratherapeutic INR 01/17/2020 025 Encounters Date Type Department Care Team Description 03/29/2025 10:00 AM EDT Office Visit Breast Surgery - [facility] [facility] [address] [place] [address] Ashleigh Eric MD Malignant neoplasm of female breast, unspecified estrogen receptor status, unspecified laterality, unspecified site of breast ([facility] V24, [facility] V28) (Primary Dx); Status post mastectomy, left; Inconclusive mammogram due to dense breasts; Screening mammogram for breast cancer; Breast lump in female; Other specified disorders of breast 03/29/2025 Telephone [facility] Consult [address] [place] [address] Ashleigh Eric MD from Last 3 Months Immunizations Name Administration [...] LOC; Surgeon: Alma Delia Coleman MD; Location: [facility]UL[facility]ORY SURGERY; Service: Breast; Laterality: Left; UPPER GASTROINTESTINAL ENDOSCOPY 10/20/2018 N/A PROCEDURE:UPPER GASTROINTESTINAL ENDOSCOPY;COMMENT:Procedure: UPPER ENDOSCOPY-EGD; Surgeon: Fawn Juarez MD; Location: [facility] ENDOSCOPY; Service: Gastroenterology; Laterality: N/A; CATARACT [...] DX:Hypertension Hyperlipidemia DX:Hyperlipidemi a Anemia DX:Anemia A-fib (CMS/HCC V24, [facility]/HCC V28) DX:A-fib (HCC) Arrhythmia DX:Arrhythmia;CO MMENT: Status post mastectomy, 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 DX: Status post mastectomy, left GIB (gastrointestinal bleeding) 10/20/2018 DX:GIB (gastrointestinal bleeding) Malignant neoplasm of female breast ([facility] V24, [facility] V28) 10/20/2018 DX:Malignant neoplasm of fe male breast (HCC);COMMENT:LEFT Family History Medical History Relation [...] Passive Smoke Exposure: Never Smokeless Tobacco: Never Tobacco Cessation:Counseling Given: [...] disclose 2024 12:34 PM EST Obstetrics History Para Term AB IAB SAB Ectopic Multiple Livin g Live Births 5 5 5 5 Date Outcome GA Total Labor Labor/2nd/3rd Weight Sex Type Anes PTL Nemo A1 A5 Name Clin Term Term Term Term Term Last Filed Vital Signs Vital Sign Reading Time Taken Comments Blood Pressure 123/49 03/29/2025 10:12 AM EDT Pulse 56 03/29/2025 10:12 AM EDT Temperature 36.6 C (97.8 F) 03/29/2025 10:12 AM EDT Respiratory Rate 18 12/27/2024 1:51 PM EDT Oxygen Saturation 98% 03/29/2025 10:12 AM EDT Inhaled Oxygen Concentration - - Weight 46.3 kg (102 lb) 03/29/2025 10:12 AM EDT Height 160 cm (5' 3 ) 03/29/2025 10:12 AM EDT Body Mass Index 18.07 03/29/2025 10:12 AM EDT Plan of Treatment Upcoming Encounters Date Type Department Care Team (Late st Contact Info) Description 07/30/2025 9:00 AM EDT Office Visit Neurology - [facility] [facility] [address] [place] [address] Av Atkinson MD [address] [facility] [address] [place], [place] [id number] 08/06/2025 3:40 PM EDT Office Visit [facility] - [place] [address] [place] [phone] Alem Snow MD [address] [place] [address] 02/13/2026 9:15 AM EDT Office Visit [facility] - [place] [address] [facility] [address] [place] [phone] Liam Blood MD [address] [facility] [address] [place] [address] Health Maintenance Due Date Last Done Comments Cholesterol Screening (Lipid Panel) 09/23/2022 Falls Risk Assessment 09/23/2022 Social Influencers of Health Screening 09/23/2022 Medicare Annual Wellness Visit 04/06/2024 04/06/2023 Depression Screening 10/17/2024 COVID-19 Vaccine (8 - Mixed Product risk season) 2025 08/03/2024, 07/12/2023, 08/04/2022, Additional history exists Influenza Vaccine (#1) 2025 , 07/12/2023, 07/27/2022, Additional history exists Hypertension/CHF/CAD Annual BMP Blood Test 11/14/2025 11/14/2024, 06/29/2024, 01/20/2024, Additional history exists Osteoporosis Screening (Bone Density Screening) 05/07/2034 05/07/2024, 05/04/2022, 08/31/2019 DTaP,Tdap,and Td Vaccines (4 - Td or Tdap) 04/17/2035 04/17/2025, 09/26/2015, 08/20/2010 Pneumococcal Vaccine: 50+ Years Completed 06/17/2020, 01/22/2019 Zoster Vaccines Completed 09/08/2021, 03/18, 06/17/2020, Additional history exists RSV Immunization Adult Patients Completed 04/17/2025 HIB Vaccines Aged Out No longer eligi [...] age to complete this topic Meningococcal B Vaccine Aged Out No l onger eligible based on patient's age to complete this topic RSV Immunization Patients Under 20 months Aged Out No longer eligible based on patient's age to complete this topic Varicella Vaccines Aged Out No longer eligible based on patient's age to complete this topic Procedures Procedure Name Priority Date/Time Associated Diagnosis Comments COMPREHENSIVE METABOLIC PANEL STAT 11/14/2024 11:53 AM EST BONE DENSITY STUDY Routine 05/07/2024 8: 59 AM EDT Encounter for screening for osteoporosis Asymptomatic menopausal state Age-related osteoporosis without current pathological fracture from Last 3 Months or Most Recently Relevant to Health Maintenance Results * (ABNORMAL) Comprehensive metabolic panel (11/14/2024 11:53 AM EST) Sodium 137 135 - 145 mmol/L LAB CHEMISTRY METHOD 11/14/2024 12:45 PM [facility] Potassium 3.9 3.5 - 5.1 mmol/L LAB CHEMISTRY METHOD 11/14/2024 12:45 PM [facility] Comment:Slightly Hemolyzed Chloride 99 98 - 107 mmol/L LAB CHEMISTRY METHOD 11/14/2024 12:45 PM [facility] CO2 28 24 - 32 mmol/L LAB CHEMISTRY METHOD 11/14/2024 12:45 PM [facility] Anion Gap 10 5 - 14 LAB CHEMISTRY METHOD 11/14/2024 12:45 PM [facility] Glucose 116 70 - 199 mg/dL LAB CHEMISTRY METHOD 11/14/2024 12:45 PM [facility] BUN 28(H) 7 - 17 mg/dL LAB CHEMISTRY METHOD 11/14/2024 12:45 PM [facility] Creatinine 1.20(H) 0.50 - 1.00 mg/dL LAB CHEMISTRY METHOD 11/14/2024 12:45 PM [facility] eGFR 45(L) >=60 mL/min/1. 73m2 LAB CHEMISTRY METHOD 11/14/2024 12:45 PM [facility] Comment:Calculation based on the Chronic Kidney Disease Epidemiology Collaboration (CKD-EPI) equation refit without adjustment for race. BUN/Creatinine Ratio 23.3(H) 12.0 - 20.0 LAB CHEMISTRY METHOD 11/14/2024 12:45 PM [facility] Calcium 9.3 8.4 - 10.2 mg/dL LAB CHEMISTRY METHOD 11/14/2024 12:45 PM [facility] AST (SGOT) 44(H) 5 - 40 unit/L LAB CHEMISTRY METHOD 11/14/2024 12:45 PM [facility] Comment:Slightly Hemolyzed ALT (SGPT) 20 7 - 52 unit/L LAB CHEMISTRY METHOD 11/14/2024 12:45 PM [facility] Alkaline Phosphatase 111(H) 34 - 104 unit/L LAB CHEMISTRY METHOD 11/14/2024 12:45 PM EST [facility] Total Protein 7.4 6.4 - 8.5 g/dL LAB CHEMISTRY METHOD 11/14/2024 12:45 PM EST [facility] Albumin 4.0 3.5 - 5.0 g/dL LAB CHEMISTRY METHOD 11/14/2024 12:45 PM EST [facility] Total Bilirubin 1.0 0.3 - 1.0 mg/dL LAB CHEMISTRY METHOD 11/14/2024 12:45 PM EST [facility] Blood Venous blood specimen / Unknown Venipuncture / Unknown 11/14/2024 11:53 AM EST 11/14/2024 12:07 PM EST Gil Dos Santos MD LAB BLOOD ORDERABLES Final Result [facility] [address] [place] [address], * BONE DENSITY STUDY (05/07/2024 8:59 AM EDT) Anatomical Region Laterality Modality Bone Densitometr y 04/11/2024 4:01 PM EDT Narrative 05/07/2024 9:56 AM EDT Bone density study Indication and risk factors: Postmenopausal female. History of osteoporosis, assess for interval change. Comparisons: 05/04/2022. Study acquired on a [employer] densitometer. Imaging of the lumbar spine and [...] spine: Increased bone density, now measuring within normal limits. 2. Left hip: Stable osteoporosis. SESSION: Not [...] on 05/07/2024 9:56 AM. Workstation Name - [facility] Procedure Note Lupis Sanchez MD - 07/31/2024 Bone density study Indication and risk factors: Postmenopausal female. History ofosteoporosis, assess for interval change. Comparisons: 05/04/2022. Study acquired on a [employer] densitometer. Imaging of thelumbar spine and hip [...] Sanchez on 05/07/2024 9:56 AM.Workstation Name - [facility] Stephan Arredondo DO IMG DXA PROCEDURES Final Result from Last 3 Months or Most Recently Relevant to Health Maintenance Insurance MEDICARE [facility] Care Teams Ophthalmic Surgical Assistant Relationship Specialty Start Date End Date Stephan Arredondo DO [address] [place] [phone] PCP - General Family Medicine 08/11/17
--- OUTSIDE RECORDS SUMMARY | 2025-06-26 17:59 | XMS_ITS | Encounter Summary ---
Author Organization [facility] Address [address] [place] [address] Care Team Providers Care Steel Welder Name Role Phone Teresa Seay Primary Care Provider Un available Encounter Details Date Type Department Care Team (Late st Contact Info) Description 08/09/2023 Orders Only [facility] [address] [place], [place] [id number] Raphael Dickey MD [address] [facility] [address] [place], [place] [id number] Social History Tobacco Use Types Packs/Day Years [...] 03Aug2023 09:15AM Raphael Dickey TESTING PERFORMED AT: [address] [address], PHONE [phone], FAX [phone] Test Name Result Flag Reference CT Maxillofacial [...] referring your patient to us, Justine Ellison [id number] (Electronically Signed - 08/04/2023 09:04) Copy: KIM BUCK [address] [address] PATIENT , documented in this encounter Plan of Treatment Not on file documented as of this encounter Visit Diagnoses Not on filedocumented in this encounter Care Teams Steel Welder Relationship Specialty Start Date End Date Teresa Seay PCP - General 05/23/23 documented as of this encounter
== END 2025-06-26 15:19 | disposition home or self-care (01) ==
LOC: HO.HKAE 14:44
PROVIDERS: Visit Provider Internal Medicine Hypertension Specialist
DX: N18.9 Chronic kidney disease, unspecified (principal); R80.9 Proteinuria, unspecified
CPT/HCPCS: 99214